=== PATIENT | male | born 1955 ===

== ENCOUNTER 2020-06-29 13:13 | Outpatient (REF) | payer MEDICARE, SELFPAY ==
--- NOTE | 2020-06-29 13:15 | XR_ITS ---
EXAMINATION: XR KNEE, BILATERAL XR KNEE, RIGHT XR KNEE, LEFT CLINICAL INFORMATION: Knee pain. COMPARISON: 06/05/2019 TECHNIQUE: AP bilateral knees one view. Left knee one view. Right knee one view. FINDINGS: RIGHT KNEE: Right total knee arthroplasty stable in position and alignment. No findings to suggest hardware failure or fracture. Small joint effusion. Vascular calcification. LEFT KNEE: Left total knee arthroplasty stable in position and alignment. No evidence of fracture or perihardware lucency to suggest hardware failure. Small effusion. XR/XR knee standing BI IMPRESSION: Stable appearance of bilateral total knee arthroplasties. Small bilateral knee effusions..
--- NOTE | 2020-06-29 13:15 | XR_ITS ---
EXAMINATION: XR KNEE, BILATERAL XR KNEE, RIGHT XR KNEE, LEFT CLINICAL INFORMATION: Knee pain. COMPARISON: 06/05/2019 TECHNIQUE: AP bilateral knees one view. Left knee one view. Right knee one view. FINDINGS: RIGHT KNEE: Right total knee arthroplasty stable in position and alignment. No findings to suggest hardware failure or fracture. Small joint effusion. Vascular calcification. LEFT KNEE: Left total knee arthroplasty stable in position and alignment. No evidence of fracture or perihardware lucency to suggest hardware failure. Small effusion. XR/XR knee RT 2V IMPRESSION: Stable appearance of bilateral total knee arthroplasties. Small bilateral knee effusions..
--- NOTE | 2020-06-29 13:15 | XR_ITS ---
EXAMINATION: XR KNEE, BILATERAL XR KNEE, RIGHT XR KNEE, LEFT CLINICAL INFORMATION: Knee pain. COMPARISON: 06/05/2019 TECHNIQUE: AP bilateral knees one view. Left knee one view. Right knee one view. FINDINGS: RIGHT KNEE: Right total knee arthroplasty stable in position and alignment. No findings to suggest hardware failure or fracture. Small joint effusion. Vascular calcification. LEFT KNEE: Left total knee arthroplasty stable in position and alignment. No evidence of fracture or perihardware lucency to suggest hardware failure. Small effusion. XR/XR knee LT 2V IMPRESSION: Stable appearance of bilateral total knee arthroplasties. Small bilateral knee effusions..
== END 2020-06-29 13:14 | disposition home or self-care (01) ==
LOC: HO.HOSX 13:13
PROVIDERS: PCP Internal Medicine; Referring Provider Internal Medicine; Visit Provider Orthopaedic Surgery
DX: M25.561 Pain in right knee (principal); M25.562 Pain in left knee; Z96.652 Presence of left artificial knee joint; Z96.651 Presence of right artificial knee joint
CPT/HCPCS: 73560; 73565; 99212

== ENCOUNTER 2020-08-22 08:46 | Outpatient (REF) | payer MEDICARE, SELFPAY ==
[2020-08-22 10:10] LABS: MANUAL DIFF FLAG NO
[2020-08-22 10:23] LABS: Basophils Percent Auto 0.3 % (0-2); Eosinophils Absolute Auto 0.3 X10*3/uL (0.0-0.4); Eosinophils Percent Auto 5.7 % (0-4); Hematocrit 41.1 % (42-52); Hemoglobin 12.8 g/dl (14.0-18.0); Imm Gran Abs Auto 0.03 X10*3/uL (0.00-0.03); Imm Gran Pct Auto 0.5 % (0.0-0.4); Lymphocytes Absolute Auto 1.5 X10*3/uL (1.2-4.9); Lymphocytes Percent Auto 26.2 % (20-40); Mean Corpuscular HGB Conc 31.1 g/dl (31.0-36.0); Mean Corpuscular Hemoglobin 25.4 pg (27.0-33.0); Mean Corpuscular Volume 81.7 fL (80-98); Mean Platelet Volume 11.9 fL (9.4-12.4); Monocytes Absolute Auto 0.7 X10*3/uL (0.1-1.2); Monocytes Percent Auto 11.7 % (2-11); Neutrophils Absolute Auto 3.2 X10*3/uL (2.0-8.3); Neutrophils Percent Auto 55.6 % (45-73); Platelet Count 175 X10*3/uL (160-400); Red Blood Count 5.03 X10*6/uL (4.60-5.80); Red Cell Distribution Width 13.6 % (11.0-16.0); White Blood Count 5.8 X10*3/uL (4.8-10.8)
[2020-08-22 10:34] LABS: Estimated Average Glucose 163 mg/dL; Hemoglobin A1c % 7.3 %
[2020-08-22 10:44] LABS: Alanine Aminotransferase 25 U/L (0-40); Albumin Level 4.3 g/dL (3.5-5.0); Alkaline Phosphatase 64 U/L (39-117); Anion Gap 15 (12-20); Aspartate Amino Transferase 27 U/L (5-37); Bilirubin Total 0.5 mg/dL (0.0-1.0); Blood Urea Nitrogen 12 mg/dL (9-16); Calcium 8.6 mg/dL (8.4-10.2); Carbon Dioxide 24 mmol/L (22-29); Chloride 108 mmol/L (96-108); Cholesterol 135 mg/dL; Estimated Glomerular Filt Rate > 60; Glucose Fasting 146 mg/dL (60-99); HDL Cholesterol 44 mg/dL; LDL Cholesterol Calculated 69 mg/dl; Potassium 4.7 mmol/l (3.3-5.1); Sodium 142 mmol/L (135-145); Total Protein 6.5 g/dL (6.5-8.0); Triglycerides 113 mg/dL
[2020-08-22 10:45] LABS: Glucose Urine UA NEG (NEG); Leukocyte Esterase Urine NEG (NEG); Nitrite Urine NEG (NEG); Specific Gravity - Urine 1.025 (1.005-1.025); Urine Blood NEG (NEG); Urine Ketones NEG (NEG); Urine Protein NEG (NEG-TRACE)
[2020-08-22 10:47] LABS: Appearance Urine CLEAR; Color Urine YELLOW
[2020-08-22 10:53] LABS: Creatinine Urine 129.56 mg/dL; Microalbum/Creatinine Ratio Ur 6.1 ug/mg cr
[2020-08-22 11:44] LABS: Reflex LDLD? No
== END 2020-08-22 08:47 | disposition home or self-care (01) ==
LOC: HO.LAB 08:46
PROVIDERS: PCP Internal Medicine; Visit Provider Internal Medicine
DX: E11.42 Type 2 diabetes mellitus with diabetic polyneuropathy (principal); E78.00 Pure hypercholesterolemia, unspecified
CPT/HCPCS: 36415; 80053; 80061; 81003; 82043; 83036; 84153; 85025

== ENCOUNTER 2020-12-28 12:24 | Outpatient (REF) | payer MEDICARE, SELFPAY ==
--- NOTE | ~2020-12-28 | XR_ITS ---
EXAMINATION: KNEE X-RAY CLINICAL INFORMATION: Pain COMPARISON: Previous x-rays June 2020 TECHNIQUE: Standing AP and lateral views of both knees FINDINGS: Right: There is a right knee replacement in satisfactory position. No fracture, dislocation or x-ray evidence of loosening is seen. There is a small joint effusion. There is evidence of atherosclerotic disease. Left: There is a left 3 component knee replacement in satisfactory position. No fracture, dislocation or x-ray evidence of loosening is seen. There is a small joint effusion. There is evidence of atherosclerotic disease. XR/XR knee RT 2V IMPRESSION: Satisfactory appearance of bilateral knee replacements.
--- NOTE | ~2020-12-28 | XR_ITS ---
EXAMINATION: KNEE X-RAY CLINICAL INFORMATION: Pain COMPARISON: Previous x-rays June 2020 TECHNIQUE: Standing AP and lateral views of both knees FINDINGS: Right: There is a right knee replacement in satisfactory position. No fracture, dislocation or x-ray evidence of loosening is seen. There is a small joint effusion. There is evidence of atherosclerotic disease. Left: There is a left 3 component knee replacement in satisfactory position. No fracture, dislocation or x-ray evidence of loosening is seen. There is a small joint effusion. There is evidence of atherosclerotic disease. XR/XR knee standing BI IMPRESSION: Satisfactory appearance of bilateral knee replacements.
--- NOTE | ~2020-12-28 | XR_ITS ---
EXAMINATION: KNEE X-RAY CLINICAL INFORMATION: Pain COMPARISON: Previous x-rays June 2020 TECHNIQUE: Standing AP and lateral views of both knees FINDINGS: Right: There is a right knee replacement in satisfactory position. No fracture, dislocation or x-ray evidence of loosening is seen. There is a small joint effusion. There is evidence of atherosclerotic disease. Left: There is a left 3 component knee replacement in satisfactory position. No fracture, dislocation or x-ray evidence of loosening is seen. There is a small joint effusion. There is evidence of atherosclerotic disease. XR/XR knee LT 2V IMPRESSION: Satisfactory appearance of bilateral knee replacements.
== END 2020-12-28 12:25 | disposition home or self-care (01) ==
LOC: HO.HOSX 12:24
PROVIDERS: PCP Internal Medicine; Visit Provider Orthopaedic Surgery
DX: Z47.1 Aftercare following joint replacement surgery (principal); Z96.653 Presence of artificial knee joint, bilateral
CPT/HCPCS: 73560; 73565; 99212

== ENCOUNTER 2021-03-06 10:40 | Outpatient (REF) | payer MEDICARE, SELFPAY ==
[2021-03-06 11:34] LABS: Alanine Aminotransferase 25 U/L (0-40); Albumin Level 4.3 g/dL (3.5-5.0); Alkaline Phosphatase 64 U/L (39-117); Aspartate Amino Transferase 28 U/L (5-37); Bilirubin Direct 0.2 mg/dL (0.0-0.5); Bilirubin Total 0.5 mg/dL (0.0-1.0); Cholesterol 129 mg/dL; Glucose Fasting 131 mg/dL (60-99); HDL Cholesterol 39 mg/dL; LDL Cholesterol Calculated 65 mg/dl; Total Protein 6.5 g/dL (6.5-8.0); Triglycerides 128 mg/dL
[2021-03-06 11:43] LABS: Estimated Average Glucose 160 mg/dL; Hemoglobin A1c % 7.2 %
[2021-03-06 11:48] LABS: Reflex LDLD? No
== END 2021-03-06 10:41 | disposition home or self-care (01) ==
LOC: HO.LNP 10:40
PROVIDERS: Visit Provider Internal Medicine
DX: E11.42 Type 2 diabetes mellitus with diabetic polyneuropathy (principal); E78.00 Pure hypercholesterolemia, unspecified
CPT/HCPCS: 80061; 80076; 82947; 83036

== ENCOUNTER 2021-05-24 08:00 | Outpatient (RCR) | payer MEDICARE, SELFPAY | END 2021-05-24 08:51 | disposition home or self-care (01) | LOC: HO.OT 08:00 | PROVIDERS: PCP Internal Medicine; Visit Provider Orthopaedic Surgery | DX: M65.332 Trigger finger, left middle finger (principal) | CPT/HCPCS: 29130; 97110; 97165; 97760 ==

== ENCOUNTER 2021-10-06 10:59 | Outpatient (REF) | payer MEDICARE, SELFPAY ==
[2021-10-06 11:03] LABS: MANUAL DIFF FLAG NO
[2021-10-06 11:32] LABS: Basophils Percent Auto 0.5 % (0-2); Eosinophils Absolute Auto 0.7 X10*3/uL (0.0-0.4); Eosinophils Percent Auto 8.2 % (0-4); Hematocrit 42.9 % (42.0-52.0); Hemoglobin 13.6 g/dl (14.0-18.0); Imm Gran Abs Auto 0.03 X10*3/uL (0.00-0.03); Imm Gran Pct Auto 0.4 % (0.0-0.4); Lymphocytes Absolute Auto 2.4 X10*3/uL (1.2-4.9); Lymphocytes Percent Auto 30.6 % (20-40); Mean Corpuscular HGB Conc 31.7 g/dl (31.0-36.0); Mean Corpuscular Hemoglobin 26.5 pg (27.0-33.0); Mean Corpuscular Volume 83.6 fL (80.0-98.0); Mean Platelet Volume 11.1 fL (9.4-12.4); Monocytes Absolute Auto 0.9 X10*3/uL (0.1-1.2); Monocytes Percent Auto 11.2 % (2-11); Neutrophils Absolute Auto 3.9 x10*3/uL (2.0-8.3); Neutrophils Percent Auto 49.1 % (45-73); Platelet Count 216 X10*3/uL (160-400); Red Blood Count 5.13 X10*6/uL (4.60-5.80); Red Cell Distribution Width 13.6 % (11.0-16.0); White Blood Count 7.9 X10*3/uL (4.8-10.8)
[2021-10-06 11:36] LABS: Appearance Urine CLEAR; Color Urine YELLOW; Glucose Urine UA NEG (NEG); Leukocyte Esterase Urine NEG (NEG); Nitrite Urine NEG (NEG); PH 5.5 (5.0-8.0); Specific Gravity - Urine >= 1.030 (1.005-1.025); Urine Blood NEG (NEG); Urine Ketones 5 MG/DL (NEG); Urine Protein NEG (NEG-TRACE)
[2021-10-06 11:43] LABS: Alanine Aminotransferase 27 U/L (0-40); Albumin Level 4.2 g/dL (3.5-5.0); Alkaline Phosphatase 67 U/L (39-117); Anion Gap 13 (12-20); Aspartate Amino Transferase 36 U/L (5-37); Bilirubin Total 0.5 mg/dL (0.0-1.0); Blood Urea Nitrogen 15 mg/dL (9-16); Calcium 8.9 mg/dL (8.4-10.2); Carbon Dioxide 24 mmol/L (22-29); Chloride 107 mmol/L (96-108); Cholesterol 145 mg/dL; Estimated Glomerular Filt Rate > 60; Glucose Fasting 151 mg/dL (60-99); HDL Cholesterol 41 mg/dL; LDL Cholesterol Calculated 57 mg/dl; Potassium 4.1 mmol/L (3.3-5.1); Sodium 140 mmol/L (135-145); Total Protein 6.6 g/dL (6.5-8.0); Triglycerides 235 mg/dL
[2021-10-06 11:57] LABS: Creatinine Urine 243.81 mg/dL; Microalbum/Creatinine Ratio Ur 5.3 ug/mg cr
[2021-10-06 12:07] LABS: PSA,Total (Free>4and<10) 0.58 ng/mL (0.00-4.00)
[2021-10-06 12:20] LABS: Estimated Average Glucose 160 mg/dL; Hemoglobin A1c % 7.2 %
== END 2021-10-06 11:00 | disposition home or self-care (01) ==
LOC: HO.LNP 10:59
PROVIDERS: Visit Provider Internal Medicine
DX: Z12.5 Encounter for screening for malignant neoplasm of prostate (principal); E11.42 Type 2 diabetes mellitus with diabetic polyneuropathy; E78.00 Pure hypercholesterolemia, unspecified
CPT/HCPCS: 80053; 80061; 81003; 82043; 83036; 84153; 85025

== ENCOUNTER 2022-05-04 08:03 | Outpatient (REF) | payer MEDICARE, SELFPAY ==
[2022-05-04 09:05] LABS: Estimated Average Glucose 151 mg/dL; Hemoglobin A1c % 6.9 %
[2022-05-04 09:12] LABS: Alanine Aminotransferase 18 U/L (0-40); Albumin Level 4.2 g/dL (3.5-5.0); Alkaline Phosphatase 68 U/L (39-117); Aspartate Amino Transferase 23 U/L (5-37); Bilirubin Direct 0.4 mg/dL (0.0-0.5); Cholesterol 130 mg/dL; Glucose Fasting 160 mg/dL (60-99); HDL Cholesterol 46 mg/dL; LDL Cholesterol Calculated 67 mg/dl; Total Protein 6.5 g/dL (6.5-8.0); Triglycerides 85 mg/dL
[2022-05-04 10:32] LABS: Reflex LDLD? No
== END 2022-05-04 08:04 | disposition home or self-care (01) ==
LOC: HO.LAB 08:03
PROVIDERS: PCP Internal Medicine; Visit Provider Internal Medicine
DX: E11.42 Type 2 diabetes mellitus with diabetic polyneuropathy (principal); E78.00 Pure hypercholesterolemia, unspecified
CPT/HCPCS: 36415; 80061; 80076; 82947; 83036

== ENCOUNTER 2022-11-02 11:05 | Outpatient (REF) | payer MEDICARE, SELFPAY ==
[2022-11-02 11:09] LABS: MANUAL DIFF FLAG NO
[2022-11-02 11:37] LABS: Basophils Percent Auto 0.5 % (0-2); Eosinophils Absolute Auto 0.4 X10*3/uL (0.0-0.4); Eosinophils Percent Auto 6.3 % (0-4); Hematocrit 40.9 % (42.0-52.0); Hemoglobin 13.2 g/dl (14.0-18.0); Imm Gran Abs Auto 0.02 X10*3/uL (0.00-0.03); Imm Gran Pct Auto 0.3 % (0.0-0.4); Lymphocytes Absolute Auto 1.8 X10*3/uL (1.2-4.9); Lymphocytes Percent Auto 27.9 % (20-40); Mean Corpuscular HGB Conc 32.3 g/dl (31.0-36.0); Mean Corpuscular Hemoglobin 26.9 pg (27.0-33.0); Mean Corpuscular Volume 83.5 fL (80.0-98.0); Mean Platelet Volume 12.3 fL (9.4-12.4); Monocytes Absolute Auto 0.7 X10*3/uL (0.1-1.2); Neutrophils Absolute Auto 3.5 x10*3/uL (2.0-8.3); Platelet Count 193 X10*3/uL (160-400); Red Cell Distribution Width 13.9 % (11.0-16.0); White Blood Count 6.5 X10*3/uL (4.8-10.8)
[2022-11-02 11:49] LABS: Appearance Urine Clear; Color Urine Yellow; Glucose Urine UA Negative (Negative); Leukocyte Esterase Urine Negative (Negative); Nitrite Urine Negative (Negative); Urine Blood Negative (Negative); Urine Ketones Negative (Negative); Urine Protein Negative (Neg-Trace)
[2022-11-02 11:53] LABS: Bacteria Urine None Seen (None Seen); Hyaline Casts Urine 0-2 /LPF (0-2); RBC Urine 0-2 /HPF (0-2); Squamous Epithelial Cell Urine 0-2 /HPF (0-2); WBC Urine 0-5 /HPF (0-5)
[2022-11-02 12:05] LABS: Estimated Average Glucose 166 mg/dL; Hemoglobin A1c % 7.4 %
[2022-11-02 12:22] LABS: Alanine Aminotransferase 17 U/L (0-40); Alkaline Phosphatase 67 U/L (39-117); Anion Gap 14 (12-20); Aspartate Amino Transferase 22 U/L (5-37); Blood Urea Nitrogen 12 mg/dL (9-16); Calcium 8.4 mg/dL (8.4-10.2); Carbon Dioxide 23 mmol/L (22-29); Chloride 108 mmol/L (96-108); Cholesterol 135 mg/dL; Estimated Glomerular Filt Rate > 60; Glucose Fasting 137 mg/dL (60-99); HDL Cholesterol 42 mg/dL; LDL Cholesterol Calculated 64 mg/dl; Sodium 141 mmol/L (135-145); Triglycerides 148 mg/dL
[2022-11-02 12:37] LABS: Creatinine Urine 107.44 mg/dL; Microalbumin Urine < 5.0 mg/L
== END 2022-11-02 11:06 | disposition home or self-care (01) ==
LOC: HO.LNP 11:05
PROVIDERS: Visit Provider Internal Medicine
DX: Z12.5 Encounter for screening for malignant neoplasm of prostate (principal); E11.42 Type 2 diabetes mellitus with diabetic polyneuropathy; E78.00 Pure hypercholesterolemia, unspecified
CPT/HCPCS: 80053; 80061; 81001; 82043; 83036; 84153; 85025

== ENCOUNTER 2023-05-09 13:37 | Outpatient (REF) | payer MEDICARE, SELFPAY ==
[2023-05-09 14:08] LABS: Estimated Average Glucose 163 mg/dL; Hemoglobin A1c % 7.3 % (<6.0)
[2023-05-09 14:20] LABS: Alanine Aminotransferase 19 U/L (0-40); Albumin Level 4.1 g/dL (3.5-5.0); Alkaline Phosphatase 62 U/L (39-117); Aspartate Amino Transferase 27 U/L (5-37); Bilirubin Direct 0.3 mg/dL (0.0-0.5); Glucose Fasting 128 mg/dL (60-99); Total Protein 6.5 g/dL (6.5-8.0)
[2023-05-09 14:29] LABS: Cholesterol 130 mg/dL (<200); HDL Cholesterol 45 mg/dL (>40); LDL Cholesterol Calculated 58 mg/dL (<100); Triglycerides 139 mg/dL (<150)
[2023-05-09 15:49] LABS: Reflex LDLD? No
== END 2023-05-09 13:38 | disposition home or self-care (01) ==
LOC: HO.LNP 13:37
PROVIDERS: Visit Provider Internal Medicine
DX: E11.42 Type 2 diabetes mellitus with diabetic polyneuropathy (principal); E78.00 Pure hypercholesterolemia, unspecified
CPT/HCPCS: 80061; 80076; 82947; 83036

== ENCOUNTER 2023-06-24 08:13 | Day surgery (SDC) | payer MEDICARE, SELFPAY ==
[2023-06-19 20:46] VITALS: BMI 27.6
--- NOTE | 2023-06-21 10:00 | P.CONAN_ITS ---
HPI - Anesthesia Eval Consult details Narrative: 67yo M for Colonoscopy [facility] Active Problems Active Problems: All Active Problems (Updated 06/19/23 @ 20:34 by Babs Maki RN) History of total right knee replacement (TKR) (Acute) History of total left knee replacement (TKR) (Acute) Past Medical History Medical History (Updated 06/19/23 @ 20:34 by Babs Maki RN) Renal stones Sigmoid diverticulitis Sciatica Neuropathy Plantar fasciitis Arthritis GERD (gastroesophageal reflux disease) Gout Diabetes Family History Family History Mother No problems noted. Father No problems noted. 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 Meds Allergies Allergy/AdvReac Type Severity Reaction Status Date / Time No Known Allergies Allergy Unverified 12/28/20 12:38 [No Known Allergies*] Home Medications Medication Instructions Recorded Confirmed Last Taken Type atorvastatin 10 mg tablet 20 mg PO DAILY 06/28/20 06/19/23 Unknown History celecoxib 200 mg capsule 200 mg PO DAILY 06/28/20 06/19/23 Unknown History gabapentin 100 mg capsule 300 mg PO TID 06/28/20 06/19/23 Unknown History indomethacin 50 mg capsule 50 mg PO BID 06/28/20 06/19/23 Unknown History minocycline 50 mg capsule 50 mg PO DAILY 06/28/20 06/19/23 Unknown History omeprazole 20 mg capsule,delayed 20 mg PO DAILY 06/28/20 06/19/23 Unknown History release sitagliptin phosphate 50 1 tab PO BID 06/28/20 06/19/23 Unknown History mg-metformin 500 mg tablet (Janumet) dicyclomine 10 mg capsule 10 mg PO DAILY 06/19/23 06/19/23 Unknown History sitagliptin phosphate 50 1 tab PO BID 06/19/23 06/19/23 Unknown History mg-metformin 1,000 mg tablet (Janumet) Exam Exam Date and Time: June 21, 2023 1000 Height,Weight and Vital Signs: Height 5 ft 9 in Weight 84.822 kg Assessment and Plan Assessment Anesthesia Assessment: Chart Reviewed
[2023-06-24 09:01] LABS: Glucose, Whole Blood 140 mg/dL (60-115)
[2023-06-24 09:09] VITALS: BP 166/92; PULSE 99; RESP 18; TEMP 36.4; O2SAT 98
[2023-06-24] MEDS: Lactated Ringers 1,000 ML 100 ML IVCONT (09:16)
--- NOTE | 2023-06-24 09:32 | P.CONAN_ITS ---
FORM[facility]LY [facility], [facility] Active Problems Active Problems: All Active Problems (Updated 06/19/23 @ 20:34 by Babs Maki RN) History of total right knee replacement (TKR) (Acute) History of total left knee replacement (TKR) (Acute) Past Medical History Medical History Renal stones Sigmoid diverticulitis Sciatica Neuropathy Plantar fasciitis Arthritis GERD (gastroesophageal reflux disease) Gout Diabetes Functional capacity: independent ambulation Family History Family History Mother No problems noted. Father No problems noted. Family history of problems with anesthesia: No Surgical History Surgical History History of foot surgery History of colonoscopy History of left hip replacement Previous back surgery History of total left knee replacement History of total right knee replacement History of Problems with Anesthesia: No Social History Social History Alcohol intake: never Patient Tobacco Use Status: Former Tobacco user Use of substances other than those prescribed or required for medical reasons: No Have you been hit, kicked, punched, or otherwise hurt by someone within the past year? 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 Meds Allergies Allergy/AdvReac Type Severity Reaction Status Date / Time No Known Allergies Allergy Unverified 12/28/20 12:38 [No Known Allergies*] Active Medications: Current Medications Lactated Ringer's (Lr) 1,000 mls @ 100 mls/hr IVCONT .Q10H ERA Last Admin: 06/24/23 09:16 Dose: 100 mls/hr Sodium Biphosphate/Sodium Phosphate (Sodium Phosphate,[place]-Dibasic 133 Ml Enema) 133 ml NC ONCE PRN PRN Reason: Poor Colonoscopy Prep Results Home Medications Medication Instructions Recorded Confirmed Last Taken Type atorvastatin 10 mg tablet 20 mg PO DAILY 06/28/20 06/19/23 Unknown History celecoxib 200 mg capsule 200 mg PO DAILY 06/28/20 06/19/23 Unknown History gabapentin 100 mg capsule 300 mg PO TID 06/28/20 06/19/23 Unknown History indomethacin 50 mg capsule 50 mg PO BID 06/28/20 06/19/23 Unknown History minocycline 50 mg capsule 50 mg PO DAILY 06/28/20 06/19/23 Unknown History omeprazole 20 mg capsule,delayed 20 mg PO DAILY 06/28/20 06/19/23 Unknown History release sitagliptin phosphate 50 1 tab PO BID 06/28/20 06/19/23 Unknown History mg-metformin 500 mg tablet () dicyclomine 10 mg capsule 10 mg PO DAILY 06/19/23 06/19/23 Unknown History sitagliptin phosphate 50 1 tab PO BID 06/19/23 06/19/23 Unknown History mg-metformin 1,000 mg tablet () Exam Exam Date and Time: June 24, 2023 0932 Height,Weight and Vital Signs: Height 5 ft 9 in Weight 84.822 kg Last Vital Signs Temp 97.6 F 06/24/23 09:09 Pulse 99 06/24/23 09:09 Resp 18 06/24/23 09:09 BP 166/92 H 06/24/23 09:09 Pulse Ox 98 06/24/23 09:09 O2 Del Method Room Air 06/24/23 09:09 Pertinent Lab Results Pertinent Lab Results: Laboratory Tests 06/24/23 08:56 POC Glucose 140 H Airway Mallampati Class: III TM Dist: >3cm Neck ROM: Full Heart: RRR Lungs: CTA Assessment and Plan Assessment Anesthesia Assessment: Anesthesia Plan Discussed Final Anesthetic Review Family History of Problems with Anesthesia: No History of Problems with Anesthesia: No NPO: Yes ASA Class: III Final Preanesthetic Review: Meds/Allgs Chart Reviewed, Consent Obtained/Reviewed and Anes Risks/Benef Reviewed Patient Risk: Low Procedure Risk: Low Anesthetic Plan Anesthetic Plan: MAC: Disposition: Standard PACU
--- NOTE | 2023-06-24 10:53 | P.BOP_ITS ---
Brief Operative Note Date of Service: 06/24/23 Pre-op diagnosis: Screening Post-op diagnosis: other (Polyps) Procedure: Colonoscopy to the cecum and TI with bx/removal of polyps Surgeon: Natan Drummond MD Anesthesia: MAC Was an Traffic Routing Engineer used for this Procedure?: No Estimated blood loss (mL): 2.0 Pathology: other (A. Cecal polyp B.Polyp at 40cm) Condition: stable Disposition: PACU
[2023-06-24 10:54] VITALS: BP 119/70; PULSE 89; RESP 16; TEMP 36.7; O2SAT 98
[2023-06-24 11:10] VITALS: BP 138/82; PULSE 83; RESP 16; TEMP 36.1; O2SAT 100
--- NOTE | 2023-06-24 13:20 | HO.POSTANES ---
Post Anesthesia Evaluation Post Anesthesia Evaluation Date of Service: 06/24/23 Vital Signs: Vital Signs Temp Pulse Resp BP Pulse Ox O2 Del Method 06/24/23 11:10 97.0 F 83 16 138/82 100 Room Air 06/24/23 10:54 98.1 F 89 16 119/70 98 Room Air 06/24/23 09:09 97.6 F 99 18 166/92 H 98 Room Air Anesthesia: Monitored Mental Status: Awake Pain Control: Satisfactory Nausea/Vomiting: None Hydration: Adequate Anesthesia-Related Issues: No Anes. Related Issues
--- NOTE | 2023-06-24 20:04 | OP_ITS ---
DATE OF SERVICE: 06/24/2023 SURGEON: Natan Drummond MD INDICATIONS: The patient presents for evaluation of colorectal cancer screening. Full consent has been obtained from him for this, including risks of bleeding and perforation. PREOPERATIVE DIAGNOSIS: Colorectal cancer screening. POSTOPERATIVE DIAGNOSIS: Colorectal cancer screening, small colon polyps, diverticulosis, and internal hemorrhoids. PROCEDURE PERFORMED: Colonoscopy to the cecum and terminal ileum with biopsy and removal of polyps. ESTIMATED BLOOD LOSS: COMPLICATIONS: ANESTHESIA: Medication used: Monitored anesthesia care. ASSISTANTS: SPECIMENS: DESCRIPTION OF PROCEDURE: The patient was placed in the left lateral decubitus position. The digital rectal exam revealed no abnormalities. The Olympus video pediatric colonoscope was entered into the rectum and advanced easily to the cecum. Once in the cecum, I did identify a normal-appearing cecal pouch other than one less than 5 mm polyp, which was biopsied and completely removed with cold biopsy forceps. The remainder of the cecum appeared normal. The terminal ileum was cannulated and appeared normal. The scope was withdrawn back in the colon. The scope was then slowly withdrawn assessing all mucosal surfaces carefully. Preparation was excellent. At 40 cm, was a flat, less than 5 mm polyp, which was biopsied and completely removed with a cold biopsy forceps. I did not visualize any other polyps, colitis, nor angiodysplasia. There was a mild amount of sigmoid diverticulosis. In the rectum, scope was retroflexed, visualizing internal hemorrhoids, but no other pathology. The rectal mucosa appeared normal. The scope was straightened and withdrawn from the patient. He tolerated the procedure well and was returned to the recovery area in stable condition. IMPRESSION: 1. Small colon polyps. 2. Diverticulosis. 3. Internal hemorrhoids. PLAN: The results of the pathology will be checked. I would recommend a repeat colonoscopy in 5 years for further screening. He was advised not to use any aspirin or NSAIDs for 1 week. Natan Drummond MD RMW/MODL / [id number]
== END 2023-06-24 11:31 | disposition home or self-care (01) ==
PROVIDERS: PCP Internal Medicine; Visit Provider Internal Medicine
PROC: 0DJD8ZZ Inspection of Lower Intestinal Tract, Via Natural or Artificial Opening Endoscopic (ICD-10-PCS; CPT 45378; principal; 2023-06-24 09:40)
DX: Z12.11 Encounter for screening for malignant neoplasm of colon (principal); Z86.010 Personal history of colon polyps; K63.5 Polyp of colon; K57.30 Diverticulosis of large intestine without perforation or abscess without bleeding; Z87.19 Personal history of other diseases of the digestive system; K64.8 Other hemorrhoids; K21.9 Gastro-esophageal reflux disease without esophagitis; E11.40 Type 2 diabetes mellitus with diabetic neuropathy, unspecified; N20.0 Calculus of kidney; M17.0 Bilateral primary osteoarthritis of knee; Z79.84 Long term (current) use of oral hypoglycemic drugs; Z79.82 Long term (current) use of aspirin; Z79.899 Other long term (current) drug therapy; Z96.653 Presence of artificial knee joint, bilateral; Z98.890 Other specified postprocedural states; Z87.891 Personal history of nicotine dependence
CPT/HCPCS: 45380; 82947; 88305

== ENCOUNTER 2023-07-30 15:36 | Outpatient (REF) | payer MEDICARE, SELFPAY ==
--- NOTE | ~2023-07-30 | XR_ITS ---
EXAMINATION: XR CHEST CLINICAL INFORMATION: Very limited bronchitis COMPARISON: Previous chest x-ray and chest CTA January 2007 TECHNIQUE: 2 views of the chest were obtained. FINDINGS: The cardiac and mediastinal contours are stable. The lungs are clear. No pleural effusion or pneumothorax. Mild degenerative changes of the spine. XR/XR chest 2V IMPRESSION: No evidence for acute disease in the chest.
== END 2023-07-30 15:37 | disposition home or self-care (01) ==
LOC: HO.XRAY 15:36
PROVIDERS: PCP Internal Medicine; Visit Provider Internal Medicine
DX: J41.1 Mucopurulent chronic bronchitis (principal)
CPT/HCPCS: 71046

== ENCOUNTER 2023-09-01 11:51 | Emergency (ER) | payer MEDICARE, SELFPAY ==
--- NOTE | ~2023-09-01 | CT_ITS ---
EXAMINATION: CT ANGIOGRAM OF THE CHEST WITH AND WITHOUT CONTRAST (CT PULMONARY ANGIOGRAM FOR PE) CLINICAL INFORMATION: Reason for Exam shortness of breath COMPARISON: None available. TECHNIQUE: Prior to contrast administration, noncontrast localization images were obtained. Subsequently, multidetector volumetric imaging was performed from the thoracic inlet to below the diaphragms following the administration of 80 mL Omnipaque 350 intravenous contrast. No contrast reaction reported Sagittal, coronal, and MIP oblique sagittal reformatted images were obtained on the CT workstation, uploaded to PACS, and reviewed. This CT examination was performed using dose optimization techniques as appropriate, variously including the following: *Automated exposure control *Adjustment of mA and/or kV according to patient size (this includes techniques or standardized protocols for targeted exams where dose is matched to indication/reason for exam; i.e. extremities or head) *Use of iterative reconstruction technique Total exam dose-length product 306 mGy-cm FINDINGS: QUALITY OF STUDY/CONTRAST BOLUS: Satisfactory. PULMONARY ARTERIES: No pulmonary emboli. THORACIC AORTA: There is no evidence of aneurysm or dissection. 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 LUNG: Both lungs are expanded with patchy groundglass attenuation seen in both upper lobes with groundglass nodule right upper lobe measuring 3 mm image 128/7, 3 mm nodule left upper lobe axial image 143/7. No acute consolidation seen. PLEURA: No pleural effusion or pneumothorax. MEDIASTINUM: The thyroid lobes are symmetric and normal. The central trachea and the bronchi are widely patent. Heart size and the great vessels are normal. No pericardial effusion seen. There are small shotty bilateral hilar lymph nodes largest right hilar lymph node measures 8mm left hilar lymph node measures 7 mm. No evidence of septal bowing or right heart strain. CORONARY ARTERY CALCIFICATION: Mild coronary artery calcifications are present. CHEST WALL/AXILLA: No axillary or internal mammary lymphadenopathy. OSSEOUS STRUCTURES: There is mild ventral spondylosis mid and lower dorsal spine. No aggressive lytic or sclerotic process seen. UPPER ABDOMEN: Visualized liver, spleen, pancreas and right adrenal gland appears unremarkable. The left adrenal 1.47 nodule measuring 39 Hounsfield units. No reflux of contrast into the hepatic veins to suggest elevated right heart pressures. CT/CT angio chest PE protocol IMPRESSION: No evidence of PE. Groundglass inflammatory process in both upper and lower lobes likely low-grade inflammatory or infectious process. No consolidation seen. There is a groundglass nodule in both upper lobes. Reactionary lymph nodes in bilateral hilum. VTE: negative
--- NOTE | ~2023-09-01 | XR_ITS ---
EXAMINATION: XR CHEST CLINICAL INFORMATION: Shortness of breath, chest pain COMPARISON: 07/30/2023 TECHNIQUE: 2 views of the chest were obtained. FINDINGS: Normal cardiomediastinal silhouette. No consolidation, pleural effusion or pneumothorax. Mild degenerative changes in the spine. XR/XR chest 2V IMPRESSION: No acute process.
--- NOTE | 2023-09-01 12:10 | ED_ITS ---
HPI - SOB/Dyspnea General Chief Complaint: Upper Respiratory Symptoms Stated Complaint: difficulty breathing Time Seen by Provider: 09/01/23 18:36 Source: patient, RN notes reviewed and old records reviewed Mode of arrival: ambulatory Limitations: no limitations History of Present Illness HPI Narrative: 67-year-old male presents for evaluation of chest pain with shortness of breath Patient reports a history of diabetes He states that since the beginning of June, about 2 months ago he started to notice some mild shortness of breath His symptoms are getting progressively worse over the last 2 months He reports some mild chest tightness. He reports his symptoms are worse with exertion, especially walking upstairs He reports that he gets winded even with ?showering. ? Patient had fever a few days ago which has since resolved but he continues to have shortness of breath Related Data Home Medications Medication Instructions Recorded Confirmed atorvastatin 10 mg tablet 20 mg PO DAILY 06/28/20 06/19/23 celecoxib 200 mg capsule 200 mg PO DAILY 06/28/20 06/19/23 gabapentin 100 mg capsule 300 mg PO TID 06/28/20 06/19/23 indomethacin 50 mg capsule 50 mg PO BID 06/28/20 06/19/23 minocycline 50 mg capsule 50 mg PO DAILY 06/28/20 06/19/23 omeprazole 20 mg capsule,delayed 20 mg PO DAILY 06/28/20 06/19/23 release sitagliptin phosphate 50 1 tab PO BID 06/28/20 06/19/23 mg-metformin 500 mg tablet (Janumet) dicyclomine 10 mg capsule 10 mg PO DAILY 06/19/23 06/19/23 sitagliptin phosphate 50 1 tab PO BID 06/19/23 06/19/23 mg-metformin 1,000 mg tablet (Janumet) Previous Rx's Medication Instructions Recorded amoxicillin 500 mg tablet 2,000 mg (4 x 500 mg) PO ONCE 1 12/30/20 day #4 tabs Allergies Allergy/AdvReac Type Severity Reaction Status Date / Time No Known Allergies Allergy Unverified 09/01/23 12:11 [No Known Allergies*] Review of Systems 2 Constitutional: Constitutional: Denies chills, Denies fatigue, Denies fever(s), Denies headache(s) and Denies malaise Eyes: Eyes: Denies blurry vision ENT: Denies headache(s) Cardiovascular: Cardiovascular: Reports chest pain, Reports chest pain with activity and Reports dyspnea Respiratory: Respiratory: Reports cough and Reports dyspnea Gastrointestinal: Gastrointestinal: Denies abdominal pain, Denies nausea and Denies vomiting Genitourinary: Genitourinary: Denies difficulty urinating and Denies dysuria Musculoskeletal: Musculoskeletal: Denies back pain Integumentary/Breasts: Skin/Breast: Denies rash Neurologic: Denies headache(s) and Denies focal weakness Endocrine: Endocrine: Denies fatigue PMFSH Past Medical History Onset Date is defined in the Problem List Problems that require an onset date and time if occurred within 24 hrs of arrival to the ED Aortic Dissection and Rupture; Neurologic impairment; Cardiopulmonary Arrest; Endotracheal Intubation; Insertion or Replacement of Mechanical Circulatory Assist Device Medical History Renal stones Sigmoid diverticulitis Sciatica Neuropathy Plantar fasciitis Arthritis GERD (gastroesophageal reflux disease) Gout Diabetes Surgical History History of foot surgery History of colonoscopy History of left hip replacement Previous back surgery History of total left knee replacement History of total right knee replacement Family History Family History Mother No problems noted. Father No problems noted. 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 Physical Exam 2 Vital Signs: Vital Signs: Last Vital Signs Temp 98.5 F 09/01/23 19:05 Pulse 103 H 09/01/23 19:05 Resp 22 H 09/01/23 19:05 BP 155/97 H 09/01/23 19:05 Pulse Ox 97 09/01/23 19:09 O2 Del Method Room Air 09/01/23 19:09 BMI result Body Mass Index 25.8 Const: General: healthy appearing, comfortable, no acute distress, alert and awake Nutritional Appearance: well nourished Orientation/consciousness: p atient oriented x3 HEENT: Head: Yes normocephalic and Yes atraumatic Eyes: Eyelids: Yes eyelids normal Conjunctivae: conjunctivae normal S clerae: sclerae normal Corneas: corneas normal Pupils: Equal, round and reactive pupils present EOM: EOMs intact bilaterally Neck: Neck: Yes full ROM Resp: Effort & Inspection: normal respiratory effort, able to speak in complete sentences, no audible wheezes and not labored Auscultation: clear to auscultation bilaterally Cardio: Rate: tachycardic Rhythm: regular rhythm GI: Inspection: No distended Palpation (GI): Soft to palpation, not firm, nontender, no guarding and not rigid Skin: General skin exam: elasticity normal Neuro: General: patient oriented x3 Cranial nerves: Yes Equal, round and reactive pupils present and Yes Bilaterally intact EOM present Cognition (Neuro): normal cognition Course Course Course Narrative: This is an RME: Additional HPI, ROS, PE not included below will be deferred to primary provider. This is a [id number], with a hx of diabetes and gout, presenting to the emergency department with a complaint of shortness of breath x 2 months. Patient reports that over the last 2 months he has had shortness of breath. He states that the shortness of breath worsens upon exertion, also notes wheezing at bedtime. He states that he was given azithromycin as well as prednisone, which has provided him without relief. Lungs with coarse crackles throughout all lung [place]. Patient also endorsing chest pressure. Plan: EKG, chest x-ray, labs Reevaluation(s) Reevaluation #1: CTA negative for PE. It does show findings consistent with COVID-19 with diffuse ground-glass opacities. I discussed these findings with the patient and he will follow-up with PCP. Given that he has had shortness of breath with exertion for the last 2 months, I will refer the patient to Cardiology for further testing after his COVID clears. Time: 21:12 Medications Administered Discontinued Medications Generic Name Dose Route Start Last Admin Trade Name Freq PRN Reason Stop Dose Admin Iohexol 100 ml 09/01/23 19:49 09/01/23 19:50 Iohexol 350 Mg/Ml 100 Ml Infus..Btl IV 09/01/23 19:50 65 ml ONCE ONE Administration Medical Decision Making Medical Decision Making [facility] Narrative: 67-year-old male presents for evaluation of shortness of breath worse with exertion. He also has associated chest pain. His EKG is nonischemic. He had initial troponin that was negative and a repeat troponin that was also negative. It does not sound that he has had an acute coronary syndrome. He did test positive for COVID-19 which explains his worsening symptoms or last few days and fever a few days ago. For this likely does not explain why he was short of breath starting in June. Given his tachycardia, shortness of breath or chest pain will get a CT angiography chest to rule out PE. If negative, the patient can likely follow-up with job placement specialist outpatient for stress testing echocardiogram. His vital signs are stable currently Differential Diagnosis Differential Diagnoses: The differential diagnosis associated with the presentation includes COVID-19 Influenza Bronchitis PE Pneumonia Heart failure ACS less likely Admission/Observation Consideration of admission/observation: Escalation of care including admission/observation considered 67-year-old male presents for evaluation chest pain, he ruled out for ACS Lab Data [facility] Lab Attestation statement: I reviewed the patient's lab results. No leukocytosis or anemia, no significant electrolyte abnormalities. Troponin negative x2 09/01/23 12:32 09/01/23 12:32 Labs: Lab Results 09/01/23 09/01/23 Range/Units 12:32 18:21 WBC 6.8 (4.8-10.8) X10*3/uL RBC 5.55 (4.60-5.80) X10*6/uL Hgb 14.9 (14.0-18.0) g/dl Hct 44.7 (42.0-52.0) % MCV 80.5 (80.0-98.0) fL MCH 26.8 L (27.0-33.0) pg MCHC 33.3 (31.0-36.0) g/dl RDW 13.7 (11.0-16.0) % Plt Count 253 D (160-400) X10*3/uL MPV 10.2 (9.4-12.4) fL Immature Gran % (Auto) 0.4 (0.0-0.4) % Neut % (Auto) 63.3 (45-73) % Lymph % (Auto) 18.6 L (20-40) % [place] % (Auto) 9.1 (2-11) % Eos % (Auto) 8.2 H (0-4) % Baso % (Auto) 0.4 (0-2) % Lymph # (Auto) 1.3 (1.2-4.9) X10*3/uL [place] # (Auto) 0.6 (0.1-1.2) X10*3/uL Eos # (Auto) 0.6 H (0.0-0.4) X10*3/uL Baso # (Auto) 0.0 (0.0-0.2) X10*3/uL Abs Immat Gran (auto) 0.03 (0.00-0.03) X10*3/uL Absolute Neuts (auto) 4.3 (2.0-8.3) x10*3/uL Absolute Nucleated RBC 0.000 (0.0-0.012) X10*3/uL Nucleated RBC % (auto) 0.0 (0.0-0.2) /100WBC Sodium 140 (135-145) mmol/L Potassium 4.3 (3.3-5.1) mmol/L Chloride 103 (96-108) mmol/L Carbon Dioxide 23 (22-29) mmol/L Anion Gap 18 (12-20) BUN 12 (9-16) mg/dL Creatinine 1.25 (0.5-1.4) mg/dL Estim Creat Clear Calc 53.9 Estimated GFR 57 Random Glucose 149 H (60-115) mg/dL Calcium 9.7 D (8.4-10.2) mg/dL Total Bilirubin 0.7 (0.0-1.0) mg/dL Direct Bilirubin 0.3 (0.0-0.5) mg/dL AST 30 (5-37) U/L ALT 17 (0-40) U/L Alkaline Phosphatase 84 (39-117) U/L Troponin I High Sens < 2.7 3.3 (<3.5-35.0) ng/L B-Natriuretic Peptide 10 (<100) pg/mL Total Protein 7.4 (6.5-8.0) g/dL Albumin 4.3 (3.5-5.0) g/dL COVID-19 (EMELI) Positive A (Negative) COVID-19 Clin Com See Note Influenza Type A (EMILI) Negative (Negative) Influenza Type B (EMILI) Negative (Negative) Influenza A & B Note See Note Independent Interpretation I performed an independent interpretation of an: EKG (Sinus tachycardia rate of [address] segment elevations or depressions.), Plain X-Ray (No focal infiltrates or pleural effusions) and CT Scan (Agree with Radiology interpretation) Radiology Impression Discussion of test interpretation with radiology: I have reviewed the radiologist's reading. (No acute process of the chest x-ray) Radiologist Impression: No CTA evidence of PE Discharge Plan Discharge Clinical Impression: COVID-19, Dyspnea on exertion Patient Disposition: Home, Self-Care Instructions: COVID-19 (Coronavirus Disease 2019) (ED) Additional Instructions: Your workup in the ER today was reassuring. You did test positive for COVID-[address] of your chest shows findings consistent with inflammation related to COVID-19 There were no other concerning findings. Given that you been having shortness of breath with exertion for a few months now, I recommend that once the COVID improves, you follow-up with cardiology for either a stress test and/or echocardiogram Prescriptions: No Action amoxicillin 500 mg tablet 2,000 mg PO ONCE 1 Days Qty: 4 3RF Rx Instructions: take 4 capsules 1 hr prior to dental procedure dicyclomine 10 mg capsule 10 mg PO DAILY Janumet 50-1,000 mg tablet 1 tab PO BID atorvastatin 10 mg tablet 20 mg PO DAILY minocycline 50 mg capsule 50 mg PO DAILY celecoxib 200 mg capsule 200 mg PO DAILY indomethacin 50 mg capsule 50 mg PO BID Rx Instructions: administer with food or milk Janumet 50-500 mg tablet 1 tab PO BID gabapentin 100 mg capsule 300 mg PO TID omeprazole 20 mg capsule,delayed release(DR/EC) 20 mg PO DAILY Referrals: Roly Solomon MD [Physician] - (Dyspnea on exertion)
[2023-09-01 12:12] VITALS: BP 182/104; PULSE 114; RESP 20; TEMP 37.2; O2SAT 96; BMI 25.8
--- NOTE | 2023-09-01 12:20 | ECG_ITS ---
Test Reason : CP Blood Pressure : / mmHG Vent. Rate : 107 BPM Atrial Rate : 107 BPM P-R Int : 114 ms QRS Dur : 086 ms QT Int : 338 ms P-R-T Axes : 046 014 045 degrees QTc Int : 451 ms Sinus tachycardia Nonspecific ST abnormality Abnormal ECG When compared with ECG of 27-APR-2019 14:15, ST-T wave changes have - slightly more prominent. Referred By: Kathryn Ball Electronically Signed By:TACHO CASAREZ
[2023-09-01 12:38] LABS: MANUAL DIFF FLAG NO
[2023-09-01 12:39] LABS: Basophils Percent Auto 0.4 % (0-2); Eosinophils Absolute Auto 0.6 X10*3/uL (0.0-0.4); Eosinophils Percent Auto 8.2 % (0-4); Hematocrit 44.7 % (42.0-52.0); Hemoglobin 14.9 g/dl (14.0-18.0); Imm Gran Abs Auto 0.03 X10*3/uL (0.00-0.03); Imm Gran Pct Auto 0.4 % (0.0-0.4); Lymphocytes Absolute Auto 1.3 X10*3/uL (1.2-4.9); Lymphocytes Percent Auto 18.6 % (20-40); Mean Corpuscular HGB Conc 33.3 g/dl (31.0-36.0); Mean Corpuscular Hemoglobin 26.8 pg (27.0-33.0); Mean Corpuscular Volume 80.5 fL (80.0-98.0); Mean Platelet Volume 10.2 fL (9.4-12.4); Monocytes Absolute Auto 0.6 X10*3/uL (0.1-1.2); Monocytes Percent Auto 9.1 % (2-11); Neutrophils Absolute Auto 4.3 x10*3/uL (2.0-8.3); Neutrophils Percent Auto 63.3 % (45-73); Platelet Count 253 X10*3/uL (160-400); Red Blood Count 5.55 X10*6/uL (4.60-5.80); Red Cell Distribution Width 13.7 % (11.0-16.0); White Blood Count 6.8 X10*3/uL (4.8-10.8)
[2023-09-01 12:53] LABS: COVID-19 Test Positive (Negative); IDNOW Serial# 55D5AD1C
[2023-09-01 12:57] LABS: Alanine Aminotransferase 17 U/L (0-40); Albumin Level 4.3 g/dL (3.5-5.0); Alkaline Phosphatase 84 U/L (39-117); Anion Gap 18 (12-20); Aspartate Amino Transferase 30 U/L (5-37); Bilirubin Direct 0.3 mg/dL (0.0-0.5); Bilirubin Total 0.7 mg/dL (0.0-1.0); Blood Urea Nitrogen 12 mg/dL (9-16); Calcium 9.7 mg/dL (8.4-10.2); Carbon Dioxide 23 mmol/L (22-29); Chloride 103 mmol/L (96-108); Creatinine Clr Calc Pharmacy 53.9; Estimated Glomerular Filt Rate 57; Glucose Random 149 mg/dL (60-115); Potassium 4.3 mmol/L (3.3-5.1); Sodium 140 mmol/L (135-145); Total Protein 7.4 g/dL (6.5-8.0)
[2023-09-01 13:00] LABS: B Type Natriuretic Peptide 10 pg/mL (<100)
[2023-09-01 13:05] LABS: IDNOW Serial# 08D9AD1C; Influenza A Negative (Negative); Influenza B2 Negative (Negative)
[2023-09-01 13:06] LABS: Troponin-I High Sensitivity < 2.7 ng/L (<3.5-35.0)
[2023-09-01 18:47] LABS: Troponin-I High Sensitivity 3.3 ng/L (<3.5-35.0)
[2023-09-01 19:05] VITALS: BP 155/97; PULSE 103; RESP 22; TEMP 36.9; O2SAT 95
[2023-09-01 19:09] VITALS: O2SAT 97
[2023-09-01] MEDS: iohexoL 350 MG/ML 100 ML INFUS..BTL IV (19:50)
[2023-09-01 21:23] VITALS: BP 158/94; PULSE 109; RESP 18; TEMP 36.7; O2SAT 96
== END 2023-09-01 21:29 | disposition home or self-care (01) ==
PROVIDERS: Physician Assistant Medical; Emergency Provider Internal Medicine; PCP Internal Medicine
DX: U07.1 COVID-19 (principal); R06.02 Shortness of breath; R00.0 Tachycardia, unspecified; R07.89 Other chest pain; Z87.891 Personal history of nicotine dependence
CPT/HCPCS: 36415; 71046; 71275; 80048; 80076; 83880; 84484; 85025; 87502; 87635; 93005; 99284; 99285; Q9967

== ENCOUNTER → 2023-09-01 12:20 | Outpatient (BNV) | payer MEDICARE, SELFPAY | PROVIDERS: Emergency Provider Internal Medicine; PCP Internal Medicine; Visit Provider Internal Medicine | DX: R07.9 Chest pain, unspecified (principal) | CPT/HCPCS: 93010 ==

== ENCOUNTER 2023-09-10 08:01 | Outpatient (AMB) | payer MEDICARE, SELFPAY ==
--- NOTE | 2023-09-10 08:25 | A.OFFVIS_ITS ---
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 follow up [employer] Worker Required: No Accompanied by: Self / Same As Patient Allergies No Known Allergies [No Known Allergies*] Allergy (Verified 09/10/23 08:26) Medication List - Last Reconciled 09/10/23 by Canelo Fletcher MD amoxicillin 2,000 mg (4 x 500 mg) PO ONCE 1 day atorvastatin 20 mg PO DAILY celecoxib 200 mg PO DAILY dicyclomine 10 mg PO DAILY gabapentin 300 mg PO TID indomethacin 50 mg PO BID minocycline 50 mg PO DAILY omeprazole 20 mg PO DAILY sitagliptin phos-metformin 50-1,000 mg (Janumet) 1 tab PO BID sitagliptin phos-metformin 50-500 mg (Augumet) 1 tab PO BID HPI HPI Comments History of Present Illness Details Adrian is here for consultation regarding shortness of breath. He denies any history of coronary artery disease or myocardial infarction or cardiomyopathy or in fact any other cardiac issues. He states that he has had some mild chronic shortness of breath but over the last 2 months or so it has been much worse. He has not been able to do any physical activities at all as he gets very short of breath. He is also coughing a lot with expectoration. No clear anginal-type symptoms. He has also been diagnosed with COVID few days back but he states that his symptoms started much earlier than that. No anginal-type symptoms. No significant leg swelling. [facility] Medical History Renal stones Sigmoid diverticulitis Sciatica Neuropathy Plantar fasciitis Arthritis GERD (gastroesophageal reflux disease) Gout Diabetes Surgical History History of foot surgery History of colonoscopy History of left hip replacement Previous back surgery History of total left knee replacement History of total right knee replacement Family History Mother No problems noted. Father No problems noted. 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 Review of Systems Const Denies chills, Denies daytime sleepiness, Denies fatigue, Denies fever(s), Denies frequent falls, Denies night sweats, Denies snoring, Denies weakness, Denies weight gain and Denies weight loss Eyes Denies loss of vision ENT Denies dizziness and Denies hearing loss Card Denies chest pain with activity, Denies syncope, Denies rapid heart rate, Denies edema, Denies claudication, Denies leg edema, Denies lightheadedness, Denies palpitations, Denies dyspnea on exertion and Denies orthopnea Resp Denies cough, Denies excessive phlegm production, Denies dyspnea on exertion, Denies snoring and Denies wheezing GI Denies abdominal pain, Denies hematochezia, Denies change in bowel habits, Denies change in stool character, Denies heartburn, Denies nausea and Denies vomiting Denies hematuria, Denies dysuria and Denies urinary frequency Musc Denies arthralgias, Denies muscle weakness, Denies numbness and Denies tingling Skin/Breast Denies nail changes and Denies rash Neuro Denies Abnormal speech present, Denies dizziness, Denies syncope, Denies frequent falls, Denies loss of vision, Denies memory loss, Denies numbness, Denies tingling and Denies weakness Psych Denies depression and Denies memory loss Endo Denies fatigue and Denies palpitations Aller/Immun Denies wheezing Physical Exam Vital Signs: Last Vital Signs Pulse 116 H 09/10/23 08:27 BP 140/76 H 09/10/23 08:27 BMI result Body Mass Index 25.8 Const General: comfortable and no acute distress Orientation/consciousness: patient oriented x3 HEENT Other: Unremarkable Head: Yes normal to inspection Neck Neck: Yes normal visual inspection Chest Chest palpation & inspection: normal inspection of the chest Resp Auscultation: crackles diffuse Cardio Palpation: normal PMI Heart sounds: S1 normal heart sound present, S2 normal heart sound present, no gallops, no murmurs and no rubs GI Palpation (GI): Soft to palpation Back/Spine/Pelvis Other: unremarkable Skin General skin exam: no rashes or lesions noted Neuro General: patient oriented x3 Speech: No Abnormal speech present Extrem General: Yes normal to inspection Psych Mental Status: mental status grossly normal Assessment & Plan Assessment & Plan (1) SOB (shortness of breath): Code(s): R06.02 - Shortness of breath Plan Recent EKG shows sinus tachycardia 107/Min; nonspecific ST-T changes; normal ND and corrected QT. In the recent CT chest, ground-glass inflammatory process in both upper and lower lobes thought to be from low-grade inflammatory or infectious process. Troponin levels are well within normal limits. Cardiac BNP is 10. COVID positive from 09/01/2023. Overall, based on history as well as exam findings, suspect symptoms are much more respiratory in nature. Less likely to be cardiac based on cardiac BNP in the normal range. We will get echocardiogram to assess LV function as well as any structural findings. Presuming this is going to be okay, then will need pulmonary evaluation urgently. Discussed with Dr. Bunch about findings and plan. He will address it further. Orders: Orders CA echo transthoracic complete Today R06.02 - Shortness of breath Coding Level of Care Code New Pt Level 4 (23253) Diagnoses SOB (shortness of breath) R06.02
[2023-09-10 08:27] VITALS: BP 140/76; PULSE 116; BMI 25.8
== END 2023-09-10 08:50 | disposition home or self-care (01) ==
PROVIDERS: PCP Internal Medicine; Visit Provider Internal Medicine
DX: R06.02 Shortness of breath (principal)
CPT/HCPCS: 99214

== ENCOUNTER → 2023-09-10 08:01 | Outpatient (BNVA) | payer MEDICARE, SELFPAY | PROVIDERS: PCP Internal Medicine; Visit Provider Internal Medicine | DX: R06.02 Shortness of breath (principal) | CPT/HCPCS: 99212 ==

== ENCOUNTER → 2023-09-11 08:50 | Outpatient (REF) | payer MEDICARE, SELFPAY ==
--- NOTE | 2023-09-11 08:54 | CA_ITS ---
Transthoracic Echocardiogram Patient (Last, First, Middle): Adrian Atkins D Gender: Male Date of : 1955 Age: 67 Procedure Date: 09/11/2023 Procedure Type: Transthoracic Echocardiogram Location: OP Height: 172.72 cm Weight: 76.66 kg BSA: 1.90 m2 Heart Rate: bpm BP: 130 / 80 mmHg Head Irrigator: RADHA Referring MD: Canelo Fletcher MD Insole Coverer: Roly Solomon MD Symptoms: R06.02 - Shortness of breath Study Quality: Technically Difficult ECG Rhythm: Sinus Conclusions: - 1. Normal LV ejection fraction with grade 1 diastolic dysfunction with suggestion of underlying regional wall motion abnormality suggestive of coronary artery disease 2. Normal cardiac valvular Doppler 3. Mildly dilated ascending aorta at 3.9 cm 4. No gross pericardial effusion Findings Left Ventricle Normal left ventricular size, thickness, and systolic function. The visually estimated ejection fraction is between 55-60%. Spectral Doppler is indicative of an impaired relaxation filling pattern. E/E prime ratio is <8, consistent with normal filling pressures. Evidence suggests grade I (mild) diastolic dysfunction. Wall Motion Rest Echo Findings The basal inferior, basal inferoseptal, and basal inferolateral segments are hypokinetic. All other scored wall segments showed normal motion. Right Ventricle Normal right ventricular cavity size and systolic function. Atria Both atria are normal in size. Interatrial shunt cannot be excluded. Aortic Valve The aortic valve was not well visualized. There is no aortic valve stenosis. There is no aortic valve regurgitation. Mitral Valve Likely normal mitral valve structure and function. There is no mitral valve regurgitation. There is no mitral valve stenosis. Pulmonic Valve The pulmonic valve was not well visualized. Tricuspid Valve Likely normal tricuspid valve structure and function. Tricuspid regurgitation envelope is inadequate for calculation of right ventricular systolic pressure. Normal right atrial pressure. Great Vessels The pulmonary artery was not well visualized. There is mild dilatation of the ascending aorta measuring 3.90 cm. Venous The inferior vena cava is normal in size and collapses greater than 50% with inspiration. Pericardium/Pleural There is no evidence of pericardial effusion. Prior Study Comparison No prior study available for comparison. Measurements 2D Linear Measurements IVSd: 1.07 0.6-0.9/0.6-1.0 cm LVIDd: 4.64 3.9-5.3/4.2-5.9 cm LVIDd Index: 2.44 2.4-3.2/2.2-3.1 cm/m2 LVIDs: 3.35 2.0-3.6 cm LVPWd: 1.02 0.7-1.1 cm LA Diam: 3.00 2.7-3.8/3.0-4.0 cm LAIDs Index: 1.58 1.5-2.3 cm/m2 LV Mass: 213.12 67-162/88-224 g LV Mass Index: 112.17 43-95/49-115 g/m2 LVOT Diam: 2.20 3.0+(-)1.3 cm 2D Systolic Function EF 4C: 58.20 >55% EF 2C: 56.30 >55% EF BiP: 55.90 >55% Mitral Valve MV Pk E: 0.46 MV PK A: 0.73 MV Decel Time: 184.00 E/A: 0.60 E'Lateral: 9.46 E'Medial: 7.07 E/E' Med: 6.50 E/E' Lat: 4.90 PHT: 54.00 MVA PHT: 4.07 Decel [place]: 2.50 Aortic Valve AoV Pk [place]: 1.36 AoV Mn [place]: 0.81 AoV VTI: 0.21 AoV Pk Grad: 7.00 Aov Mn Grad: 3.00 SHRAVAN Cont.VTI: 2.80 LVOT LVOT Pk [place]: 0.89 LVOT Mn [place]: 0.60 LVOT VTI: 0.15 LVOT Pk Grad: 3.00 LVOT Mn Grad: 2.00 LVOT Diam: 2.20 LVOT Area: 3.80 Diastolic Function MV Pk E: 0.46 MV Pk A: 0.73 E/A: 0.60 E'Medial: 7.07 E/E' Med: 6.50 E' Laterial: 9.46 E/E' Lat: 4.90 Right Ventricle TAPSE (mm): 15.70 TVS' [place]: 12.60 Tricuspid Valve RA Press: 3.00 Great Vessels Aorta Sinus of Valsalva: 3.92 2.0-3.[address] [place]: 3.09 1.7-3.4 cm Ao Asc: 3.90 2.1-3.4 cm Updated in Other Vendor System with Status of Final Roly Solomon MD electronically signed on 09/11/2023 12:08:01 PM with status of Final
== END ==
LOC: HO.CARD 08:50
PROVIDERS: PCP Internal Medicine; Visit Provider Internal Medicine
DX: R06.02 Shortness of breath (principal)
CPT/HCPCS: 93306

== ENCOUNTER → 2023-09-11 08:54 | Outpatient (BNV) | payer MEDICARE, SELFPAY | PROVIDERS: PCP Internal Medicine; Visit Provider Internal Medicine Cardiovascular Disease | DX: I51.9 Heart disease, unspecified (principal) | CPT/HCPCS: 93306 ==

== ENCOUNTER 2023-09-26 07:18 | Outpatient (REF) | payer MEDICARE, SELFPAY ==
--- NOTE | ~2023-09-26 | CT_ITS ---
EXAMINATION: CT CHEST WITHOUT CONTRAST CLINICAL INFORMATION: Follow-up lung nodule COMPARISON: Previous chest CTA September 2023 TECHNIQUE: Multidetector volumetric CT imaging of the chest was done. Axial MIP volume rendering provided. Sagittal and coronal reformatted images were obtained. This CT examination was performed using dose optimization techniques as appropriate, variously including the following: *Automated exposure control *Adjustment of mA and/or kV according to patient size (this includes techniques or standardized protocols for targeted exams where dose is matched to indication/reason for exam; i.e. 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 This probably represents airways disease. This appears slightly improved from August 2023 exam. Separate nodule not appreciated. No endobronchial or endotracheal lesion. MEDIASTINUM: Replaced right subclavian artery. Normal heart size. Severe coronary artery calcification. No pericardial effusion. No enlarged hilar or mediastinal lymph nodes. CORONARY ARTERY CALCIFICATION: Severe PLEURA: There is no pleural effusion. No pleural mass or thickening. AXILLA: No lymphadenopathy. UPPER ABDOMEN: Small stone in the upper pole of the left kidney. Diverticulosis of the colon. OSSEOUS STRUCTURES: Degenerative changes of the spine. CT/CT chest wo IV con IMPRESSION: Mild airways disease, greatest in the bilateral upper lobes. This appears slightly improved from August 2023 exam. No separate nodule seen. Fleischner guidelines were followed.
== END 2023-09-26 07:19 | disposition home or self-care (01) ==
LOC: HO.CT 07:18
PROVIDERS: PCP Internal Medicine; Visit Provider Internal Medicine
DX: R91.8 Other nonspecific abnormal finding of lung field (principal)
CPT/HCPCS: 71250

== ENCOUNTER 2023-10-11 09:48 | Outpatient (AMB) | payer MEDICARE, SELFPAY ==
[2023-10-11 09:50] VITALS: BP 144/84; PULSE 110; O2SAT 98; BMI 28.1
--- NOTE | 2023-10-11 09:50 | A.OFFVIS_ITS ---
Intake Vital Signs 10/11/23 09:50 Height 5 ft 8 in Weight 185 lb BMI 28.1 BP 144/84 H Blood Pressure Location Rt brachial Position Sitting Pulse 110 H Pulse Source Doppler Pulse Oximetry (%) 98 Oxygen Delivery Method Room Air Intake Visit Reasons: Shortness of Breath Allergies No Known Allergies [No Known Allergies*] Allergy (Verified 10/11/23 09:56) HPI Shortness of Breath HPI Details 67-year-old gentleman, former 50+ year s moker, quit 2003 referred for evaluation of productive cough ongoing since June of 2023. Patient also had COVID in July of 2023. He has been treated with a course of azithromycin, prednisone, and Levaquin with mild improvement his symptoms. He also complains of environmental allergies worse in winter. Patient denies prior personal or family history of lung disease. He is also undergoing cardiac evaluation at this time. He does complain of dyspnea on exertion when going uphill. He has been using albuterol MDI with suboptimal control of his symptoms. [facility] Medical History Renal stones Sigmoid diverticulitis Sciatica Neuropathy Plantar fasciitis Arthritis GERD (gastroesophageal reflux disease) Gout Diabetes Surgical History History of foot surgery History of colonoscopy History of left hip replacement Previous back surgery History of total left knee replacement History of total right knee replacement Family History Mother No problems noted. Father No problems noted. 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 Review of Systems Const Denies daytime sleepiness, Denies excessive sweating, Denies fatigue, Denies fever(s), Denies lethargy, Denies malaise, Denies night sweats, Denies snoring and Denies weight loss Eyes Denies blurry vision and Denies itchy eyes ENT Denies nasal congestion, Denies post nasal drip, Denies sinus pain, Denies sinus pressure and Denies other ( Thrush) Card Denies chest pain, Denies pedal edema, Denies dyspnea, Reports dyspnea on exertion, Denies orthopnea and Denies paroxysmal nocturnal dyspnea Resp Reports cough, Denies hemoptysis, Reports excessive phlegm production, Denies dyspnea, Reports dyspnea on exertion, Denies snoring and Denies wheezing GI Denies abdominal pain and Denies heartburn Musc Denies myalgias, Denies arthralgias and Denies joint swelling Skin/Breast Denies rash Neuro Denies memory loss and Denies seizure-like activity Psych Denies abnormal sleep pattern, Denies anxiety and Denies memory loss Endo Denies excessive sweating, Denies fatigue and Denies heat intolerance Ryan/Lymph Denies easy bruising Aller/Immun Denies itchy eyes, Denies seasonal rhinorrhea and Denies wheezing Physical Exam Vital Signs: Last Vital Signs Pulse 110 H 10/11/23 09:50 BP 144/84 H 10/11/23 09:50 Pulse Ox 98 10/11/23 09:50 Oxygen Delivery Method Room Air 10/11/23 09:50 BMI result Body Mass Index 28.1 Const General: no acute distress and alert Nutritional Appearance: not obese Orientation/consciousness: Other orientation findings ( oriented) HEENT Head: Yes atraumatic Eyes General: appearance normal, both eyes and all related structures Sclerae: sclerae normal EOM: EOMs intact bilaterally Neck Neck: Yes supple Lymphatic: no lymphadenopathy noted Resp Effort & Inspection: normal respiratory effort and no use of accessory muscles Auscultation: clear to auscultation bilaterally Cardio Rate: regular rate Rhythm: regular rhythm Heart sounds: no gallops, no murmurs and no rubs Skin General skin exam: other ( warm) Extrem General: No clubbing, No cyanosis and No edema Assessment & Plan Assessment & Plan (1) Cough: Code(s): R05.9 - Cough, unspecified Plan: Poor response to initial empiric therapy. Will obtain sputum culture. (2) SOB (shortness of breath): Code(s): R06.02 - Shortness of breath Plan: Appears to be multifactorial with contribution from underlying pulmonary and cardiac etiologies. Patient is undergoing cardiac workup. Will obtain pulmonary function test. Will start on empiric Anoro. Continue albuterol MDI. (3) Environmental allergies: Code(s): Z91.09 - Other allergy status, other than to drugs and biological substances Plan: Will obtain RAST panel and IgE for further evaluation. Orders: Orders Resp Allergy Profile Region I Today Sputum Cult + Gram stain Today R05.9 - Cough, unspecified PFT pulmonary function test Today R06.02 - Shortness of breath Medications: New Anoro Ellipta 62.5-25 mcg/actuation (umeclidinium-vilanterol) 1 inh inhalation DAILY 30 days 1 ea 6RF NS R06.02 - Shortness of breath Coding Level of Care Code New Pt Level 4 (46989) Diagnoses Cough R05.9 SOB (shortness of breath) R06.02 Environmental allergies Z91.09
== END 2023-10-11 10:19 | disposition home or self-care (01) ==
PROVIDERS: PCP Internal Medicine; Visit Provider Internal Medicine Pulmonary Disease
DX: R05.9 Cough, unspecified (principal); R06.02 Shortness of breath; Z91.09 Other allergy status, other than to drugs and biological substances
CPT/HCPCS: 99204

== ENCOUNTER 2023-10-11 09:48 | Outpatient (REF) | payer MEDICARE, SELFPAY ==
[2023-10-15 21:59] LABS: Class Alternaria alternata 0; Class Aspergillus fumigatus 0; Class Bermuda Grass 0; Class Birch 0; Class Cat Dander 0; Class Cladosporium herbarum 0; Class Cockroach 0; Class Common Ragweed 0; Class Cottonwood 0; Class Derm. pterony 0; Class Dermatophagoides farinae 0; Class Dog Dander 0; Class Elm 0; Class Maple Box Elder 0; Class Mountain Cedar 0; Class Mouse Urine Protein 0; Class Mugwort 0/1; Class Oak 0; Class Penicillium crysogenum 0; Class Rough Pigweed 0; Class Sheep Sorrel 0; Class Sycamore 0; Class Timothy Grass 0; Class Walnut Tree 0; Class White Ash 0; Class White Mulberry 0; D001 IgE D pteronyssinus <0.10 kU/L; D002 - IgE D farinae <0.10 kU/L; E001 - IgE Cat Dander <0.10 kU/L; E005 - IgE Dog Dander <0.10 kU/L; E072-IgE Mouse Urine <0.10 kU/L; G002 IgE Bermuda Grass <0.10 kU/L; G006 - IgE Timothy Grass <0.10 kU/L; I006-IgE Cockroach, German <0.10 kU/L; Immunoglobulin E 23 kU/L (<OR=114); M001 IgE Penicillium chrysogen <0.10 kU/L; M002 - IgE Cladosporium herbar <0.10 kU/L; M003 - IgE Aspergillus fumigat <0.10 kU/L; M006 - IgE Alternaria alternat <0.10 kU/L; T001 IgE Maple/Box Elder <0.10 kU/L; T003 IgE Common Silver Birch <0.10 kU/L; T006 - IgE Cedar, Mountain <0.10 kU/L; T007 - IgE Oak, White <0.10 kU/L; T008 IgE Elm, American <0.10 kU/L; T010 - IgE Walnut <0.10 kU/L; T011 - IgE Maple Leaf Sycamore <0.10 kU/L; T014 - IgE Cottonwood <0.10 kU/L; T015 - IgE Ash, White <0.10 kU/L; T070 - IgE White Mulberry <0.10 kU/L; W001 - IgE Ragweed, Short <0.10 kU/L; W006 - IgE Mugwort 0.17 kU/L; W014 IgE Pigweed, Common <0.10 kU/L; W018 IgE Sheep Sorrel <0.10 kU/L
== END 2023-10-11 09:49 | disposition home or self-care (01) ==
LOC: HO.LAB 09:48
PROVIDERS: PCP Internal Medicine; Visit Provider Internal Medicine Pulmonary Disease
DX: R05.9 Cough, unspecified (principal); R06.02 Shortness of breath; Z91.09 Other allergy status, other than to drugs and biological substances
CPT/HCPCS: 36415; 82785; 86003; 87070; 87205; 99202

== ENCOUNTER 2023-10-12 | Outpatient (REF) | payer MEDICARE, SELFPAY ==
[2023-10-12 08:22] VITALS: PULSE 114; RESP 14; O2SAT 99
--- NOTE | 2023-10-12 13:12 | PFT_ITS ---
Flows: FEV1: 64 % of predicted at 1.94 L FVC: 70 % of predicted at 2.78 L FEV1/FVC: 70 % Bronchodilator response: Absent Volumes: Lung volumes measurements unavailable secondary to technical issue. Diffusion capacity: Normal Impression: Moderate obstructive ventilatory defect with no bronchodilator response. Lung volume measurements are not available secondary to technical issue. MTDD
== END 2023-10-12 00:01 | disposition home or self-care (01) ==
LOC: HO.RESP
PROVIDERS: PCP Internal Medicine; Visit Provider Internal Medicine Pulmonary Disease
DX: R06.02 Shortness of breath (principal)
CPT/HCPCS: 94010; 94640; 94727; 94729

== ENCOUNTER → 2023-10-12 13:12 | Outpatient (BNV) | payer MEDICARE, SELFPAY | PROVIDERS: PCP Internal Medicine; Visit Provider Internal Medicine Pulmonary Disease | DX: R06.02 Shortness of breath (principal) | CPT/HCPCS: 94060; 94729 ==

== ENCOUNTER 2023-11-01 10:47 | Outpatient (REF) | payer MEDICARE, SELFPAY ==
[2023-11-01 10:53] LABS: MANUAL DIFF FLAG NO
[2023-11-01 11:49] LABS: Appearance Urine Clear; Color Urine Dark Yellow; Glucose Urine UA Negative (Negative); Leukocyte Esterase Urine Negative (Negative); Nitrite Urine Negative (Negative); PH 5.5 (5.0-9.0); Urine Blood Negative (Negative); Urine Ketones Negative (Negative); Urine Protein Negative (Neg-Trace)
[2023-11-01 11:52] LABS: Bacteria Urine None Seen (None Seen); Hyaline Casts Urine 0-2 /LPF (0-2); RBC Urine 0-2 /HPF (0-2); Squamous Epithelial Cell Urine 0-2 /HPF (0-2); WBC Urine 0-5 /HPF (0-5)
[2023-11-01 11:59] LABS: Basophils Percent Auto 0.3 % (0-2); Eosinophils Absolute Auto 0.9 X10*3/uL (0.0-0.4); Eosinophils Percent Auto 11.9 % (0-4); Hematocrit 42.5 % (42.0-52.0); Hemoglobin 14.2 g/dl (14.0-18.0); Imm Gran Abs Auto 0.03 X10*3/uL (0.00-0.03); Imm Gran Pct Auto 0.4 % (0.0-0.4); Lymphocytes Absolute Auto 1.9 X10*3/uL (1.2-4.9); Lymphocytes Percent Auto 26.9 % (20-40); Mean Corpuscular HGB Conc 33.4 g/dl (31.0-36.0); Mean Corpuscular Volume 83.8 fL (80.0-98.0); Mean Platelet Volume 11.6 fL (9.4-12.4); Monocytes Absolute Auto 0.9 X10*3/uL (0.1-1.2); Monocytes Percent Auto 12.3 % (2-11); Neutrophils Absolute Auto 3.5 x10*3/uL (2.0-8.3); Neutrophils Percent Auto 48.2 % (45-73); Platelet Count 194 X10*3/uL (160-400); Red Blood Count 5.07 X10*6/uL (4.60-5.80); Red Cell Distribution Width 14.4 % (11.0-16.0); White Blood Count 7.2 X10*3/uL (4.8-10.8)
[2023-11-01 12:03] LABS: Estimated Average Glucose 148 mg/dL; Hemoglobin A1c % 6.8 % (<6.0)
[2023-11-01 12:42] LABS: Alanine Aminotransferase 18 U/L (0-40); Albumin Level 4.1 g/dL (3.5-5.0); Alkaline Phosphatase 60 U/L (39-117); Anion Gap 14 (12-20); Aspartate Amino Transferase 38 U/L (5-37); Bilirubin Total 0.8 mg/dL (0.0-1.0); Blood Urea Nitrogen 11 mg/dL (9-16); Calcium 8.8 mg/dL (8.4-10.2); Carbon Dioxide 24 mmol/L (22-29); Chloride 108 mmol/L (96-108); Cholesterol 134 mg/dL (<200); Estimated Glomerular Filt Rate > 60; Glucose Fasting 116 mg/dL (60-99); HDL Cholesterol 41 mg/dL (>40); LDL Cholesterol Calculated 60 mg/dL (<100); Potassium 4.2 mmol/L (3.3-5.1); Sodium 142 mmol/L (135-145); Total Protein 6.7 g/dL (6.5-8.0); Triglycerides 166 mg/dL (<150)
[2023-11-01 12:48] LABS: Creatinine Urine 209.66 mg/dL; Microalbum/Creatinine Ratio Ur 4.7 ug/mg cr (<30)
[2023-11-01 12:53] LABS: PSA,Total (Free>4and<10) 0.67 ng/mL (0.00-4.00)
== END 2023-11-01 10:48 | disposition home or self-care (01) ==
LOC: HO.LNP 10:47
PROVIDERS: Visit Provider Internal Medicine
DX: E11.42 Type 2 diabetes mellitus with diabetic polyneuropathy (principal); E78.00 Pure hypercholesterolemia, unspecified; Z12.5 Encounter for screening for malignant neoplasm of prostate
CPT/HCPCS: 80053; 80061; 81001; 82043; 82570; 83036; 84153; 85025

== ENCOUNTER 2023-11-05 11:15 | Outpatient (REF) | payer MEDICARE, SELFPAY ==
[2023-11-05 13:21] LABS: Anion Gap 14 (12-20); Blood Urea Nitrogen 12 mg/dL (9-16); Calcium 9.1 mg/dL (8.4-10.2); Carbon Dioxide 21 mmol/L (22-29); Chloride 109 mmol/L (96-108); Estimated Glomerular Filt Rate > 60; Glucose Random 198 mg/dL (60-115); Potassium 5.2 mmol/L (3.3-5.1); Sodium 139 mmol/L (135-145)
== END 2023-11-05 11:16 | disposition home or self-care (01) ==
LOC: HO.LAB 11:15
PROVIDERS: PCP Internal Medicine; Visit Provider Internal Medicine
DX: I25.10 Atherosclerotic heart disease of native coronary artery without angina pectoris (principal); R06.02 Shortness of breath
CPT/HCPCS: 36415; 80048

== ENCOUNTER 2023-11-20 12:51 | Outpatient (AMB) | payer MEDICARE, SELFPAY ==
--- NOTE | 2023-11-20 12:53 | MHC.OFFVIS ---
Intake Vital Signs 11/20/23 12:54 Height 5 ft 8 in Weight 180 lb 12.465 oz BMI 27.5 BP 132/78 Blood Pressure Location Lt brachial Position Sitting Pulse 108 H Intake Visit Reasons: f/up cta brenda per Intake Note: follow up CTA Rn Spine Required: No Accompanied by: Self / Same As Patient Allergies No Known Allergies [No Known Allergies*] Allergy (Verified 11/20/23 12:55) Medication List - Last Reconciled 11/20/23 by Canelo Fletcher MD albuterol sulfate 90 mcg/actuation inhalation atorvastatin 20 mg PO DAILY celecoxib 200 mg PO DAILY dicyclomine 10 mg PO DAILY fluticasone propionate 50 mcg/actuation 1 spray intranasal DAILY gabapentin 300 mg PO TID minocycline 50 mg PO DAILY omeprazole 20 mg PO DAILY sitagliptin phos-metformin 50-1,000 mg (Janumet) 1 tab PO BID sitagliptin phos-metformin 50-500 mg (Augumet) 1 tab PO BID tramadol 50 mg PO Q6H PRN HPI HPI Comments History of Present Illness Details Adrian returns for follow-up. Recently seen in consultation regarding cough or shortness of breath. He has had some mild chronic shortness of breath but over the last 3-4 months, it has been much worse. With any form of activity, he gets short of breath. He also has frequent cough. No angina at all. He did get COVID in August but his symptoms started prior to that according to him. Since last seen, he has completed an echocardiogram and coronary CTA. He also saw pulmonary. [facility] Medical History (Updated 11/20/23 @ 13:38 by Canelo Fletcher MD) Atherosclerotic cardiovascular disease Renal stones Sigmoid diverticulitis Sciatica Neuropathy Plantar fasciitis Arthritis GERD (gastroesophageal reflux disease) Gout Diabetes Surgical History History of foot surgery History of colonoscopy History of left hip replacement Previous back surgery History of total left knee replacement History of total right knee replacement Family History Mother No problems noted. Father No problems noted. 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 Review of Systems Const All systems reviewed & are unremarkable except as noted in HPI and below Reports as per HPI and Reports no additional complaints Eyes Reports as per HPI and Denies no additional complaints ENT Denies no additional complaints and Reports as per HPI Card Reports as per HPI, Reports no additional complaints, Denies acrocyanosis, Denies chest pain, Denies leg edema, Denies lightheadedness, Denies palpitations and Reports dyspnea Resp Reports as per HPI, Denies no additional complaints, Reports cough and Reports dyspnea GI Reports as per HPI and Denies no additional complaints Reports no additional complaints and Reports as per HPI Musc Reports no additional complaints and Reports as per HPI Skin/Breast Reports system reviewed and no additional complaints, except as documented Neuro Reports no additional complaints and Reports as per HPI Psych Reports no additional complaints and Reports as per HPI Endo Reports no additional complaints, Reports as per HPI and Denies palpitations Ryan/Lymph Reports no additional complaints and Reports as per HPI Aller/Immun Reports no additional complaints and Reports as per HPI Physical Exam Vital Signs: Last Vital Signs Pulse 108 H 11/20/23 12:54 BP 132/78 11/20/23 12:54 BMI result Body Mass Index 27.5 Const General: comfortable and no acute distress Orientation/consciousness: patient oriented x3 HEENT Other: Unremarkable Head: Yes normal to inspection Neck Neck: Yes normal visual inspection Chest Chest palpation & inspection: normal inspection of the chest Resp Auscultation: clear to auscultation bilaterally Cardio Palpation: normal PMI Heart sounds: S1 normal heart sound present, S2 normal heart sound present, no gallops, no murmurs and no rubs GI Palpation (GI): Soft to palpation Back/Spine/Pelvis Other: unremarkable Skin General skin exam: no rashes or lesions noted Neuro General: patient oriented x3 Extrem General: Yes normal to inspection Psych Mental Status: mental status grossly normal Assessment & Plan Assessment & Plan (1) Atherosclerotic cardiovascular disease: Code(s): I25.10 - Atherosclerotic heart disease of [place] coronary artery without angina pectoris (2) SOB (shortness of breath): Code(s): R06.02 - Shortness of breath (3) Cough: Code(s): R05.9 - Cough, unspecified Plan Cardiac studies reviewed. Recent EKG with sinus tachycardia 107/Min; nonspecific ST-T changes; normal SC and corrected QT. Echocardiogram with LVEF of 55-60%. Mild diastolic dysfunction. Inferior/inferolateral wall motion abnormalities likely from underlying coronary disease in the RCA territory. In the recent CT chest, ground-glass inflammatory process in both upper and lower lobes thought to be from low-grade inflammatory or infectious process. Coronary CTA reviewed. High calcium score of almost 2000. Left main with no significant disease. Multifocal mixed plaque in LAD/circumflex and RCA. However, most significant plaque in proximal RCA where there is more than 70% luminal narrowing. Other areas rather [id number]. Again, pulmonary findings described including chronic tree-in-bud nodularity/ground-glass airspace disease suggesting ongoing endobronchial infectious/inflammatory process. COVID positive from 09/01/2023. Overall, he clearly has coronary disease based on the CT findings. However, his symptoms of cough and shortness of breath are much more likely to be respiratory in nature than cardiac. Cardiac BNP is less than 10 and hence there is no evidence of congestive heart failure causing shortness of breath. Resting sinus tachycardia is also likely a reflection of underlying pulmonary processes. We discussed the findings today and explained the rationale for above. From cardiac, start taking aspirin. He is already on statins. In the future, we can up titrate the dose accordingly. We discussed the possibility of diagnostic catheterization, but would like to still get his pulmonary status sorted out. He should follow-up with Pulmonary and decide if he needs a bronchoscopy or tissue biopsy extra. If that is required, probably proceed. If we indeed proceed with the catheterization/PCI, then he will need uninterrupted dual antiplatelet therapy. We discussed about that as well. Will call PCP to discuss plan. Coding Level of Care Code Est Pt Level 4 (34172) Diagnoses Atherosclerotic cardiovascular disease I25.10 SOB (shortness of breath) R06.02 Cough R05.9
[2023-11-20 12:54] VITALS: BP 132/78; PULSE 108; BMI 27.5
== END 2023-11-20 13:13 | disposition home or self-care (01) ==
PROVIDERS: PCP Internal Medicine; Visit Provider Internal Medicine
DX: I25.10 Atherosclerotic heart disease of native coronary artery without angina pectoris (principal); R06.02 Shortness of breath; R05.9 Cough, unspecified
CPT/HCPCS: 99214

== ENCOUNTER → 2023-11-20 12:51 | Outpatient (BNVA) | payer MEDICARE, SELFPAY | PROVIDERS: PCP Internal Medicine; Visit Provider Internal Medicine | DX: I25.10 Atherosclerotic heart disease of native coronary artery without angina pectoris (principal); R06.02 Shortness of breath; R05.9 Cough, unspecified | CPT/HCPCS: 99212 ==

== ENCOUNTER 2023-11-27 14:08 | Outpatient (AMB) | payer MEDICARE, SELFPAY ==
--- NOTE | 2023-11-27 14:14 | MHC.OFFVIS ---
Intake Vital Signs 11/27/23 14:15 Height 5 ft 8 in Weight 185 lb 3.013 oz BMI 28.2 BP 152/82 H Blood Pressure Location Lt brachial Position Sitting Pulse 112 H Pulse Source Doppler Pulse Oximetry (%) 97 Oxygen Delivery Method Room Air Intake Visit Reasons: dyspnea Allergies umeclidinium [From Anoro Ellipta] Adverse Reaction (Severe, Verified 11/27/23 14:18) Unknown vilanterol [From Anoro Ellipta] Adverse Reaction (Severe, Verified 11/27/23 14:18) Unknown HPI dyspnea HPI Details 67-year-old gentleman, former 50+ year smoker, quit 2003 referred for evaluation of productive cough ongoing since June of 2023. Patient also had COVID in July of 2023. He has been treated with a course of azithromycin, prednisone, and Levaquin with mild improvement his symptoms. He also complains of environmental allergies worse in winter. Patient denies prior personal or family history of lung disease. He is also undergoing cardiac evaluation at this time. He does complain of dyspnea on exertion when going uphill. He has been using albuterol MDI with suboptimal control of his symptoms. After the last office visit patient was started on Anoro, however he developed allergic reaction to it. He did complete his immunologic workup that showed significant eosinophilia. [facility] Medical History (Updated 11/20/23 @ 13:38 by Canelo Fletcher MD) Atherosclerotic cardiovascular disease Renal stones Sigmoid diverticulitis Sciatica Neuropathy Plantar fasciitis Arthritis GERD (gastroesophageal reflux disease) Gout Diabetes Surgical History History of foot surgery History of colonoscopy History of left hip replacement Previous back surgery History of total left knee replacement History of total right knee replacement Family History Mother No problems noted. Father No problems noted. 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 Review of Systems Const Denies daytime sleepiness, Denies excessive sweating, Denies fatigue, Denies fever(s), Denies lethargy, Denies malaise, Denies night sweats, Denies snoring and Denies weight loss Eyes Denies blurry vision and Denies itchy eyes ENT Denies nasal congestion, Denies post nasal drip, Denies sinus pain, Denies sinus pressure and Denies other ( Thrush) Card Denies chest pain, Denies pedal edema, Denies dyspnea, Reports dyspnea on exertion, Denies orthopnea and Denies paroxysmal nocturnal dyspnea Resp Reports cough, Denies hemoptysis, Denies excessive phlegm production, Denies dyspnea, Reports dyspnea on exertion, Denies snoring and Reports wheezing GI Denies abdominal pain and Denies heartburn Musc Denies myalgias, Denies arthralgias and Denies joint swelling Skin/Breast Denies rash Neuro Denies memory loss and Denies seizure-like activity Psych Denies abnormal sleep pattern, Denies anxiety and Denies memory loss Endo Denies excessive sweating, Denies fatigue and Denies heat intolerance Rayn/Lymph Denies easy bruising Aller/Immun Denies itchy eyes, Denies seasonal rhinorrhea and Reports wheezing Physical Exam Vital Signs: Last Vital Signs Pulse 112 H 11/27/23 14:15 BP 152/82 H 11/27/23 14:15 Pulse Ox 97 11/27/23 14:15 Oxygen Delivery Method Room Air 11/27/23 14:15 BMI result Body Mass Index 28.2 Const General: no acute distress and alert Nutritional Appearance: not obese Orientation/consciousness: Other orientation findings ( oriented) HEENT Head: Yes atraumatic Eyes General: appearance normal, both eyes and all related structures Sclerae: sclerae normal EOM: EOMs intact bilaterally Neck Neck: Yes supple Lymphatic: no lymphadenopathy noted Resp Effort & Inspection: normal respiratory effort and no use of accessory muscles Auscultation: clear to auscultation bilaterally Cardio Rate: regular rate Rhythm: regular rhythm Heart sounds: no gallops, no murmurs and no rubs Skin General skin exam: other ( warm) Extrem General: No clubbing, No cyanosis and No edema Assessment & Plan Assessment & Plan (1) Environmental allergies: Code(s): Z91.09 - Other allergy status, other than to drugs and biological substances Plan: Results of immunologic studies reviewed. Underlying significant eosinophilia. If no improvement on inhaled corticosteroid, will consider Dupixent therapy. (2) Cough: Code(s): R05.9 - Cough, unspecified Plan: Allergic reaction to Anoro. Will try on empiric inhaled corticosteroid. Medications: New fluticasone furoate 200 mcg/actuation (Arnuity Ellipta) 1 inh inhalation DAILY 30 days 1 ea 6RF Coding Level of Care Code Est Pt Level 4 (50722) Diagnoses Environmental allergies Z91.09 Cough R05.9
[2023-11-27 14:15] VITALS: BP 152/82; PULSE 112; O2SAT 97; BMI 28.2
== END 2023-11-27 14:32 | disposition home or self-care (01) ==
PROVIDERS: PCP Internal Medicine; Visit Provider Internal Medicine Pulmonary Disease
DX: Z91.09 Other allergy status, other than to drugs and biological substances (principal); R05.9 Cough, unspecified
CPT/HCPCS: 99214

== ENCOUNTER → 2023-11-27 14:08 | Outpatient (BNVA) | payer MEDICARE, SELFPAY | PROVIDERS: PCP Internal Medicine; Visit Provider Internal Medicine Pulmonary Disease | DX: Z91.09 Other allergy status, other than to drugs and biological substances (principal); R05.9 Cough, unspecified | CPT/HCPCS: 99212 ==

== ENCOUNTER 2023-12-06 10:56 | Outpatient (REF) | payer MEDICARE, SELFPAY ==
[2023-12-06 12:01] LABS: Potassium 4.2 mmol/L (3.3-5.1)
== END 2023-12-06 10:57 | disposition home or self-care (01) ==
LOC: HO.LNP 10:56
PROVIDERS: Visit Provider Internal Medicine
DX: E87.5 Hyperkalemia (principal)
CPT/HCPCS: 84132

== ENCOUNTER 2023-12-25 10:08 | Outpatient (AMB) | payer MEDICARE, SELFPAY ==
[2023-12-25 10:21] VITALS: BP 131/71; PULSE 92; O2SAT 97; BMI 27.8
--- NOTE | 2023-12-25 10:21 | A.OFFVIS_ITS ---
Vital Signs 12/25/23 10:21 Height 5 ft 8 in Weight 183 lb BMI 27.8 BP 131/71 Blood Pressure Location Rt brachial Position Sitting Pulse 92 Pulse Source Pulse Oximeter Pulse Oximetry (%) 97 Oxygen Delivery Method Room Air Intake Visit Reasons: Dyspnea Allergies umeclidinium [From Anoro Ellipta] Adverse Reaction (Severe, Verified 12/25/23 10:24) Unknown vilanterol [From Anoro Ellipta] Adverse Reaction (Severe, Verified 12/25/23 10:24) Unknown Medication List - Last Reconciled 12/25/23 by Juju Crews, ROBOTIC WELDING OPERATOR albuterol sulfate 90 mcg/actuation inhalation atorvastatin 20 mg PO DAILY celecoxib 200 mg PO DAILY dicyclomine 10 mg PO DAILY fluticasone furoate 200 mcg/actuation (Arnuity Ellipta) 1 inh inhalation DAILY 30 days fluticasone propionate 50 mcg/actuation 1 spray intranasal DAILY gabapentin 300 mg PO TID minocycline 50 mg PO DAILY omeprazole 20 mg PO DAILY sitagliptin phos-metformin 50-1,000 mg (Janumet) 1 tab PO BID sitagliptin phos-metformin 50-500 mg (Janumet) 1 tab PO BID tramadol 50 mg PO Q6H PRN HPI HPI Dyspnea: Details: 67-year-old gentleman, former 50+ year smoker, quit 2003 referred for evaluation of productive cough ongoing since June of 2023. Patient also had COVID in July of 2023. He has been treated with a course of azithromycin, prednisone, and Levaquin with mild improvement his symptoms. He also complains of environmental allergies worse in winter. Patient denies prior personal or family history of lung disease. H He does complain of dyspnea on exertion when going uphill. He has been using albuterol MDI with suboptimal control of his symptoms. Patient was tried on Anoro, however he developed allergic reaction to it. He did complete his immunologic workup that showed significant eosinophilia. After the last office visit he was started on high-dose Arnuity with some improvement, but not complete resolution of his symptoms. [facility] Medical History (Updated 12/25/23 @ 10:36 by Andi Riddle MD) Atherosclerotic cardiovascular disease Renal stones Sigmoid diverticulitis Sciatica Neuropathy Plantar fasciitis Arthritis GERD (gastroesophageal reflux disease) Gout Diabetes Surgical History History of foot surgery History of colonoscopy History of left hip replacement Previous back surgery History of total left knee replacement History of total right knee replacement Family History Mother No problems noted. Father No problems noted. 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 Review of Systems Const Denies daytime sleepiness, Denies excessive sweating, Denies fatigue, Denies fever(s), Denies lethargy, Denies malaise, Denies night sweats, Denies snoring and Denies weight loss Eyes Denies blurry vision and Denies itchy eyes ENT Denies nasal congestion, Denies post nasal drip, Denies sinus pain, Denies sinus pressure and Denies other ( Thrush) Card Denies chest pain, Denies pedal edema, Denies dyspnea, Reports dyspnea on exertion, Denies orthopnea and Denies paroxysmal nocturnal dyspnea Resp Denies cough, Denies hemoptysis, Denies excessive phlegm production, Denies dyspnea, Reports dyspnea on exertion, Denies snoring and Denies wheezing GI Denies abdominal pain and Denies heartburn Musc Denies arthralgias Skin/Breast Denies rash Neuro Denies memory loss and Denies seizure-like activity Psych Denies abnormal sleep pattern, Denies anxiety and Denies memory loss Endo Denies excessive sweating, Denies fatigue and Denies heat intolerance Ryan/Lymph Denies easy bruising Aller/Immun Denies itchy eyes, Denies seasonal rhinorrhea and Denies wheezing Physical Exam Vital Signs: Last Vital Signs Pulse 92 12/25/23 10:21 BP 131/71 12/25/23 10:21 Pulse Ox 97 12/25/23 10:21 Oxygen Delivery Method Room Air 12/25/23 10:21 BMI result Body Mass Index 27.8 Const General: no acute distress and alert Nutritional Appearance: not obese Orientation/consciousness: Other orientation findings ( oriented) HEENT Head: Yes atraumatic Eyes General: appearance normal, both eyes and all related structures Sclerae: sclerae normal EOM: EOMs intact bilaterally Neck Neck: Yes supple Lymphatic: no lymphadenopathy noted Resp Effort & Inspection: normal respiratory effort and no use of accessory muscles Auscultation: clear to auscultation bilaterally Cardio Rate: regular rate Rhythm: regular rhythm Heart sounds: no gallops, no murmurs and no rubs Skin General skin exam: other ( warm) Extrem General: No clubbing, No cyanosis and No edema Assessment & Plan Assessment & Plan (1) Environmental allergies: Code(s): Z91.09 - Other allergy status, other than to drugs and biological substances Category: Medical Plan: Expect to improve on Dupixent. And allergic reaction to Anoro, with significant improvement, but still with residual symptoms, will treat with another course of prednisone. (2) Asthma: Code(s): J45.909 - Unspecified asthma, uncomplicated Category: Medical Plan: Allergic to Anoro. Suboptimal control Arnuity. Significant eosinophilia. Will start on Dupixent. Medications: New prednisone 40 mg (2 x 20 mg) PO DAILY 10 tabs 0RF Coding Level of Care Code Est Pt Level 4 (47124) Diagnoses Environmental allergies Z91.09 Asthma J45.909
== END 2023-12-25 10:33 | disposition home or self-care (01) ==
PROVIDERS: PCP Internal Medicine; Visit Provider Internal Medicine Pulmonary Disease
DX: Z91.09 Other allergy status, other than to drugs and biological substances (principal); J45.909 Unspecified asthma, uncomplicated
CPT/HCPCS: 99214

== ENCOUNTER → 2023-12-25 10:08 | Outpatient (BNVA) | payer MEDICARE, SELFPAY | PROVIDERS: PCP Internal Medicine; Visit Provider Internal Medicine Pulmonary Disease | DX: J82.83 Eosinophilic asthma (principal); Z91.09 Other allergy status, other than to drugs and biological substances | CPT/HCPCS: 99212 ==

== ENCOUNTER 2023-12-27 09:55 | Outpatient (AMB) | payer MEDICARE, SELFPAY ==
[2023-12-27 10:28] VITALS: BP 128/72; PULSE 96; O2SAT 98
--- NOTE | 2023-12-27 10:28 | A.OFFVIS_ITS ---
Vital Signs 12/27/23 10:28 BP 128/72 Blood Pressure Location Rt brachial Position Sitting Pulse 96 Pulse Source Pulse Oximeter Pulse Oximetry (%) 98 Oxygen Delivery Method Room Air Intake Visit Reasons: dupixent teaching Allergies umeclidinium [From Anoro Ellipta] Adverse Reaction (Severe, Verified 12/27/23 10:28) Unknown vilanterol [From Anoro Ellipta] Adverse Reaction (Severe, Verified 12/27/23 10:28) Unknown Medication List - Last Reconciled 12/27/23 by Sonam Rivera LPN albuterol sulfate 90 mcg/actuation inhalation atorvastatin 20 mg PO DAILY celecoxib 200 mg PO DAILY dicyclomine 10 mg PO DAILY dupilumab (Dupixent) 300 mg (2 mL) subcut Q2W 28 days fluticasone furoate 200 mcg/actuation (Arnuity Ellipta) 1 inh inhalation DAILY 30 days fluticasone propionate 50 mcg/actuation 1 spray intranasal DAILY gabapentin 300 mg PO TID minocycline 50 mg PO DAILY omeprazole 20 mg PO DAILY prednisone 40 mg (2 x 20 mg) PO DAILY sitagliptin phos-metformin 50-1,000 mg (Janumet) 1 tab PO BID sitagliptin phos-metformin 50-500 mg (Janumet) 1 tab PO BID tramadol 50 mg PO Q6H PRN HPI HPI dupixent teaching: Details: Adrian? is here for a Dupixent teach he was educated on hand washing, injection preparation, administration, and disposal.? Adrian was able to return demonstrate proper technique for hand washing, injection preparation, administration and disposal of needle and states he has no questions at this time. Medication Dupixent 300mg/2mL pre-filled syringe (patient?s own meds) Loading dose of 600mg given by the patient in 2 SQ injections; injection #1 R abdomen;? injection #2 L abdomen? Lot# [id number] expires 02/2026. Patient aware his next injection is in 15 days. Nurse visit only.? [facility] Medical History (Updated 12/25/23 @ 10:36 by Andi Riddle MD) Atherosclerotic cardiovascular disease Renal stones Sigmoid diverticulitis Sciatica Neuropathy Plantar fasciitis Arthritis GERD (gastroesophageal reflux disease) Gout Diabetes Surgical History History of foot surgery History of colonoscopy History of left hip replacement Previous back surgery History of total left knee replacement History of total right knee replacement Family History Mother No problems noted. Father No problems noted. 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 Physical Exam Vital Signs: Last Vital Signs Pulse 96 12/27/23 10:28 BP 128/72 12/27/23 10:28 Pulse Ox 98 12/27/23 10:28 Oxygen Delivery Method Room Air 12/27/23 10:28 Assessment & Plan Assessment & Plan (1) Asthma: Code(s): J45.909 - Unspecified asthma, uncomplicated Category: Medical Plan Dupixent teaching, nurse visit only. Coding Level of Care Code Established Pt Est Pt Level 1 (71829) Patient Type Established Diagnoses Asthma J45.909 Comment NURSE VISIT ONLY
== END 2023-12-27 11:02 | disposition home or self-care (01) ==
PROVIDERS: PCP Internal Medicine; Visit Provider Internal Medicine Pulmonary Disease
DX: J45.909 Unspecified asthma, uncomplicated (principal)

== ENCOUNTER → 2023-12-27 09:55 | Outpatient (BNVA) | payer MEDICARE, SELFPAY | PROVIDERS: PCP Internal Medicine; Visit Provider Internal Medicine Pulmonary Disease | DX: Z71.89 Other specified counseling (principal); J45.909 Unspecified asthma, uncomplicated | CPT/HCPCS: 99211 ==

== ENCOUNTER 2024-01-06 09:53 | Outpatient (REF) | payer MEDICARE, SELFPAY ==
--- NOTE | ~2024-01-06 | FL_ITS ---
EXAMINATION: XR FLUOROSCOPY UPPER GI WITH AIR CLINICAL INFORMATION: Dysphagia COMPARISON: None TECHNIQUE: Fluoroscopic air contrast upper GI examination was performed utilizing standard techniques with thin and thick barium and effervescent granules. Numerous spot images were obtained. FINDINGS: Lateral cine images of the oropharynx and hypopharynx demonstrate normal swallow mechanism with normal epiglottic inversion and soft palate elevation. No tracheal penetration, glottic or subglottic aspiration identified. No nasopharyngeal reflux present. Hypopharyngeal structures appear normal without evidence of mass or diverticulum. There is mild cricopharyngeal achalasia present. Dual and single contrast images of the esophagus demonstrate normal caliber, contour, and mucosal pattern. No evidence of stricture, mass, or ulcerations identified. There is to and fro motion of the barium column with nonpropulsive tertiary contractions noted throughout the esophagus. There is mild to moderate narrowing of the GE junction. A small type I hiatal hernia is present. No significant gastroesophageal reflux was seen during the course of the examination and on reflux views. Dual contrast and single contrast images of the stomach demonstrated a normal contour. The gastric rugal folds are thickened in appearance. No masses or ulcerations are seen. Contrast freely passed into the gastric antrum and duodenal bulb without delay. Single and air-contrast images of the duodenal bulb demonstrate no abnormality. The duodenal sweep has a normal appearance, course, and mucosal fold appearance. A moderate size diverticulum is present in the second portion of the duodenum. The imaged proximal jejunum has a normal fold pattern and caliber. FLUOROSCOPY TIME: 3 minutes 46 seconds Number of Spot Images: 10 Number of Cine: 17 DOSE AREA PRODUCT: 3244 uGy-m2 (microgray-meter squared) FL/FL upper GI series IMPRESSION: 1. Mild cricopharyngeal achalasia. 2. Esophageal dysmotility. 3. Moderate narrowing of the GE junction that may represent achalasia. A benign stricture cannot be ruled out. 4. Thickened gastric rugal folds that likely suggest gastritis. 5. Moderate sized diverticulum in the second portion of duodenum. This procedure was performed by Mayank Celis PA-C, and supervised by Dr. Gallego
== END 2024-01-06 09:54 | disposition home or self-care (01) ==
LOC: HO.XRAY 09:53
PROVIDERS: PCP Internal Medicine; Visit Provider Internal Medicine
DX: R13.19 Other dysphagia (principal); I25.10 Atherosclerotic heart disease of native coronary artery without angina pectoris
CPT/HCPCS: 74240; 99212

== ENCOUNTER → 2024-01-06 09:55 | Outpatient (BNV) | payer MEDICARE, SELFPAY | PROVIDERS: PCP Internal Medicine; Visit Provider Physician Assistant Surgical | DX: R13.10 Dysphagia, unspecified (principal) | CPT/HCPCS: 74246 ==

== ENCOUNTER 2024-01-06 14:52 | Outpatient (AMB) | payer MEDICARE, SELFPAY ==
[2024-01-06 14:55] VITALS: BP 120/66; PULSE 96; BMI 27.8
--- NOTE | 2024-01-06 14:55 | MHC.OFFVIS ---
Vital Signs 01/06/24 14:55 Height 5 ft 8 in Weight 183 lb BMI 27.8 BP 120/66 Blood Pressure Location Lt brachial Position Sitting Pulse 96 Pulse Source Pulse Oximeter Intake Visit Reasons: f/up Lung DR Allergies umeclidinium [From Anoro Ellipta] Adverse Reaction (Severe, Verified 12/27/23 10:28) Unknown vilanterol [From Anoro Ellipta] Adverse Reaction (Severe, Verified 12/27/23 10:28) Unknown Medication List - Last Reconciled 01/06/24 by Canelo Fletcher MD albuterol sulfate 90 mcg/actuation inhalation aspirin 81 mg PO DAILY atorvastatin 20 mg PO DAILY celecoxib 200 mg PO DAILY dicyclomine 10 mg PO DAILY dupilumab (Dupixent) 300 mg (2 mL) subcut Q2W 28 days fluticasone furoate 200 mcg/actuation (Arnuity Ellipta) 1 inh inhalation DAILY 30 days fluticasone propionate 50 mcg/actuation 1 spray intranasal DAILY gabapentin 300 mg PO TID minocycline 50 mg PO DAILY omeprazole 20 mg PO DAILY tramadol 50 mg PO Q6H PRN HPI Comments Details: Adrian returns for follow-up. Recently seen in consultation regarding cough or shortness of breath. He has had some mild chronic shortness of breath but over the last 3-4 months, it has been much worse. With any form of activity, he gets short of breath. He also has frequent cough. No angina at all. He underwent both cardiac and pulmonary workup. From the cardiac standpoint, underwent coronary CTA that shows significant coronary disease and calcium score of almost 2000. From a pulmonary standpoint, he has been diagnosed with asthma. He also had COVID few months back. He is on medication prescribed by Pulmonary and he states he feels better. No clear-cut angina. [facility] Medical History (Updated 12/25/23 @ 10:36 by Andi Riddle MD) Atherosclerotic cardiovascular disease Renal stones Sigmoid diverticulitis Sciatica Neuropathy Plantar fasciitis Arthritis GERD (gastroesophageal reflux disease) Gout Diabetes Surgical History History of foot surgery History of colonoscopy History of left hip replacement Previous back surgery History of total left knee replacement History of total right knee replacement Family History Mother No problems noted. Father No problems noted. 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 Review of Systems Const Denies weakness ENT Denies dizziness Card Denies chest pain, Denies chest pain with activity, Denies syncope, Denies rapid heart rate, Denies pedal edema, Denies edema, Denies leg edema, Denies lightheadedness, Denies palpitations, Denies dyspnea, Denies dyspnea on exertion and Denies orthopnea Resp Denies cough, Denies dyspnea and Denies dyspnea on exertion GI Denies hematochezia and Denies change in stool character Musc Denies abnormal gait, Denies muscle cramps, Denies muscle weakness, Denies numbness, Denies radiating pain into limb and Denies tingling Neuro Denies abnormal gait, Denies dizziness, Denies syncope, Denies numbness, Denies tingling and Denies weakness Endo Denies palpitations Physical Exam Vital Signs: Last Vital Signs Pulse 96 01/06/24 14:55 BP 120/66 01/06/24 14:55 BMI result Body Mass Index 27.8 Const General: comfortable and no acute distress Orientation/consciousness: patient oriented x3 HEENT Other: Unremarkable Head: Yes normal to inspection Neck Neck: Yes normal visual inspection Chest Chest palpation & inspection: normal inspection of the chest Resp Auscultation: crackles on the right at the base and on the left at the base Cardio Palpation: normal PMI Heart sounds: S1 normal heart sound present, S2 normal heart sound present, no gallops, no murmurs and no rubs GI Palpation (GI): Soft to palpation Back/Spine/Pelvis Other: unremarkable Skin General skin exam: no rashes or lesions noted Neuro General: patient oriented x3 Extrem General: Yes normal to inspection Psych Mental Status: mental status grossly normal Assessment & Plan Assessment & Plan (1) Atherosclerotic cardiovascular disease: Code(s): I25.10 - Atherosclerotic heart disease of [place] coronary artery without angina pectoris Category: Medical Plan Cardiac studies reviewed. Echocardiogram with LVEF of 55-60%. Mild diastolic dysfunction. Inferior/inferolateral wall motion abnormalities likely from underlying coronary disease in the RCA territory. Coronary CTA reviewed. High calcium score of almost 2000. Left main with no significant disease. Multifocal mixed plaque in LAD/circumflex and RCA. However, most significant plaque in proximal RCA where there is more than 70% luminal narrowing. Other areas rather [id number]. Pulmonary findings described including chronic tree-in-bud nodularity/ground-glass airspace disease suggesting ongoing endobronchial infectious/inflammatory process. Overall, he has got evidence of significant coronary disease as well as pulmonary disease which could contribute to shortness of breath. However suspect that in his case pulmonary components are much more likely to be the contributing factor especially as he also has associated cough. We discussed about further workup for the cardiac findings on the coronary CTA. We discussed about diagnostic catheterization and he is agreeable. We can plan on setting that up in the next few weeks. With regard to medications, continue aspirin and statins. He is only on medium dose to statins but his LDL is only 60 mg/dL. It seems that he does have a strong history of vascular disease in his family as his brother had occluded carotids. Hence he is interested in getting his carotids checked as well. We will check an ultrasound. Orders: Orders US carotid duplex BI Today I65.23 - Occlusion and stenosis of bilateral carotid arteries Complete Blood Count no Diff Today I25.10 - Atherosclerotic heart disease of [place] coronary artery without angina pectoris Basic Metabolic Panel Today I25.10 - Atherosclerotic heart disease of [place] coronary artery without angina pectoris Prothrombin Time INR Today I25.10 - Atherosclerotic heart disease of [place] coronary artery without angina pectoris Cardiac Cath LT Diagnostic Today I25.10 - Atherosclerotic heart disease of [place] coronary artery without angina pectoris Coding Level of Care Code New Pt Level 4 (96671) Diagnoses Atherosclerotic cardiovascular disease I25.10
== END 2024-01-06 15:43 | disposition home or self-care (01) ==
PROVIDERS: PCP Internal Medicine; Visit Provider Internal Medicine
DX: I25.10 Atherosclerotic heart disease of native coronary artery without angina pectoris (principal)
CPT/HCPCS: 99214

== ENCOUNTER → 2024-01-17 08:48 | Outpatient (REF) | payer MEDICARE, SELFPAY ==
--- NOTE | 2024-01-17 08:53 | CA_ITS ---
Acquisition Time: 2024-01-17 09:04:43 Total Exercise Time: 00:02:44 Test Indications: CAD, MULTIPLE VESSELS Medications: Protocol: RODNEY Max HR: 153 BPM 102% of Pred: 150 BPM Max BP: 160/074 mmHG Max Work Load: 4.6 METS Exercise stress test exercise 2 min 44 sec of rodney protocol achieivng 102% MPHR, with moderate SOB, no chest discomfort, with isolated PVCs and PACs, with scooping in leads 2, 3, aVF, V4-V6. Breathing returned to normal with rest. Test reviewed with Dr. Fletcher Referred By: Abdifatah Bunch Overread By: Ella Gallego
== END ==
LOC: HO.CARD 08:48
PROVIDERS: PCP Internal Medicine; Visit Provider Internal Medicine
DX: I25.10 Atherosclerotic heart disease of native coronary artery without angina pectoris (principal)
CPT/HCPCS: 93017

== ENCOUNTER → 2024-01-17 08:53 | Outpatient (BNV) | payer MEDICARE, SELFPAY | PROVIDERS: PCP Internal Medicine; Visit Provider Nurse Practitioner | DX: I25.10 Atherosclerotic heart disease of native coronary artery without angina pectoris (principal); R06.02 Shortness of breath; I49.1 Atrial premature depolarization; I49.3 Ventricular premature depolarization | CPT/HCPCS: 93016; 93018 ==

== ENCOUNTER 2024-01-22 09:52 | Outpatient (REF) | payer MEDICARE, SELFPAY ==
--- NOTE | ~2024-01-22 | US_ITS ---
EXAMINATION: US EXTRACRANIAL CAROTID DUPLEX, BILATERAL CLINICAL INFORMATION: Carotid stenosis COMPARISON: None available. TECHNIQUE: Real-time ultrasound and Doppler techniques (integrating B-mode 2-D vascular images, Doppler spectral analysis and color-flow Doppler imaging) were utilized to interrogate the extracranial carotid arteries, the vertebral arteries and proximal subclavian arteries bilaterally. The degree of stenosis is determined by criteria similar to NASCET. FINDINGS: Right Side: 1. There is mild atherosclerotic plaque seen in the bifurcation/proximal ICA region. 2. The common carotid artery PSV proximally is 89.7 cm/s and distally 117 cm/s. 3. The proximal internal carotid artery velocities are 73.3 cm/s systolic and 29.8 cm/s diastolic. 4. The proximal external carotid artery PSV is 104 cm/s. 5. The vertebral artery shows antegrade flow. 6. The subclavian artery waveforms are normal. Left Side: 1. There is no significant atherosclerotic plaque seen in the bifurcation/proximal ICA region. 2. The common carotid artery PSV proximally is 116 cm/s and distally 107 cm/s. 3. The proximal internal carotid artery velocities are 80.6 cm/s systolic and 31.5 cm/s diastolic. 4. The proximal external carotid artery PSV is 120 cm/s. 5. The vertebral artery shows antegrade flow. 6. The subclavian artery waveforms are normal. US/US carotid duplex BI IMPRESSION: 1. RIGHT: Minimal, non-hemodynamically significant stenosis of the proximal right internal carotid artery corresponding to a 0-49% stenosis by velocity criteria. 2. LEFT: Normal left internal carotid artery without atherosclerotic plaque or hemodynamically significant stenosis.
== END 2024-01-22 09:53 | disposition home or self-care (01) ==
LOC: HO.US 09:52
PROVIDERS: PCP Internal Medicine; Visit Provider Internal Medicine
DX: I65.23 Occlusion and stenosis of bilateral carotid arteries (principal)
CPT/HCPCS: 93880

== ENCOUNTER 2024-02-10 10:01 | Outpatient (REF) | payer MEDICARE, SELFPAY ==
[2024-02-10 11:02] LABS: Hematocrit 38.6 % (42.0-52.0); Hemoglobin 12.5 g/dl (14.0-18.0); Mean Corpuscular HGB Conc 32.4 g/dl (31.0-36.0); Mean Corpuscular Hemoglobin 26.5 pg (27.0-33.0); Mean Platelet Volume 10.4 fL (9.4-12.4); Platelet Count 234 X10*3/uL (160-400); Red Blood Count 4.71 X10*6/uL (4.60-5.80); Red Cell Distribution Width 13.5 % (11.0-16.0); White Blood Count 5.9 X10*3/uL (4.8-10.8)
[2024-02-10 11:19] LABS: INTERNATIONAL NORM RATIO 0.9 (0.9-1.1); Prothrombin Time 11.4 SEC (11.1-13.3)
[2024-02-10 11:34] LABS: Anion Gap 19 (12-20); Blood Urea Nitrogen 7 mg/dL (9-16); Calcium 8.6 mg/dL (8.4-10.2); Carbon Dioxide 23 mmol/L (22-29); Chloride 103 mmol/L (96-108); Estimated Glomerular Filt Rate > 60; Glucose Random 244 mg/dL (60-115); Potassium 4.3 mmol/L (3.3-5.1); Sodium 141 mmol/L (135-145)
== END 2024-02-10 10:02 | disposition home or self-care (01) ==
LOC: HO.LAB 10:01
PROVIDERS: PCP Internal Medicine; Visit Provider Internal Medicine
DX: I25.10 Atherosclerotic heart disease of native coronary artery without angina pectoris (principal)
CPT/HCPCS: 36415; 80048; 85027; 85610

== ENCOUNTER → 2024-02-11 23:59 | Outpatient (BNV) | payer MEDICARE, SELFPAY | PROVIDERS: PCP Internal Medicine; Visit Provider Internal Medicine Cardiovascular Disease | DX: I20.89 Other forms of angina pectoris (principal) | CPT/HCPCS: 92928; 92978; 93458; 93571; 99152 ==

== ENCOUNTER 2024-02-14 11:03 | Outpatient (AMB) | payer MEDICARE, SELFPAY ==
--- NOTE | 2024-02-14 11:05 | MHC.OFFVIS ---
Vital Signs 02/14/24 11:06 Height 5 ft 8 in Weight 185 lb BMI 28.1 BP 132/70 Blood Pressure Location Rt brachial Position Sitting Pulse 90 Pulse Source Doppler Pulse Oximetry (%) 99 Oxygen Delivery Method Room Air Intake Visit Reasons: Dyspnea Allergies umeclidinium [From Anoro Ellipta] Adverse Reaction (Severe, Verified 12/27/23 10:28) Unknown vilanterol [From Anoro Ellipta] Adverse Reaction (Severe, Verified 12/27/23 10:28) Unknown Brilinta Adverse Reaction (Severe, Uncoded 02/14/24 11:15) SOB HPI HPI Dyspnea: Details: 67-year-old gentleman, former 50+ year smoker, quit 2003 referred for evaluation of productive cough ongoing since June of 2023. Patient also had COVID in July of 2023. He has been treated with a course of azithromycin, prednisone, and Levaquin with mild improvement his symptoms. He also complains of environmental allergies worse in winter. Patient denies prior personal or family history of lung disease. H He does complain of dyspnea on exertion when going uphill. He has been using albuterol MDI with suboptimal control of his symptoms. Patient was tried on Anoro, however he developed allergic reaction to it. He did complete his immunologic workup that showed significant eosinophilia. After the last office visit patient was started on Dupixent and had 3 injections of. He also continues on high-dose Arnuity. Patient had RCA stent on 02/11/2024 with some worsening dyspnea thereafter. [facility] Medical History (Updated 12/25/23 @ 10:36 by Andi Riddle MD) Atherosclerotic cardiovascular disease Renal stones Sigmoid diverticulitis Sciatica Neuropathy Plantar fasciitis Arthritis GERD (gastroesophageal reflux disease) Gout Diabetes Surgical History History of foot surgery History of colonoscopy History of left hip replacement Previous back surgery History of total left knee replacement History of total right knee replacement Family History Mother No problems noted. Father No problems noted. 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 Review of Systems Const Denies daytime sleepiness, Denies excessive sweating, Denies fatigue, Denies fever(s), Denies lethargy, Denies malaise, Denies night sweats, Denies snoring and Denies weight loss Eyes Denies blurry vision and Denies itchy eyes ENT Denies nasal congestion, Denies post nasal drip, Denies sinus pain, Denies sinus pressure and Denies other ( Thrush) Card Denies chest pain, Denies pedal edema, Denies dyspnea, Reports dyspnea on exertion, Denies orthopnea and Denies paroxysmal nocturnal dyspnea Resp Denies cough, Denies hemoptysis, Denies excessive phlegm production, Denies dyspnea, Reports dyspnea on exertion, Denies snoring and Denies wheezing GI Denies abdominal pain and Denies heartburn Musc Denies myalgias, Denies arthralgias and Denies joint swelling Skin/Breast Denies rash Neuro Denies memory loss and Denies seizure-like activity Psych Denies abnormal sleep pattern, Denies anxiety and Denies memory loss Endo Denies excessive sweating, Denies fatigue and Denies heat intolerance Ryan/Lymph Denies easy bruising Aller/Immun Denies itchy eyes, Denies seasonal rhinorrhea and Denies wheezing Physical Exam Vital Signs: Last Vital Signs Pulse 90 02/14/24 11:06 BP 132/70 02/14/24 11:06 Pulse Ox 99 02/14/24 11:06 Oxygen Delivery Method Room Air 02/14/24 11:06 BMI result Body Mass Index 28.1 Const General: no acute distress and alert Nutritional Appearance: not obese Orientation/consciousness: Other orientation findings ( oriented) HEENT Head: Yes atraumatic Eyes General: appearance normal, both eyes and all related structures Sclerae: sclerae normal EOM: EOMs intact bilaterally Neck Neck: Yes supple Lymphatic: no lymphadenopathy noted Resp Effort & Inspection: normal respiratory effort and no use of accessory muscles Auscultation: clear to auscultation bilaterally Cardio Rate: regular rate Rhythm: regular rhythm Heart sounds: no gallops, no murmurs and no rubs Skin General skin exam: other ( warm) Extrem General: No clubbing, No cyanosis and No edema Assessment & Plan Assessment & Plan (1) SOB (shortness of breath): Code(s): R06.02 - Shortness of breath Category: Medical Plan: Multifactorial with contribution from underlying pulmonary and cardiac etiologies. Patient states that had RCA stent on 02/11/2024 with worsening dyspnea thereafter. Patient is advised to contact his foster care therapist. (2) Asthma: Code(s): J45.909 - Unspecified asthma, uncomplicated Category: Medical Plan: Improving control on Dupixent, Arnuity, and albuterol MDI. Continue current regimen. (3) Environmental allergies: Code(s): Z91.09 - Other allergy status, other than to drugs and biological substances Category: Medical Plan: Expect to improve on Dupixent. Continue current regimen. Coding Level of Care Code Est Pt Level 4 (08627) Diagnoses SOB (shortness of breath) R06.02 Asthma J45.909 Environmental allergies Z91.09
[2024-02-14 11:06] VITALS: BP 132/70; PULSE 90; O2SAT 99; BMI 28.1
== END 2024-02-14 11:33 | disposition home or self-care (01) ==
PROVIDERS: PCP Internal Medicine; Visit Provider Internal Medicine Pulmonary Disease
DX: R06.02 Shortness of breath (principal); J45.909 Unspecified asthma, uncomplicated; Z91.09 Other allergy status, other than to drugs and biological substances
CPT/HCPCS: 99214

== ENCOUNTER → 2024-02-14 11:03 | Outpatient (BNVA) | payer MEDICARE, SELFPAY | PROVIDERS: PCP Internal Medicine; Visit Provider Internal Medicine Pulmonary Disease | DX: R06.02 Shortness of breath (principal); J45.909 Unspecified asthma, uncomplicated; Z91.09 Other allergy status, other than to drugs and biological substances | CPT/HCPCS: 99212 ==

== ENCOUNTER 2024-02-26 13:38 | Outpatient (AMB) | payer MEDICARE, SELFPAY ==
[2024-02-26 14:00] VITALS: BP 132/70; PULSE 92; BMI 28.0
--- NOTE | 2024-02-26 14:00 | A.OFFVIS_ITS ---
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: No Accompanied by: Self / Same As Patient Allergies umeclidinium [From Anoro Ellipta] Adverse Reaction (Severe, Verified 12/27/23 10:28) Unknown vilanterol [From Anoro Ellipta] Adverse Reaction (Severe, Verified 12/27/23 10:28) Unknown Brilinta Adverse Reaction (Severe, Uncoded 02/14/24 11:15) SOB Medication List - Last Reconciled 02/26/24 by Canelo Fletcher MD albuterol sulfate 90 mcg/actuation inhalation aspirin 81 mg PO DAILY atorvastatin 20 mg PO DAILY celecoxib 200 mg PO DAILY clopidogrel (Plavix) 75 mg PO DAILY dicyclomine 10 mg PO DAILY dupilumab (Dupixent) 300 mg (2 mL) subcut Q2W 28 days fluticasone furoate 200 mcg/actuation (Arnuity Ellipta) 1 inh inhalation DAILY 30 days fluticasone propionate 50 mcg/actuation 1 spray intranasal DAILY gabapentin 300 mg PO TID minocycline 50 mg PO DAILY omeprazole 20 mg PO DAILY prednisone 10 mg PO DIRECTED sitagliptin phos-metformin 50-1,000 mg (Janumet) 1 tab PO BID tramadol 50 mg PO Q6H PRN HPI Comments Details: Adrian returns for follow-up. Few months back, he was seen in consultation regarding cough or shortness of breath. He was having frequent cough and shortness of breath. However, no clear-cut angina. He underwent both cardiac and pulmonary workup. From the cardiac standpoint, underwent coronary CTA that shows significant coronary disease and calcium score of almost 2000. This led to cardiac catheterization and right coronary artery stenting. He was initially put on Brilinta but states that he was feeling short of breath and that has been switched to Plavix. However, he feels as though after the catheterization/PCI he feels more short of breath than before. Unclear why he feels that way. LVEDP during cath was also normal. From a pulmonary standpoint, he has been diagnosed with asthma. He also had COVID few months back. [facility], [facility] Medical History (Updated 12/25/23 @ 10:36 by Andi Riddle MD) Atherosclerotic cardiovascular disease Renal stones Sigmoid diverticulitis Sciatica Neuropathy Plantar fasciitis Arthritis GERD (gastroesophageal reflux disease) Gout Diabetes Surgical History History of foot surgery History of colonoscopy History of left hip replacement Previous back surgery History of total left knee replacement History of total right knee replacement Family History Mother No problems noted. Father No problems noted. 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 Review of Systems Const Denies chills, Denies fatigue, Denies fever(s), Denies weight gain and Denies weight loss ENT Denies dizziness Card Denies chest pain, Denies leg edema, Denies lightheadedness, Denies palpitations, Denies dyspnea on exertion, Denies orthopnea and Denies other Resp Denies cough and Denies dyspnea on exertion GI Denies hematochezia and Denies change in stool character Musc Denies abnormal gait, Denies muscle weakness, Denies numbness, Denies radiating pain into limb and Denies tingling Neuro Denies abnormal gait, Denies dizziness, Denies numbness and Denies tingling Endo Denies fatigue and Denies palpitations Physical Exam Vital Signs: Last Vital Signs Pulse 92 02/26/24 14:00 BP 132/70 02/26/24 14:00 BMI result Body Mass Index 28.0 Const General: comfortable and no acute distress Orientation/consciousness: patient oriented x3 HEENT Other: Unremarkable Head: Yes normal to inspection Neck Neck: Yes normal visual inspection Chest Chest palpation & inspection: normal inspection of the chest Resp Auscultation: crackles on the right at the base and on the left at the base Cardio Palpation: normal PMI Heart sounds: S1 normal heart sound present, S2 normal heart sound present, no gallops, no murmurs and no rubs GI Palpation (GI): Soft to palpation Back/Spine/Pelvis Other: unremarkable Skin General skin exam: no rashes or lesions noted Neuro General: patient oriented x3 Extrem General: Yes normal to inspection Psych Mental Status: mental status grossly normal Assessment & Plan Assessment & Plan (1) Atherosclerotic cardiovascular disease: Code(s): I25.10 - Atherosclerotic heart disease of [place] coronary artery without angina pectoris Category: Medical Plan Cardiac studies reviewed. Echocardiogram with LVEF of 55-60%. Mild diastolic dysfunction. Inferior/inferolateral wall motion abnormalities likely from underlying coronary disease in the RCA territory. Coronary CTA reviewed. High calcium score of almost 2000. Left main with no significant disease. Multifocal mixed plaque in LAD/circumflex and RCA. However, most significant plaque in proximal RCA where there is more than 70% luminal narrowing. Other areas rather [id number]. Pulmonary findings described including chronic tree-in-bud nodularity/ground-glass airspace disease suggesting ongoing endobronchial infectious/inflammatory process. In the cardiac catheterization, mid RCA 70% stenosis; status post PCI. Mild irregularities in the left circumflex. No significant disease in the LAD. Normal LVEDP. Overall, still suspect that the shortness of breath is much more likely to be pulmonary in nature as he was also having significant coughing in the 1st few months. Unlikely that the RCA stenosis described above was causing shortness of breath and any case, it has also been intervened upon. His resting LVEDP was also normal. Other possibilities include exercise induced diastolic dysfunction/pulmonary hypertension but difficult to assess. He may need a right heart catheterization during rest and exercise to assess this shortness of breath further. He states that he may seek a pulmonary 2nd opinion [place] [facility] [place] seems like a reasonable option. He will discuss that with his PCP however. We will plan on repeat echocardiogram to look for any changes or for any new developments like pulmonary hypertension. In the interim, continue aspirin and Plavix without changes. Continue statins. LDL is very well controlled at about 60 mg/dL. Orders: Orders CA echo transthoracic complete Today I25.10 - Atherosclerotic heart disease of [place] coronary artery without angina pectoris, R06.02 - Shortness of breath Coding Level of Care Code Est Pt Level 4 (54939) Diagnoses Atherosclerotic cardiovascular disease I25.10
== END 2024-02-26 15:07 | disposition home or self-care (01) ==
PROVIDERS: PCP Internal Medicine; Visit Provider Nurse Practitioner
DX: I25.10 Atherosclerotic heart disease of native coronary artery without angina pectoris (principal)
CPT/HCPCS: 99214

== ENCOUNTER → 2024-02-26 13:38 | Outpatient (BNVA) | payer MEDICARE, SELFPAY | PROVIDERS: PCP Internal Medicine; Visit Provider Nurse Practitioner | DX: I25.10 Atherosclerotic heart disease of native coronary artery without angina pectoris (principal); Z79.02 Long term (current) use of antithrombotics/antiplatelets; Z79.82 Long term (current) use of aspirin; Z79.899 Other long term (current) drug therapy | CPT/HCPCS: 99212 ==

== ENCOUNTER 2024-03-10 07:25 | Outpatient (REF) | payer MEDICARE, SELFPAY ==
--- NOTE | ~2024-03-10 | CT_ITS ---
EXAMINATION: CT ABDOMEN AND PELVIS WITH CONTRAST CLINICAL INFORMATION: Acute diverticulitis COMPARISON: The abdomen pelvis from 10/02/2019 TECHNIQUE: Multidetector volumetric images were obtained from the superior aspect of the liver through the pubic symphysis following administration 85 mL of Omnipaque 350 intravenous contrast. Sagittal and coronal reformatted images were obtained on the technologist's workstation. Oral contrast: No This CT examination was performed using dose optimization techniques as appropriate, variously including the following: *Automated exposure control *Adjustment of mA and/or kV according to patient size (this includes techniques or standardized protocols for targeted exams where dose is matched to indication/reason for exam; i.e. extremities or head) *Use of iterative reconstruction technique DLP: 128 mGy-cm FINDINGS: LUNG BASES: No pneumothorax. No large pleural effusion. Slight elevation right hemidiaphragm. LIVER, GALLBLADDER, AND BILIARY TREE: Liver is enlarged measuring 18.7 cm. No focal hepatic lesion or biliary ductal dilatation is present. The gallbladder is unremarkable with no evidence of radiopaque gallstones, gallbladder wall thickening, or obvious pericholecystic inflammatory changes. PANCREAS: Unremarkable. SPLEEN: Spleen is enlarged measuring 13.9 cm. ADRENAL GLANDS: Stable nodular focus left adrenal body measuring 1.3 cm. Right adrenal gland is unremarkable. KIDNEYS AND URETERS: Cortical defect along the lateral wall of the right kidney. No right-sided nephrolithiasis or hydronephrosis. Left-sided nephrolithiasis measuring 8 mm without hydronephrosis. BLADDER: Potential nondependent curvilinear air in the urinary bladder which may be iatrogenic versus infectious/inflammatory etiology. GASTROINTESTINAL TRACT: Colonic diverticulosis with wall thickening and pericolonic inflammatory changes predominantly involving the descending colon/proximal sigmoid colon with diverticulitis. Multiple loops of mildly prominent small bowel without pathologic obstruction. Duodenal diverticulum redemonstrated. The small and large bowel are otherwise unremarkable. The appendix is unremarkable. ABDOMINAL WALL: Small fat filled umbilical hernia. LYMPH NODES: A few mildly prominent though nonenlarged mesenteric and aortocaval and portacaval lymph nodes are noted, not enlarged per size criteria. VASCULAR: Abdominal aorta is nonaneurysmal. PELVIC VISCERA: Prostate measures 2.6 cm. OSSEOUS STRUCTURES: Multilevel degenerative changes of the thoracolumbar and lumbosacral spine. Nonspecific sclerosis of the bilateral iliac bones CT/CT abdomen pelvis w IV con IMPRESSION: 1. Colonic diverticulosis with wall thickening and pericolonic inflammatory changes predominantly involving the descending colon/proximal sigmoid colon with diverticulitis. Multiple loops of mildly prominent small bowel without pathologic obstruction. Duodenal diverticulum redemonstrated. 2. Potential nondependent curvilinear air in the urinary bladder which may be iatrogenic versus infectious/inflammatory etiology. 3. Hepatosplenomegaly. 4. Left-sided nephrolithiasis measuring 8 mm without hydronephrosis.
[2024-03-10] MEDS: Barium Sulfate Oral (Mocha) 450 ML ORAL.SUSP 900 ML PO (10:25)
[2024-03-10] MEDS: iohexoL 350 MG/ML 100 ML INFUS..BTL 85 ML IV (10:25)
== END 2024-03-10 07:26 | disposition home or self-care (01) ==
LOC: HO.CT 07:25
PROVIDERS: PCP Internal Medicine; Visit Provider Internal Medicine
DX: K57.92 Diverticulitis of intestine, part unspecified, without perforation or abscess without bleeding (principal)
CPT/HCPCS: 74177; Q9967

== ENCOUNTER → 2024-03-11 07:52 | Outpatient (REF) | payer MEDICARE, SELFPAY ==
--- NOTE | 2024-03-11 07:54 | CA_ITS ---
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 Study Quality: Adequate ECG Rhythm: Sinus Conclusions: - The left ventricular systolic function is mildly decreased. The visually estimated ejection fraction is between 45-50%. - The basal inferior and basal inferolateral segments are hypokinetic. - No obvious valvular pathology seen on this study. - The inferior vena cava is normal in size and collapses greater than 50% with inspiration. Findings Left Ventricle Normal left ventricular cavity size. There is moderately increased left ventricular wall thickness. The left ventricular systolic function is mildly decreased. The visually estimated ejection fraction is between 45-50%. There is evidence of regional wall motion abnormalities. E/E prime ratio is <8, consistent with normal filling pressures. Evidence suggests grade I (mild) diastolic dysfunction. Wall Motion Rest Echo Findings The basal inferior and basal inferolateral segments are hypokinetic. Right Ventricle Normal right ventricular cavity size and systolic function. Atria The left atrium is moderately dilated. The right atrium is normal in size. Aortic Valve The aortic valve was not well visualized. There is no aortic valve stenosis. There is no aortic valve regurgitation. Mitral Valve The mitral valve appears normal. There is trace mitral valve regurgitation. There is no mitral valve stenosis. Pulmonic Valve The pulmonic valve is likely normal. Tricuspid Valve Normal tricuspid valve structure. There is trace tricuspid valve regurgitation. There is no evidence of pulmonary hypertension. Great Vessels The asc aorta is normal in size. Venous The inferior vena cava is normal in size and collapses greater than 50% with inspiration. Pericardium/Pleural There is no evidence of pericardial effusion. Prior Study Comparison Changes noted compared to prior study dated: 09/11/2023. LVEF is slightly lower than before. Recommendations, Care & Conclusions No obvious valvular pathology seen on this study. Measurements 2D Linear Measurements IVSd: 1.31 0.6-0.9/0.6-1.0 cm LVIDd: 4.40 3.9-5.3/4.2-5.9 cm LVIDd Index: 2.22 2.4-3.2/2.2-3.1 cm/m2 LVIDs: 3.45 2.0-3.6 cm LVPWd: 1.38 0.7-1.1 cm Ao Root: 3.60 2.1-3.5 cm LA Diam: 4.20 2.7-3.8/3.0-4.0 cm LAIDs Index: 2.12 1.5-2.3 cm/m2 LV Mass: 282.07 67-162/88-224 g LV Mass Index: 142.46 43-95/49-115 g/m2 LVOT Diam: 2.30 3.0+(-)1.3 cm 2D Systolic Function EF 4C: 38.90 >55% EF 2C: 37.60 >55% Mitral Valve MV Pk E: 0.47 MV PK A: 0.74 MV Decel Time: 185.00 E/A: 0.60 E'Lateral: 7.72 E'Medial: 5.66 E/E' Med: 8.30 E/E' Lat: 6.00 PHT: 54.00 MVA PHT: 4.07 Decel Josephine: 2.53 Aortic Valve AoV Pk Adonay: 1.23 AoV Mn Adonay: 0.79 AoV VTI: 0.26 AoV Pk Grad: 6.00 Aov Mn Grad: 3.00 SHRAVAN Cont.VTI: 2.59 LVOT LVOT Pk Adonay: 0.71 LVOT Mn Adonay: 0.45 LVOT VTI: 0.16 LVOT Pk Grad: 2.00 LVOT Mn Grad: 1.00 LVOT Diam: 2.30 LVOT Area: 4.15 Diastolic Function MV Pk E: 0.47 MV Pk A: 0.74 E/A: 0.60 E'Medial: 5.66 E/E' Med: 8.30 E' Laterial: 7.72 E/E' Lat: 6.00 Right Ventricle TAPSE (mm): 18.00 TVS' Adonay: 12.00 Tricuspid Valve TR Pk Adonay: 2.00 TR Pk Grad: 16.00 RA Press: 3.00 RVSP: 19.00 Great Vessels Aorta Ao Root-2D: 3.60 2.0-3.7 cm Ao Asc: 3.70 2.1-3.4 cm Pulmonary Valve PV Pk Adonay: 0.86 Peak PV Grad: 3.00 Updated in Other Vendor System with Status of Final Canelo Fletcher MD electronically signed on 03/12/2024 10:58:05 AM with status of Final
== END ==
LOC: HO.CARD 07:52
PROVIDERS: PCP Internal Medicine; Visit Provider Internal Medicine
DX: I25.10 Atherosclerotic heart disease of native coronary artery without angina pectoris (principal); R06.02 Shortness of breath
CPT/HCPCS: 93306

== ENCOUNTER → 2024-03-11 07:54 | Outpatient (BNV) | payer MEDICARE, SELFPAY | PROVIDERS: PCP Internal Medicine; Visit Provider Internal Medicine | DX: I51.89 Other ill-defined heart diseases (principal); R93.1 Abnormal findings on diagnostic imaging of heart and coronary circulation | CPT/HCPCS: 93306 ==

== ENCOUNTER 2024-03-13 13:22 | Outpatient (AMB) | payer MEDICARE, SELFPAY ==
[2024-03-13 13:23] VITALS: BP 109/62; PULSE 101; O2SAT 97; BMI 27.8
--- NOTE | 2024-03-13 13:23 | MHC.OFFVIS ---
Vital Signs 03/13/24 13:23 Height 5 ft 8 in Weight 182 lb 15.739 oz BMI 27.8 BP 109/62 Blood Pressure Location Lt brachial Position Sitting Pulse 101 H Pulse Source Doppler Pulse Oximetry (%) 97 Oxygen Delivery Method Room Air Intake Visit Reasons: Dyspnea Allergies umeclidinium [From Anoro Ellipta] Adverse Reaction (Severe, Verified 03/13/24 13:27) Unknown vilanterol [From Anoro Ellipta] Adverse Reaction (Severe, Verified 03/13/24 13:27) Unknown Brilinta Adverse Reaction (Severe, Uncoded 02/14/24 11:15) SOB HPI HPI Dyspnea: Details: 68-year-old gentleman, former 50+ year smoker, quit 2003 referred for evaluation of productive cough ongoing since June of 2023. Patient also had COVID in July of 2023. He has been treated with a course of azithromycin, prednisone, and Levaquin with mild improvement his symptoms. He also complains of environmental allergies worse in winter. Patient denies prior personal or family history of lung disease. H He does complain of dyspnea on exertion when going uphill. He has been using albuterol MDI with suboptimal control of his symptoms. Patient was tried on Anoro, however he developed allergic reaction to it. He did complete his immunologic workup that showed significant eosinophilia. After the last office visit patient he continues on Dupixent with significantly improved symptom control. He is also using Arnuity and albuterol MDI. He denies any recent exacerbations. [facility] Medical History (Updated 12/25/23 @ 10:36 by Andi Riddle MD) Atherosclerotic cardiovascular disease Renal stones Sigmoid diverticulitis Sciatica Neuropathy Plantar fasciitis Arthritis GERD (gastroesophageal reflux disease) Gout Diabetes Surgical History History of foot surgery History of colonoscopy History of left hip replacement Previous back surgery History of total left knee replacement History of total right knee replacement Family History Mother No problems noted. Father No problems noted. 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 Review of Systems Const Denies daytime sleepiness, Denies excessive sweating, Denies fatigue, Denies fever(s), Denies lethargy, Denies malaise, Denies night sweats, Denies snoring and Denies weight loss Eyes Denies blurry vision and Denies itchy eyes ENT Denies nasal congestion, Denies post nasal drip, Denies sinus pain, Denies sinus pressure and Denies other ( Thrush) Card Denies chest pain, Denies pedal edema, Denies dyspnea, Denies orthopnea and Denies paroxysmal nocturnal dyspnea Resp Denies cough, Denies hemoptysis, Denies excessive phlegm production, Denies dyspnea, Denies snoring and Denies wheezing GI Denies abdominal pain and Denies heartburn Musc Denies myalgias, Denies arthralgias and Denies joint swelling Skin/Breast Denies rash Neuro Denies memory loss and Denies seizure-like activity Psych Denies abnormal sleep pattern, Denies anxiety and Denies memory loss Endo Denies excessive sweating, Denies fatigue and Denies heat intolerance Ryan/Lymph Denies easy bruising Aller/Immun Denies itchy eyes, Denies seasonal rhinorrhea and Denies wheezing Physical Exam Vital Signs: Last Vital Signs Pulse 101 H 03/13/24 13:23 BP 109/62 03/13/24 13:23 Pulse Ox 97 03/13/24 13:23 Oxygen Delivery Method Room Air 03/13/24 13:23 BMI result Body Mass Index 27.8 Const General: no acute distress and alert Nutritional Appearance: not obese Orientation/consciousness: Other orientation findings ( oriented) HEENT Head: Yes atraumatic Eyes General: appearance normal, both eyes and all related structures Sclerae: sclerae normal EOM: EOMs intact bilaterally Neck Neck: Yes supple Lymphatic: no lymphadenopathy noted Resp Effort & Inspection: normal respiratory effort and no use of accessory muscles Auscultation: clear to auscultation bilaterally Cardio Rate: regular rate Rhythm: regular rhythm Heart sounds: no gallops, no murmurs and no rubs Skin General skin exam: other ( warm) Extrem General: No clubbing, No cyanosis and No edema Assessment & Plan Assessment & Plan (1) Asthma: Code(s): J45.909 - Unspecified asthma, uncomplicated Category: Medical Plan: Well controlled on are no 80, Dupixent, and albuterol MDI. Continue current regimen. (2) Environmental allergies: Code(s): Z91.09 - Other allergy status, other than to drugs and biological substances Category: Medical Plan: Well controlled on Dupixent. Continue current regimen. Coding Level of Care Code Est Pt Level 4 (76536) Diagnoses Asthma J45.909 Environmental allergies Z91.09
== END 2024-03-13 13:37 | disposition home or self-care (01) ==
PROVIDERS: PCP Internal Medicine; Visit Provider Internal Medicine Pulmonary Disease
DX: J45.909 Unspecified asthma, uncomplicated (principal); Z91.09 Other allergy status, other than to drugs and biological substances
CPT/HCPCS: 99214

== ENCOUNTER → 2024-03-13 13:22 | Outpatient (BNVA) | payer MEDICARE, SELFPAY | PROVIDERS: PCP Internal Medicine; Visit Provider Internal Medicine Pulmonary Disease | DX: J45.909 Unspecified asthma, uncomplicated (principal); R06.09 Other forms of dyspnea; Z91.09 Other allergy status, other than to drugs and biological substances | CPT/HCPCS: 99212 ==

== ENCOUNTER 2024-03-17 10:40 | Inpatient (IN) | payer MEDICARE, SELFPAY ==
[2024-03-17] VITALS (7 sets, daily range): BP systolic 140–154; BP diastolic 79–99; PULSE 80–100; RESP 13–16; TEMP 36.6–36.8; O2SAT 96–98; BMI 27.5
--- NOTE | ~2024-03-17 | CT_ITS ---
EXAMINATION: CT ABDOMEN AND PELVIS WITH CONTRAST CLINICAL INFORMATION: LLQ pain, recently diagnosed diverticulitis COMPARISON: CT abdomen and pelvis 03/10/24 TECHNIQUE: Multidetector volumetric images were obtained from the superior aspect of the liver through the pubic symphysis following administration 85 mL of Omnipaque 350 intravenous contrast. Sagittal and coronal reformatted images were obtained on the technologist's workstation. Oral contrast: No This CT examination was performed using dose optimization techniques as appropriate, variously including the following: *Automated exposure control *Adjustment of mA and/or kV according to patient size (this includes techniques or standardized protocols for targeted exams where dose is matched to indication/reason for exam; i.e. extremities or head) *Use of iterative reconstruction technique DLP: 539 mGy-cm FINDINGS: LUNG BASES: The visualized lung bases are unremarkable. LIVER, GALLBLADDER, AND BILIARY TREE: The liver is normal in size, shape, and attenuation. No focal hepatic lesion or biliary ductal dilatation is present. The gallbladder is unremarkable with no evidence of radiopaque gallstones, gallbladder wall thickening, or obvious pericholecystic inflammatory changes. PANCREAS: Unremarkable. SPLEEN: Unremarkable. ADRENAL GLANDS: Stable nodular thickening of the left adrenal body measuring up to 1.3 cm. Right adrenal gland is normal. KIDNEYS AND URETERS: Chronic cortical defect involving the posterolateral right kidney. No hydronephrosis or hydroureter. Stable mild nonspecific perinephric stranding. Stable nonobstructing left nephrolithiasis measuring up to 8 mm. BLADDER: Unremarkable. GASTROINTESTINAL TRACT: Diffuse colonic diverticulosis. Compared to CT from 03/10/2024, there is decreased wall thickening and pericolonic stranding involving the proximal sigmoid colon, compatible with improving diverticulitis. There is some new pericolonic fat stranding surrounding the mid descending colon which may reflect a component of worsening diverticulitis. No evidence of perforation or abscess. The appendix is unremarkable. Small duodenal diverticulum. ABDOMINAL WALL: Small fat filled umbilical hernia. LYMPH NODES: Normal. VASCULAR: Aortoiliac atherosclerotic calcification. Normal caliber of the abdominal aorta. PELVIC VISCERA: Unremarkable. OSSEOUS STRUCTURES: No acute osseous abnormality. Multilevel degenerative changes of the lower thoracic and lumbar spine including severe degenerative disc disease at L5-S1. Nonspecific of the right greater left iliac bones, possibly degenerative. CT/CT abdomen pelvis w IV con IMPRESSION: Improving diverticulitis involving the proximal sigmoid colon. However, compared to CT from 03/10/2024, there is new mild pericolonic fat stranding involving the mid descending colon which may reflect a component of worsening diverticulitis. No evidence of complication including perforation or abscess Fleischner guidelines were followed.
--- NOTE | 2024-03-17 11:21 | ED_ITS ---
HPI - Abdominal Pain General Chief Complaint: Abdominal Pain Stated Complaint: Diverticulitis Time Seen by Provider: 03/17/24 12:51 Source: patient Mode of arrival: ambulatory Limitations: no limitations History of Present Illness HPI narrative: This is a 68yom with a pmhx CAD s/p RCA stent, asthma, former 50+ year smoker, renal stones, gout, left TKR, colon polyps, diverticulitis,recently diagnosed diverticulitis 03/10/24 who presents for evaluation of left lower abdominal pain. He states he was just diagnosed with diverticulitis. He states he had this 20 years ago as well. He states taking antibiotics as prescribed. He shows this historian a picture of his prescription bottle of Augmentin 875/125 twice daily for 10 days. He states initially improving. He states experiencing some abdominal discomfort over the weekend. He states no nausea/vomiting. He states intermittent constipation and diarrhea. He states passing flatus. He denies prior abdominal surgical history. He states no dysuria or urinary frequency/urgency. He states no flank pain. He states no chest pain, back pain or dyspnea. Related Data Home Medications ?Medication ?Instructions ?Recorded ?Confirmed atorvastatin 10 mg tablet 20 mg PO DAILY 06/28/20 02/26/24 celecoxib 200 mg capsule 200 mg PO DAILY 06/28/20 02/26/24 gabapentin 100 mg capsule 300 mg PO TID 06/28/20 02/26/24 minocycline 50 mg capsule 50 mg PO DAILY 06/28/20 02/26/24 omeprazole 20 mg capsule,delayed 20 mg PO DAILY 06/28/20 02/26/24 release dicyclomine 10 mg capsule 10 mg PO DAILY 06/19/23 02/26/24 albuterol sulfate 90 mcg/actuation inhalation 10/11/23 02/26/24 aerosol inhaler fluticasone propionate 50 1 spray intranasal DAILY 10/11/23 02/26/24 mcg/actuation nasal spray,suspension tramadol 50 mg tablet 50 mg PO Q6H PRN 10/11/23 02/26/24 aspirin 81 mg tablet,delayed 81 mg PO DAILY 01/06/24 02/26/24 release sitagliptin phosphate 50 1 tab PO BID 02/26/24 02/26/24 mg-metformin 1,000 mg tablet (Yanni) Previous Rx's ?Medication ?Instructions ?Recorded fluticasone furoate 200 1 inh inhalation DAILY 30 days #1 11/27/23 mcg/actuation blister powder for ea inhalation (Arnuity Ellipta) dupilumab 300 mg/2 mL subcutaneous 300 mg (2 mL) subcut Q2W 28 days 12/26/23 syringe (Dupixent) #4 mL prednisone 10 mg tablet 10 mg PO DIRECTED #50 tabs 01/06/24 clopidogrel 75 mg tablet (Plavix) 75 mg PO DAILY #30 tabs 02/19/24 Allergies Allergy/AdvReac Type Severity Reaction Status Date / Time umeclidinium AdvReac Severe Unknown Verified 03/17/24 11:24 [From Anoro Ellipta] vilanterol AdvReac Severe Unknown Verified 03/17/24 11:24 [From Anoro Ellipta] Brilinta AdvReac Severe SOB Uncoded 02/14/24 11:15 Review of Systems Review of Systems ROS as per HPI FOR[facility]LY [facility], [facility] Past Medical History Medical History (Updated 03/17/24 @ 18:15 by Ld Keith MD) Atherosclerotic cardiovascular disease Renal stones Sigmoid diverticulitis Sciatica Neuropathy Plantar fasciitis Arthritis GERD (gastroesophageal reflux disease) Gout Diabetes Surgical History History of foot surgery History of colonoscopy History of left hip replacement Previous back surgery History of total left knee replacement History of total right knee replacement Family History Family History Mother No problems noted. Father No problems noted. Social History Social History Alcohol intake: never Patient Tobacco Use Status: Former Tobacco user Smoked in Last 30 Days: No Use of substances other than those prescribed or required for medical reasons: No Advance Directives: No Advance Directives Information Provided: Yes Current occupational status: retired 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 Physical Exam ED Vital Signs: Vital Signs - 24 hr 03/17/24 11:20 03/17/24 12:51 03/17/24 14:30 Temperature 98.0 F Pulse Rate 100 80 Respiratory Rate 16 16 16 Blood Pressure 154/95 H 140/99 H Pulse Oximetry 98 Oxygen Delivery Method Room Air 03/17/24 14:50 03/17/24 16:57 Temperature 97.8 F Pulse Rate 85 Respiratory Rate 13 16 Blood Pressure 154/88 H Pulse Oximetry 96 Oxygen Delivery Method Room Air BMI result Body Mass Index 27.5 Gen: NAD, AOx3 HEENT: NCAT, EOMI, normal conjunctiva CV: RRR Pulm: CTAB, no increased work of breathing GI: Soft, mild LLQ tenderness to palpation, no rebound, guarding or rigidity Neuro: Grossly non focal Course Course Course Narrative: This is a Rapid Medical Examination (RME) performed by Nori Arteaga PA-C in triage. Full HPI, ROS, assessment and treatment plan per primary provider in the Main ED. 68 yo male with recently diagnosed diverticulitis on antibiotics since 03/09 who presents to the ER per recs of his PCP for evaluation of ongoing LLQ abdominal pain and concerns for possible dehydration. He reports multiple episodes of nonbloody diarrhea yesterday. No vomiting or fevers. Pain intermittently a 9/10. Only took tylenol once at home for pain. Abd is soft, with left sided abd tenderness, normal active bowel sounds in triage. HR 100. PCP recommending admission for IVF and IV antibiotics. CT scan 03/10 showing diverticulitis of the descending colon/proximal sigmoid colon. Plan: Labs, IVF, reassess need for repeat CT scan per primary provider Medical Decision Making Medical Decision Making MDM Narrative: Differential diagnosis includes, but is not limited to uncomplicated diverticulitis, complicated diverticulitis, failed oral antibiotics. This is not sepsis. Patient is afebrile and hemodynamically stable on room air. Labs reviewed and independently interpreted, which are notable for a lactic acid of 3.4 improving to 2.8. Labs are also notable for hypomagnesemia, which is repleted. Labs and urinalysis otherwise are noncontributory. CT imaging as below demonstrates no complication from diverticulitis, but does demonstrate area concerning for worsening diverticulitis. For this reason, we will provide Zosyn here in the emergency room and admit for further workup and management. Case management discussed with hospitalist Dr. Rey/Sarthak. Patient is admitted to hospitalist service for further workup and management. Admission/Observation Consideration of admission/observation: Escalation of care including admission/observation considered Consult Healthcare Provider Management of the patient was discussed with: Hospitalist Lab Data [facility] Lab Attestation statement: I reviewed the patient's lab results. 03/17/24 11:30 03/17/24 11:30 Labs: Lab Results 03/17/24 03/17/24 03/17/24 Range/Units 11:30 12:45 14:27 WBC 9.1 (4.8-10.8) X10*3/uL RBC 5.11 (4.60-5.80) X10*6/uL Hgb 13.5 L (14.0-18.0) g/dl Hct 40.2 L (42.0-52.0) % MCV 78.7 L (80.0-98.0) fL MCH 26.4 L (27.0-33.0) pg MCHC 33.6 (31.0-36.0) g/dl RDW 14.1 (11.0-16.0) % Plt Count 273 (160-400) X10*3/uL MPV 10.7 (9.4-12.4) fL Immature Gran % (Auto) 0.4 (0.0-0.4) % Neut % (Auto) 69.8 (45-73) % Lymph % (Auto) 17.5 L (20-40) % [place] % (Auto) 9.4 (2-11) % Eos % (Auto) 2.6 (0-4) % Baso % (Auto) 0.3 (0-2) % Lymph # (Auto) 1.6 (1.2-4.9) X10*3/uL [place] # (Auto) 0.9 (0.1-1.2) X10*3/uL Eos # (Auto) 0.2 (0.0-0.4) X10*3/uL Baso # (Auto) 0.0 (0.0-0.2) X10*3/uL Abs Immat Gran (auto) 0.04 H (0.00-0.03) X10*3/uL Absolute Neuts (auto) 6.4 (2.0-8.3) x10*3/uL Absolute Nucleated RBC 0.000 (0.0-0.012) X10*3/uL Nucleated RBC % (auto) 0.0 (0.0-0.2) /100WBC Sodium 140 (135-145) mmol/L Potassium 4.0 (3.3-5.1) mmol/L Chloride 105 (96-108) mmol/L Carbon Dioxide 24 (22-29) mmol/L Anion Gap 15 (12-20) BUN 5 L (9-16) mg/dL Creatinine 0.94 (0.5-1.4) mg/dL Estim Creat Clear Calc 70.7 Estimated GFR > 60 Random Glucose 122 H (60-115) mg/dL Lactic Acid 3.4 H* (0.5-2.0) mmol/L Lactic Acid F/U @ 2Hr 2.7 H* (0.5-2.0) mmol/L Lactic Acid F/U @ 4Hr (0.5-2.0) mmol/L Calcium 9.7 D (8.4-10.2) mg/dL Magnesium 1.1 L* (1.6-2.6) mg/dL Total Bilirubin 0.6 (0.0-1.0) mg/dL Direct Bilirubin 0.3 (0.0-0.5) mg/dL AST 15 (5-37) U/L ALT 7 (0-40) U/L Alkaline Phosphatase 76 (39-117) U/L Total Protein 6.9 (6.5-8.0) g/dL Albumin 4.0 (3.5-5.0) g/dL Lipase 31 (8-78) U/L Urine Color Yellow Urine Appearance Clear Urine pH 6.0 (5.0-9.0) Ur Specific [place] <= 1.005 (1.005-1.025) Urine Protein Negative (Neg-Trace) mg/dL Urine Glucose (UA) Negative (Negative) mg/dL Urine Ketones Negative (Negative) mg/dL Urine Blood Negative (Negative) Urine Nitrite Negative (Negative) Ur Leukocyte Esterase Negative (Negative) 03/17/24 Range/Units 17:04 WBC (4.8-10.8) X10*3/uL RBC (4.60-5.80) X10*6/uL Hgb (14.0-18.0) g/dl Hct (42.0-52.0) % MCV (80.0-98.0) fL MCH (27.0-33.0) pg MCHC (31.0-36.0) g/dl RDW (11.0-16.0) % Plt Count (160-400) X10*3/uL MPV (9.4-12.4) fL Immature Gran % (Auto) (0.0-0.4) % Neut % (Auto) (45-73) % Lymph % (Auto) (20-40) % [place] % (Auto) (2-11) % Eos % (Auto) (0-4) % Baso % (Auto) (0-2) % Lymph # (Auto) (1.2-4.9) X10*3/uL [place] # (Auto) (0.1-1.2) X10*3/uL Eos # (Auto) (0.0-0.4) X10*3/uL Baso # (Auto) (0.0-0.2) X10*3/uL Abs Immat Gran (auto) (0.00-0.03) X10*3/uL Absolute Neuts (auto) (2.0-8.3) x10*3/uL Absolute Nucleated RBC (0.0-0.012) X10*3/uL Nucleated RBC % (auto) (0.0-0.2) /100WBC Sodium (135-145) mmol/L Potassium (3.3-5.1) mmol/L Chloride (96-108) mmol/L Carbon Dioxide (22-29) mmol/L Anion Gap (12-20) BUN (9-16) mg/dL Creatinine (0.5-1.4) mg/dL Estim Creat Clear Calc Estimated GFR Random Glucose (60-115) mg/dL Lactic Acid (0.5-2.0) mmol/L Lactic Acid F/U @ 2Hr (0.5-2.0) mmol/L Lactic Acid F/U @ 4Hr 2.8 H* (0.5-2.0) mmol/L Calcium (8.4-10.2) mg/dL Magnesium (1.6-2.6) mg/dL Total Bilirubin (0.0-1.0) mg/dL Direct Bilirubin (0.0-0.5) mg/dL AST (5-37) U/L ALT (0-40) U/L Alkaline Phosphatase (39-117) U/L Total Protein (6.5-8.0) g/dL Albumin (3.5-5.0) g/dL Lipase (8-78) U/L Urine Color Urine Appearance Urine pH (5.0-9.0) Ur Specific [place] (1.005-1.025) Urine Protein (Neg-Trace) mg/dL Urine Glucose (UA) (Negative) mg/dL Urine Ketones (Negative) mg/dL Urine Blood (Negative) Urine Nitrite (Negative) Ur Leukocyte Esterase (Negative) Radiology Impression Discussion of test interpretation with radiology: I have reviewed the radiologist's reading. Radiologist Impression: IMPRESSION: Improving diverticulitis involving the proximal sigmoid colon. However, compared to CT from 03/10/2024, there is new mild pericolonic fat stranding involving the mid descending colon which may reflect a component of worsening diverticulitis. No evidence of complication including perforation or abscess Fleischner guidelines were followed. Dictated By: Mayank Alvarado Signed By: <Electronically signed by Mayank Alvarado in OV> 03/17/24 1748 Medications Administered Discontinued Medications Generic Name Dose Route Start Last Admin Trade Name Freq PRN Reason Stop Dose Admin Acetaminophen 975 mg 03/17/24 13:05 03/17/24 13:25 Acetaminophen 325 Mg Tablet PO 03/17/24 13:06 975 mg ONCE ONE Administration Magnesium Sulfate 2 gm in 50 mls @ 150 mls/hr 03/17/24 12:02 03/17/24 14:29 Magnesium Sulfate/H2o IV 03/17/24 12:21 Infused ONCE ONE Infusion Sodium Chloride 1,000 mls @ 999 mls/hr 03/17/24 12:15 03/17/24 13:44 Ns IVCONT 03/17/24 13:15 Infused .Q1H1M ERA Infusion Magnesium Sulfate 2 gm in 50 mls @ 25 mls/hr 03/17/24 13:05 03/17/24 17:09 Magnesium Sulfate/H2o IV 03/17/24 15:04 Infused ONCE ONE Infusion Lactated Ringer's 1,000 mls @ 999 mls/hr 03/17/24 15:11 03/17/24 17:09 Lr IV 03/17/24 16:11 Infused .Q1H1M ONE Infusion Iohexol 100 ml 03/17/24 13:58 03/17/24 13:59 Iohexol 350 Mg/Ml 100 Ml Infus..Btl IV 03/17/24 13:59 85 ml ONCE ONE Administration Ketorolac Tromethamine 15 mg 03/17/24 13:05 03/17/24 13:27 Ketorolac Tromethamine 15 Mg/Ml Vial IVPUSH 03/17/24 13:06 15 mg ONCE ONE Administration Morphine Sulfate 4 mg 03/17/24 14:15 03/17/24 14:30 Morphine Sulfate 4 Mg/Ml Cartridge IVPUSH 03/17/24 14:16 4 mg ONCE ONE Administration Protocol Morphine Sulfate 4 mg 03/17/24 16:10 03/17/24 16:57 Morphine Sulfate 4 Mg/Ml Cartridge IVPUSH 03/17/24 16:11 4 mg ONCE ONE Administration Protocol Discharge Plan Discharge Clinical Impression: Diverticulitis Patient Disposition: Admitted As Inpatient Print Language: Greek
[2024-03-17 11:40] LABS: MANUAL DIFF FLAG NO
[2024-03-17 11:42] LABS: Basophils Percent Auto 0.3 % (0-2); Eosinophils Absolute Auto 0.2 X10*3/uL (0.0-0.4); Eosinophils Percent Auto 2.6 % (0-4); Hematocrit 40.2 % (42.0-52.0); Hemoglobin 13.5 g/dl (14.0-18.0); Imm Gran Abs Auto 0.04 X10*3/uL (0.00-0.03); Imm Gran Pct Auto 0.4 % (0.0-0.4); Lymphocytes Absolute Auto 1.6 X10*3/uL (1.2-4.9); Lymphocytes Percent Auto 17.5 % (20-40); Mean Corpuscular HGB Conc 33.6 g/dl (31.0-36.0); Mean Corpuscular Hemoglobin 26.4 pg (27.0-33.0); Mean Corpuscular Volume 78.7 fL (80.0-98.0); Mean Platelet Volume 10.7 fL (9.4-12.4); Monocytes Absolute Auto 0.9 X10*3/uL (0.1-1.2); Monocytes Percent Auto 9.4 % (2-11); Neutrophils Absolute Auto 6.4 x10*3/uL (2.0-8.3); Neutrophils Percent Auto 69.8 % (45-73); Platelet Count 273 X10*3/uL (160-400); Red Blood Count 5.11 X10*6/uL (4.60-5.80); Red Cell Distribution Width 14.1 % (11.0-16.0); White Blood Count 9.1 X10*3/uL (4.8-10.8)
[2024-03-17 11:57] LABS: Lactic Acid 3.4 mmol/L (0.5-2.0)
[2024-03-17 12:03] LABS: Alanine Aminotransferase 7 U/L (0-40); Alkaline Phosphatase 76 U/L (39-117); Anion Gap 15 (12-20); Aspartate Amino Transferase 15 U/L (5-37); Bilirubin Direct 0.3 mg/dL (0.0-0.5); Bilirubin Total 0.6 mg/dL (0.0-1.0); Blood Urea Nitrogen 5 mg/dL (9-16); Calcium 9.7 mg/dL (8.4-10.2); Carbon Dioxide 24 mmol/L (22-29); Chloride 105 mmol/L (96-108); Creatinine Clr Calc Pharmacy 70.7; Estimated Glomerular Filt Rate > 60; Glucose Random 122 mg/dL (60-115); Lipase 31 U/L (8-78); Magnesium 1.1 mg/dL (1.6-2.6); Sodium 140 mmol/L (135-145); Total Protein 6.9 g/dL (6.5-8.0)
[2024-03-17] MEDS: Magnesium Sulfate/H2O 2 GM/50 ML PIGGYBACK IV ×2 (12:43→14:29)
[2024-03-17] MEDS: 0.9 % Sodium Chloride 1,000 ML 999 ML IVCONT (12:44)
[2024-03-17 12:51] LABS: Appearance Urine Clear; Color Urine Yellow; Glucose Urine UA Negative (Negative); Leukocyte Esterase Urine Negative (Negative); Nitrite Urine Negative (Negative); Specific Gravity - Urine <= 1.005 (1.005-1.025); Urine Blood Negative (Negative); Urine Ketones Negative (Negative); Urine Protein Negative (Neg-Trace)
--- NOTE | 2024-03-17 12:52 | PC.NURSE ---
Pt reports LLQ ABD pain ongoing, has hx of diverticulitis and has been taking PO ABX at home for past few days. Pt reports worsening in pain, LLQ, 9/10. Also reports nausea, poor PO intake and general malaise. Alert and oriented, breathing even and unlabored, skin warm and dry.
[2024-03-17] MEDS: Acetaminophen 325 MG TABLET 975 MG PO (13:25)
[2024-03-17] MEDS: Ketorolac Tromethamine 15 MG/ML VIAL IVPUSH (13:27)
[2024-03-17 13:37] LABS: Reflex Lactate? Lactic Acid Added
[2024-03-17] MEDS: iohexoL 350 MG/ML 100 ML INFUS..BTL IV (13:59)
[2024-03-17] MEDS: Morphine Sulfate 4 MG/ML CARTRIDGE IVPUSH ×3 (14:30→18:17)
[2024-03-17 15:03] LABS: ~Lactic Acid-LAB USE ONLY 2.7 mmol/L (0.5-2.0)
[2024-03-17] MEDS: Lactated Ringers 1,000 ML 999 ML IV (15:36)
[2024-03-17 16:42] LABS: Reflex Lactate? 2 Y
[2024-03-17 17:34] LABS: ~Lactic Acid-LAB USE ONLY 2.8 mmol/L (0.5-2.0)
--- NOTE | 2024-03-17 18:15 | PC.NURSE ---
No blood cultures needed per MD
[2024-03-17] MEDS: Piperacillin Sodium/Tazobactam 3.375 GM in 0.9 % Sodium Chloride 50 ML IV ×2 (18:17→23:33)
--- NOTE | 2024-03-17 18:47 | PM.IMHP ---
History of Present Illness Date of Service: 03/17/24 Attending physician on admission: Eleanor De León Chief Complaint: abd pain 68 year old female with history of type 2 diabetes, gout, diabetic polyneuropathy, gerd, asthma, CAD s/ PCI to mid RCA on DAPT 01/2024 who is a former smoker with 50 pack-year history, history of diverticulitis presented to the ED earlier today for evaluation of worsening left lower quadrant pain. He was recently diagnosed with diverticulitis on 03/09 and was started on oral Augmentin which he has been taking as prescribed. He states initially the pain was improving but over the weekend began experiencing worsening pain in the left lower quadrant. No associated nausea or vomiting. He does have intermittent bouts of constipation and diarrhea and is passing flatus. No history of prior abdominal surgeries. No fevers, chills. In the ED, he is afebrile, vitals stable. There is no leukocytosis. He has a mild microcytic anemia. Renal function normal, electrolyte levels normal except for magnesium which is critically low at 1.1. Initial lactic acid 3.4, 2 hour repeat 2.7, 4 hour repeat 2.8. Lipase within normal limits. Urinalysis unremarkable. CT of the abdomen pelvis shows improving diverticulitis of the proximal sigmoid colon but there is new mild pericolonic fat stranding involving the mid descending colon which may reflect a component of worsening diverticulitis but no evidence of complications including perforation or abscess. In the ED has received IV morphine, Toradol, IV Zosyn and IV fluids. Review of Systems Review of Systems: Yes all other systems are reviewed and are negative FOR[facility]LY [facility] Medical History Atherosclerotic cardiovascular disease Renal stones Sigmoid diverticulitis Sciatica Neuropathy Plantar fasciitis Arthritis GERD (gastroesophageal reflux disease) Gout Diabetes Family History Mother No problems noted. Father No problems noted. Surgical History History of foot surgery History of colonoscopy History of left hip replacement Previous back surgery History of total left knee replacement History of total right knee replacement Social History Alcohol intake: never Patient Tobacco Use Status: Former Tobacco user Smoked in Last 30 Days: No Use of substances other than those prescribed or required for medical reasons: No Advance Directives: No Advance Directives Information Provided: Yes Current occupational status: retired 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 Meds Allergies Allergy/AdvReac Type Severity Reaction Status Date / Time umeclidinium AdvReac Severe Unknown Verified 03/17/24 11:24 [From Anoro Ellipta] vilanterol AdvReac Severe Unknown Verified 03/17/24 11:24 [From Anoro Ellipta] Brilinta AdvReac Severe SOB Uncoded 02/14/24 11:15 Home Medications ?Medication ?Instructions ?Recorded ?Confirmed ?Last Taken ?Type atorvastatin 10 mg tablet 20 mg PO DAILY 06/28/20 03/17/24 Unknown History celecoxib 200 mg capsule 200 mg PO DAILY 06/28/20 03/17/24 Unknown History gabapentin 100 mg capsule 300 mg PO TID 06/28/20 03/17/24 Unknown History minocycline 50 mg capsule 50 mg PO BID 06/28/20 03/17/24 Unknown History omeprazole 20 mg capsule,delayed 20 mg PO DAILY 06/28/20 03/17/24 Unknown History release dicyclomine 10 mg capsule 10 mg PO DAILY 06/19/23 03/17/24 Unknown History albuterol sulfate 90 mcg/actuation 1 puff inhalation Q4H 10/11/23 03/17/24 Unknown History aerosol inhaler fluticasone propionate 50 1 spray intranasal DAILY 10/11/23 03/17/24 Unknown History mcg/actuation nasal spray,suspension tramadol 50 mg tablet 50 mg PO Q6H PRN Pain (Scale Score 10/11/23 03/17/24 Unknown History 4-6) aspirin 81 mg tablet,delayed 81 mg PO DAILY 01/06/24 03/17/24 Unknown History release sitagliptin phosphate 50 1 tab PO BID 02/26/24 03/17/24 Unknown History mg-metformin 1,000 mg tablet (Jannemot) amoxicillin 875 mg-potassium 1 tab PO Q12H 03/17/24 03/17/24 Unknown History clavulanate 125 mg tablet triamcinolone acetonide 0.5 % 1 appl topical BID 03/17/24 03/17/24 Unknown History topical cream Physical Exam Vital Signs and Narrative: Vital Signs: Last Vital Signs Temp 97.8 F 03/17/24 14:50 Pulse 85 03/17/24 14:50 Resp 16 03/17/24 18:17 BP 154/88 H 03/17/24 14:50 Pulse Ox 96 03/17/24 14:50 O2 Del Method Room Air 03/17/24 14:50 BMI result Body Mass Index 27.5 Constitutional - Awake and Alert, No apparent distress Eyes - PERRLA, EOMI Cardiovascular - S1S2, RRR, No edema Respiratory - Normal lung expansion, Normal respiratory effort, No respiratory distress, CTA bilaterally Gastrointestinal - ttp LLQ without guarding or rebound. ND; +BS Extremities - no calf tenderness bilaterally, no swelling Skin - Warm/Dry Neurological - Alert & oriented x3, CN II-XII in tact, 5/5 strength BUE and BLE Psychological - Appropriate affect Results Labs 03/17/24 11:30 03/17/24 11:30 Labs: Laboratory Results - last 24 hr 03/17/24 03/17/24 03/17/24 11:30 12:45 14:27 MCV 78.7 L MCH 26.4 L MCHC 33.6 RDW 14.1 Plt Count 273 MPV 10.7 Immature Gran % (Auto) 0.4 Neut % (Auto) 69.8 Lymph % (Auto) 17.5 L [place] % (Auto) 9.4 Eos % (Auto) 2.6 Baso % (Auto) 0.3 Lymph # (Auto) 1.6 [place] # (Auto) 0.9 Eos # (Auto) 0.2 Baso # (Auto) 0.0 Abs Immat Gran (auto) 0.04 H Absolute Neuts (auto) 6.4 Absolute Nucleated RBC 0.000 Nucleated RBC % (auto) 0.0 Anion Gap 15 Estim Creat Clear Calc 70.7 Estimated GFR > 60 Random Glucose 122 H Lactic Acid 3.4 H* Lactic Acid F/U @ 2Hr 2.7 H* Lactic Acid F/U @ 4Hr Calcium 9.7 D Magnesium 1.1 L* Total Bilirubin 0.6 Direct Bilirubin 0.3 AST 15 ALT 7 Alkaline Phosphatase 76 Total Protein 6.9 Albumin 4.0 Lipase 31 Urine Color Yellow Urine Appearance Clear Urine pH 6.0 Ur Specific [place] <= 1.005 Urine Protein Negative Urine Glucose (UA) Negative Urine Ketones Negative Urine Blood Negative Urine Nitrite Negative Ur Leukocyte Esterase Negative 03/17/24 17:04 MCV MCH MCHC RDW Plt Count MPV Immature Gran % (Auto) Neut % (Auto) Lymph % (Auto) [place] % (Auto) Eos % (Auto) Baso % (Auto) Lymph # (Auto) [place] # (Auto) Eos # (Auto) Baso # (Auto) Abs Immat Gran (auto) Absolute Neuts (auto) Absolute Nucleated RBC Nucleated RBC % (auto) Anion Gap Estim Creat Clear Calc Estimated GFR Random Glucose Lactic Acid Lactic Acid F/U @ 2Hr Lactic Acid F/U @ 4Hr 2.8 H* Calcium Magnesium Total Bilirubin Direct Bilirubin AST ALT Alkaline Phosphatase Total Protein Albumin Lipase Urine Color Urine Appearance Urine pH Ur Specific [place] Urine Protein Urine Glucose (UA) Urine Ketones Urine Blood Urine Nitrite Ur Leukocyte Esterase Imaging Radiologist's Impressions: Impressions Abdomen/Pelvis CT 03/17/24 14:26 IMPRESSION: Improving diverticulitis involving the proximal sigmoid colon. However, compared to CT from 03/10/2024, there is new mild pericolonic fat stranding involving the mid descending colon which may reflect a component of worsening diverticulitis. No evidence of complication including perforation or abscess Fleischner guidelines were followed. Assessment and Plan (1) Diverticulitis: Status: Acute Plan 68 year old female with history of type 2 diabetes, gout, diabetic polyneuropathy, gerd, asthma, CAD s/ PCI to mid RCA on DAPT 01/2024 who is a former smoker with 50 pack-year history, history of diverticulitis admitted for further management of acute worsening diverticulitis. #Acute diverticulitis -CT abdomen pelvis shows improvement in diverticulitis of the proximal sigmoid colon but new area of mild pericolonic fat stranding indicative of probable worsening diverticulitis without any perforation or abscess in the descending colon -failed outpatient therapy with Augmentin given new areas of diverticulitis. Initiate Zosyn (initiated 03/17) -antiemetics p.r.n., pain management p.r.n. on pain scale -clear liquid diet, advance as tolerated -no leukocytosis or sepsis # acute lactic acidosis -due to metformin use, not severe sepsis # acute hypomagnesemia -possibly r/t pppi use -repleted with IV mag in ED. initiated PO mag bid -follow # [id number] type 2 diabetes -POC glucose, diabetic diet -Humalog sliding scale -hold sitagliptin-metformin # chronic eosinophilic asthma -no exacerbation, albuterol p.r.n. -continue home inhalers. outpatient Dupixent # GERD -PPI # diabetic polyneuropathy -continue gabapentin # CAD -recent cardiac catheterization with PCI to the RCA 01/2024 -continue DA PT, statin DVT prophylaxis-Lovenox Full code Given patient's new areas of pericolonic fat stranding indicative of worsening diverticulitis despite treatment with Augmentin, patient will require inpatient stay at least 2 midnights for IV antibiotics to treat acute worsening diverticulitis Quality Stroke Does the patient have a stroke diagnosis?: No VTE Prior VTE?: No VTE Risk Level:: Medical - moderate - high VTE Device Contraindication: Treatment Not Indicated VTE Drug Contraindication: N/A - Med Ordered
[2024-03-17] MEDS: Enoxaparin Sodium 40 MG/0.4 ML SYRINGE SUBCUT (19:01)
[2024-03-17] MEDS: 0.9 % Sodium Chloride 1,000 ML 100 ML IVCONT (19:10)
[2024-03-17 19:16] LABS: Iron 43 mcg/dL (45-160); Percent Iron Saturation 17 % (15-50); Total Iron Binding Capacity 252 mcg/dL (228-428); Unsaturated Iron Binding 209 ug/dL
--- NOTE | 2024-03-17 19:23 | PHA.MEDREC ---
Pharmacy Consult ? Medication Reconciliation Pharmacy has completed the medication reconciliation. Patient had list on his phone.
[2024-03-17 19:36] LABS: Ferritin 62 ng/mL (20-250)
[2024-03-17 20:51] LABS: Glucose, Whole Blood 87 mg/dL (60-115)
[2024-03-17] MEDS: Gabapentin 300 MG CAPSULE PO (20:55)
[2024-03-17] MEDS: oxyCODONE HCl Immed Release 5 MG TABLET PO (20:58)
[2024-03-17] MEDS: Triamcinolone Acet 0.5 % Cream 15 GM TUBE 1 APPL TOPICAL (21:45)
[2024-03-17] MEDS: 0.9 % Sodium Chloride Flush 3 ML SYRINGE IVFLUSH (23:34)
[2024-03-18 00:32] VITALS: BMI 28.1
[2024-03-18 00:42] VITALS: BP 167/80; PULSE 81; RESP 18; TEMP 36.9; O2SAT 99
[2024-03-18] MEDS: Melatonin 3 MG TABLET 6 MG PO ×2 (00:50→21:32)
[2024-03-18] MEDS: traMADoL HCL 50 MG TABLET PO ×2 (00:50→15:14)
[2024-03-18] MEDS: 0.9 % Sodium Chloride 1,000 ML 100 ML IVCONT ×3 (04:36→23:12)
[2024-03-18] MEDS: oxyCODONE HCl Immed Release 5 MG TABLET PO ×4 (04:38→20:18)
[2024-03-18] MEDS: Omeprazole 20 MG CAPSULE.DR PO (05:40)
[2024-03-18] MEDS: Piperacillin Sodium/Tazobactam 3.375 GM in 0.9 % Sodium Chloride 50 ML IV ×4 (05:40→23:08)
[2024-03-18 06:46] LABS: MANUAL DIFF FLAG NO
[2024-03-18 06:50] LABS: Basophils Percent Auto 0.2 % (0-2); Eosinophils Absolute Auto 0.2 X10*3/uL (0.0-0.4); Hematocrit 35.2 % (42.0-52.0); Hemoglobin 11.8 g/dl (14.0-18.0); Imm Gran Abs Auto 0.03 X10*3/uL (0.00-0.03); Imm Gran Pct Auto 0.3 % (0.0-0.4); Lymphocytes Absolute Auto 1.2 X10*3/uL (1.2-4.9); Lymphocytes Percent Auto 13.3 % (20-40); Mean Corpuscular HGB Conc 33.5 g/dl (31.0-36.0); Mean Corpuscular Hemoglobin 26.7 pg (27.0-33.0); Mean Corpuscular Volume 79.6 fL (80.0-98.0); Mean Platelet Volume 11.3 fL (9.4-12.4); Monocytes Absolute Auto 0.8 X10*3/uL (0.1-1.2); Monocytes Percent Auto 8.6 % (2-11); Neutrophils Absolute Auto 6.6 x10*3/uL (2.0-8.3); Neutrophils Percent Auto 75.6 % (45-73); Platelet Count 222 X10*3/uL (160-400); Red Blood Count 4.42 X10*6/uL (4.60-5.80); Red Cell Distribution Width 14.1 % (11.0-16.0); White Blood Count 8.7 X10*3/uL (4.8-10.8)
[2024-03-18 06:55] VITALS: BP 152/91; PULSE 85; RESP 17; TEMP 36.6; O2SAT 98
[2024-03-18 07:12] LABS: Anion Gap 12 (12-20); Blood Urea Nitrogen 6 mg/dL (9-16); Calcium 8.5 mg/dL (8.4-10.2); Carbon Dioxide 22 mmol/L (22-29); Chloride 106 mmol/L (96-108); Creatinine Clr Calc Pharmacy 89.4; Estimated Glomerular Filt Rate > 60; Glucose Random 124 mg/dL (60-115); Magnesium 1.7 mg/dL (1.6-2.6); Sodium 136 mmol/L (135-145)
[2024-03-18 07:13] LABS: Glucose, Whole Blood 137 mg/dL (60-115)
[2024-03-18] MEDS: Magnesium Oxide 400 MG TABLET PO ×2 (08:45→17:31)
[2024-03-18] MEDS: Celecoxib 200 MG CAPSULE PO (08:45)
[2024-03-18] MEDS: Dicyclomine HCl 10 MG CAPSULE PO (08:45)
[2024-03-18] MEDS: Aspirin Enteric Coated 81 MG TABLET.DR PO (08:45)
[2024-03-18] MEDS: Acetaminophen 325 MG TABLET 650 MG PO (08:45)
[2024-03-18] MEDS: Gabapentin 300 MG CAPSULE PO ×3 (08:45→20:18)
[2024-03-18] MEDS: Clopidogrel Bisulfate 75 MG TABLET PO (08:45)
[2024-03-18] MEDS: Atorvastatin Calcium 20 MG TABLET PO (08:45)
[2024-03-18] MEDS: Triamcinolone Acet 0.5 % Cream 15 GM TUBE 1 APPL TOPICAL ×2 (08:46→20:23)
--- NOTE | 2024-03-18 11:08 | P.PNIM_ITS ---
Subjective Subjective Date of Service: 03/18/24 Interval History: seen and evaluated this morning Denies any fever or chills reporting LLQ pain feels hungry and wants to eat Review of Systems Review of Systems: Yes all other systems are reviewed and are negative Physical Exam 2 Vital Signs: Vital Signs: Last Vital Signs Temp 98 F 03/18/24 06:55 Pulse 85 03/18/24 06:55 Resp 17 03/18/24 06:55 BP 152/91 H 03/18/24 06:55 Pulse Ox 98 03/18/24 06:55 O2 Del Method Room Air 03/18/24 06:55 BMI result Body Mass Index 28.1 Const: Other: Constitutional : Awake, interactive, not in distress Neck : Normal inspection, Supple Cardiovascular : RRR, no JVP, no lower extremity edema Respiratory : good bilateral air entry, no crackles, wheezes or rhonchi Gastrointestinal: soft, lax, Normal bowel sounds, LLQ mild tenderness with no surgical signs Skin : Warm, Dry Neurological : Alert & oriented x3, No focal deficit Objective Data Active Medications Acetaminophen (Acetaminophen 325 Mg Tablet) 650 mg PO Q6H PRN PRN Reason: Pain, Mild (Pain Scale 1-3), fever or headache Last Admin: 03/18/24 08:45 Dose: 650 mg Documented By: IGGY Albuterol Sulfate (Albuterol Sulfate 90 Mcg 8 Gm Inhaler) 1 puff INHALE RQ4H [facility] Last Admin: 03/18/24 06:01 Dose: Not Given Documented By: DONNA Non-Admin Reason: Patient Asleep Aspirin (Aspirin Enteric Coated 81 Mg Tablet.) 81 mg PO DAILY [facility] Last Admin: 03/18/24 08:45 Dose: 81 mg Documented By: IGGY Atorvastatin Calcium (Atorvastatin Calcium 20 Mg Tablet) 20 mg PO DAILY [facility] Last Admin: 03/18/24 08:45 Dose: 20 mg Documented By: IGGY Calcium Carbonate (Calcium Carbonate 750 Mg Tab.Chew) 750 mg PO Q4H PRN PRN Reason: Heartburn Celecoxib (Celecoxib 200 Mg Capsule) 200 mg PO DAILY [facility] Last Admin: 03/18/24 08:45 Dose: 200 mg Documented By: IGGY Clopidogrel Bisulfate (Clopidogrel Bisulfate 75 Mg Tablet) 75 mg PO DAILY [facility] Last Admin: 07/31/24 08:45 Dose: 75 mg Documented By: IGGY Dicyclomine HCl (Dicyclomine Hcl 10 Mg Capsule) 10 mg PO DAILY [facility] Last Admin: 03/18/24 08:45 Dose: 10 mg Documented By: IGGY Enoxaparin Sodium (Enoxaparin Sodium 40 Mg/0.4 Ml Syringe) 40 mg SUBCUT Q24H [facility] Last Admin: 03/17/24 19:01 Dose: 40 mg Documented By: KAYLEE Fluticasone Propionate (Fluticasone Propionate 250 Mcg Blst.W.Dev) 1 puff INHALE RBID [facility] Fluticasone Propionate (Fluticasone Propionate Nasal 16 Gm [place]) 1 spray NOSTRIL-B DAILY [facility] Last Admin: 03/18/24 08:46 Dose: Not Given Documented By: IGGY Non-Admin Reason: Med Not Available Gabapentin (Gabapentin 300 Mg Capsule) 300 mg PO TID [facility] Last Admin: 03/18/24 08:45 Dose: 300 mg Documented By: IGGY Glucose (Glucose Gel 15 Gm Gel..Gram.) 15 gm PO Q15M PRN; Protocol PRN Reason: per Hypoglycemia Standing Ord. Hydromorphone HCl (Hydromorphone Hcl 1 Mg/Ml Syringe) 0.5 mg IVPUSH Q4H PRN; Protocol PRN Reason: Pain, Severe (Pain Scale 7-10) Dextrose (D10) 250 mls @ 750 mls/hr IV Q15M PRN; Protocol PRN Reason: per Hypoglycemia Standing Ord. Sodium Chloride (Ns) 1,000 mls @ 100 mls/hr IVCONT .Q10H [facility] Last Admin: 03/18/24 04:36 Dose: 100 mls/hr Documented By: GRACIELA Piperacillin Sod/Tazobactam (Sod 3.375 gm/ Sodium Chloride) 50 mls @ 100 mls/hr IV Q6H [facility] Last Infusion: 03/18/24 06:12 Dose: Infused Documented By: GRACIELA Insulin Human Lispro (Insulin Lispro 100 Unit/Ml 3 Ml Vial) 0 unit SUBCUT QIDACHS [facility]; Protocol Last Admin: 03/18/24 07:21 Dose: Not Given Documented By: IGGY Non-Admin Reason: No Insulin Coverage Magnesium Hydroxide (Milk Of Magnesia 30 Ml Oral.Susp) 30 ml PO DAILY PRN PRN Reason: Constipation Magnesium Oxide (Magnesium Oxide 400 Mg Tablet) 400 [facility] Last Admin: 03/18/24 08:45 Dose: 400 mg Documented By: IGGY Melatonin (Melatonin 3 Mg Tablet) 6 mg PO BEDTIME PRN PRN Reason: Insomnia Last Admin: 03/18/24 00:50 Dose: 6 mg Documented By: GRACIELA Non-Formulary Medication (Dupilumab [Dupixent Syringe]) 300 mg SUBCUT Q14D [facility] Non-Formulary Medication (Minocycline) 50 mg PO BID [facility] Omeprazole (Omeprazole 20 Mg Capsule.Dr) 20 mg PO DAILY@0630 [facility] Last Admin: 03/18/24 05:40 Dose: 20 mg Documented By: GRACIELA Ondansetron HCl (Ondansetron Hcl 4 Mg/2 Ml Vial) 4 mg IVPUSH Q8H PRN PRN Reason: Nausea and Vomiting Oxycodone HCl (Oxycodone Hcl Immed Release 5 Mg Tablet) 5 mg PO Q6H PRN PRN Reason: Pain, Moderate(Pain Scale 4-6) Last Admin: 03/18/24 08:45 Dose: 5 mg Documented By: IGGY Sodium Chloride (0.9 % Sodium Chloride Flush 3 Ml Syringe) 3 ml IVFLUSH [facility] Last Admin: 03/18/24 07:22 Dose: Not Given Documented By: IGGY Non-Admin Reason: IV Running Tramadol HCl (Tramadol Hcl 50 Mg Tablet) 50 mg PO Q6H PRN PRN Reason: Pain (Scale Score 4-6) Last Admin: 03/18/24 00:50 Dose: 50 mg Documented By: GRACIELA Triamcinolone Acetonide (Triamcinolone Acet 0.5 % Cream 15 Gm Tube) 1 appl TOPICAL BID [facility]; Protocol Last Admin: 03/18/24 08:46 Dose: 1 appl Documented By: IGGY Labs 03/18/24 05:13 03/18/24 05:13 Labs: Laboratory Results - last 24 hr 03/17/24 03/17/24 03/17/24 11:30 12:45 14:27 MCV 78.7 L MCH 26.4 L MCHC 33.6 RDW 14.1 Plt Count 273 MPV 10.7 Immature Gran % (Auto) 0.4 Neut % (Auto) 69.8 Lymph % (Auto) 17.5 L [place] % (Auto) 9.4 Eos % (Auto) 2.6 Baso % (Auto) 0.3 Lymph # (Auto) 1.6 [place] # (Auto) 0.9 Eos # (Auto) 0.2 Baso # (Auto) 0.0 Abs Immat Gran (auto) 0.04 H Absolute Neuts (auto) 6.4 Absolute Nucleated RBC 0.000 Nucleated RBC % (auto) 0.0 Anion Gap 15 Estim Creat Clear Calc 70.7 Estimated GFR > 60 POC Glucose Random Glucose 122 H Lactic Acid 3.4 H* Lactic Acid F/U @ 2Hr 2.7 H* Lactic Acid F/U @ 4Hr Calcium 9.7 D Magnesium 1.1 L* Iron 43 L TIBC 252 % Saturation 17 Unsat Iron Binding 209 Ferritin 62 Total Bilirubin 0.6 Direct Bilirubin 0.3 AST 15 ALT 7 Alkaline Phosphatase 76 Total Protein 6.9 Albumin 4.0 Lipase 31 Urine Color Yellow Urine Appearance Clear Urine pH 6.0 Ur Specific [place] <= 1.005 Urine Protein Negative Urine Glucose (UA) Negative Urine Ketones Negative Urine Blood Negative Urine Nitrite Negative Ur Leukocyte Esterase Negative 03/17/24 03/17/24 03/18/24 17:04 20:44 05:13 MCV 79.6 L MCH 26.7 L MCHC 33.5 RDW 14.1 Plt Count 222 MPV 11.3 Immature Gran % (Auto) 0.3 Neut % (Auto) 75.6 H Lymph % (Auto) 13.3 L [place] % (Auto) 8.6 Eos % (Auto) 2.0 Baso % (Auto) 0.2 Lymph # (Auto) 1.2 [place] # (Auto) 0.8 Eos # (Auto) 0.2 Baso # (Auto) 0.0 Abs Immat Gran (auto) 0.03 Absolute Neuts (auto) 6.6 Absolute Nucleated RBC 0.000 Nucleated RBC % (auto) 0.0 Anion Gap 12 Estim Creat Clear Calc 89.4 Estimated GFR > 60 POC Glucose 87 Random Glucose 124 H Lactic Acid Lactic Acid F/U @ 2Hr Lactic Acid F/U @ 4Hr 2.8 H* Calcium 8.5 D Magnesium 1.7 Iron TIBC % Saturation Unsat Iron Binding Ferritin Total Bilirubin Direct Bilirubin AST ALT Alkaline Phosphatase Total Protein Albumin Lipase Urine Color Urine Appearance Urine pH Ur Specific [place] Urine Protein Urine Glucose (UA) Urine Ketones Urine Blood Urine Nitrite Ur Leukocyte Esterase 03/18/24 07:10 MCV MCH MCHC RDW Plt Count MPV Immature Gran % (Auto) Neut % (Auto) Lymph % (Auto) [place] % (Auto) Eos % (Auto) Baso % (Auto) Lymph # (Auto) [place] # (Auto) Eos # (Auto) Baso # (Auto) Abs Immat Gran (auto) Absolute Neuts (auto) Absolute Nucleated RBC Nucleated RBC % (auto) Anion Gap Estim Creat Clear Calc Estimated GFR POC Glucose 137 H Random Glucose Lactic Acid Lactic Acid F/U @ 2Hr Lactic Acid F/U @ 4Hr Calcium Magnesium Iron TIBC % Saturation Unsat Iron Binding Ferritin Total Bilirubin Direct Bilirubin AST ALT Alkaline Phosphatase Total Protein Albumin Lipase Urine Color Urine Appearance Urine pH Ur Specific [place] Urine Protein Urine Glucose (UA) Urine Ketones Urine Blood Urine Nitrite Ur Leukocyte Esterase Assessment and Plan (1) Diverticulitis: Status: Acute Plan 68 year old female with history of type 2 diabetes, gout, diabetic polyneuropathy, gerd, asthma, CAD s/ PCI to mid RCA on DAPT 01/2024 who is a former smoker with 50 pack-year history, history of diverticulitis admitted for further management of acute worsening diverticulitis. #Acute diverticulitis not septic CT abdomen pelvis shows improvement in diverticulitis of the proximal sigmoid colon but new area of mild pericolonic fat stranding indicative of probable worsening diverticulitis without any perforation or abscess in the descending colon failed outpatient therapy with Augmentin given new areas of diverticulitis. Continue Zosyn (initiated 03/17) IVF antiemetics p.r.n., pain management p.r.n. clear liquid diet, advance as tolerated # acute lactic acidosis due to metformin use, not severe sepsis # acute hypomagnesemia possibly r/t ppi use repleted with IV mag in ED. initiated PO mag bid follow # [id number] type 2 diabetes POC glucose, diabetic diet Humalog sliding scale hold sitagliptin-metformin # chronic eosinophilic asthma no exacerbation, albuterol p.r.n. continue home inhalers. outpatient Dupixent # GERD PPI # diabetic polyneuropathy continue gabapentin # CAD recent cardiac catheterization with PCI to the RCA 01/2024 continue DA PT, statin DVT prophylaxis Lovenox Given patient's new areas of pericolonic fat stranding indicative of worsening diverticulitis despite treatment with Augmentin, patient will require inpatient stay overnight for IV antibiotics to treat acute worsening diverticulitis Quality Stroke Does the patient have a stroke diagnosis?: No VTE Prior VTE?: No VTE Risk Level:: Medical - moderate - high VTE Device Contraindication: Treatment Not Indicated VTE Drug Contraindication: N/A - Med Ordered
[2024-03-18 11:12] LABS: Glucose, Whole Blood 141 mg/dL (60-115)
--- NOTE | 2024-03-18 13:59 | MHC.CM.PN ---
IMM DELIVERED. PATIENT LIVES IN A HOME ALONE. FUNCTIONALLY INDEPENDENT. DENIES USE OF DME OR SERVICES. REPORTS HE HAS AN HCP NAMING [facility]ON [facility]. COPY REQUESTED. SON CAN BRING IN. PCP PEMA CAMPOS MD DP: GOAL IS HOME SELF CARE. SON TO TRANSPORT. CM WILL CONTINUE TO FOLLOW.
[2024-03-18 15:00] VITALS: BP 132/73; PULSE 78; RESP 16; TEMP 36.1; O2SAT 96
[2024-03-18] MEDS: Milk of Magnesia 30 ML ORAL.SUSP PO (15:14)
[2024-03-18] MEDS: Albuterol Sulfate 90 MCG 8 GM INHALER 1 PUFF INHALE ×2 (15:33→19:31)
[2024-03-18 15:35] VITALS: PULSE 78; RESP 16; O2SAT 96
[2024-03-18 16:19] LABS: Glucose, Whole Blood 114 mg/dL (60-115)
[2024-03-18 19:14] VITALS: BP 143/72; PULSE 82; RESP 18; TEMP 36.6; O2SAT 99
[2024-03-18] MEDS: Fluticasone Propionate 250 MCG BLST.W.DEV 1 PUFF INHALE (19:31)
[2024-03-18 19:37] VITALS: PULSE 88; RESP 18; O2SAT 100
[2024-03-18 19:57] LABS: Glucose, Whole Blood 142 mg/dL (60-115)
[2024-03-18] MEDS: Enoxaparin Sodium 40 MG/0.4 ML SYRINGE SUBCUT (20:18)
[2024-03-19] VITALS (8 sets, daily range): BP systolic 133–146; BP diastolic 70–84; PULSE 72–84; RESP 16; TEMP 36.2–36.4; O2SAT 98–100
[2024-03-19] MEDS: Omeprazole 20 MG CAPSULE.DR PO (05:33)
[2024-03-19] MEDS: Piperacillin Sodium/Tazobactam 3.375 GM in 0.9 % Sodium Chloride 50 ML IV ×3 (05:33→19:44)
[2024-03-19] MEDS: oxyCODONE HCl Immed Release 5 MG TABLET PO ×4 (05:37→23:23)
[2024-03-19 06:17] LABS: Hematocrit 33.5 % (42.0-52.0); Hemoglobin 10.9 g/dl (14.0-18.0); Mean Corpuscular HGB Conc 32.5 g/dl (31.0-36.0); Mean Corpuscular Hemoglobin 26.3 pg (27.0-33.0); Mean Corpuscular Volume 80.9 fL (80.0-98.0); Mean Platelet Volume 11.1 fL (9.4-12.4); Platelet Count 198 X10*3/uL (160-400); Red Blood Count 4.14 X10*6/uL (4.60-5.80); Red Cell Distribution Width 14.1 % (11.0-16.0); White Blood Count 6.4 X10*3/uL (4.8-10.8)
[2024-03-19 06:38] LABS: Anion Gap 12 (12-20); Blood Urea Nitrogen 5 mg/dL (9-16); Calcium 8.1 mg/dL (8.4-10.2); Carbon Dioxide 25 mmol/L (22-29); Chloride 108 mmol/L (96-108); Creatinine Clr Calc Pharmacy 77.9; Estimated Glomerular Filt Rate > 60; Glucose Random 124 mg/dL (60-115); Potassium 3.9 mmol/L (3.3-5.1); Sodium 141 mmol/L (135-145)
[2024-03-19 07:30] LABS: Glucose, Whole Blood 129 mg/dL (60-115)
[2024-03-19] MEDS: Fluticasone Propionate 250 MCG BLST.W.DEV 1 PUFF INHALE ×2 (08:15→19:50)
[2024-03-19] MEDS: Albuterol Sulfate 90 MCG 8 GM INHALER 1 PUFF INHALE ×4 (08:16→19:51)
[2024-03-19] MEDS: Atorvastatin Calcium 20 MG TABLET PO (09:03)
[2024-03-19] MEDS: Magnesium Oxide 400 MG TABLET PO ×2 (09:03→16:16)
[2024-03-19] MEDS: Clopidogrel Bisulfate 75 MG TABLET PO (09:03)
[2024-03-19] MEDS: Dicyclomine HCl 10 MG CAPSULE PO (09:03)
[2024-03-19] MEDS: Gabapentin 300 MG CAPSULE PO ×3 (09:03→19:44)
[2024-03-19] MEDS: Aspirin Enteric Coated 81 MG TABLET.DR PO (09:03)
[2024-03-19] MEDS: Celecoxib 200 MG CAPSULE PO (09:03)
[2024-03-19] MEDS: Fluticasone Propionate Nasal 16 GM SPRAY 1 SPRAY NOSTRIL-B (09:37)
[2024-03-19] MEDS: traMADoL HCL 50 MG TABLET PO ×2 (09:38→21:54)
[2024-03-19] MEDS: Triamcinolone Acet 0.5 % Cream 15 GM TUBE 1 APPL TOPICAL ×2 (09:38→21:55)
[2024-03-19 11:23] LABS: Glucose, Whole Blood 184 mg/dL (60-115)
[2024-03-19] MEDS: Insulin Lispro 100 UNIT/ML 3 ML VIAL SUBCUT (11:31)
--- NOTE | 2024-03-19 15:11 | HO.PM.IMPN ---
Subjective Subjective Date of Service: 03/19/24 Interval History: Seen and examined this morning Follow-up for abdominal pain/diverticulitis Patient reports ongoing left lower quadrant abdominal pain. Denies any associated nausea, vomiting Review of Systems Review of Systems: Yes all other systems are reviewed and are negative Constitutional Constitutional: Denies chills and Denies fever(s) Cardiovascular Cardiovascular: Denies chest pain and Denies palpitations Gastrointestinal Gastrointestinal: Reports abdominal pain, Denies nausea and Denies vomiting Endocrine Endocrine: Denies palpitations Physical Exam Vital Signs: Vital Signs: Last Vital Signs Temp 97.6 F 03/19/24 07:11 Pulse 84 03/19/24 11:50 Resp 16 03/19/24 11:50 BP 146/84 H 03/19/24 07:11 Pulse Ox 98 03/19/24 07:11 O2 Del Method Room Air 03/19/24 07:11 BMI result Body Mass Index 28.1 Const: General: cooperative, no acute distress, alert and awake Nutritional Appearance: overweight Orientation/consciousness: patient oriented x3 Resp: Effort & Inspection: normal respiratory effort, able to speak in complete sentences, no respiratory distress and no use of accessory muscles Auscultation: clear to auscultation bilaterally Cardio: Rate: regular rate GI: Other: Abdomen is soft, nondistended, positive, tenderness left lower quadrant, no rebound Neuro: General: patient oriented x3, moves all extremities and CN's II-XI intact bilaterally Extrem: General: Yes no pedal edema Objective Data Active Medications Acetaminophen (Acetaminophen 325 Mg Tablet) 650 mg PO Q6H PRN PRN Reason: Pain, Mild (Pain Scale 1-3), fever or headache Last Admin: 03/18/24 08:45 Dose: 650 mg Documented By: IGGY Albuterol Sulfate (Albuterol Sulfate 90 Mcg 8 Gm Inhaler) 1 puff INHALE RQ4H [facility] Last Admin: 03/19/24 11:48 Dose: 1 puff Documented By: LANE Aspirin (Aspirin Enteric Coated 81 Mg Tablet.) 81 mg PO DAILY [facility] Last Admin: 03/19/24 09:03 Dose: 81 mg Documented By: CONRADO Atorvastatin Calcium (Atorvastatin Calcium 20 Mg Tablet) 20 mg PO DAILY [facility] Last Admin: 03/19/24 09:03 Dose: 20 mg Documented By: CONRADO Calcium Carbonate (Calcium Carbonate 750 Mg Tab.Chew) 750 mg PO Q4H PRN PRN Reason: Heartburn Celecoxib (Celecoxib 200 Mg Capsule) 200 mg PO DAILY [facility] Last Admin: 03/19/24 09:03 Dose: 200 mg Documented By: CONRADO Clopidogrel Bisulfate (Clopidogrel Bisulfate 75 Mg Tablet) 75 mg PO DAILY [facility] Last Admin: 03/19/24 09:03 Dose: 75 mg Documented By: CONRADO Dicyclomine HCl (Dicyclomine Hcl 10 Mg Capsule) 10 mg PO DAILY [facility] Last Admin: 03/19/24 09:03 Dose: 10 mg Documented By: CONRADO Enoxaparin Sodium (Enoxaparin Sodium 40 Mg/0.4 Ml Syringe) 40 mg SUBCUT Q24H [facility] Last Admin: 03/18/24 20:18 Dose: 40 mg Documented By: GRACIELA Fluticasone Propionate (Fluticasone Propionate 250 Mcg Blst.W.Dev) 1 puff INHALE RBID [facility] Last Admin: 03/19/24 08:15 Dose: 1 puff Documented By: LANE Fluticasone Propionate (Fluticasone Propionate Nasal 16 Gm [place]) 1 spray NOSTRIL-B DAILY [facility] Last Admin: 03/19/24 09:37 Dose: 1 spray Documented By: CONRADO Gabapentin (Gabapentin 300 Mg Capsule) 300 mg PO TID [facility] Last Admin: 03/19/24 14:18 Dose: 300 mg Documented By: CONRADO Glucose (Glucose Gel 15 Gm Gel..Gram.) 15 gm PO Q15M PRN; Protocol PRN Reason: per Hypoglycemia Standing Ord. Hydromorphone HCl (Hydromorphone Hcl 1 Mg/Ml Syringe) 0.5 mg IVPUSH Q4H PRN; Protocol PRN Reason: Pain, Severe (Pain Scale 7-10) Dextrose (D10) 250 mls @ 750 mls/hr IV Q15M PRN; Protocol PRN Reason: per Hypoglycemia Standing Ord. Sodium Chloride (Ns) 1,000 mls @ 100 mls/hr IVCONT .Q10H [facility] Last Admin: 03/19/24 09:39 Dose: Not Given Documented By: CONRADO Non-Admin Reason: hold per Piperacillin Sod/Tazobactam (Sod 3.375 gm/ Sodium Chloride) 50 mls @ 100 mls/hr IV Q6H [facility] Last Infusion: 03/19/24 12:04 Dose: Infused Documented By: CONRADO Insulin Human Lispro (Insulin Lispro 100 Unit/Ml 3 Ml Vial) 0 unit SUBCUT QIDACHS [facility]; Protocol Last Admin: 03/19/24 11:31 Dose: 2 unit Documented By: CONRADO Magnesium Hydroxide (Milk Of Magnesia 30 Ml Oral.Susp) 30 ml PO DAILY PRN PRN Reason: Constipation Last Admin: 03/18/24 15:14 Dose: 30 ml Documented By: GRACIELA Magnesium Oxide (Magnesium Oxide 400 Mg Tablet) 400 mg PO BIDPC [facility] Last Admin: 03/19/24 09:03 Dose: 400 mg Documented By: CONRADO Melatonin (Melatonin 3 Mg Tablet) 6 mg PO BEDTIME PRN PRN Reason: Insomnia Last Admin: 03/18/24 21:32 Dose: 6 mg Documented By: GRACIELA Non-Formulary Medication (Dupilumab [Dupixent Syringe]) 300 mg SUBCUT Q14D [facility] Non-Formulary Medication (Minocycline) 50 mg PO BID [facility] Omeprazole (Omeprazole 20 Mg Capsule.Dr) 20 mg PO DAILY@0630 [facility] Last Admin: 03/19/24 05:33 Dose: 20 mg Documented By: GRACIELA Ondansetron HCl (Ondansetron Hcl 4 Mg/2 Ml Vial) 4 mg IVPUSH Q8H PRN PRN Reason: Nausea and Vomiting Oxycodone HCl (Oxycodone Hcl Immed Release 5 Mg Tablet) 5 mg PO Q6H PRN PRN Reason: Pain, Moderate(Pain Scale 4-6) Last Admin: 03/19/24 12:03 Dose: 5 mg Documented By: CONRADO Sodium Chloride (0.9 % Sodium Chloride Flush 3 Ml Syringe) [facility] Last Admin: 03/19/24 13:24 Dose: Not Given Documented By: CONRADO Non-Admin Reason: Previously Administered Tramadol HCl (Tramadol Hcl 50 Mg Tablet) 50 mg PO Q6H PRN PRN Reason: Pain (Scale Score 4-6) Last Admin: 03/19/24 09:38 Dose: 50 mg Documented By: CONRADO Triamcinolone Acetonide (Triamcinolone Acet 0.5 % Cream 15 Gm Tube) 1 appl TOPICAL BID [facility]; Protocol Last Admin: 03/19/24 09:38 Dose: 1 appl Documented By: CONRADO Labs 03/19/24 05:25 03/19/24 05:25 Labs: Laboratory Results - last 24 hr 03/18/24 03/18/24 03/19/24 16:08 19:49 05:25 MCV 80.9 MCH 26.3 L MCHC 32.5 RDW 14.1 Plt Count 198 MPV 11.1 Absolute Nucleated RBC 0.000 Nucleated RBC % (auto) 0.0 Anion Gap 12 Estim Creat Clear Calc 77.9 Estimated GFR > 60 POC Glucose 114 142 H Random Glucose 124 H Calcium 8.1 L 03/19/24 03/19/24 07:18 11:12 MCV MCH MCHC RDW Plt Count MPV Absolute Nucleated RBC Nucleated RBC % (auto) Anion Gap Estim Creat Clear Calc Estimated GFR POC Glucose 129 H 184 H Random Glucose Calcium Assessment and Plan (1) Diverticulitis: Status: Acute Plan 68 year old female with history of type 2 diabetes, gout, diabetic polyneuropathy, gerd, asthma, CAD s/ PCI to mid RCA on DAPT 01/2024 who is a former smoker with 50 pack-year history, history of diverticulitis admitted for further management of acute worsening diverticulitis. #Acute diverticulitis not septic CT abdomen pelvis shows improvement in diverticulitis of the proximal sigmoid colon but new area of mild pericolonic fat stranding indicative of probable worsening diverticulitis without any perforation or abscess in the descending colon failed outpatient therapy with Augmentin given new areas of diverticulitis. Continue Zosyn (initiated 03/17) antiemetics p.r.n., pain management p.r.n. clear liquid diet, advance as tolerated - still with pain will hold off on diet advancement # acute lactic acidosis due to metformin use, not severe sepsis # acute hypomagnesemia possibly r/t ppi use repleted with IV mag in ED. initiated PO mag bid # [id number] type 2 diabetes POC glucose, diabetic diet Humalog sliding scale hold sitagliptin-metformin # chronic eosinophilic asthma no exacerbation, albuterol p.r.n. continue home inhalers. outpatient Dupixent # GERD PPI # diabetic polyneuropathy continue gabapentin # CAD recent cardiac catheterization with PCI to the RCA 01/2024 continue DAPT, statin DVT prophylaxis Lovenox Given patient's new areas of pericolonic fat stranding indicative of worsening diverticulitis despite treatment with Augmentin, patient will require inpatient stay overnight for IV antibiotics to treat acute worsening diverticulitis Quality Stroke Does the patient have a stroke diagnosis?: No VTE Prior VTE?: No VTE Risk Level:: Medical - moderate - high VTE Device Contraindication: Treatment Not Indicated VTE Drug Contraindication: N/A - Med Ordered
[2024-03-19] MEDS: Acetaminophen 325 MG TABLET 650 MG PO (16:16)
[2024-03-19 16:27] LABS: Glucose, Whole Blood 100 mg/dL (60-115)
[2024-03-19] MEDS: Enoxaparin Sodium 40 MG/0.4 ML SYRINGE SUBCUT (18:22)
[2024-03-19 20:23] LABS: Glucose, Whole Blood 136 mg/dL (60-115)
[2024-03-19] MEDS: Melatonin 3 MG TABLET 6 MG PO (21:54)
[2024-03-20] MEDS: Piperacillin Sodium/Tazobactam 3.375 GM in 0.9 % Sodium Chloride 50 ML IV ×2 (01:55→08:22)
[2024-03-20 03:09] VITALS: BP 141/82; PULSE 74; RESP 14; TEMP 36.1; O2SAT 100
[2024-03-20] MEDS: traMADoL HCL 50 MG TABLET PO ×2 (03:15→08:25)
[2024-03-20] MEDS: Omeprazole 20 MG CAPSULE.DR PO (05:41)
[2024-03-20] MEDS: oxyCODONE HCl Immed Release 5 MG TABLET PO (05:42)
[2024-03-20 07:18] VITALS: BP 163/86; PULSE 85; RESP 16; TEMP 36.7; O2SAT 98
[2024-03-20 07:39] LABS: Glucose, Whole Blood 125 mg/dL (60-115)
[2024-03-20] MEDS: Fluticasone Propionate 250 MCG BLST.W.DEV 1 PUFF INHALE (08:05)
[2024-03-20] MEDS: Albuterol Sulfate 90 MCG 8 GM INHALER 1 PUFF INHALE ×2 (08:05→12:10)
[2024-03-20 08:07] VITALS: PULSE 80; RESP 16; O2SAT 98
[2024-03-20] MEDS: Atorvastatin Calcium 20 MG TABLET PO (08:21)
[2024-03-20] MEDS: Gabapentin 300 MG CAPSULE PO (08:21)
[2024-03-20] MEDS: Magnesium Oxide 400 MG TABLET PO (08:21)
[2024-03-20] MEDS: Dicyclomine HCl 10 MG CAPSULE PO (08:21)
[2024-03-20] MEDS: Clopidogrel Bisulfate 75 MG TABLET PO (08:21)
[2024-03-20] MEDS: Aspirin Enteric Coated 81 MG TABLET.DR PO (08:21)
[2024-03-20] MEDS: 0.9 % Sodium Chloride Flush 3 ML SYRINGE IVFLUSH (08:29)
[2024-03-20] MEDS: Triamcinolone Acet 0.5 % Cream 15 GM TUBE 1 APPL TOPICAL (08:29)
[2024-03-20] MEDS: Fluticasone Propionate Nasal 16 GM SPRAY 1 SPRAY NOSTRIL-B (08:29)
--- NOTE | 2024-03-20 09:21 | P.DS_ITS ---
DS: Providers Provider Date of Service: 03/20/24 Date of admission: 03/17/24 18:48 Date of discharge: 03/20/24 Primary care physician: Abdifatah Bunch MD Admitting clinician: Yasmeen Leon Attending physician on admission: Eleanor De León Attending physician on discharge: Alex Blanco Discharging clinician: Yasmeen Leon DS: Diagnosis Discharge Diagnosis (1) Diverticulitis: Status: Acute DS: Summary Hospital Course Hospital Course: HPI on admission by this provider 03/17: Chief Complaint: abd pain 68 year old female with history of type 2 diabetes, gout, diabetic polyneuropathy, gerd, asthma, CAD s/ PCI to mid RCA on DAPT 01/2024 who is a former smoker with 50 pack-year history, history of diverticulitis presented to the ED earlier today for evaluation of worsening left lower quadrant pain. He was recently diagnosed with diverticulitis on 03/09 and was started on oral Augmentin which he has been taking as prescribed. He states initially the pain was improving but over the weekend began experiencing worsening pain in the left lower quadrant. No associated nausea or vomiting. He does have intermittent bouts of constipation and diarrhea and is passing flatus. No history of prior abdominal surgeries. No fevers, chills. In the ED, he is afebrile, vitals stable. There is no leukocytosis. He has a mild microcytic anemia. Renal function normal, electrolyte levels normal except for magnesium which is critically low at 1.1. Initial lactic acid 3.4, 2 hour repeat 2.7, 4 hour repeat 2.8. Lipase within normal limits. Urinalysis unremarkable. CT of the abdomen pelvis shows improving diverticulitis of the proximal sigmoid colon but there is new mild pericolonic fat stranding involving the mid descending colon which may reflect a component of worsening diverticulitis but no evidence of complications including perforation or abscess. In the ED has received IV morphine, Toradol, IV Zosyn and IV fluids. Hospital course: Hospital course uneventful. Pt admitted to hospitalist service for acute uncomplicated diverticulitis of the descending colon. Treated with IV zosyn, clear liquids, and IV narcotics. Pain control greatly improved now requiring only occasional tramadol. Diet successfully advanced. Pt will discharge home to complete additional 7 day course of PO levaquin and flagyl. Continue diet as tolerated. Recommend following up with PCP and GI. #Acute diverticulitis no sepsis/severe sepiss CT abdomen pelvis shows improvement in diverticulitis of the proximal sigmoid colon but new area of mild pericolonic fat stranding indicative of probable worsening diverticulitis without any perforation or abscess in the descending colon failed outpatient therapy with Augmentin given new areas of diverticulitis Treated with IV zosyn 03/17-03/20. Transitioned to PO levaquin and flagyl 03/20. Continue levaquin 750mg daily and flagyl 500mg q8h x 7 additional days Tolerating diet. Continue as tolerated Tramadol prn on discharge. INTERVENTIONAL PHYSIATRIST checked # acute lactic acidosis due to metformin use, not severe sepsis # acute hypomagnesemia possibly r/t ppi use. Resume on discharge. Lifestyle modifications discussed repleted with IV mag in ED and resolved. Continue PO mag oxide BID # [id number] type 2 diabetes POC glucose, diabetic diet Humalog sliding scale hold sitagliptin-metformin during admission. Resume on discharge # chronic eosinophilic asthma no exacerbation, albuterol p.r.n. continue home inhalers. outpatient Dupixent # GERD resume ppi # diabetic polyneuropathy continue gabapentin # CAD recent cardiac catheterization with PCI to the RCA 01/2024 continue DAPT, statin Time Attestation Discharge Coordination Time (in mins): 42 Quality: Safe Use of Opioids Does Pt have an Active Cancer Diagnosis on the Problem List?: No Quality: Stroke Does the patient have a stroke diagnosis?: No Physical Exam Vital Signs: Vital Signs: Last Vital Signs Temp 98.1 F 03/20/24 07:18 Pulse 80 03/20/24 08:07 Resp 16 03/20/24 08:07 BP 163/86 H 03/20/24 07:18 Pulse Ox 98 03/20/24 07:18 O2 Del Method Room Air 03/20/24 07:18 BMI result Body Mass Index 28.1 DS: Data Data Completed and Pending Labs on day of discharge: Laboratory Results - last 24 hr 03/19/24 03/19/24 03/19/24 11:12 16:13 19:17 POC Glucose 184 H 100 136 H 03/20/24 07:20 POC Glucose 125 H Discharge Plan Discharge Anticipated Discharge Date/Time: 03/20/24 13:27 Patient Disposition: Home, Self-Care Discharge Diagnosis: Acute diverticulitis, hypomagnesemia Referrals: Abdifatah Bunch MD [Primary Care Provider] - 1 Week Discharge Medications: New metronidazole 500 mg Tablet 500 mg PO Q8H Qty: 21 0RF magnesium oxide 400 mg (241.3 mg magnesium) Tablet 400 mg PO BIDPC Qty: 180 0RF levofloxacin 750 mg Tablet 750 mg PO Q24H Qty: 7 0RF tramadol 50 mg tablet 50 mg PO Q8H PRN (Reason: pain (scale score 4-6)) Qty: 10 0RF Continued Dupixent Syringe 300 mg/2 mL syringe 300 mg subcut Q2W 28 Days Qty: 4 12RF clopidogrel [Plavix] 75 mg tablet 75 mg PO DAILY Qty: 30 1RF triamcinolone acetonide 0.5 % cream 1 appl topical BID dicyclomine 10 mg capsule 10 mg PO DAILY atorvastatin 10 mg tablet 20 mg PO DAILY minocycline 50 mg capsule 50 mg PO BID celecoxib 200 mg capsule 200 mg PO DAILY gabapentin 100 mg capsule 300 mg PO TID omeprazole 20 mg capsule,delayed release(DR/EC) 20 mg PO DAILY Janumet 50-1,000 mg tablet 1 tab PO BID albuterol sulfate 90 mcg/actuation HFA aerosol inhaler 1 puff inhalation Q4H tramadol 50 mg tablet 50 mg PO Q6H PRN (Reason: Pain (Scale Score 4-6)) fluticasone propionate 50 mcg/actuation spray,suspension 1 spray intranasal DAILY Arnuity Ellipta 200 mcg/actuation blister with device 1 inh inhalation DAILY 30 Days Qty: 1 6RF aspirin 81 mg tablet,delayed release (DR/EC) 81 mg PO DAILY Discontinued amoxicillin-pot clavulanate 875-125 mg tablet 1 tab PO Q12H Discharge Orders: Discharge Order (Routine); Ordered 03/20/24 Ordered By: Yasmeen Leon Diet: Advance to usual diet Activity on Discharge: As tolerated Stand Alone Forms: Patient Portal Discharge page Print Language: Macedonian Care Plan Goals: Resolve diverticulitis Treat hypomagnesemia Health Concerns: Acute recurrent diverticulitis Hypomagnesemia Plan of Treatment: Treated with IV Zosyn while in the hospital for acute diverticulitis that had not responded to oral antibiotics. On discharge, continue Levaquin 750 mg daily (next dose 8/3 2pm) and metronidazole 500 mg every 8 hours (next dose due 8/2 @10pm) x 7 days (until medication is gone). Diet as tolerated. Follow up with PCP and GI. 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 There is possibly related to your omeprazole. We did discuss lifestyle modifications to help with acid reflux. Continue magnesium oxide 400 mg twice daily. Follow-up with PCP Assessment: See above. See discharge summary
[2024-03-20 11:31] LABS: Glucose, Whole Blood 121 mg/dL (60-115)
[2024-03-20 12:11] VITALS: PULSE 80; RESP 15; O2SAT 98
[2024-03-20] MEDS: metroNIDAZOLE 500 MG TABLET PO (13:45)
[2024-03-20] MEDS: levoFLOXacin 750 MG TABLET PO (13:45)
--- NOTE | 2024-03-20 15:37 | MHC.CM.PN ---
PT WILL DC HOME TODAY WITH NO SERVICES
== END 2024-03-20 14:36 | disposition home or self-care (01) | DRG 392 ==
LOC: HO.ED 18:15 → HO.EDOVER 18:52 → HO.S3 23:31
PROVIDERS: Physician Assistant; Physician Assistant Medical; Student in an Organized Health Care Education/Training Program; Admitting Provider Physician Assistant; Emergency Provider Emergency Medicine; PCP Internal Medicine; Visit Provider Physician Assistant
DX: K57.32 Diverticulitis of large intestine without perforation or abscess without bleeding (principal); E87.21 Acute metabolic acidosis; J82.83 Eosinophilic asthma; E83.42 Hypomagnesemia; E11.42 Type 2 diabetes mellitus with diabetic polyneuropathy; I25.10 Atherosclerotic heart disease of native coronary artery without angina pectoris; Z95.5 Presence of coronary angioplasty implant and graft; Z87.891 Personal history of nicotine dependence; Z79.02 Long term (current) use of antithrombotics/antiplatelets; Z79.51 Long term (current) use of inhaled steroids; Z79.82 Long term (current) use of aspirin; Z79.84 Long term (current) use of oral hypoglycemic drugs; Z79.620 Long term (current) use of immunosuppressive biologic; Z79.899 Other long term (current) drug therapy
CPT/HCPCS: 36415; 74177; 80048; 80076; 81003; 82728; 82947; 83540; 83605; 83690; 83735; 85025; 85027; 94640; 99285; J1650; J1885; J2270; J2543; J3475; J7120; Q9967

== ENCOUNTER → 2024-03-17 18:48 | Outpatient (BNV) | payer MEDICARE, SELFPAY | PROVIDERS: Admitting Provider Physician Assistant; Emergency Provider Emergency Medicine; PCP Internal Medicine; Visit Provider Student in an Organized Health Care Education/Training Program | DX: K57.92 Diverticulitis of intestine, part unspecified, without perforation or abscess without bleeding (principal); E87.29 Other acidosis; E83.42 Hypomagnesemia; E11.9 Type 2 diabetes mellitus without complications | CPT/HCPCS: 99223; 99232 ==

== ENCOUNTER 2024-03-26 10:40 | Inpatient (IN) | payer MEDICARE, SELFPAY ==
[2024-03-26] VITALS (8 sets, daily range): BP systolic 139–159; BP diastolic 67–92; PULSE 76–107; RESP 14–18; TEMP 36.6–36.7; O2SAT 94–100; BMI 26.2; BMI 27.1
--- NOTE | ~2024-03-26 | CT_ITS ---
EXAMINATION: CT ABDOMEN AND PELVIS WITH CONTRAST CLINICAL INFORMATION: Diverticulitis. COMPARISON: CT abdomen and pelvis 03/10/2024 and 03/17/2024. TECHNIQUE: Multidetector volumetric images were obtained from the superior aspect of the liver through the pubic symphysis following administration 85 mL of Omnipaque 350 intravenous contrast. Sagittal and coronal reformatted images were obtained on the technologist's workstation. Oral contrast: No This CT examination was performed using dose optimization techniques as appropriate, variously including the following: *Automated exposure control *Adjustment of mA and/or kV according to patient size (this includes techniques or standardized protocols for targeted exams where dose is matched to indication/reason for exam; i.e. extremities or head) *Use of iterative reconstruction technique DLP: 596 mGy-cm FINDINGS: LUNG BASES: The visualized lung bases are unremarkable. LIVER, GALLBLADDER, AND BILIARY TREE: The liver is enlarged at 18 cm in greatest length. Attenuation difficult to movie stunt performer after IV contrast. No focal hepatic lesion or biliary ductal dilatation is present. The gallbladder is unremarkable with no evidence of radiopaque gallstones, gallbladder wall thickening, or obvious pericholecystic inflammatory changes. PANCREAS: Unremarkable. SPLEEN: Spleen is enlarged at 14.4 cm in greatest dimension. ADRENAL GLANDS: Unremarkable. KIDNEYS AND URETERS: The kidneys are normal in size, shape, and attenuation. There are punctate calculi present in each kidney without obstruction. No hydronephrosis, hydroureter, or ureteral calculi seen. No perinephric stranding. A few small benign Bosniak class I renal cysts are noted on the right which require no additional imaging or follow-up. No solid renal masses are seen. BLADDER: Empty but unremarkable. GASTROINTESTINAL TRACT: Stomach is unremarkable. A 2.8 cm duodenal diverticulum is seen arising from the second portion of the duodenum. Moderately extensive diverticular changes are present in the colon. There has been a marked decrease in the inflammatory change seen around colonic diverticula in the mid descending colon and proximal sigmoid colon with only some minimal inflammatory changes in the pericolonic fat remaining. There is a new area of inflammatory change in the pericolonic fat at the level of the hepatic flexure compared to the prior study (5:17 compare prior 6:27). The small bowel is unremarkable. The appendix is unremarkable. ABDOMINAL WALL: No significant hernia is appreciated. LYMPH NODES: No retroperitoneal lymphadenopathy. VASCULAR: Calcific atherosclerotic changes are present in the aorta and iliofemoral vessels. There is no evidence of an abdominal aortic aneurysm. PELVIC VISCERA: The prostate and seminal vesicles are unremarkable. OSSEOUS STRUCTURES: Degenerative changes are present in the spine most marked at L5-S1. CT/CT abdomen pelvis w IV con IMPRESSION: 1. Marked improvement in inflammatory changes in the descending colon and proximal sigmoid colon with only some minimal inflammatory changes remaining. 2. New area of inflammatory change in the pericolonic fat at the level of the hepatic flexure. 3. Incidental note made of hepatosplenomegaly, nonobstructing bilateral renal calculi and degenerative changes in the spine. Fleischner guidelines were followed.
[2024-03-26 11:14] LABS: MANUAL DIFF FLAG NO
[2024-03-26 11:20] LABS: Basophils Percent Auto 0.3 % (0-2); Eosinophils Absolute Auto 0.3 X10*3/uL (0.0-0.4); Eosinophils Percent Auto 2.7 % (0-4); Hematocrit 39.6 % (42.0-52.0); Hemoglobin 13.1 g/dl (14.0-18.0); Imm Gran Abs Auto 0.05 X10*3/uL (0.00-0.03); Imm Gran Pct Auto 0.5 % (0.0-0.4); Lymphocytes Absolute Auto 1.3 X10*3/uL (1.2-4.9); Lymphocytes Percent Auto 13.4 % (20-40); Mean Corpuscular HGB Conc 33.1 g/dl (31.0-36.0); Mean Corpuscular Hemoglobin 26.8 pg (27.0-33.0); Mean Platelet Volume 10.7 fL (9.4-12.4); Monocytes Absolute Auto 0.9 X10*3/uL (0.1-1.2); Monocytes Percent Auto 9.8 % (2-11); Neutrophils Percent Auto 73.3 % (45-73); Platelet Count 240 X10*3/uL (160-400); Red Blood Count 4.89 X10*6/uL (4.60-5.80); Red Cell Distribution Width 14.4 % (11.0-16.0); White Blood Count 9.6 X10*3/uL (4.8-10.8)
[2024-03-26 11:31] LABS: Alanine Aminotransferase 6 U/L (0-40); Albumin Level 3.8 g/dL (3.5-5.0); Alkaline Phosphatase 58 U/L (39-117); Anion Gap 15 (12-20); Aspartate Amino Transferase 11 U/L (5-37); Bilirubin Total 0.6 mg/dL (0.0-1.0); Blood Urea Nitrogen 9 mg/dL (9-16); Calcium 9.3 mg/dL (8.4-10.2); Carbon Dioxide 21 mmol/L (22-29); Chloride 106 mmol/L (96-108); Creatinine Clr Calc Pharmacy 63.9; Estimated Glomerular Filt Rate > 60; Glucose Random 111 mg/dL (60-115); Lipase 21 U/L (8-78); Potassium 4.3 mmol/L (3.3-5.1); Sodium 138 mmol/L (135-145); Total Protein 6.5 g/dL (6.5-8.0)
--- NOTE | 2024-03-26 13:03 | PC.NURSE ---
Pt comes to ED today with worsening pain to his lower abd. Pt reports Hx Diverticulitis and was evaluated here this past Saturday. Pt reports he was dc'd with Abx and magnesium and was taking them as prescribed however felt they were making his sxs worse. VSS, afebrile, A&Ox3 Blood labs completed. Awaiting new orders.
[2024-03-26] MEDS: 0.9 % Sodium Chloride 1,000 ML 999 ML IV (13:45)
[2024-03-26] MEDS: iohexoL 350 MG/ML 100 ML INFUS..BTL IV (14:06)
--- NOTE | 2024-03-26 14:21 | ED_ITS ---
HPI - General Adult General Chief complaint: Abdominal Pain Stated complaint: abd pain just discharged Saturday Time Seen by Provider: 03/26/24 13:20 History of Present Illness ED Provider: Dr. Gerard HPI narrative: 68 y/o M patient; PMH diverticulitis, T2DM, gout, GERD, asthma, CAD s/p PCI o mid-RCA on DAPT; who presents from home with report of continued left-sided abdominal pain with intermittent nausea. He denies diarrhea or vomiting. The patient was recently admitted to [facility] from 03/17 - 03/20/2024 for diverticulitis. He had failed out-patient antibiotics from 03/09 - 03/[address] A CT scan at that time showed improving diverticulitis of the proximal sigmoid colon with new mild pericolonic fat stranding involving the mid-descending colon which was felt to reflect a component of worsening diverticulitis. He was treated with IV Zosyn and then discharged to home on Levaquin and Flagyl (he has approx 2 days of the course remaining). No history of abdominal surgeries. GI: Dr. Drummond Related Data Home Medications ?Medication ?Instructions ?Recorded ?Confirmed atorvastatin 10 mg tablet 20 mg PO DAILY 06/28/20 03/17/24 celecoxib 200 mg capsule 200 mg PO DAILY 06/28/20 03/17/24 gabapentin 100 mg capsule 300 mg PO TID 06/28/20 03/17/24 minocycline 50 mg capsule 50 mg PO BID 06/28/20 03/17/24 omeprazole 20 mg capsule,delayed 20 mg PO DAILY 06/28/20 03/17/24 release dicyclomine 10 mg capsule 10 mg PO DAILY 06/19/23 03/17/24 albuterol sulfate 90 mcg/actuation 1 puff inhalation Q4H 10/11/23 03/17/24 aerosol inhaler fluticasone propionate 50 1 spray intranasal DAILY 10/11/23 03/17/24 mcg/actuation nasal spray,suspension tramadol 50 mg tablet 50 mg PO Q6H PRN Pain (Scale Score 10/11/23 03/17/24 4-6) aspirin 81 mg tablet,delayed 81 mg PO DAILY 01/06/24 03/17/24 release sitagliptin phosphate 50 1 tab PO BID 02/26/24 03/17/24 mg-metformin 1,000 mg tablet (Janumet) triamcinolone acetonide 0.5 % 1 appl topical BID 03/17/24 03/17/24 topical cream Previous Rx's ?Medication ?Instructions ?Recorded fluticasone furoate 200 1 inh inhalation DAILY 30 days #1 11/27/23 mcg/actuation blister powder for ea inhalation (Arnuity Ellipta) dupilumab 300 mg/2 mL subcutaneous 300 mg (2 mL) subcut Q2W 28 days 12/26/23 syringe (Dupixent) #4 mL clopidogrel 75 mg tablet (Plavix) 75 mg PO DAILY #30 tabs 02/19/24 levofloxacin 750 mg tablet 750 mg PO Q24H #7 tabs 03/20/24 magnesium oxide 400 mg (241.3 mg 400 mg PO BIDPC #180 tabs 03/20/24 magnesium) tablet metronidazole 500 mg tablet 500 mg PO Q8H #21 tabs 03/20/24 tramadol 50 mg tablet 50 mg PO Q8H PRN pain (scale score 03/20/24 4-6) #10 tabs Allergies Allergy/AdvReac Type Severity Reaction Status Date / Time umeclidinium AdvReac Severe Unknown Verified 03/26/24 10:57 [From Anoro Ellipta] vilanterol AdvReac Severe Unknown Verified 03/26/24 10:57 [From Anoro Ellipta] Brilinta AdvReac Severe SOB Uncoded 03/26/24 10:57 Review of Systems 2 Review of Systems: Yes all other systems are reviewed and are negative Neurologic: Denies Sensory deficit (Neuro) [facility] Past Medical History Attestation statement: The following information was validated with the patient. Source: old records reviewed Medical History Atherosclerotic cardiovascular disease Renal stones Sigmoid diverticulitis Sciatica Neuropathy Plantar fasciitis Arthritis GERD (gastroesophageal reflux disease) Gout Diabetes Surgical History History of foot surgery History of colonoscopy History of left hip replacement Previous back surgery History of total left knee replacement History of total right knee replacement Family History Family History Mother No problems noted. Father No problems noted. Social History Social History Household Members: None Housing: House Do you presently have visiting nurse or other home services: No Alcohol intake: never Patient Tobacco Use Status: Former Tobacco user Tobacco use type: Cigarette Smoked in Last 30 Days: No Second Hand Smoke Exposure: Yes Use of substances other than those prescribed or required for medical reasons: No Advance Directives: No Advance Directives Information Provided: Yes Do you have a plan to hurt others: No Plan service: No Current occupational status: retired 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 Physical Exam ED Vital Signs: Vital Signs - 24 hr 03/26/24 10:55 03/26/24 12:31 03/26/24 12:39 Temperature 98 F Pulse Rate 107 H 86 83 Respiratory Rate 16 16 17 Blood Pressure 139/92 H 140/77 H 140/77 H Pulse Oximetry 97 99 100 Oxygen Delivery Method Room Air Room Air Room Air 03/26/24 15:14 Temperature 98.0 F Pulse Rate 82 Respiratory Rate 16 Blood Pressure 158/85 H Pulse Oximetry 99 Oxygen Delivery Method Room Air BMI result Body Mass Index 26.2 Patient is afebrile, tachycardic, and mildly hypertensive. Const General: cooperative Orientation/consciousness: patient oriented x3 HENMT Head: Yes normal to inspection and Yes atraumatic Eyes General: appearance normal, both eyes and all related structures Pupils: Equal, round and reactive pupils present EOM: EOMs intact bilaterally Neck Neck: Yes normal visual inspection, Yes full ROM, Yes supple and No tender Chest Chest palpation & inspection: normal inspection of the chest and normal palpation of entire chest wall Resp Effort & Inspection: normal respiratory effort, able to speak in complete sentences, no cough and no respiratory distress Auscultation: clear to auscultation bilaterally Cardio Rate: tachycardic Rhythm: regular rhythm Peripheral pulses: Peripheral pulses 2+ throughout GI Other: LLQ abdominal tenderness Inspection: Yes normal to inspection, No Abdominal wall edema and No distended Palpation (GI): Soft to palpation, not firm, no guarding and not rigid Auscultation: normal bowel sounds Back/Spine/Pelvis Back: No back tenderness Neuro General: patient oriented x3 Cranial nerves: Yes Equal, round and reactive pupils present Motor exam (neuro): 5/5 motor strength present throughout Sensory Exam: No Sensory deficit (Neuro) Course Course Course Narrative: Patient is afebrile, tachycardic, with mild hypertension. Ordered for abdominal labs and CT Abdomen/Pelvis. Providing 1L IVF, Zofran 4mg IV, and Tylenol 1g IV. Reevaluation(s) Reevaluation #1: CT Abdomen/Pelvis with evidence of new area of inflammatory stranding as well as two areas of improved stranding. Laboratory studies without significant leukocytosis. Started on IV Zosyn. Provided further pain control with Dilaudid 0.5mg IV. Plan: Admit to hospitalist Condition: Stable Medications Administered Discontinued Medications Generic Name Dose Route Start Last Admin Trade Name Freq PRN Reason Stop Dose Admin Sodium Chloride 1,000 mls @ 999 mls/hr 03/26/24 13:15 03/26/24 15:10 Ns IV 03/26/24 14:15 Infused .Q1H1M ERA Infusion Acetaminophen 1,000 mg in 100 mls @ 400 mls/hr 03/26/24 14:45 03/26/24 15:45 Ofirmev IV 03/26/24 14:59 Infused ONCE ONE Infusion Iohexol 100 ml 03/26/24 14:05 03/26/24 14:06 Iohexol 350 Mg/Ml 100 Ml Infus..Btl IV 03/26/24 14:06 85 ml ONCE ONE Administration Ondansetron HCl 4 mg 03/26/24 14:45 03/26/24 15:11 Ondansetron Hcl 4 Mg/2 Ml Vial IVPUSH 03/26/24 14:46 4 mg ONCE ONE Administration Medical Decision Making Lab Data 03/26/24 11:09 03/26/24 11:09 Labs: Lab Results 03/26/24 Range/Units 11:09 WBC 9.6 (4.8-10.8) X10*3/uL RBC 4.89 (4.60-5.80) X10*6/uL Hgb 13.1 L D (14.0-18.0) g/dl Hct 39.6 L (42.0-52.0) % MCV 81.0 (80.0-98.0) fL MCH 26.8 L (27.0-33.0) pg MCHC 33.1 (31.0-36.0) g/dl RDW 14.4 (11.0-16.0) % Plt Count 240 (160-400) X10*3/uL MPV 10.7 (9.4-12.4) fL Immature Gran % (Auto) 0.5 H (0.0-0.4) % Neut % (Auto) 73.3 H (45-73) % Lymph % (Auto) 13.4 L (20-40) % Dundy % (Auto) 9.8 (2-11) % Eos % (Auto) 2.7 (0-4) % Baso % (Auto) 0.3 (0-2) % Lymph # (Auto) 1.3 (1.2-4.9) X10*3/uL Dundy # (Auto) 0.9 (0.1-1.2) X10*3/uL Eos # (Auto) 0.3 (0.0-0.4) X10*3/uL Baso # (Auto) 0.0 (0.0-0.2) X10*3/uL Abs Immat Gran (auto) 0.05 H (0.00-0.03) X10*3/uL Absolute Neuts (auto) 7.0 (2.0-8.3) x10*3/uL Absolute Nucleated RBC 0.000 (0.0-0.012) X10*3/uL Nucleated RBC % (auto) 0.0 (0.0-0.2) /100WBC Sodium 138 (135-145) mmol/L Potassium 4.3 (3.3-5.1) mmol/L Chloride 106 (96-108) mmol/L Carbon Dioxide 21 L (22-29) mmol/L Anion Gap 15 (12-20) BUN 9 (9-16) mg/dL Creatinine 1.04 (0.5-1.4) mg/dL Estim Creat Clear Calc 63.9 Estimated GFR > 60 Random Glucose 111 (60-115) mg/dL Calcium 9.3 D (8.4-10.2) mg/dL Total Bilirubin 0.6 (0.0-1.0) mg/dL AST 11 (5-37) U/L ALT 6 (0-40) U/L Alkaline Phosphatase 58 (39-117) U/L Total Protein 6.5 (6.5-8.0) g/dL Albumin 3.8 (3.5-5.0) g/dL Lipase 21 (8-78) U/L Radiology Impression Discussion of test interpretation with radiology: I have reviewed the radiologist's reading. Radiologist Impression: EXAMINATION: CT ABDOMEN AND PELVIS WITH CONTRAST CLINICAL INFORMATION: Diverticulitis. COMPARISON: CT abdomen and pelvis 03/10/2024 and 03/17/2024. TECHNIQUE: Multidetector volumetric images were obtained from the superior aspect of the liver through the pubic symphysis following administration 85 mL of Omnipaque 350 intravenous contrast. Sagittal and coronal reformatted images were obtained on the technologist's workstation. Oral contrast: No This CT examination was performed using dose optimization techniques as appropriate, variously including the following: *Automated exposure control *Adjustment of mA and/or kV according to patient size (this includes techniques or standardized protocols for targeted exams where dose is matched to indication/reason for exam; i.e. extremities or head) *Use of iterative reconstruction technique DLP: 596 mGy-cm FINDINGS: LUNG BASES: The visualized lung bases are unremarkable. LIVER, GALLBLADDER, AND BILIARY TREE: The liver is enlarged at 18 cm in greatest length. Attenuation difficult to gunnery/ordnance officer after IV contrast. No focal hepatic lesion or biliary ductal dilatation is present. The gallbladder is unremarkable with no evidence of radiopaque gallstones, gallbladder wall thickening, or obvious pericholecystic inflammatory changes. PANCREAS: Unremarkable. SPLEEN: Spleen is enlarged at 14.4 cm in greatest dimension. ADRENAL GLANDS: Unremarkable. KIDNEYS AND URETERS: The kidneys are normal in size, shape, and attenuation. There are punctate calculi present in each kidney without obstruction. No hydronephrosis, hydroureter, or ureteral calculi seen. No perinephric stranding. A few small benign Bosniak class I renal cysts are noted on the right which require no additional imaging or follow-up. No solid renal masses are seen. BLADDER: Empty but unremarkable. GASTROINTESTINAL TRACT: Stomach is unremarkable. A 2.8 cm duodenal diverticulum is seen arising from the second portion of the duodenum. Moderately extensive diverticular changes are present in the colon. There has been a marked decrease in the inflammatory change seen around colonic diverticula in the mid descending colon and proximal sigmoid colon with only some minimal inflammatory changes in the pericolonic fat remaining. There is a new area of inflammatory change in the pericolonic fat at the level of the hepatic flexure compared to the prior study (5:17 compare prior 6:27). The small bowel is unremarkable. The appendix is unremarkable. ABDOMINAL WALL: No significant hernia is appreciated. LYMPH NODES: No retroperitoneal lymphadenopathy. VASCULAR: Calcific atherosclerotic changes are present in the aorta and iliofemoral vessels. There is no evidence of an abdominal aortic aneurysm. PELVIC VISCERA: The prostate and seminal vesicles are unremarkable. OSSEOUS STRUCTURES: Degenerative changes are present in the spine most marked at L5-S1. CT/CT abdomen pelvis w IV con IMPRESSION: 1. Marked improvement in inflammatory changes in the descending colon and proximal sigmoid colon with only some minimal inflammatory changes remaining. 2. New area of inflammatory change in the pericolonic fat at the level of the hepatic flexure. 3. Incidental note made of hepatosplenomegaly, nonobstructing bilateral renal calculi and degenerative changes in the spine. Fleischner guidelines were followed. Discharge Plan Discharge Clinical Impression: Diverticulitis Patient Disposition: Admitted As Inpatient Print Language: Luxembourgish
[2024-03-26] MEDS: Acetaminophen 1,000 MG/100 ML PIGGYBACK 400 MG IV (15:11)
[2024-03-26] MEDS: ondansetron HCL 4 MG/2 ML VIAL IVPUSH (15:11)
--- NOTE | 2024-03-26 16:33 | P.HPHOSP_ITS ---
History of Present Illness Date of Service: 03/26/24 Chief Complaint: Abdominal pain This is a 68-year-old male with pertinent history of jwm-smbiydv-iawbyayjx diabetes mellitus with neuropathy, asthma not on home oxygen, gout, CAD status post stent on DVT, former tobacco use disorder who presents to the emergency department for evaluation of abdominal pain. Patient recently had episodes of diverticulitis of the proximal sigmoid colon and mid descending colon. Of note, patient was recently admitted on 03/17 with acute diverticulitis and discharged on 03/20/2024. Patient previously failed outpatient antibiotics for diverticulitis. Patient states he started having left lower quadrant pain 1 day prior to presentation. Patient states he was compliant with his home antibiotics and has 2 days remaining. No fever, chills, chest discomfort, palpitations, shortness of breath, changes in urinary or bowel habits. In the emergency department, new area of inflammation around the hepatic flexure. Review of Systems 2 Constitutional: Constitutional: Reports no additional constitutional complaints Cardiovascular: Cardiovascular: Reports no additional cardiovascular complaints Respiratory: Respiratory: Reports no additional respiratory complaints Gastrointestinal: Gastrointestinal: Reports abdominal pain Genitourinary: Genitourinary: Reports no additional male genitourinary complaints [facility] Medical History Atherosclerotic cardiovascular disease Renal stones Sigmoid diverticulitis Sciatica Neuropathy Plantar fasciitis Arthritis GERD (gastroesophageal reflux disease) Gout Diabetes Family History Mother No problems noted. Father No problems noted. Surgical History History of foot surgery History of colonoscopy History of left hip replacement Previous back surgery History of total left knee replacement History of total right knee replacement Social History Household Members: None Housing: House Do you presently have visiting nurse or other home services: No Alcohol intake: never Patient Tobacco Use Status: Former Tobacco user Tobacco use type: Cigarette Smoked in Last 30 Days: No Second Hand Smoke Exposure: Yes Use of substances other than those prescribed or required for medical reasons: No Advance Directives: No Advance Directives Information Provided: Yes Do you have a plan to hurt others: No Plan service: No Current occupational status: retired 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 Meds Allergies Allergy/AdvReac Type Severity Reaction Status Date / Time umeclidinium AdvReac Severe Unknown Verified 03/26/24 10:57 [From Anoro Ellipta] vilanterol AdvReac Severe Unknown Verified 03/26/24 10:57 [From Anoro Ellipta] Brilinta AdvReac Severe SOB Uncoded 03/26/24 10:57 Home Medications ?Medication ?Instructions ?Recorded ?Confirmed ?Last Taken ?Type atorvastatin 10 mg tablet 20 mg PO DAILY 06/28/20 03/17/24 Unknown History celecoxib 200 mg capsule 200 mg PO DAILY 06/28/20 03/17/24 Unknown History gabapentin 100 mg capsule 300 mg PO TID 06/28/20 03/17/24 Unknown History minocycline 50 mg capsule 50 mg PO BID 06/28/20 03/17/24 Unknown History omeprazole 20 mg capsule,delayed 20 mg PO DAILY 06/28/20 03/17/24 Unknown History release dicyclomine 10 mg capsule 10 mg PO DAILY 06/19/23 03/17/24 Unknown History albuterol sulfate 90 mcg/actuation 1 puff inhalation Q4H 10/11/23 03/17/24 Unknown History aerosol inhaler fluticasone propionate 50 1 spray intranasal DAILY 10/11/23 03/17/24 Unknown History mcg/actuation nasal spray,suspension tramadol 50 mg tablet 50 mg PO Q6H PRN Pain (Scale Score 10/11/23 03/17/24 Unknown History 4-6) aspirin 81 mg tablet,delayed 81 mg PO DAILY 01/06/24 03/17/24 Unknown History release triamcinolone acetonide 0.5 % 1 appl topical BID 03/17/24 03/17/24 Unknown History topical cream sitagliptin phosphate 50 1 tab PO BID 03/26/24 Unknown History mg-metformin 1,000 mg tablet (Yanni) Physical Exam 2 Vital Signs and Narrative: Vital Signs: Last Vital Signs Temp 98.0 F 03/26/24 15:14 Pulse 82 03/26/24 15:14 Resp 16 03/26/24 15:14 BP 158/85 H 03/26/24 15:14 Pulse Ox 99 03/26/24 15:14 O2 Del Method Room Air 03/26/24 15:14 BMI result Body Mass Index 26.2 Middle-aged male lying in bed in no distress Neck supple, no JVD Regular rate and rhythm, S1-S2 heard Regular breath sounds bilaterally, no wheezing or crackles appreciated Abdomen with left lower quadrant tenderness, no rigidity, no rebound tenderness Patient is awake, alert and oriented to self, place, time and person ; no focal motor deficit Psych: Normal mood No pedal edema Results Labs 03/26/24 11:09 03/26/24 11:09 Labs: Laboratory Results - last 24 hr 03/26/24 11:09 MCV 81.0 MCH 26.8 L MCHC 33.1 RDW 14.4 Plt Count 240 MPV 10.7 Immature Gran % (Auto) 0.5 H Neut % (Auto) 73.3 H Lymph % (Auto) 13.4 L Phillips % (Auto) 9.8 Eos % (Auto) 2.7 Baso % (Auto) 0.3 Lymph # (Auto) 1.3 Phillips # (Auto) 0.9 Eos # (Auto) 0.3 Baso # (Auto) 0.0 Abs Immat Gran (auto) 0.05 H Absolute Neuts (auto) 7.0 Absolute Nucleated RBC 0.000 Nucleated RBC % (auto) 0.0 Anion Gap 15 Estim Creat Clear Calc 63.9 Estimated GFR > 60 Random Glucose 111 Calcium 9.3 D Total Bilirubin 0.6 AST 11 ALT 6 Alkaline Phosphatase 58 Total Protein 6.5 Albumin 3.8 Lipase 21 Imaging Radiologist's Impressions: Impressions Abdomen/Pelvis CT 03/26/24 14:05 IMPRESSION: 1. Marked improvement in inflammatory changes in the descending colon and proximal sigmoid colon with only some minimal inflammatory changes remaining. 2. New area of inflammatory change in the pericolonic fat at the level of the hepatic flexure. 3. Incidental note made of hepatosplenomegaly, nonobstructing bilateral renal calculi and degenerative changes in the spine. Fleischner guidelines were followed. Assessment and Plan (1) Diverticulitis: Status: Acute Plan This is a 68-year-old male with pertinent history of lia-jgnerlo-qtzoemfke diabetes mellitus with neuropathy, asthma not on home oxygen, gout, CAD status post stent on DVT, former tobacco use disorder who presents to the emergency department for evaluation of abdominal pain. #. Acute diverticulitis: Will admit patient and initiate IV Zosyn. Previously failed outpatient antibiotics. IV opioids p.r.n. for analgesia. NPO for bowel rest. Previous episodes of diverticulitis in the proximal sigmoid colon, mid descending colon. New area of inflammation noted at the level of hepatic flexure. Has an outpatient appointment with GI in May. No severe sepsis #. Xyu-nrcclzj-ulpiethhr diabetes mellitus: Initiating Accu-Cheks with sliding scale insulin #. Asthma, chronic eosinophilic: Continue home inhalers. No exacerbation during admission #. Gastroesophageal reflux disease: On PPI #. Diabetic neuropathy: On gabapentin #. CAD status post stent: On dual antiplatelet therapy and statin Med rec pending DVT prophylaxis: Lovenox Full code Admit as inpatient and will require two night minimum hospital stay for IV antibiotics (as above), which is not possible in a lesser acute setting. Quality Stroke Does the patient have a stroke diagnosis?: No VTE Prior VTE?: No VTE Risk Level:: Medical - moderate - high VTE Device Contraindication: Treatment Not Indicated VTE Drug Contraindication: N/A - Med Ordered
[2024-03-26 16:54] LABS: Lactic Acid 2.1 mmol/L (0.5-2.0)
--- NOTE | 2024-03-26 17:25 | PHA.MEDREC ---
Addendum entered by Tayler Robin RPh 03/26/24 17:41: reviewed by [facility]. Original Note: Pharmacy Consult ? Medication Reconciliation Pharmacy has completed the medication reconciliation. Spoke to patient to confirm med list. Patient has a list of medication with him on his phone. Patient confirmed Dupixent 300 mg Q2W next dose is tomorrow 03-27-24, patient says he can have someone bring it him tomorrow. Patient states he was taking Magnesium Oxide 400 mg bid, however it gave him bad diarrhea. So, his Dr told him to Take Magneium gluconate daily, but he hasn't started yet. Patient states he has 2 days left of Levofloxacin 750 mg daily , last fill date 03-20-24 X 7 days, and Metronidazole 500 mg Q8H, last fill date 8 X 7 days.
[2024-03-26] MEDS: HYDROmorphone HCl 0.5 MG/0.5 ML SYRINGE IVPUSH (17:27)
[2024-03-26] MEDS: Piperacillin Sodium/Tazobactam 3.375 GM in 0.9 % Sodium Chloride 50 ML IV ×2 (17:29→22:16)
[2024-03-26] MEDS: Enoxaparin Sodium 40 MG/0.4 ML SYRINGE SUBCUT (18:26)
[2024-03-26 18:33] LABS: Reflex Lactate? Lactic Acid Added
[2024-03-26 19:07] LABS: ~Lactic Acid-LAB USE ONLY 1.6 mmol/L (0.5-2.0)
[2024-03-26] MEDS: Morphine Sulfate 4 MG/ML CARTRIDGE IVPUSH ×2 (20:20→23:27)
--- NOTE | 2024-03-26 20:25 | PC.NURSE ---
pt reporting increase in LLQ pain. rating pain a 7/10. prn medication utilized. effectiveness pending. admission worksheet complete. plan of care ongoing.
[2024-03-26 21:14] LABS: Glucose, Whole Blood 88 mg/dL (60-115)
[2024-03-26] MEDS: 0.9 % Sodium Chloride Flush 3 ML SYRINGE IVFLUSH (21:14)
--- NOTE | 2024-03-26 22:37 | PC.NURSE ---
Addendum entered by Maricel Mijares RN 03/27/24 03:12: Unable to obtain second IV access despite two RN attempts (veins rolling, blowing on insertion); will continue to pause IV fluids for short duration for abx administration. 03:00 POC was 98. Original Note: Patient admitted to s3 from ED via stretcher at 21:05, seen for abdominal pain in the setting of diverticulitis with failed outpatient management with po abx after recent discharge with similar complaints. Pt c/o 5/10 pain in LLQ. +BSx4. Abdomen soft, round, non-distended, appropriately tender to palpation. Denies n/v. Reports LBM was this morning 03/26. States eating makes the pain worse . Pt is NPO per orders and reports his last intake of food or drink was about 8:30pm last night (03/25). Diet orders and MAR reviewed, patient has orders for prn tylenol for mild pain and prn morphine for severe pain. Covering Dr. Spann notified of pt stated pain level and MAR review with orders for pain medication for moderate pain level requested by principal technical writer. Order for morphine changed from q4h to q3h prn by . written okay for po meds and sips of water per [employer] communication. MD notified of POC= 88 obtained per [facility] order on arrival. orders placed for D5/LR at 80ml/hr with POCs changed to q6hr due next at 03:00. Patient due for scheduled zosyn which unfortunately is incompatible with these IVFs; zosyn initiated. Green Feed Attendant will attempt to obtain a second IV. Plan discussed with patient who is agreeable and able to verbalize plan with teach-back. Pt educated security operations analyst orantes and safety measures. Call orantes within reach, rings appropriately to make needs known.
[2024-03-26] MEDS: Dextrose 5 % and Lactated Ring 1,000 ML 80 ML IVCONT (22:49)
[2024-03-26] MEDS: Melatonin 3 MG TABLET 6 MG PO (23:27)
[2024-03-27] VITALS (8 sets, daily range): BP systolic 119–137; BP diastolic 74–88; PULSE 69–97; RESP 16–18; TEMP 36.2–36.4; O2SAT 96–99
[2024-03-27] MEDS: Acetaminophen 325 MG TABLET 650 MG PO ×3 (00:17→13:49)
[2024-03-27 03:19] LABS: Glucose, Whole Blood 98 mg/dL (60-115)
[2024-03-27] MEDS: Piperacillin Sodium/Tazobactam 3.375 GM in 0.9 % Sodium Chloride 50 ML IV ×4 (05:46→22:26)
[2024-03-27] MEDS: Omeprazole 20 MG CAPSULE.DR PO (05:46)
[2024-03-27] MEDS: Morphine Sulfate 4 MG/ML CARTRIDGE IVPUSH ×3 (05:54→13:50)
[2024-03-27 07:23] LABS: MANUAL DIFF FLAG NO
[2024-03-27 07:48] LABS: Basophils Percent Auto 0.5 % (0-2); Eosinophils Absolute Auto 0.4 X10*3/uL (0.0-0.4); Hematocrit 35.7 % (42.0-52.0); Hemoglobin 11.7 g/dl (14.0-18.0); Imm Gran Abs Auto 0.05 X10*3/uL (0.00-0.03); Imm Gran Pct Auto 0.8 % (0.0-0.4); Lymphocytes Absolute Auto 1.3 X10*3/uL (1.2-4.9); Lymphocytes Percent Auto 19.8 % (20-40); Mean Corpuscular HGB Conc 32.8 g/dl (31.0-36.0); Mean Corpuscular Hemoglobin 26.7 pg (27.0-33.0); Mean Corpuscular Volume 81.3 fL (80.0-98.0); Monocytes Absolute Auto 0.7 X10*3/uL (0.1-1.2); Monocytes Percent Auto 10.8 % (2-11); Neutrophils Absolute Auto 3.9 x10*3/uL (2.0-8.3); Neutrophils Percent Auto 62.1 % (45-73); Platelet Count 192 X10*3/uL (160-400); Red Blood Count 4.39 X10*6/uL (4.60-5.80); Red Cell Distribution Width 14.6 % (11.0-16.0); White Blood Count 6.3 X10*3/uL (4.8-10.8)
[2024-03-27 08:09] LABS: Anion Gap 12 (12-20); Blood Urea Nitrogen 9 mg/dL (9-16); Calcium 8.5 mg/dL (8.4-10.2); Carbon Dioxide 24 mmol/L (22-29); Chloride 109 mmol/L (96-108); Creatinine Clr Calc Pharmacy 63.9; Estimated Glomerular Filt Rate > 60; Glucose Random 109 mg/dL (60-115); Sodium 141 mmol/L (135-145)
[2024-03-27] MEDS: Gabapentin 300 MG CAPSULE PO ×3 (08:36→22:19)
[2024-03-27] MEDS: Atorvastatin Calcium 20 MG TABLET PO (08:36)
--- NOTE | 2024-03-27 09:15 | MHC.CM.PN ---
IMM delivered. Patient lives in a home alone. Functionally independent. Completed HCP naming agents: 1) son Marin and 2) son Lui PCP Abdifatah Bunch MD DP: Goal is home self care. Family to transport. CM will continue to follow.
[2024-03-27] MEDS: Butalb/Acetamin/Caff 50/325/40 TABLET 1 TAB PO (10:17)
[2024-03-27] MEDS: Dextrose 5 % and Lactated Ring 1,000 ML 80 ML IVCONT ×2 (10:51→22:28)
--- NOTE | 2024-03-27 11:10 | PM.GICN ---
History of Present Illness Data of Consult Service Date: 03/27/24 Requesting physician: Jenn Berrios Primary Care Provider: Abdifatah Bunch MD HPI Reason for consult: diverticulitis 68-year-old male with history of otc-foszowx-awlssbazr diabetes mellitus with neuropathy, asthma, gout, CAD status post stent on DPT,, former tobacco use disorder who I am seeing for assessment fo diverticulitis. Patient has been having LLQ sharp pain for 1 month coming on and off with dx of diverticulitis in between involving proximal sigmoid and mid descending colon, which improved with antibiotics. He was admitted on 03/17 with acute diverticulitis and discharged on 03/20/2024. He has noted nausea but no vomiting. he has noted diarrhea fluctuating with constipation without any blood or melena. He denies fevers or chills. he has noted slow urination. He does admit to 10# weight loss since last year along with dysphagia both to liquids and solids. He has been on omeprazole for years. Other tests: Colonsocopy: 07/11- diverticulosis, polyps ba swallow: 12/2023--with GEJ narrowing, cricopharyngeal achalasia, duodenal diverticulum CT 04/11- new diverticulitis area hepatic flexure, improvement in inflammation left colon Review of Systems Review of Systems: Constitutional : + Weight loss, No Fever, No Chills ENT/Mouth : No sore throat, No Rhinorrhea Eyes: No Swelling, No Redness Cardiovascular : No Chest Pain, No SOB, No Edema Respiratory : No Cough, No Sputum, No Wheezing Gastrointestinal : see HPI Genitourinary : NO Dysuria, No Urinary Frequency, No Hematuria, No Urgency -+hesitancy Musculoskeletal : + joint pain, No Myalgias, No Joint Swelling Skin : No Skin Lesions, No rash Neuro : No Weakness, No Numbness, No Dizziness, No Headache Psych : No Anxiety/Panic, No Depression Heme/Lymph: No Bruising, No Lymphadenopathy Endocrine : No Polyuria, No Polydipsia All other systems reviewed and are negative. [facility] Past Medical History Medical History Atherosclerotic cardiovascular disease Renal stones Sigmoid diverticulitis Sciatica Neuropathy Plantar fasciitis Arthritis GERD (gastroesophageal reflux disease) Gout Diabetes Family History Family History Mother No problems noted. Father No problems noted. 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 Meds Allergies Allergy/AdvReac Type Severity Reaction Status Date / Time umeclidinium AdvReac Severe Unknown Verified 03/26/24 10:57 [From Anoro Ellipta] vilanterol AdvReac Severe Unknown Verified 03/26/24 10:57 [From Anoro Ellipta] ticagrelor AdvReac Unknown Verified 03/26/24 17:35 Brilinta AdvReac Severe SOB Uncoded 03/26/24 10:57 Active Medications: Current Medications Acetaminophen (Acetaminophen 325 Mg Tablet) 650 mg PO Q6H PRN PRN Reason: Pain, Mild (Pain Scale 1-3), fever or headache Last Admin: 03/27/24 08:36 Dose: 650 mg Albuterol Sulfate (Albuterol Sulfate 90 Mcg 8 Gm Inhaler) 1 puff INHALE Q4H PRN PRN Reason: Shortness Of Breath Or Wheezing Atorvastatin Calcium (Atorvastatin Calcium 20 Mg Tablet) 20 mg PO DAILY [facility] Last Admin: 03/27/24 08:36 Dose: 20 mg Calcium Carbonate (Calcium Carbonate 750 Mg Tab.Chew) 750 mg PO Q4H PRN PRN Reason: Heartburn Enoxaparin Sodium (Enoxaparin Sodium 40 Mg/0.4 Ml Syringe) 40 mg SUBCUT Q24H [facility] Last Admin: 03/26/24 18:26 Dose: 40 mg Fluticasone Propionate (Fluticasone Propionate Nasal 16 Gm [place]) 1 spray NOSTRIL-B DAILY [facility] Last Admin: 03/27/24 09:58 Dose: Not Given Fluticasone Propionate (Fluticasone Propionate 250 Mcg Blst.W.Dev) 1 puff INHALE RBID [facility] Gabapentin (Gabapentin 300 Mg Capsule) 300 mg PO TID [facility] Last Admin: 03/27/24 08:36 Dose: 300 mg Glucose (Glucose Gel 15 Gm Gel..Gram.) 15 gm PO Q15M PRN; Protocol PRN Reason: per Hypoglycemia Standing Ord. Dextrose (D10) 250 mls @ 750 mls/hr IV Q15M PRN; Protocol PRN Reason: per Hypoglycemia Standing Ord. Piperacillin Sod/Tazobactam (Sod 3.375 gm/ Sodium Chloride) 50 mls @ 100 mls/hr IV Q6H [facility] Last Admin: 03/27/24 10:51 Dose: 100 mls/hr Dextrose/Lactated Ringer's (D5lr) 1,000 mls @ 80 mls/hr IVCONT .[id number] [facility] Last Admin: 03/27/24 10:51 Dose: 80 mls/hr Insulin Human Lispro (Insulin Lispro 100 Unit/Ml 3 Ml Vial) 0 unit SUBCUT QIDACHS [facility]; Protocol Last Admin: 03/27/24 07:14 Dose: Not Given Magnesium Hydroxide (Milk Of Magnesia 30 Ml Oral.Susp) 30 ml PO DAILY PRN PRN Reason: Constipation Melatonin (Melatonin 3 Mg Tablet) 6 mg PO BEDTIME PRN PRN Reason: Insomnia Last Admin: 03/26/24 23:27 Dose: 6 mg Morphine Sulfate (Morphine Sulfate 4 Mg/Ml Cartridge) 4 mg IVPUSH Q3H PRN; Protocol PRN Reason: Pain, Severe (Pain Scale 7-10) Last Admin: 03/27/24 09:54 Dose: 4 mg Omeprazole (Omeprazole 20 Mg Capsule.Dr) 20 mg PO DAILY@0630 [facility] Last Admin: 03/27/24 05:46 Dose: 20 mg Ondansetron HCl (Ondansetron Hcl 4 Mg/2 Ml Vial) 4 mg IVPUSH Q8H PRN PRN Reason: Nausea and Vomiting Sodium Chloride (0.9 % Sodium Chloride Flush 3 Ml Syringe) 3 ml IVFLUSH QSHIFT [facility] Last Admin: 03/27/24 08:38 Dose: Not Given Home Medications ?Medication ?Instructions ?Recorded ?Confirmed ?Last Taken ?Type celecoxib 200 mg capsule 200 mg PO DAILY 06/28/20 03/26/2424 History minocycline 50 mg capsule 50 mg PO BID 06/28/20 03/26/24 03/26/24 History omeprazole 20 mg capsule,delayed 20 mg PO DAILY@0630 06/28/20 03/26/24 03/26/24 History release dicyclomine 10 mg capsule 10 mg PO DAILY 06/19/23 03/26/24 03/26/24 History albuterol sulfate 90 mcg/actuation 1 puff inhalation Q4H PRN 10/11/23 03/26/24 Unknown History aerosol inhaler Shortness Of Breath Or Wheezing fluticasone propionate 50 1 spray intranasal DAILY 10/11/23 03/26/24 03/26/24 History mcg/actuation nasal spray,suspension aspirin 81 mg tablet,delayed 81 mg PO DAILY 01/06/24 03/26/24 03/26/24 History release triamcinolone acetonide 0.5 % 1 appl topical BID PRN Rash 03/17/24 03/26/24 Unknown History topical cream atorvastatin 20 mg tablet 20 mg PO DAILY 03/26/24 03/26/24 03/26/24 History gabapentin 300 mg capsule 300 mg PO TID 03/26/24 03/26/24 03/26/24 History levofloxacin 750 mg tablet 750 mg PO DAILY 03/26/24 03/26/24 03/26/24 History sitagliptin phosphate 50 1 tab PO BID 03/26/24 03/26/24 03/26/24 History mg-metformin 1,000 mg tablet (Augcecy) Physical Exam Vital Signs: Vital Signs: Last Vital Signs Temp 97.3 F 03/27/24 08:00 Pulse 86 03/27/24 08:00 Resp 17 03/27/24 08:00 BP 137/88 03/27/24 08:00 Pulse Ox 98 03/27/24 08:00 O2 Del Method Room Air 03/27/24 08:00 BMI result Body Mass Index 27.1 EXAM: GENERAL: The patient is well developed and nontoxic. VITAL SIGNS:see workflow HEENT: Nonicteric sclerae, PERRLA, EOMI. Oropharynx clear. Moist mucous membranes. Conjunctivae appear well perfused. No thyroid mass. CHEST: Chest wall is nontender. HEART: Regular rate and rhythm without murmurs. LUNGS: Clear to auscultation bilaterally. ABDOMEN: Soft, positive bowel sounds, nontender, no organomegaly.no flank tenderness SKIN: No rash, no excessive bruising, petechiae, or purpura. NEUROLOGIC: Cranial nerves II-XII intact without motor/sensory deficit. Psych: normal affect Results Labs 03/27/24 07:09 03/27/24 07:09 Labs: Short CBC 03/26/24 03/27/24 Range/Units 11:09 07:09 WBC 9.6 6.3 (4.8-10.8) X10*3/uL Hgb 13.1 L D 11.7 L (14.0-18.0) g/dl Hct 39.6 L 35.7 L (42.0-52.0) % Plt Count 240 192 (160-400) X10*3/uL BMP 03/26/24 03/27/24 11:09 07:09 Sodium 138 141 Potassium 4.3 4.0 Chloride 106 109 H Carbon Dioxide 21 L 24 BUN 9 9 Creatinine 1.04 1.04 Calcium 9.3 D 8.5 D Liver Function 03/26/24 Range/Units 11:09 Total Bilirubin 0.6 (0.0-1.0) mg/dL AST 11 (5-37) U/L ALT 6 (0-40) U/L Alkaline Phosphatase 58 (39-117) U/L Albumin 3.8 (3.5-5.0) g/dL Imaging CT scan - abdomen: Attestation: I personally reviewed and interpreted this imaging study as follows: (diverticulitis hepatic flexure) Assessment and Plan (1) Diverticulitis: Status: Acute (2) Dysphagia: Status: Acute Plan 1/ Recurrent diverticulitis - unfortunately there is no known preventative treatment for this, but could try probiotics e.g align, high fiber diet and avoiding constipation, surgery may be difficult as he has multiple areas of involvement on left and right sides of the colon 2/ dysphagia, possible stricture, with weight loss, PLAN: 1/ Will discuss with Dr Drummond on Saturday about future repeat colonoscopy and possible in patient EGD for futher assessment of esophagus--can hold plavix for the moment but cont aspirin. meantime cont with current abx course. Procedures Date of Service Date of Service: 03/27/24
[2024-03-27] MEDS: Fluticasone Propionate 250 MCG BLST.W.DEV 1 PUFF INHALE ×2 (11:23→20:38)
[2024-03-27 11:57] LABS: Glucose, Whole Blood 127 mg/dL (60-115)
--- NOTE | 2024-03-27 13:16 | MHC.CLN ---
NUTRITION CONSULT FOR 10# WEIGHT LOSS AND POOR PO. CURRENTLY NPO. REVIEW OF WEIGHT HX SHOWS WEIGHT LOSS X 6 MONTHS -6#, 3.5%. WEIGHT LOSS NOT SIGNIFICANT. MONITOR FOR DIET ADVANCEMENT.
--- NOTE | 2024-03-27 14:37 | P.PNIM_ITS ---
Subjective Subjective Date of Service: 03/27/24 Interval History: seen and examined this morning Follow-up for diverticulitis Patient reports ongoing left lower quadrant abdominal pain. No nausea Review of Systems Review of Systems: Yes all other systems are reviewed and are negative Constitutional Constitutional: Denies chills and Denies fever(s) Cardiovascular Cardiovascular: Denies chest pain and Denies dyspnea Respiratory Respiratory: Denies cough and Denies dyspnea Physical Exam 2 Vital Signs: Vital Signs: Last Vital Signs Temp 97.3 F 03/27/24 08:00 Pulse 97 03/27/24 11:25 Resp 16 03/27/24 11:25 BP 137/88 03/27/24 08:00 Pulse Ox 98 03/27/24 08:00 O2 Del Method Room Air 03/27/24 08:00 BMI result Body Mass Index 27.1 Const: General: cooperative, no acute distress, alert and awake Nutritional Appearance: average body habitus Orientation/consciousness: patient oriented x3 Resp: Effort & Inspection: normal respiratory effort, able to speak in complete sentences, no respiratory distress and no use of accessory muscles Cardio: Rate: regular rate GI: Other: Soft, nondistended, tenderness to palpation left lower quadrant Neuro: General: patient oriented x3, moves all extremities and CN's II-XI intact bilaterally Extrem: General: Yes no pedal edema Objective Data Active Medications Acetaminophen (Acetaminophen 325 Mg Tablet) 650 mg PO Q6H PRN PRN Reason: Pain, Mild (Pain Scale 1-3), fever or headache Last Admin: 03/27/24 13:49 Dose: 650 mg Documented By: MAURIZIO Albuterol Sulfate (Albuterol Sulfate 90 Mcg 8 Gm Inhaler) 1 puff INHALE Q4H PRN PRN Reason: Shortness Of Breath Or Wheezing Atorvastatin Calcium (Atorvastatin Calcium 20 Mg Tablet) 20 mg PO DAILY [facility] Last Admin: 03/27/24 08:36 Dose: 20 mg Documented By: MAURIZIO Calcium Carbonate (Calcium Carbonate 750 Mg Tab.Chew) 750 mg PO Q4H PRN PRN Reason: Heartburn Enoxaparin Sodium (Enoxaparin Sodium 40 Mg/0.4 Ml Syringe) 40 mg SUBCUT Q24H [facility] Last Admin: 03/26/24 18:26 Dose: 40 mg Documented By: SERENA Fluticasone Propionate (Fluticasone Propionate Nasal 16 Gm [place]) 1 spray NOSTRIL-B DAILY [facility] Last Admin: 03/27/24 09:58 Dose: Not Given Documented By: MAURIZIO Non-Admin Reason: Med Not Available Fluticasone Propionate (Fluticasone Propionate 250 Mcg Blst.W.Dev) 1 puff INHALE RBID [facility] Last Admin: 03/27/24 11:23 Dose: 1 puff Documented By: LANE Gabapentin (Gabapentin 300 Mg Capsule) 300 mg PO TID [facility] Last Admin: 03/27/24 13:50 Dose: 300 mg Documented By: MAURIZIO Glucose (Glucose Gel 15 Gm Gel..Gram.) 15 gm PO Q15M PRN; Protocol PRN Reason: per Hypoglycemia Standing Ord. Dextrose (D10) 250 mls @ 750 mls/hr IV Q15M PRN; Protocol PRN Reason: per Hypoglycemia Standing Ord. Piperacillin Sod/Tazobactam (Sod 3.375 gm/ Sodium Chloride) 50 mls @ 100 mls/hr IV Q6H [facility] Last Infusion: 03/27/24 11:22 Dose: Infused Documented By: MAURIZIO Dextrose/Lactated Ringer's (D5lr) 1,000 mls @ 80 mls/hr IVCONT .[id number] [facility] Last Admin: 03/27/24 10:51 Dose: 80 mls/hr Documented By: MAURIZIO Insulin Human Lispro (Insulin Lispro 100 Unit/Ml 3 Ml Vial) 0 unit SUBCUT QIDACHS [facility]; Protocol Last Admin: 03/27/24 12:18 Dose: Not Given Documented By: MAURIZIO Non-Admin Reason: No Insulin Coverage Magnesium Hydroxide (Milk Of Magnesia 30 Ml Oral.Susp) 30 ml PO DAILY PRN PRN Reason: Constipation Melatonin (Melatonin 3 Mg Tablet) 6 mg PO BEDTIME PRN PRN Reason: Insomnia Last Admin: 03/26/24 23:27 Dose: 6 mg Documented By: OLIVA Morphine Sulfate (Morphine Sulfate 4 Mg/Ml Cartridge) 4 mg IVPUSH Q3H PRN; Protocol PRN Reason: Pain, Severe (Pain Scale 7-10) Last Admin: 03/27/24 13:50 Dose: 4 mg Documented By: MAURIZIO Omeprazole (Omeprazole 20 Mg Capsule.Dr) 20 mg PO DAILY@0630 [facility] Last Admin: 03/27/24 05:46 Dose: 20 mg Documented By: OLIVA Ondansetron HCl (Ondansetron Hcl 4 Mg/2 Ml Vial) 4 mg IVPUSH Q8H PRN PRN Reason: Nausea and Vomiting Sodium Chloride (0.9 % Sodium Chloride Flush 3 Ml Syringe) 3 ml IVFLUSH QSHIFT [facility] Last Admin: 03/27/24 08:38 Dose: Not Given Documented By: MAURIZIO Non-Admin Reason: IV Running Labs 03/27/24 07:09 03/27/24 07:09 Labs: Laboratory Results - last 24 hr 03/26/24 03/26/24 03/26/24 16:30 18:50 21:10 MCV MCH MCHC RDW Plt Count MPV Immature Gran % (Auto) Neut % (Auto) Lymph % (Auto) [place] % (Auto) Eos % (Auto) Baso % (Auto) Lymph # (Auto) [place] # (Auto) Eos # (Auto) Baso # (Auto) Abs Immat Gran (auto) Absolute Neuts (auto) Absolute Nucleated RBC Nucleated RBC % (auto) Anion Gap Estim Creat Clear Calc Estimated GFR POC Glucose 88 Random Glucose Lactic Acid 2.1 H* Lactic Acid F/U @ 2Hr 1.6 Calcium 03/27/24 03/27/24 03/27/24 03:11 07:09 11:52 MCV 81.3 MCH 26.7 L MCHC 32.8 RDW 14.6 Plt Count 192 MPV 11.0 Immature Gran % (Auto) 0.8 H Neut % (Auto) 62.1 Lymph % (Auto) 19.8 L [place] % (Auto) 10.8 Eos % (Auto) 6.0 H Baso % (Auto) 0.5 Lymph # (Auto) 1.3 [place] # (Auto) 0.7 Eos # (Auto) 0.4 Baso # (Auto) 0.0 Abs Immat Gran (auto) 0.05 H Absolute Neuts (auto) 3.9 Absolute Nucleated RBC 0.000 Nucleated RBC % (auto) 0.0 Anion Gap 12 Estim Creat Clear Calc 63.9 Estimated GFR > 60 POC Glucose 98 127 H Random Glucose 109 Lactic Acid Lactic Acid F/U @ 2Hr Calcium 8.5 D Assessment and Plan (1) Diverticulitis: Status: Acute Plan This is a 68-year-old male with pertinent history of xsp-[id number]-ezogfnkjw diabetes mellitus with neuropathy, asthma not on home oxygen, gout, CAD status post stent on DVT, former tobacco use disorder who presents to the emergency department for evaluation of abdominal pain. Acute diverticulitis, recurrent no sepsis continue IV Zosyn. Previously failed outpatient antibiotics NPO for bowel rest GI consult due to Previous episodes of diverticulitis in the proximal sigmoid colon, mid descending colon. New area of inflammation noted at the level of hepatic flexure formal GI consult pending [id number] diabetes mellitus: NPO hold Janumet follow POCs q6h while NPO on D5LR dysphagia, chronic GI - may benefit from repeat endoscopy hold plavix Acute lactic acidosis not due to sepsis, likely due to baseline metformin use resolved Asthma, chronic eosinophilic: Continue home inhalers No exacerbation hold Dupixent Gastroesophageal reflux disease: continue PPI Diabetic neuropathy: gabapentin CAD status post stent: On dual antiplatelet therapy and statin - hold plavix for possible endoscopy, resume asa DVT prophylaxis: Lovenox Full code Admit as inpatient and will require two night minimum hospital stay for IV antibiotics (as above), which is not possible in a lesser acute setting. Quality Stroke Does the patient have a stroke diagnosis?: No VTE Prior VTE?: No VTE Risk Level:: Medical - moderate - high VTE Device Contraindication: Treatment Not Indicated VTE Drug Contraindication: N/A - Med Ordered
[2024-03-27] MEDS: Enoxaparin Sodium 40 MG/0.4 ML SYRINGE SUBCUT (16:45)
[2024-03-27] MEDS: oxyCODONE HCl Immed Release 5 MG TABLET PO ×2 (16:45→22:54)
[2024-03-27 18:26] LABS: Glucose, Whole Blood 134 mg/dL (60-115)
[2024-03-27 23:21] LABS: Glucose, Whole Blood 123 mg/dL (60-115)
[2024-03-28] MEDS: Morphine Sulfate 4 MG/ML CARTRIDGE IVPUSH ×5 (00:17→21:31)
[2024-03-28 03:47] VITALS: BP 137/75; PULSE 66; RESP 16; TEMP 36; O2SAT 99
[2024-03-28] MEDS: Piperacillin Sodium/Tazobactam 3.375 GM in 0.9 % Sodium Chloride 50 ML IV ×4 (04:39→22:07)
[2024-03-28] MEDS: Omeprazole 20 MG CAPSULE.DR PO (05:58)
[2024-03-28 06:36] LABS: Glucose, Whole Blood 120 mg/dL (60-115)
[2024-03-28 07:04] LABS: Hematocrit 36.5 % (42.0-52.0); Hemoglobin 11.9 g/dl (14.0-18.0); Mean Corpuscular HGB Conc 32.6 g/dl (31.0-36.0); Mean Corpuscular Hemoglobin 26.5 pg (27.0-33.0); Mean Corpuscular Volume 81.3 fL (80.0-98.0); Mean Platelet Volume 10.7 fL (9.4-12.4); Platelet Count 209 X10*3/uL (160-400); Red Blood Count 4.49 X10*6/uL (4.60-5.80); Red Cell Distribution Width 14.3 % (11.0-16.0); White Blood Count 6.1 X10*3/uL (4.8-10.8)
[2024-03-28 07:22] VITALS: BP 143/84; PULSE 77; RESP 16; TEMP 36.2; O2SAT 99
[2024-03-28 07:26] LABS: Anion Gap 9 (12-20); Blood Urea Nitrogen 6 mg/dL (9-16); Calcium 8.7 mg/dL (8.4-10.2); Carbon Dioxide 29 mmol/L (22-29); Chloride 108 mmol/L (96-108); Creatinine Clr Calc Pharmacy 75.5; Estimated Glomerular Filt Rate > 60; Glucose Random 130 mg/dL (60-115); Potassium 4.4 mmol/L (3.3-5.1); Sodium 142 mmol/L (135-145)
[2024-03-28 07:49] LABS: Glucose, Whole Blood 120 mg/dL (60-115)
[2024-03-28] MEDS: Fluticasone Propionate 250 MCG BLST.W.DEV 1 PUFF INHALE (08:42)
[2024-03-28 08:43] VITALS: PULSE 77; RESP 16; O2SAT 99
[2024-03-28] MEDS: Fluticasone Propionate Nasal 16 GM SPRAY 1 SPRAY NOSTRIL-B (08:57)
[2024-03-28] MEDS: Atorvastatin Calcium 20 MG TABLET PO (08:58)
[2024-03-28] MEDS: Aspirin Enteric Coated 81 MG TABLET.DR PO (08:58)
[2024-03-28] MEDS: Gabapentin 300 MG CAPSULE PO ×3 (08:58→19:36)
[2024-03-28] MEDS: 0.9 % Sodium Chloride Flush 3 ML SYRINGE IVFLUSH ×3 (08:58→21:39)
[2024-03-28] MEDS: Dextrose 5 % and Lactated Ring 1,000 ML 80 ML IVCONT ×2 (09:03→21:38)
[2024-03-28] MEDS: oxyCODONE HCl Immed Release 5 MG TABLET PO ×2 (10:40→16:42)
[2024-03-28 11:32] LABS: Glucose, Whole Blood 125 mg/dL (60-115)
--- NOTE | 2024-03-28 14:13 | P.PNIM_ITS ---
Subjective Subjective Date of Service: 03/28/24 Interval History: Seen and examined this morning Follow-up for abdominal pain, recurrent diverticulitis Reports persistent left lower quadrant abdominal pain. No nausea, vomiting, diarrhea No fever, chills Review of Systems Review of Systems: Yes all other systems are reviewed and are negative Constitutional Constitutional: Denies chills and Denies fever(s) Cardiovascular Cardiovascular: Denies chest pain, Denies palpitations and Denies dyspnea Respiratory Respiratory: Denies cough and Denies dyspnea Gastrointestinal Gastrointestinal: Reports abdominal pain, Denies nausea and Denies vomiting Endocrine Endocrine: Denies palpitations Physical Exam 2 Vital Signs: Vital Signs: Last Vital Signs Temp 97.1 F 03/28/24 07:22 Pulse 77 03/28/24 08:43 Resp 16 03/28/24 08:43 BP 143/84 H 03/28/24 07:22 Pulse Ox 99 03/28/24 07:22 O2 Del Method Room Air 03/28/24 07:22 BMI result Body Mass Index 27.1 Const: General: cooperative, no acute distress, alert and awake Nutritional Appearance: average body habitus Orientation/consciousness: patient oriented x3 Resp: Effort & Inspection: normal respiratory effort, able to speak in complete sentences, no respiratory distress and no use of accessory muscles Cardio: Rate: regular rate GI: Other: Soft, nondistended, tenderness to palpation left lower quadrant Neuro: General: patient oriented x3, moves all extremities and CN's II-XI intact bilaterally Extrem: General: Yes no pedal edema Objective Data Active Medications Acetaminophen (Acetaminophen 325 Mg Tablet) 650 mg PO Q6H PRN PRN Reason: Pain, Mild (Pain Scale 1-3), fever or headache Last Admin: 03/27/24 13:49 Dose: 650 mg Documented By: MAURIZIO Albuterol Sulfate (Albuterol Sulfate 90 Mcg 8 Gm Inhaler) 1 puff INHALE Q4H PRN PRN Reason: Shortness Of Breath Or Wheezing Aspirin (Aspirin Enteric Coated 81 Mg Tablet.) 81 mg PO DAILY [facility] Last Admin: 03/28/24 08:58 Dose: 81 mg Documented By: DOMINICK Atorvastatin Calcium (Atorvastatin Calcium 20 Mg Tablet) 20 mg PO DAILY [facility] Last Admin: 03/28/24 08:58 Dose: 20 mg Documented By: DOMINICK Calcium Carbonate (Calcium Carbonate 750 Mg Tab.Chew) 750 mg PO Q4H PRN PRN Reason: Heartburn Enoxaparin Sodium (Enoxaparin Sodium 40 Mg/0.4 Ml Syringe) 40 mg SUBCUT Q24H [facility] Last Admin: 03/27/24 16:45 Dose: 40 mg Documented By: MAURIZIO Fluticasone Propionate (Fluticasone Propionate Nasal 16 Gm [place]) 1 spray NOSTRIL-B DAILY [facility] Last Admin: 03/28/24 08:57 Dose: 1 spray Documented By: DOMINICK Fluticasone Propionate (Fluticasone Propionate 250 Mcg Blst.W.Dev) 1 puff INHALE RBID [facility] Last Admin: 03/28/24 08:42 Dose: 1 puff Documented By: LANE Gabapentin (Gabapentin 300 Mg Capsule) 300 mg PO TID [facility] Last Admin: 03/28/24 08:58 Dose: 300 mg Documented By: DOMINICK Glucose (Glucose Gel 15 Gm Gel..Gram.) 15 gm PO Q15M PRN; Protocol PRN Reason: per Hypoglycemia Standing Ord. Dextrose (D10) 250 mls @ 750 mls/hr IV Q15M PRN; Protocol PRN Reason: per Hypoglycemia Standing Ord. Piperacillin Sod/Tazobactam (Sod 3.375 gm/ Sodium Chloride) 50 mls @ 100 mls/hr IV Q6H [facility] Last Infusion: 03/28/24 11:17 Dose: Infused Documented By: DOMINICK Dextrose/Lactated Ringer's (D5lr) 1,000 mls @ 80 mls/hr IVCONT .[id number] [facility] Last Admin: 03/28/24 10:33 Dose: Not Given Documented By: DOMINICK Non-Admin Reason: IV Running Insulin Human Lispro (Insulin Lispro 100 Unit/Ml 3 Ml Vial) 0 unit SUBCUT QIDACHS [facility]; Protocol Last Admin: 03/28/24 11:33 Dose: Not Given Documented By: DOMINICK Non-Admin Reason: No Insulin Coverage Magnesium Hydroxide (Milk Of Magnesia 30 Ml Oral.Susp) 30 ml PO DAILY PRN PRN Reason: Constipation Melatonin (Melatonin 3 Mg Tablet) 6 mg PO BEDTIME PRN PRN Reason: Insomnia Last Admin: 03/26/24 23:27 Dose: 6 mg Documented By: OLIVA Morphine Sulfate (Morphine Sulfate 4 Mg/Ml Cartridge) 4 mg IVPUSH Q3H PRN; Protocol PRN Reason: Pain, Severe (Pain Scale 7-10) Last Admin: 03/28/24 08:58 Dose: 4 mg Documented By: DOMINICK Omeprazole (Omeprazole 20 Mg Capsule.Dr) 20 mg PO DAILY@0630 [facility] Last Admin: 03/28/24 05:58 Dose: 20 mg Documented By: YOLIE Ondansetron HCl (Ondansetron Hcl 4 Mg/2 Ml Vial) 4 mg IVPUSH Q8H PRN PRN Reason: Nausea and Vomiting Oxycodone HCl (Oxycodone Hcl Immed Release 5 Mg Tablet) 5 mg PO Q6H PRN PRN Reason: Pain, Moderate(Pain Scale 4-6) Last Admin: 03/28/24 10:40 Dose: 5 mg Documented By: DOMINICK Sodium Chloride (0.9 % Sodium Chloride Flush 3 Ml Syringe) 3 ml IVFLUSH [facility] Last Admin: 03/28/24 08:58 Dose: 3 ml Documented By: DOMINICK Labs 03/28/24 06:27 03/28/24 06:27 Labs: Laboratory Results - last 24 hr 03/27/24 03/27/24 03/28/24 18:23 23:16 06:27 MCV 81.3 MCH 26.5 L MCHC 32.6 RDW 14.3 Plt Count 209 MPV 10.7 Absolute Nucleated RBC 0.000 Nucleated RBC % (auto) 0.0 Anion Gap 9 L Estim Creat Clear Calc 75.5 Estimated GFR > 60 POC Glucose 134 H 123 H Random Glucose 130 H Calcium 8.7 03/28/24 03/28/24 03/28/24 06:32 07:25 11:19 MCV MCH MCHC RDW Plt Count MPV Absolute Nucleated RBC Nucleated RBC % (auto) Anion Gap Estim Creat Clear Calc Estimated GFR POC Glucose 120 H 120 H 125 H Random Glucose Calcium Microbiology Microbiology Results: Microbiology 03/26/24 15:12 Blood Culture - Preliminary Blood - Venous No growth after 24 hours. 03/26/24 16:30 Blood Culture - Preliminary Blood - Venous No growth after 24 hours. Assessment and Plan (1) Dysphagia: Status: Acute (2) Diverticulitis: Status: Acute Plan This is a 68-year-old male with pertinent history of zef-obzoqmk-kyvotgxuv diabetes mellitus with neuropathy, asthma not on home oxygen, gout, CAD status post stent on DVT, former tobacco use disorder who presents to the emergency department for evaluation of abdominal pain. Acute diverticulitis, recurrent no sepsis continue IV Zosyn. Previously failed outpatient antibiotics advance to clear liquid diet GI consult due to Previous episodes of diverticulitis in the proximal sigmoid colon, mid descending colon. New area of inflammation noted at the level of hepatic flexure seen by GI -> no preventative treatment for this, but could try probiotics e.g align, high fiber diet and avoiding constipation, surgery may be difficult as he has multiple areas of involvement on left and right sides of the colon May need repeat colonoscopy in the future [id number] diabetes mellitus: hold Janumet follow POCs on D5LR, can d/c if able to take in adequate PO dysphagia, chronic Upper GI series from December showing esophageal dysmotility moderate narrowing at the GE junction which could represent achalasia but benign stricture can not be ruled out GI - may benefit from repeat endoscopy, plan to discuss with Dr. Drummond on Saturday. Plan for NPO at midnight on Saturday hold plavix Acute lactic acidosis not due to sepsis, likely due to baseline metformin use resolved Asthma, chronic eosinophilic: Continue home inhalers No exacerbation hold Dupixent Gastroesophageal reflux disease: continue PPI Diabetic neuropathy: gabapentin CAD status post stent: On dual antiplatelet therapy and statin - hold plavix for possible endoscopy, resume asa DVT prophylaxis: Lovenox Full code ongoing hospital stay for IV antibiotics (as above), specialist evaluation which is not possible in a lesser acute setting. Quality Stroke Does the patient have a stroke diagnosis?: No VTE Prior VTE?: No VTE Risk Level:: Medical - moderate - high VTE Device Contraindication: Treatment Not Indicated VTE Drug Contraindication: N/A - Med Ordered
[2024-03-28 15:46] VITALS: BP 124/67; PULSE 81; RESP 18; TEMP 36.1; O2SAT 98
[2024-03-28] MEDS: Enoxaparin Sodium 40 MG/0.4 ML SYRINGE SUBCUT (16:37)
[2024-03-28 16:38] LABS: Glucose, Whole Blood 122 mg/dL (60-115)
[2024-03-28 19:16] VITALS: BP 141/77; PULSE 88; RESP 18; TEMP 36.6; O2SAT 96
[2024-03-28 20:43] LABS: Glucose, Whole Blood 167 mg/dL (60-115)
[2024-03-28] MEDS: Melatonin 3 MG TABLET 6 MG PO (21:31)
[2024-03-28] MEDS: Insulin Lispro 100 UNIT/ML 3 ML VIAL SUBCUT (21:33)
[2024-03-29 03:28] VITALS: BP 141/82; PULSE 77; RESP 18; TEMP 36.6; O2SAT 98
[2024-03-29] MEDS: Piperacillin Sodium/Tazobactam 3.375 GM in 0.9 % Sodium Chloride 50 ML IV ×4 (04:21→22:04)
[2024-03-29] MEDS: Omeprazole 20 MG CAPSULE.DR PO (05:58)
[2024-03-29 07:09] VITALS: BP 147/78; PULSE 70; RESP 14; TEMP 36.3; O2SAT 98
[2024-03-29] MEDS: Aspirin Enteric Coated 81 MG TABLET.DR PO (07:55)
[2024-03-29] MEDS: Gabapentin 300 MG CAPSULE PO ×3 (07:55→19:49)
[2024-03-29] MEDS: Atorvastatin Calcium 20 MG TABLET PO (07:55)
[2024-03-29] MEDS: Morphine Sulfate 4 MG/ML CARTRIDGE IVPUSH ×3 (07:55→20:01)
[2024-03-29] MEDS: Fluticasone Propionate Nasal 16 GM SPRAY 1 SPRAY NOSTRIL-B (07:55)
[2024-03-29 07:57] LABS: Glucose, Whole Blood 118 mg/dL (60-115)
[2024-03-29 08:09] VITALS: PULSE 70; RESP 14; O2SAT 98
[2024-03-29] MEDS: Fluticasone Propionate 250 MCG BLST.W.DEV 1 PUFF INHALE ×2 (08:09→20:08)
[2024-03-29] MEDS: oxyCODONE HCl Immed Release 5 MG TABLET PO ×3 (10:20→22:43)
[2024-03-29 11:41] LABS: Glucose, Whole Blood 223 mg/dL (60-115)
[2024-03-29] MEDS: Insulin Lispro 100 UNIT/ML 3 ML VIAL SUBCUT (12:01)
--- NOTE | 2024-03-29 12:08 | P.PNIM_ITS ---
Subjective Subjective Date of Service: 03/29/24 Interval History: Seen and examined this morning Follow-up for diverticulitis Ongoing left lower quadrant abdominal pain although improving. No fever, no chills Tolerating clear liquids Review of Systems Review of Systems: Yes all other systems are reviewed and are negative Constitutional Constitutional: Denies chills and Denies fever(s) Cardiovascular Cardiovascular: Denies chest pain, Denies palpitations and Denies dyspnea Respiratory Respiratory: Denies cough and Denies dyspnea Gastrointestinal Gastrointestinal: Reports abdominal pain, Denies nausea and Denies vomiting Endocrine Endocrine: Denies palpitations Physical Exam 2 Vital Signs: Vital Signs: Last Vital Signs Temp 97.3 F 03/29/24 07:09 Pulse 70 03/29/24 08:09 Resp 14 03/29/24 08:09 BP 147/78 H 03/29/24 07:09 Pulse Ox 98 03/29/24 07:09 O2 Del Method Room Air 03/29/24 03:28 BMI result Body Mass Index 27.1 Const: General: cooperative, no acute distress, alert and awake Nutritional Appearance: average body habitus Orientation/consciousness: patient oriented x3 Resp: Effort & Inspection: normal respiratory effort, able to speak in complete sentences, no respiratory distress and no use of accessory muscles Cardio: Rate: regular rate GI: Other: Soft, nondistended, tenderness to palpation left lower quadrant Neuro: General: patient oriented x3, moves all extremities and CN's II-XI intact bilaterally Extrem: General: Yes no pedal edema Objective Data Active Medications Acetaminophen (Acetaminophen 325 Mg Tablet) 650 mg PO Q6H PRN PRN Reason: Pain, Mild (Pain Scale 1-3), fever or headache Last Admin: 03/27/24 13:49 Dose: 650 mg Documented By: MAURIZIO Albuterol Sulfate (Albuterol Sulfate 90 Mcg 8 Gm Inhaler) 1 puff INHALE Q4H PRN PRN Reason: Shortness Of Breath Or Wheezing Aspirin (Aspirin Enteric Coated 81 Mg Tablet.) 81 mg PO DAILY [facility] Last Admin: 03/29/24 07:55 Dose: 81 mg Documented By: DOMINICK Atorvastatin Calcium (Atorvastatin Calcium 20 Mg Tablet) 20 mg PO DAILY [facility] Last Admin: 03/29/24 07:55 Dose: 20 mg Documented By: DOMINICK Calcium Carbonate (Calcium Carbonate 750 Mg Tab.Chew) 750 mg PO Q4H PRN PRN Reason: Heartburn Enoxaparin Sodium (Enoxaparin Sodium 40 Mg/0.4 Ml Syringe) 40 mg SUBCUT Q24H [facility] Last Admin: 03/28/24 16:37 Dose: 40 mg Documented By: DOMINICK Fluticasone Propionate (Fluticasone Propionate Nasal 16 Gm [place]) 1 spray NOSTRIL-B DAILY [facility] Last Admin: 03/29/24 07:55 Dose: 1 spray Documented By: DOMINICK Fluticasone Propionate (Fluticasone Propionate 250 Mcg Blst.W.Dev) 1 puff INHALE RBID [facility] Last Admin: 03/29/24 08:09 Dose: 1 puff Documented By: MARLO Gabapentin (Gabapentin 300 Mg Capsule) 300 mg PO TID [facility] Last Admin: 03/29/24 07:55 Dose: 300 mg Documented By: DOMINICK Glucose (Glucose Gel 15 Gm Gel..Gram.) 15 gm PO Q15M PRN; Protocol PRN Reason: per Hypoglycemia Standing Ord. Dextrose (D10) 250 mls @ 750 mls/hr IV Q15M PRN; Protocol PRN Reason: per Hypoglycemia Standing Ord. Piperacillin Sod/Tazobactam (Sod 3.375 gm/ Sodium Chloride) 50 mls @ 100 mls/hr IV Q6H [facility] Last Infusion: 03/29/24 10:55 Dose: Infused Documented By: DOMINICK Insulin Human Lispro (Insulin Lispro 100 Unit/Ml 3 Ml Vial) 0 unit SUBCUT QIDACHS [facility]; Protocol Last Admin: 03/29/24 12:01 Dose: 4 unit Documented By: DOMINICK Magnesium Hydroxide (Milk Of Magnesia 30 Ml Oral.Susp) 30 ml PO DAILY PRN PRN Reason: Constipation Melatonin (Melatonin 3 Mg Tablet) 6 mg PO BEDTIME PRN PRN Reason: Insomnia Last Admin: 03/28/24 21:31 Dose: 6 mg Documented By: YOLIE Morphine Sulfate (Morphine Sulfate 4 Mg/Ml Cartridge) 4 mg IVPUSH Q4H PRN; Protocol PRN Reason: Pain, Severe (Pain Scale 7-10) Last Admin: 03/29/24 12:01 Dose: 4 mg Documented By: DOMINICK Omeprazole (Omeprazole 20 Mg Capsule.) 20 mg PO DAILY@0630 [facility] Last Admin: 03/29/24 05:58 Dose: 20 mg Documented By: YOLIE Ondansetron HCl (Ondansetron Hcl 4 Mg/2 Ml Vial) 4 mg IVPUSH Q8H PRN PRN Reason: Nausea and Vomiting Oxycodone HCl (Oxycodone Hcl Immed Release 5 Mg Tablet) 5 mg PO Q6H PRN PRN Reason: Pain, Moderate(Pain Scale 4-6) Last Admin: 03/29/24 10:20 Dose: 5 mg Documented By: DOMINICK Sodium Chloride (0.9 % Sodium Chloride Flush 3 Ml Syringe) 3 ml IVFLUSH QSHIFT [facility] Last Admin: 03/29/24 07:56 Dose: Not Given Documented By: DOMINICK Non-Admin Reason: IV Running Labs 03/28/24 06:27 03/28/24 06:27 Labs: Laboratory Results - last 24 hr 03/28/24 03/28/24 03/29/24 16:34 20:37 07:44 POC Glucose 122 H 167 H 118 H 03/29/24 11:25 POC Glucose 223 H Microbiology Microbiology Results: Microbiology 03/26/24 15:12 Blood Culture - Preliminary Blood - Venous No growth after 48 hours. 03/26/24 16:30 Blood Culture - Preliminary Blood - Venous No growth after 48 hours. Assessment and Plan (1) Dysphagia: Status: Acute (2) Diverticulitis: Status: Acute Plan This is a 68-year-old male with pertinent history of thx-vfclnnq-qlowhasjz diabetes mellitus with neuropathy, asthma not on home oxygen, gout, CAD status post stent on DVT, former tobacco use disorder who presents to the emergency department for evaluation of abdominal pain. Acute diverticulitis, recurrent no sepsis continue IV Zosyn. Previously failed outpatient antibiotics continue clear liquid diet GI consult due to Previous episodes of diverticulitis in the proximal sigmoid colon, mid descending colon. New area of inflammation noted at the level of hepatic flexure seen by GI -> no preventative treatment for this, but could try probiotics e.g align, high fiber diet and avoiding constipation, surgery may be difficult as he has multiple areas of involvement on left and right sides of the colon May need repeat colonoscopy in the future Blood cultures negative to date Zoq-nhdtwvs-jqqkvmiux diabetes mellitus: hold Janumet follow POCs, SSI dysphagia, chronic Upper GI series from December showing esophageal dysmotility moderate narrowing at the GE junction which could represent achalasia but benign stricture can not be ruled out GI - may benefit from repeat endoscopy, plan to discuss with Dr. Drummond on Saturday. Plan for NPO at midnight on Saturday, possible add on for Saturday hold plavix Acute lactic acidosis not due to sepsis, likely due to baseline metformin use resolved Asthma, chronic eosinophilic: Continue home inhalers No exacerbation hold Dupixent for acute infection Gastroesophageal reflux disease: continue PPI Diabetic neuropathy: gabapentin CAD status post stent: On dual antiplatelet therapy and statin - hold plavix for possible endoscopy, resume asa DVT prophylaxis: Lovenox Full code ongoing hospital stay for IV antibiotics (as above), specialist evaluation which is not possible in a lesser acute setting. Quality Stroke Does the patient have a stroke diagnosis?: No VTE Prior VTE?: No VTE Risk Level:: Medical - moderate - high VTE Device Contraindication: Treatment Not Indicated VTE Drug Contraindication: N/A - Med Ordered
[2024-03-29 16:00] VITALS: BP 132/62; PULSE 86; RESP 18; TEMP 36.2; O2SAT 96
[2024-03-29 16:09] LABS: Glucose, Whole Blood 110 mg/dL (60-115)
[2024-03-29] MEDS: Enoxaparin Sodium 40 MG/0.4 ML SYRINGE SUBCUT (16:22)
[2024-03-29] MEDS: 0.9 % Sodium Chloride Flush 3 ML SYRINGE IVFLUSH ×2 (16:23→22:07)
[2024-03-29 19:57] VITALS: BP 168/84; PULSE 79; RESP 20; TEMP 36.2; O2SAT 99
[2024-03-29 20:11] VITALS: PULSE 82; RESP 18; O2SAT 99
[2024-03-29 21:02] LABS: Glucose, Whole Blood 115 mg/dL (60-115)
[2024-03-29] MEDS: Melatonin 3 MG TABLET 6 MG PO (22:04)
[2024-03-30] VITALS (12 sets, daily range): BP systolic 127–177; BP diastolic 66–100; PULSE 71–97; RESP 12–20; TEMP 36.2–36.9; O2SAT 96–100
--- NOTE | 2024-03-30 02:33 | PC.NURSE ---
Pt sleeping at this time, no reports of pain at this time, Respirations even an non-labored, no apparent distress noted. Call orantes within reach.
[2024-03-30] MEDS: Piperacillin Sodium/Tazobactam 3.375 GM in 0.9 % Sodium Chloride 50 ML IV ×4 (05:35→23:06)
[2024-03-30 07:45] LABS: Glucose, Whole Blood 129 mg/dL (60-115)
[2024-03-30] MEDS: Fluticasone Propionate 250 MCG BLST.W.DEV 1 PUFF INHALE ×2 (07:56→19:57)
[2024-03-30] MEDS: Gabapentin 300 MG CAPSULE PO ×3 (09:21→20:27)
[2024-03-30] MEDS: Atorvastatin Calcium 20 MG TABLET PO (09:21)
[2024-03-30] MEDS: oxyCODONE HCl Immed Release 5 MG TABLET PO ×3 (09:21→23:58)
[2024-03-30] MEDS: 0.9 % Sodium Chloride Flush 3 ML SYRINGE IVFLUSH ×2 (09:24→23:07)
[2024-03-30] MEDS: Fluticasone Propionate Nasal 16 GM SPRAY 1 SPRAY NOSTRIL-B (10:45)
--- NOTE | 2024-03-30 11:07 | HO.PM.IMPN ---
Subjective Subjective Date of Service: 03/30/24 Interval History: Seen and examined this morning Follow-up for diverticulitis Ongoing left lower quadrant abdominal pain although improving. No fever, no chills Tolerating clear liquids Review of Systems Review of Systems: Yes all other systems are reviewed and are negative Constitutional Constitutional: Denies chills and Denies fever(s) Cardiovascular Cardiovascular: Denies chest pain, Denies palpitations and Denies dyspnea Respiratory Respiratory: Denies cough and Denies dyspnea Gastrointestinal Gastrointestinal: Reports abdominal pain, Denies nausea and Denies vomiting Endocrine Endocrine: Denies palpitations Physical Exam Vital Signs: Vital Signs: Last Vital Signs Temp 97.3 F 03/30/24 10:30 Pulse 97 03/30/24 10:30 Resp 14 03/30/24 10:30 BP 170/70 H 03/30/24 10:30 Pulse Ox 100 03/30/24 10:30 O2 Del Method Room Air 03/30/24 10:30 BMI result Body Mass Index 27.1 Appearing in no acute distress lung sounds are clear to auscultation heart regular rate rhythm, clear S1, S2 positive bowel sounds, abdomen is soft, nontender neuro patient is alert x3, no focal deficits Objective Data Active Medications Acetaminophen (Acetaminophen 325 Mg Tablet) 650 mg PO Q6H PRN PRN Reason: Pain, Mild (Pain Scale 1-3), fever or headache Last Admin: 03/27/24 13:49 Dose: 650 mg Documented By: MAURIZIO Albuterol Sulfate (Albuterol Sulfate 90 Mcg 8 Gm Inhaler) 1 puff INHALE Q4H PRN PRN Reason: Shortness Of Breath Or Wheezing Aspirin (Aspirin Enteric Coated 81 Mg Tablet.) 81 mg PO DAILY [facility] [place] Last Admin: 03/29/24 07:55 Dose: 81 mg Documented By: DOMINICK Atorvastatin Calcium (Atorvastatin Calcium 20 Mg Tablet) 20 mg PO DAILY [facility] [place] Last Admin: 03/30/24 09:21 Dose: 20 mg Documented By: MAURIZIO Calcium Carbonate (Calcium Carbonate 750 Mg Tab.Chew) 750 mg PO Q4H PRN PRN Reason: Heartburn Enoxaparin Sodium (Enoxaparin Sodium 40 Mg/0.4 Ml Syringe) 40 mg SUBCUT Q24H [facility] [place] Last Admin: 03/29/24 16:22 Dose: 40 mg Documented By: DOMINICK Fluticasone Propionate (Fluticasone Propionate Nasal 16 Gm [place]) 1 spray NOSTRIL-B DAILY [facility] [place] Last Admin: 03/30/24 10:45 Dose: 1 spray Documented By: MAURIZIO Fluticasone Propionate (Fluticasone Propionate 250 Mcg Blst.W.Dev) 1 puff INHALE RBID [facility] [place] Last Admin: 03/30/24 07:56 Dose: 1 puff Documented By: FARHANA Gabapentin (Gabapentin 300 Mg Capsule) 300 mg PO TID [facility] [place] Last Admin: 03/30/24 09:21 Dose: 300 mg Documented By: MAURIZIO Glucose (Glucose Gel 15 Gm Gel..Gram.) 15 gm PO Q15M PRN; Protocol PRN Reason: per Hypoglycemia Standing Ord. Dextrose (D10) 250 mls @ 750 mls/hr IV Q15M PRN; Protocol PRN Reason: per Hypoglycemia Standing Ord. Piperacillin Sod/Tazobactam (Sod 3.375 gm/ Sodium Chloride) 50 mls @ 100 mls/hr IV Q6H [facility] [place] Last Admin: 03/30/24 10:45 Dose: 100 mls/hr Documented By: MAURIZIO Insulin Human Lispro (Insulin Lispro 100 Unit/Ml 3 Ml Vial) 0 unit SUBCUT QIDACHS [facility] [place]; Protocol Last Admin: 03/30/24 07:43 Dose: Not Given Documented By: MAURIZIO Non-Admin Reason: No Insulin Coverage Magnesium Hydroxide (Milk Of Magnesia 30 Ml Oral.Susp) 30 ml PO DAILY PRN PRN Reason: Constipation Melatonin (Melatonin 3 Mg Tablet) 6 mg PO BEDTIME PRN PRN Reason: Insomnia Last Admin: 03/29/24 22:04 Dose: 6 mg Documented By: YOLIE Morphine Sulfate (Morphine Sulfate 4 Mg/Ml Cartridge) 4 mg IVPUSH Q4H PRN; Protocol PRN Reason: Pain, Severe (Pain Scale 7-10) Last Admin: 03/29/24 20:01 Dose: 4 mg Documented By: YOLIE Omeprazole (Omeprazole 20 Mg Capsule.Dr) 20 mg PO DAILY@0630 [facility] [place] Last Admin: 03/30/24 05:33 Dose: Not Given Documented By: YOLIE Non-Admin Reason: NPO Ondansetron HCl (Ondansetron Hcl 4 Mg/2 Ml Vial) 4 mg IVPUSH Q8H PRN PRN Reason: Nausea and Vomiting Oxycodone HCl (Oxycodone Hcl Immed Release 5 Mg Tablet) 5 mg PO Q6H PRN PRN Reason: Pain, Moderate(Pain Scale 4-6) Last Admin: 03/30/24 09:21 Dose: 5 mg Documented By: MAURIZIO Sodium Chloride (0.9 % Sodium Chloride Flush 3 Ml Syringe) 3 ml IVFLUSH QSHIFT [facility] [place] Last Admin: 03/30/24 09:24 Dose: 3 ml Documented By: MAURIZIO Labs 03/28/24 06:27 03/28/24 06:27 Labs: Laboratory Results - last 24 hr 03/29/24 03/29/24 03/29/24 11:25 16:00 20:58 POC Glucose 223 H 110 115 03/30/24 07:41 POC Glucose 129 H Assessment and Plan (1) Dysphagia: Status: Acute (2) Diverticulitis: Status: Acute Plan This is a 68-year-old male with pertinent history of mys-gjfhbca-[id number] diabetes mellitus with neuropathy, asthma not on home oxygen, gout, CAD status post stent on DVT, former tobacco use disorder who presents to the emergency department for evaluation of abdominal pain. Dysphagia, chronic Upper GI series from December showing esophageal dysmotility moderate narrowing at the GE junction which could represent achalasia but benign stricture can not be ruled out hold plavix, plan for repeat EGD today Acute diverticulitis, recurrent no sepsis continue IV Zosyn. Previously failed outpatient antibiotics continue clear liquid diet GI consult due to Previous episodes of diverticulitis in the proximal sigmoid colon, mid descending colon. New area of inflammation noted at the level of hepatic flexure seen by GI -> no preventative treatment for this, but could try probiotics e.g align, high fiber diet and avoiding constipation, surgery may be difficult as he has multiple areas of involvement on left and right sides of the colon May need repeat colonoscopy in the future Blood cultures negative to date Oqj-vecadkf-[id number] diabetes mellitus: hold Janumet follow POCs, SSI Acute lactic acidosis not due to sepsis, likely due to baseline metformin use resolved Asthma, chronic eosinophilic: Continue home inhalers No exacerbation hold Dupixent for acute infection Gastroesophageal reflux disease continue PPI Diabetic neuropathy gabapentin CAD status post stent: On dual antiplatelet therapy and statin - hold plavix for possible endoscopy, resume asa DVT prophylaxis: Lovenox Attending Dr. Blanco Full code ongoing hospital stay for IV antibiotics (as above), specialist evaluation which is not possible in a lesser acute setting. Quality Stroke Does the patient have a stroke diagnosis?: No VTE Prior VTE?: No VTE Risk Level:: Medical - moderate - high VTE Device Contraindication: Treatment Not Indicated VTE Drug Contraindication: N/A - Med Ordered
[2024-03-30 11:13] LABS: Glucose, Whole Blood 135 mg/dL (60-115)
[2024-03-30 14:12] LABS: Glucose, Whole Blood 126 mg/dL (60-115)
--- NOTE | 2024-03-30 14:16 | PC.NURSE ---
iv patent aware careplan hands cool to touch pale nailbeds aware
--- NOTE | 2024-03-30 14:19 | P.CONAN_ITS ---
HPI - Anesthesia Eval Consult details Narrative: 68 yo male patient with abdominal pain. For EGD. H/o diverticlulitis. Recent admission for IV antibiotics. Readmission secondary to continued abdominal pain PMFSH Active Problems Active Problems: All Active Problems Dysphagia (Acute) Diverticulitis (Acute) Asthma (Acute) Environmental allergies (Acute) Cough (Acute) SOB (shortness of breath) (Acute) COVID-19 (Acute) History of total right knee replacement (TKR) (Acute) History of total left knee replacement (TKR) (Acute) Atherosclerotic cardiovascular disease (Acute) Hands very pale. Denies Raynaud's or other circulation problems. Hct 36.5 Past Medical History Medical History Trigger finger Atherosclerotic cardiovascular disease Renal stones Sigmoid diverticulitis Sciatica Neuropathy Plantar fasciitis Arthritis GERD (gastroesophageal reflux disease) Gout Diabetes Family History Family History Mother No problems noted. Father No problems noted. Family history of problems with anesthesia: No Surgical History Surgical History History of cardiac cath History of foot surgery History of colonoscopy Previous back surgery History of total left knee replacement History of total right knee replacement History of Problems with Anesthesia: No Social History 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 Meds Allergies Allergy/AdvReac Type Severity Reaction Status Date / Time umeclidinium AdvReac Severe Unknown Verified 03/26/24 10:57 [From Anoro Ellipta] vilanterol AdvReac Severe Unknown Verified 03/26/24 10:57 [From Anoro Ellipta] ticagrelor AdvReac Unknown Verified 03/26/24 17:35 Brilinta AdvReac Severe SOB Uncoded 03/26/24 10:57 Active Medications: Current Medications Acetaminophen (Acetaminophen 325 Mg Tablet) 650 mg PO Q6H PRN PRN Reason: Pain, Mild (Pain Scale 1-3), fever or headache Last Admin: 03/27/24 13:49 Dose: 650 mg Albuterol Sulfate (Albuterol Sulfate 90 Mcg 8 Gm Inhaler) 1 puff INHALE Q4H PRN PRN Reason: Shortness Of Breath Or Wheezing Aspirin (Aspirin Enteric Coated 81 Mg Tablet.Dr) 81 mg PO DAILY [facility] Last Admin: 03/29/24 07:55 Dose: 81 mg Atorvastatin Calcium (Atorvastatin Calcium 20 Mg Tablet) 20 mg PO DAILY [facility] Last Admin: 03/30/24 09:21 Dose: 20 mg Calcium Carbonate (Calcium Carbonate 750 Mg Tab.Chew) 750 mg PO Q4H PRN PRN Reason: Heartburn Enoxaparin Sodium (Enoxaparin Sodium 40 Mg/0.4 Ml Syringe) 40 mg SUBCUT Q24H [facility] Last Admin: 03/29/24 16:22 Dose: 40 mg Fluticasone Propionate (Fluticasone Propionate Nasal 16 Gm [place]) 1 spray NOSTRIL-B DAILY [facility] Last Admin: 03/30/24 10:45 Dose: 1 spray Fluticasone Propionate (Fluticasone Propionate 250 Mcg Blst.W.Dev) 1 puff INHALE RBID [facility] Last Admin: 03/30/24 07:56 Dose: 1 puff Gabapentin (Gabapentin 300 Mg Capsule) 300 mg PO TID [facility] Last Admin: 03/30/24 13:54 Dose: Not Given Glucose (Glucose Gel 15 Gm Gel..Gram.) 15 gm PO Q15M PRN; Protocol PRN Reason: per Hypoglycemia Standing Ord. Dextrose (D10) 250 mls @ 750 mls/hr IV Q15M PRN; Protocol PRN Reason: per Hypoglycemia Standing Ord. Piperacillin Sod/Tazobactam (Sod 3.375 gm/ Sodium Chloride) 50 mls @ 100 mls/hr IV Q6H [facility] Last Infusion: 03/30/24 11:19 Dose: Infused Insulin Human Lispro (Insulin Lispro 100 Unit/Ml 3 Ml Vial) 0 unit SUBCUT QIDACHS [facility]; Protocol Last Admin: 03/30/24 11:18 Dose: Not Given Magnesium Hydroxide (Milk Of Magnesia 30 Ml Oral.Susp) 30 ml PO DAILY PRN PRN Reason: Constipation Melatonin (Melatonin 3 Mg Tablet) 6 mg PO BEDTIME PRN PRN Reason: Insomnia Last Admin: 03/29/24 22:04 Dose: 6 mg Morphine Sulfate (Morphine Sulfate 4 Mg/Ml Cartridge) 4 mg IVPUSH Q4H PRN; Protocol PRN Reason: Pain, Severe (Pain Scale 7-10) Last Admin: 03/29/24 20:01 Dose: 4 mg Omeprazole (Omeprazole 20 Mg Capsule.Dr) 20 mg PO DAILY@0630 [facility] Last Admin: 03/30/24 05:33 Dose: Not Given Ondansetron HCl (Ondansetron Hcl 4 Mg/2 Ml Vial) 4 mg IVPUSH Q8H PRN PRN Reason: Nausea and Vomiting Oxycodone HCl (Oxycodone Hcl Immed Release 5 Mg Tablet) 5 mg PO Q6H PRN PRN Reason: Pain, Moderate(Pain Scale 4-6) Last Admin: 03/30/24 09:21 Dose: 5 mg Sodium Chloride (0.9 % Sodium Chloride Flush 3 Ml Syringe) 3 ml IVFLUSH [facility] Last Admin: 03/30/24 09:24 Dose: 3 ml Home Medications ?Medication ?Instructions ?Recorded ?Confirmed ?Last Taken ?Type celecoxib 200 mg capsule 200 mg PO DAILY 06/28/20 03/26/24 03/26/24 History minocycline 50 mg capsule 50 mg PO BID 06/28/20 03/26/24 03/26/24 History omeprazole 20 mg capsule,delayed 20 mg PO DAILY@0630 06/28/20 03/26/24 03/26/24 History release dicyclomine 10 mg capsule 10 mg PO DAILY 06/19/23 03/26/24 03/26/24 History albuterol sulfate 90 mcg/actuation 1 puff inhalation Q4H PRN 10/11/23 03/26/24 Unknown History aerosol inhaler Shortness Of Breath Or Wheezing fluticasone propionate 50 1 spray intranasal DAILY 10/11/23 03/26/24 03/26/24 History mcg/actuation nasal spray,suspension aspirin 81 mg tablet,delayed 81 mg PO DAILY 01/06/24 03/26/24 03/26/24 History release triamcinolone acetonide 0.5 % 1 appl topical BID PRN Rash 03/17/24 03/26/24 Unknown History topical cream atorvastatin 20 mg tablet 20 mg PO DAILY 03/26/24 03/26/24 03/26/24 History gabapentin 300 mg capsule 300 mg PO TID 03/26/24 03/26/24 03/26/24 History levofloxacin 750 mg tablet 750 mg PO DAILY 03/26/24 03/26/24 03/26/24 History sitagliptin phosphate 50 1 tab PO BID 03/26/24 03/26/24 03/26/24 History mg-metformin 1,000 mg tablet (Yanni) Exam Height,Weight and Vital Signs: Height 5 ft 8 in Weight 81 kg Last Vital Signs Temp 98.5 F 03/30/24 14:05 Pulse 89 03/30/24 14:05 Resp 18 03/30/24 14:05 BP 168/92 H 03/30/24 14:15 Pulse Ox 97 03/30/24 14:05 O2 Del Method Room Air 03/30/24 14:05 Pertinent Lab Results Pertinent Lab Results: Laboratory Tests 03/26/24 03/26/24 03/26/24 11:09 16:30 18:50 WBC 9.6 RBC 4.89 Hgb 13.1 L D Hct 39.6 L MCV 81.0 MCH 26.8 L MCHC 33.1 RDW 14.4 Plt Count 240 MPV 10.7 Immature Gran % (Auto) 0.5 H Neut % (Auto) 73.3 H Lymph % (Auto) 13.4 L Sharp % (Auto) 9.8 Eos % (Auto) 2.7 Baso % (Auto) 0.3 Lymph # (Auto) 1.3 Sharp # (Auto) 0.9 Eos # (Auto) 0.3 Baso # (Auto) 0.0 Abs Immat Gran (auto) 0.05 H Absolute Neuts (auto) 7.0 Absolute Nucleated RBC 0.000 Nucleated RBC % (auto) 0.0 Sodium 138 Potassium 4.3 Chloride 106 Carbon Dioxide 21 L Anion Gap 15 BUN 9 Creatinine 1.04 Estim Creat Clear Calc 63.9 Estimated GFR > 60 POC Glucose Random Glucose 111 Lactic Acid 2.1 H* Lactic Acid F/U @ 2Hr 1.6 Calcium 9.3 D Total Bilirubin 0.6 AST 11 ALT 6 Alkaline Phosphatase 58 Total Protein 6.5 Albumin 3.8 Lipase 21 03/26/24 03/27/24 03/27/24 21:10 03:11 07:09 WBC 6.3 RBC 4.39 L Hgb 11.7 L Hct 35.7 L MCV 81.3 MCH 26.7 L MCHC 32.8 RDW 14.6 Plt Count 192 MPV 11.0 Immature Gran % (Auto) 0.8 H Neut % (Auto) 62.1 Lymph % (Auto) 19.8 L Sharp % (Auto) 10.8 Eos % (Auto) 6.0 H Baso % (Auto) 0.5 Lymph # (Auto) 1.3 Sharp # (Auto) 0.7 Eos # (Auto) 0.4 Baso # (Auto) 0.0 Abs Immat Gran (auto) 0.05 H Absolute Neuts (auto) 3.9 Absolute Nucleated RBC 0.000 Nucleated RBC % (auto) 0.0 Sodium 141 Potassium 4.0 Chloride 109 H Carbon Dioxide 24 Anion Gap 12 BUN 9 Creatinine 1.04 Estim Creat Clear Calc 63.9 Estimated GFR > 60 POC Glucose 88 98 Random Glucose 109 Lactic Acid Lactic Acid F/U @ 2Hr Calcium 8.5 D Total Bilirubin AST ALT Alkaline Phosphatase Total Protein Albumin Lipase 03/27/24 03/27/24 03/27/24 11:52 18:23 23:16 WBC RBC Hgb Hct MCV MCH MCHC RDW Plt Count MPV Immature Gran % (Auto) Neut % (Auto) Lymph % (Auto) Sharp % (Auto) Eos % (Auto) Baso % (Auto) Lymph # (Auto) Sharp # (Auto) Eos # (Auto) Baso # (Auto) Abs Immat Gran (auto) Absolute Neuts (auto) Absolute Nucleated RBC Nucleated RBC % (auto) Sodium Potassium Chloride Carbon Dioxide Anion Gap BUN Creatinine Estim Creat Clear Calc Estimated GFR POC Glucose 127 H 134 H 123 H Random Glucose Lactic Acid Lactic Acid F/U @ 2Hr Calcium Total Bilirubin AST ALT Alkaline Phosphatase Total Protein Albumin Lipase 03/28/24 03/28/24 03/28/24 06:27 06:32 07:25 WBC 6.1 RBC 4.49 L Hgb 11.9 L Hct 36.5 L MCV 81.3 MCH 26.5 L MCHC 32.6 RDW 14.3 Plt Count 209 MPV 10.7 Immature Gran % (Auto) Neut % (Auto) Lymph % (Auto) Sharp % (Auto) Eos % (Auto) Baso % (Auto) Lymph # (Auto) Sharp # (Auto) Eos # (Auto) Baso # (Auto) Abs Immat Gran (auto) Absolute Neuts (auto) Absolute Nucleated RBC 0.000 Nucleated RBC % (auto) 0.0 Sodium 142 Potassium 4.4 Chloride 108 Carbon Dioxide 29 Anion Gap 9 L BUN 6 L Creatinine 0.88 Estim Creat Clear Calc 75.5 Estimated GFR > 60 POC Glucose 120 H 120 H Random Glucose 130 H Lactic Acid Lactic Acid F/U @ 2Hr Calcium 8.7 Total Bilirubin AST ALT Alkaline Phosphatase Total Protein Albumin Lipase 03/28/24 03/28/24 03/28/24 11:19 16:34 20:37 WBC RBC Hgb Hct MCV MCH MCHC RDW Plt Count MPV Immature Gran % (Auto) Neut % (Auto) Lymph % (Auto) Sharp % (Auto) Eos % (Auto) Baso % (Auto) Lymph # (Auto) Sharp # (Auto) Eos # (Auto) Baso # (Auto) Abs Immat Gran (auto) Absolute Neuts (auto) Absolute Nucleated RBC Nucleated RBC % (auto) Sodium Potassium Chloride Carbon Dioxide Anion Gap BUN Creatinine Estim Creat Clear Calc Estimated GFR POC Glucose 125 H 122 H 167 H Random Glucose Lactic Acid Lactic Acid F/U @ 2Hr Calcium Total Bilirubin AST ALT Alkaline Phosphatase Total Protein Albumin Lipase 03/29/24 03/29/24 03/29/24 07:44 11:25 16:00 WBC RBC Hgb Hct MCV MCH MCHC RDW Plt Count MPV Immature Gran % (Auto) Neut % (Auto) Lymph % (Auto) Sharp % (Auto) Eos % (Auto) Baso % (Auto) Lymph # (Auto) Sharp # (Auto) Eos # (Auto) Baso # (Auto) Abs Immat Gran (auto) Absolute Neuts (auto) Absolute Nucleated RBC Nucleated RBC % (auto) Sodium Potassium Chloride Carbon Dioxide Anion Gap BUN Creatinine Estim Creat Clear Calc Estimated GFR POC Glucose 118 H 223 H 110 Random Glucose Lactic Acid Lactic Acid F/U @ 2Hr Calcium Total Bilirubin AST ALT Alkaline Phosphatase Total Protein Albumin Lipase 03/29/24 03/30/24 03/30/24 20:58 07:41 11:09 WBC RBC Hgb Hct MCV MCH MCHC RDW Plt Count MPV Immature Gran % (Auto) Neut % (Auto) Lymph % (Auto) Sharp % (Auto) Eos % (Auto) Baso % (Auto) Lymph # (Auto) Sharp # (Auto) Eos # (Auto) Baso # (Auto) Abs Immat Gran (auto) Absolute Neuts (auto) Absolute Nucleated RBC Nucleated RBC % (auto) Sodium Potassium Chloride Carbon Dioxide Anion Gap BUN Creatinine Estim Creat Clear Calc Estimated GFR POC Glucose 115 129 H 135 H Random Glucose Lactic Acid Lactic Acid F/U @ 2Hr Calcium Total Bilirubin AST ALT Alkaline Phosphatase Total Protein Albumin Lipase 03/30/24 14:08 WBC RBC Hgb Hct MCV MCH MCHC RDW Plt Count MPV Immature Gran % (Auto) Neut % (Auto) Lymph % (Auto) Sharp % (Auto) Eos % (Auto) Baso % (Auto) Lymph # (Auto) Sharp # (Auto) Eos # (Auto) Baso # (Auto) Abs Immat Gran (auto) Absolute Neuts (auto) Absolute Nucleated RBC Nucleated RBC % (auto) Sodium Potassium Chloride Carbon Dioxide Anion Gap BUN Creatinine Estim Creat Clear Calc Estimated GFR POC Glucose 126 H Random Glucose Lactic Acid Lactic Acid F/U @ 2Hr Calcium Total Bilirubin AST ALT Alkaline Phosphatase Total Protein Albumin Lipase Airway Mallampati Class: III TM Dist: >3cm Neck ROM: Full Partial: Lower Loose/Missing/Broken Teeth: Yes (Partial denture bottom. Denies broken or loose teeth) Heart: RRR Lungs: CTAB Assessment and Plan Assessment Anesthesia Assessment: Anesthesia Plan Discussed and Chart Reviewed Final Anesthetic Review Family History of Problems with Anesthesia: No History of Problems with Anesthesia: No NPO: Yes ASA Class: III Final Preanesthetic Review: No Changes in Pt Med Stat, Meds/Allgs Chart Reviewed, Consent Obtained/Reviewed and Anes Risks/Benef Reviewed Patient Risk: Intermediate Procedure Risk: Low Assessment/Block/Sedation in SS: Assess/Block/Sedation-SS Anesthetic Plan Anesthetic Plan: TIVA Disposition: Standard PACU
--- NOTE | 2024-03-30 14:27 | PC.NURSE ---
b/l pulses to hand strong
--- NOTE | 2024-03-30 14:50 | MHC.SHP ---
Pre-Procedural Eval Section A - 24 Hr Update-Section A only Date of Service: 03/30/24 The patient is an INPATIENT: Yes The patient has been examined within 24 hours of the surgical procedure. The History & Physical has been completed within 30 days and I have reviewed it.: Yes Section B - Complete if H&P > 30 days Chief Complaint: abdominal pain Allergies: Allergies Allergy/AdvReac Type Severity Reaction Status Date / Time umeclidinium AdvReac Severe Unknown Verified 03/26/24 10:57 [From Anoro Ellipta] vilanterol AdvReac Severe Unknown Verified 03/26/24 10:57 [From Anoro Ellipta] ticagrelor AdvReac Unknown Verified 03/26/24 17:35 Brilinta AdvReac Severe SOB Uncoded 03/26/24 10:57 Plan I have reviewed the history and physical and performed a pertinent physical examination on my patient. No changes have occurred unless specified. Time Spent With Patient Time: Total time managing care of this patient today ____ minutes.
--- NOTE | 2024-03-30 15:34 | P.BOP_ITS ---
Brief Operative Note Date of Service: 03/30/24 Pre-op diagnosis: Dysphagia Post-op diagnosis: other (Hiatal hernia, Mild gastritis) Procedure: EGD with Balloon dilation from 18mm to 19mm Surgeon: Natan Drummond MD Anesthesia: MAC Was an Traffic Rate Computer used for this Procedure?: No Estimated blood loss (mL): 2.0 Pathology: none sent Condition: stable Disposition: PACU
--- NOTE | 2024-03-30 15:36 | PM.EVENT ---
Event Note Date of Service: 03/30/24 Event Note: GI-EGD with Balloon Dilation-Full note dictated Findings: 1. Small hiatal hernia 2. Mild chronic antral gastritis 3. Hyperplastic proximal gastric polyps 4. Slight hesitancy of passage of scope into stomach, but no mass or definitive stricture noted. Dilated EG Junction with an 18mm to a 19mm balloon. Plan: Increase omeprazole to 40mg daily. Start clear liquids but can advance as tolerated in regard to his diverticulitis. Consult surgery if the diverticulitis does not improve or if it becomes a recurring problem.D/W patient and his son, Lui. I left a for his son Marin as well. Thanks. Time Spent With Patient Time: Total time managing care of this patient today ____ minutes.
[2024-03-30] MEDS: Morphine Sulfate 4 MG/ML CARTRIDGE IVPUSH ×2 (16:01→20:33)
[2024-03-30] MEDS: Lactated Ringers 1,000 ML 100 ML IVCONT (16:05)
[2024-03-30 16:20] LABS: Glucose, Whole Blood 155 mg/dL (60-115)
--- NOTE | 2024-03-30 16:23 | MHC.CM.PN ---
PT NOT YET MEDICALLY CLEARED DCP: HOME VIA PRIVATE TRANSPORT
[2024-03-30] MEDS: Insulin Lispro 100 UNIT/ML 3 ML VIAL SUBCUT (17:29)
[2024-03-30 20:16] LABS: Glucose, Whole Blood 142 mg/dL (60-115)
[2024-03-30] MEDS: Melatonin 3 MG TABLET 6 MG PO (23:43)
[2024-03-31] VITALS: BP 141/70; PULSE 58; RESP 16; TEMP 36.1; O2SAT 96
[2024-03-31 00:30] VITALS: RESP 16
--- NOTE | 2024-03-31 01:13 | OP_ITS ---
DATE OF SERVICE: 03/30/2024 SURGEON: Natan Drummond MD INDICATIONS: The patient presents for evaluation of dysphagia. Full consent has been obtained from him for this, including risks of bleeding and perforation. PREOPERATIVE DIAGNOSIS: Dysphagia. POSTOPERATIVE DIAGNOSIS: PROCEDURE PERFORMED: Esophagogastroduodenoscopy with balloon dilation of gastroesophageal junction. ESTIMATED BLOOD LOSS: COMPLICATIONS: ANESTHESIA: Monitored anesthesia care. ASSISTANTS: SPECIMENS: POSTOPERATIVE DIAGNOSES: Dysphagia, hiatal hernia, gastric polyps. DESCRIPTION OF PROCEDURE: The patient was placed in the left lateral decubitus position. The Olympus video gastroscope was passed in the posterior oropharynx and upper esophagus under direct vision. The scope was passed slowly into the distal esophagus. The gastroesophageal junction appeared at 36 cm. There was no sign of any esophagitis, mass, nor Cortez mucosa. There was no definitive stricture nor ring, although there was some hesitancy of the scope to advance into the stomach. However, the scope did enter the stomach fairly easily. There was a small hiatal hernia. The scope was advanced to the pylorus, and the duodenum was cannulated to the descending portion. The duodenum including the bulb appeared normal without mass or ulceration. The scope was withdrawn back in the stomach. The gastric antrum and body had some mild changes of a chronic gastritis with some edema and erythema but no erosions or ulceration. There was good peristalsis. The scope was retroflexed, visualizing the proximal stomach carefully, which appeared normal, without mass or ulceration, other than some hyperplastic appearing gastric polyps. The scope was straightened and withdrawn back to the esophagus. Given his symptoms, I did use a [employer] incremental balloon to dilate the gastroesophageal junction from 18 mm to 19 mm at the recommended pressure for between 30 and 60 seconds each. Post dilation there was a small amount of heme noted at the EG junction with some minimal disruption of the EG junction as well. The scope was withdrawn through the remainder of the esophagus, which appeared normal. The scope was withdrawn from the patient. He tolerated the procedure well and was returned to the recovery area in stable condition. IMPRESSION: 1. Hiatal hernia. 2. Mild gastritis. 3. Gastric polyps. PLAN: The patient will remain on his omeprazole but I shall increase that to 40 mg daily. His diet can slowly be advanced in regard to the diverticulitis as long as he continues to improve clinically. If he does not improve clinically in regard to the diverticulitis, he should have a surgical consultation. I do not think a colonoscopy is required given that he had a colonoscopy in June 2023 that revealed the known diverticulosis but was without any other significant pathology. MD NICOLE Reina/PRAVEEN / [id number]
[2024-03-31] MEDS: Omeprazole 40 MG CAPSULE.DR PO (06:03)
[2024-03-31] MEDS: Piperacillin Sodium/Tazobactam 3.375 GM in 0.9 % Sodium Chloride 50 ML IV ×2 (06:04→11:03)
[2024-03-31 06:39] LABS: MANUAL DIFF FLAG NO
[2024-03-31 06:51] LABS: Basophils Percent Auto 0.3 % (0-2); Eosinophils Absolute Auto 0.5 X10*3/uL (0.0-0.4); Eosinophils Percent Auto 7.1 % (0-4); Hematocrit 36.5 % (42.0-52.0); Hemoglobin 11.9 g/dl (14.0-18.0); Imm Gran Abs Auto 0.03 X10*3/uL (0.00-0.03); Imm Gran Pct Auto 0.4 % (0.0-0.4); Lymphocytes Absolute Auto 1.9 X10*3/uL (1.2-4.9); Lymphocytes Percent Auto 27.6 % (20-40); Mean Corpuscular HGB Conc 32.6 g/dl (31.0-36.0); Mean Corpuscular Hemoglobin 26.3 pg (27.0-33.0); Mean Corpuscular Volume 80.6 fL (80.0-98.0); Monocytes Absolute Auto 0.8 X10*3/uL (0.1-1.2); Monocytes Percent Auto 11.2 % (2-11); Neutrophils Absolute Auto 3.7 x10*3/uL (2.0-8.3); Neutrophils Percent Auto 53.4 % (45-73); Platelet Count 209 X10*3/uL (160-400); Red Blood Count 4.53 X10*6/uL (4.60-5.80); Red Cell Distribution Width 14.4 % (11.0-16.0); White Blood Count 6.9 X10*3/uL (4.8-10.8)
[2024-03-31 07:39] LABS: Glucose, Whole Blood 120 mg/dL (60-115)
[2024-03-31 07:51] VITALS: BP 133/64; PULSE 65; RESP 12; TEMP 36.3; O2SAT 98
[2024-03-31] MEDS: Fluticasone Propionate 250 MCG BLST.W.DEV 1 PUFF INHALE (08:01)
[2024-03-31 08:05] VITALS: PULSE 65; RESP 12
--- NOTE | 2024-03-31 08:48 | HO.POSTANES ---
Post Anesthesia Evaluation Post Anesthesia Evaluation Date of Service: 03/30/24 Vital Signs: Vital Signs Temp Pulse Resp BP Pulse Ox O2 Del Method 03/31/24 08:05 65 12 03/31/24 07:51 97.4 F 65 12 133/64 98 Room Air 03/31/24 00:30 16 03/31/24 00:00 96.9 F 58 16 141/70 H 96 Room Air 03/30/24 21:03 18 Anesthesia: Monitored Mental Status: Awake Pain Control: Satisfactory Nausea/Vomiting: None Hydration: Adequate Anesthesia-Related Issues: No Anes. Related Issues
[2024-03-31] MEDS: 0.9 % Sodium Chloride Flush 3 ML SYRINGE IVFLUSH (09:09)
[2024-03-31] MEDS: Aspirin Enteric Coated 81 MG TABLET.DR PO (09:09)
[2024-03-31] MEDS: Atorvastatin Calcium 20 MG TABLET PO (09:09)
[2024-03-31] MEDS: Gabapentin 300 MG CAPSULE PO (09:09)
[2024-03-31] MEDS: oxyCODONE HCl Immed Release 5 MG TABLET PO (09:11)
[2024-03-31 11:23] LABS: Glucose, Whole Blood 202 mg/dL (60-115)
[2024-03-31] MEDS: Insulin Lispro 100 UNIT/ML 3 ML VIAL SUBCUT (11:36)
--- NOTE | 2024-03-31 13:28 | MHC.CM.PN ---
EMR reviewed and per MD rounds, pt is not medically cleared for discharge due to EGD today.
--- NOTE | 2024-03-31 14:59 | PM.DS ---
DS: Providers Provider Date of Service: 03/31/24 Date of admission: 03/26/24 16:32 Primary care physician: Abdifatah Bunch MD Consults: 03/27/24 07:55 Consult to Gastroenterology Routine Consulting Provider: Rivka Levin Reason for consultation: recurrent diverticulitis Has provider been notified: No DS: Diagnosis Discharge Diagnosis (1) Dysphagia: Status: Acute (2) Diverticulitis: Status: Acute DS: Summary Hospital Course Hospital Course: HP as per admitting provider. This is a 68-year-old male with pertinent history of ywt-ugujkod-emqjeqemb diabetes mellitus with neuropathy, asthma not on home oxygen, gout, CAD status post stent on DVT, former tobacco use disorder who presents to the emergency department for evaluation of abdominal pain. Patient recently had episodes of diverticulitis of the proximal sigmoid colon and mid descending colon. Of note, patient was recently admitted on 03/17 with acute diverticulitis and discharged on 03/20/2024. Patient previously failed outpatient antibiotics for diverticulitis. Patient states he started having left lower quadrant pain 1 day prior to presentation. Patient states he was compliant with his home antibiotics and has 2 days remaining. No fever, chills, chest discomfort, palpitations, shortness of breath, changes in urinary or bowel habits. In the emergency department, new area of inflammation around the hepatic flexure. 68 year old man admitted with abdominal pain secondary to diverticultis. He was also having episodes of dysphagia. Upper GI series from December showed esophageal dysmotility with moderate narrowing at the GE junction. EGD with balloon dilation with findings of small hiatal hernia, mild chronic antral gastritis, hyperplastic proximal gastric polyps. Plan is to increase omeprazole to 40 mg daily, advanced diet to regular and patient did well. He can follow up with Gastroenterology outpatient and if he continues having issues with the diverticulitis he should follow-up with the general surgeon as well. Further diverticulitis he was treated with IV Zosyn, advanced diet regular. Patient will complete total 10 days of antibiotics, 40s of Levaquin and Flagyl. Was given information regarding diet. Encouraged to try probiotic, high-fiber diet and avoid constipation. Blood cultures remained negative during hospitalization. Diabetes mellitus type 2. Continue home medications Acute lactic acidosis. No sepsis, likely from metformin use Asthma, chronic eosinophilic. Continue home inhalers, no exacerbation during hospitalization GERD. Continue PPI and increased to 40 mg daily Diabetic neuropathy. Continue gabapentin Coronary artery disease with drug-eluting stent Continue dual antiplatelet therapy and statin Time Attestation Discharge Coordination Time (in mins): 36 Quality: Safe Use of Opioids Does Pt have an Active Cancer Diagnosis on the Problem List?: No Quality: Stroke Does the patient have a stroke diagnosis?: No Physical Exam Vital Signs: Vital Signs: Last Vital Signs Temp 97.4 F 03/31/24 07:51 Pulse 65 03/31/24 08:05 Resp 12 03/31/24 08:05 BP 133/64 03/31/24 07:51 Pulse Ox 98 03/31/24 07:51 O2 Del Method Room Air 03/31/24 07:51 BMI result Body Mass Index 27.1 Appearing in no acute distress head is normocephalic atraumatic eyes pupils are PERRLA sclera is anicteric mouth throat mucous membranes are intact and moist neck is supple no lymphadenopathy, no JVD noted lung sounds are clear to auscultation heart regular rate rhythm, clear S1, S2 positive bowel sounds, abdomen is soft, nontender neuro patient is alert x3, no focal deficits DS: Data Data Completed and Pending Labs on day of discharge: Laboratory Results - last 24 hr 03/30/24 03/30/24 03/31/24 16:12 20:13 05:53 WBC 6.9 RBC 4.53 L Hgb 11.9 L Hct 36.5 L MCV 80.6 MCH 26.3 L MCHC 32.6 RDW 14.4 Plt Count 209 MPV 11.0 Immature Gran % (Auto) 0.4 Neut % (Auto) 53.4 Lymph % (Auto) 27.6 [place] % (Auto) 11.2 H Eos % (Auto) 7.1 H Baso % (Auto) 0.3 Lymph # (Auto) 1.9 [place] # (Auto) 0.8 Eos # (Auto) 0.5 H Baso # (Auto) 0.0 Abs Immat Gran (auto) 0.03 Absolute Neuts (auto) 3.7 Absolute Nucleated RBC 0.000 Nucleated RBC % (auto) 0.0 POC Glucose 155 H 142 H 03/31/24 03/31/24 07:36 11:12 WBC RBC Hgb Hct MCV MCH MCHC RDW Plt Count MPV Immature Gran % (Auto) Neut % (Auto) Lymph % (Auto) [place] % (Auto) Eos % (Auto) Baso % (Auto) Lymph # (Auto) [place] # (Auto) Eos # (Auto) Baso # (Auto) Abs Immat Gran (auto) Absolute Neuts (auto) Absolute Nucleated RBC Nucleated RBC % (auto) POC Glucose 120 H 202 H Preliminary micro results at discharge 03/26/24 15:12 Blood Culture - Preliminary Blood - Venous No growth after 48 hours. 03/26/24 16:30 Blood Culture - Preliminary Blood - Venous No growth after 48 hours. Discharge Plan Discharge Anticipated Discharge Date/Time: 03/31/24 14:49 Patient Disposition: Home, Self-Care Discharge Diagnosis: Diverticulitis Chronic dysphagia Referrals: Abdifatah Bunch MD [Primary Care Provider] - 1 Week Discharge Medications: New omeprazole 40 mg Capsule,Delayed Release(Dr/Ec) 40 mg PO DAILY@0630 Qty: 90 0RF metronidazole 500 mg tablet 500 mg PO Q8H Qty: 12 0RF Continued Dupixent Syringe 300 mg/2 mL syringe 300 mg subcut Q2W 28 Days Qty: 4 12RF Rx Instructions: Next dose due 03-27-24 clopidogrel [Plavix] 75 mg tablet 75 mg PO DAILY Qty: 30 1RF triamcinolone acetonide 0.5 % cream 1 appl topical BID PRN (Reason: Rash) Janumet 50-1,000 mg tablet 1 tab PO BID atorvastatin 20 mg Tablet 20 mg PO DAILY gabapentin 300 mg Capsule 300 mg PO TID dicyclomine 10 mg capsule 10 mg PO DAILY minocycline 50 mg capsule 50 mg PO BID celecoxib 200 mg capsule 200 mg PO DAILY omeprazole 20 mg capsule,delayed release(DR/EC) 20 mg PO DAILY@0630 albuterol sulfate 90 mcg/actuation HFA aerosol inhaler 1 puff inhalation Q4H PRN (Reason: Shortness Of Breath Or Wheezing) fluticasone propionate 50 mcg/actuation spray,suspension 1 spray intranasal DAILY Arnuity Ellipta 200 mcg/actuation blister with device 1 inh inhalation DAILY 30 Days Qty: 1 6RF aspirin 81 mg tablet,delayed release (DR/EC) 81 mg PO DAILY Changed levofloxacin 750 mg tablet 750 mg PO DAILY Qty: 4 0RF Discontinued metronidazole 500 mg Tablet 500 mg PO Q8H Qty: 21 0RF Rx Instructions: End date 03-27-24 Discharge Orders: Discharge Order (Routine); Ordered 03/31/24 Ordered By: Emili Van Diet: Advance to usual diet Activity on Discharge: As tolerated Stand Alone Forms: Patient Portal Discharge page Print Language: Luxembourger Care Plan Goals: Complete antibiotic course for diverticulitis flare, Levaquin and Flagyl for 4 more days Health Concerns: Diverticulitis Chronic dysphagia Plan of Treatment: Follow-up with primary care provider as needed Take all medications as prescribed Assessment: See discharge summary Patient Instructions: Diverticulitis Diet (DC)
--- NOTE | 2024-03-31 15:15 | MHC.CM.PN ---
Second IMM given 03/31, pt is medically cleared for discharge home self-care.
== END 2024-03-31 15:37 | disposition home or self-care (01) | DRG 392 ==
LOC: HO.ED 15:58 → HO.EDOVER 16:35 → HO.S3 20:00
PROVIDERS: Internal Medicine; Physician Assistant Medical; Admitting Provider Student in an Organized Health Care Education/Training Program; Emergency Provider Emergency Medicine; PCP Internal Medicine; Visit Provider Nurse Practitioner Acute Care
PROC: 0DJ08ZZ Inspection of Upper Intestinal Tract, Via Natural or Artificial Opening Endoscopic (ICD-10-PCS; CPT 43235; principal; 2024-03-30 14:40)
DX: K22.2 Esophageal obstruction (principal); J82.83 Eosinophilic asthma; E87.21 Acute metabolic acidosis; K57.32 Diverticulitis of large intestine without perforation or abscess without bleeding; K29.50 Unspecified chronic gastritis without bleeding; I25.10 Atherosclerotic heart disease of native coronary artery without angina pectoris; K22.4 Dyskinesia of esophagus; E11.40 Type 2 diabetes mellitus with diabetic neuropathy, unspecified; K44.9 Diaphragmatic hernia without obstruction or gangrene; K31.7 Polyp of stomach and duodenum; K21.9 Gastro-esophageal reflux disease without esophagitis; M10.9 Gout, unspecified; Z95.5 Presence of coronary angioplasty implant and graft; Z79.02 Long term (current) use of antithrombotics/antiplatelets; Z79.51 Long term (current) use of inhaled steroids; Z79.82 Long term (current) use of aspirin; Z79.899 Other long term (current) drug therapy
CPT/HCPCS: 36415; 74177; 80048; 80053; 82947; 83605; 83690; 85025; 85027; 87040; 99285; C1726; J0131; J1170; J1596; J1650; J2270; J2405; J2543; J2704; J7120; Q9967

== ENCOUNTER → 2024-03-26 16:32 | Outpatient (BNV) | payer MEDICARE, SELFPAY | PROVIDERS: Admitting Provider Student in an Organized Health Care Education/Training Program; Emergency Provider Emergency Medicine; PCP Internal Medicine; Visit Provider Student in an Organized Health Care Education/Training Program | DX: K57.92 Diverticulitis of intestine, part unspecified, without perforation or abscess without bleeding (principal); R13.10 Dysphagia, unspecified; E11.40 Type 2 diabetes mellitus with diabetic neuropathy, unspecified; J82.83 Eosinophilic asthma | CPT/HCPCS: 99222; 99232; 99233; 99239 ==

== ENCOUNTER → 2024-03-26 16:32 | Outpatient (BNV) | payer MEDICARE, SELFPAY | PROVIDERS: Admitting Provider Student in an Organized Health Care Education/Training Program; Emergency Provider Emergency Medicine; PCP Internal Medicine; Visit Provider Internal Medicine Gastroenterology | DX: K57.92 Diverticulitis of intestine, part unspecified, without perforation or abscess without bleeding (principal); R13.10 Dysphagia, unspecified | CPT/HCPCS: 99223 ==

== ENCOUNTER 2024-04-03 16:11 | Outpatient (REF) | payer MEDICARE, SELFPAY ==
[2024-04-03 17:23] LABS: CDiff Gene PCR NEGATIVE (Negative)
== END 2024-04-03 16:12 | disposition home or self-care (01) ==
LOC: HO.LNP 16:11
PROVIDERS: Visit Provider Internal Medicine
DX: R19.7 Diarrhea, unspecified (principal)
CPT/HCPCS: 87493

== ENCOUNTER 2024-05-08 10:42 | Outpatient (REF) | payer MEDICARE, SELFPAY ==
[2024-05-08 11:40] LABS: Estimated Average Glucose 128 mg/dL; Hemoglobin A1c % 6.1 % (<6.0)
[2024-05-08 11:53] LABS: Alanine Aminotransferase 10 U/L (0-40); Albumin Level 3.9 g/dL (3.5-5.0); Alkaline Phosphatase 58 U/L (39-117); Aspartate Amino Transferase 15 U/L (5-37); Bilirubin Direct 0.2 mg/dL (0.0-0.5); Bilirubin Total 0.6 mg/dL (0.0-1.0); Cholesterol 139 mg/dL (<200); Glucose Fasting 138 mg/dL (60-99); HDL Cholesterol 52 mg/dL (>40); LDL Cholesterol Calculated 63 mg/dL (<100); Total Protein 6.4 g/dL (6.5-8.0); Triglycerides 122 mg/dL (<150)
[2024-05-08 12:15] LABS: Reflex LDLD? No
== END 2024-05-08 10:43 | disposition home or self-care (01) ==
LOC: HO.LNP 10:42
PROVIDERS: Visit Provider Internal Medicine
DX: E11.42 Type 2 diabetes mellitus with diabetic polyneuropathy (principal); E78.00 Pure hypercholesterolemia, unspecified
CPT/HCPCS: 80061; 80076; 82947; 83036

== ENCOUNTER 2024-06-08 09:37 | Outpatient (AMB) | payer MEDICARE, SELFPAY ==
[2024-06-08 09:40] VITALS: BP 128/70; PULSE 85; BMI 27.8
--- NOTE | 2024-06-08 09:40 | A.OFFVIS_ITS ---
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 Accompanied by: Self / Same As Patient Allergies umeclidinium [From Anoro Ellipta] Adverse Reaction (Severe, Verified 03/26/24 10:57) Unknown vilanterol [From Anoro Ellipta] Adverse Reaction (Severe, Verified 03/26/24 10:57) Unknown ticagrelor Adverse Reaction (Verified 03/26/24 17:35) Unknown Brilinta Adverse Reaction (Severe, Uncoded 03/26/24 10:57) SOB Medication List - Last Reconciled 06/08/24 by Canelo Fletcher MD albuterol sulfate 90 mcg/actuation 1 puff inhalation Q4H PRN aspirin 81 mg PO DAILY atorvastatin 20 mg PO DAILY celecoxib 200 mg PO DAILY clopidogrel (Plavix) 75 mg PO DAILY dicyclomine 10 mg PO DAILY dupilumab (Dupixent) 300 mg (2 mL) subcut Q2W 28 days fluticasone furoate 200 mcg/actuation (Arnuity Ellipta) 1 inh inhalation DAILY 3 0 days fluticasone propionate 50 mcg/actuation 1 spray intranasal DAILY gabapentin 300 mg PO TID minocycline 50 mg PO BID omeprazole 40 mg PO DAILY@0630 sitagliptin phos-metformin 50-1,000 mg (Janumet) 1 tab PO BID triamcinolone acetonide 0.5% 1 appl topical BID PRN HPI Comments Details: Adrian returns for follow-up. To recall, he was having shortness of breath and cough that led to further workup. He underwent a comprehensive cardiac workup including echocardiogram, coronary CTA and cardiac catheterization. Overall, he states he is actually much better now than before. He no longer has any symptoms. No shortness of breath. Feels much better. [facility] Medical History Trigger finger Atherosclerotic cardiovascular disease Renal stones Sigmoid diverticulitis Sciatica Neuropathy Plantar fasciitis Arthritis GERD (gastroesophageal reflux disease) Gout Diabetes Surgical History History of cardiac cath History of foot surgery History of colonoscopy Previous back surgery History of total left knee replacement History of total right knee replacement Family History Mother No problems noted. Father No problems noted. 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 Review of Systems Const Denies chills, Denies fatigue, Denies fever(s), Denies weight gain and Denies weight loss ENT Denies dizziness Card Denies chest pain, Denies leg edema, Denies lightheadedness, Denies palpitations, Denies dyspnea on exertion, Denies orthopnea and Denies other Resp Denies cough and Denies dyspnea on exertion GI Denies hematochezia and Denies change in stool character Musc Denies abnormal gait, Denies muscle weakness, Denies numbness, Denies radiating pain into limb and Denies tingling Neuro Denies abnormal gait, Denies dizziness, Denies numbness and Denies tingling Endo Denies fatigue and Denies palpitations Physical Exam Vital Signs: Last Vital Signs Pulse 85 06/08/24 09:40 BP 128/70 06/08/24 09:40 BMI result Body Mass Index 27.8 Const General: comfortable and no acute distress Orientation/consciousness: patient oriented x3 HEENT Other: Unremarkable Head: Yes normal to inspection Neck Neck: Yes normal visual inspection Chest Chest palpation & inspection: normal inspection of the chest Resp Auscultation: clear to auscultation bilaterally Cardio Palpation: normal PMI Heart sounds: S1 normal heart sound present, S2 normal heart sound present, no gallops, no murmurs and no rubs GI Palpation (GI): Soft to palpation Back/Spine/Pelvis Other: unremarkable Skin General skin exam: no rashes or lesions noted Neuro General: patient oriented x3 Extrem General: Yes normal to inspection Psych Mental Status: mental status grossly normal Office Procedures EKG Details: EKG with underlying sinus rhythm at 85/Min; mild ST depression inferior and anterolateral leads, upsloping. Has been seen before. [id number], Complete Assessment & Plan Assessment & Plan (1) Atherosclerotic cardiovascular disease: Code(s): I25.10 - Atherosclerotic heart disease of [place] coronary artery without angina pectoris Category: Medical Plan Cardiac studies reviewed. Echocardiogram with LVEF of 55-60%. Mild diastolic dysfunction. Inferior/inferolateral wall motion abnormalities likely from underlying coronary disease in the RCA territory. In the repeat echocardiogram, LVEF 45-50%. Basal inferior/inferolateral hypokinesis. Coronary CTA reviewed. High calcium score of almost 2000. Left main with no significant disease. Multifocal mixed plaque in LAD/circumflex and RCA. However, most significant plaque in proximal RCA where there is more than 70% luminal narrowing. Other areas rather ytte-zo-cjykpvzo. Pulmonary findings described including chronic tree-in-bud nodularity/ground-glass airspace disease suggesting ongoing endobronchial infectious/inflammatory process. In the cardiac catheterization, mid RCA 70% stenosis; status post PCI. Mild irregularities in the left circumflex. No significant disease in the LAD. Normal LVEDP. Overall, suspect the shortness of breath/cough was more pulmonary in nature. He did have coexisting coronary disease but not clear how much of his symptoms were related to that. Any case he did receive RCA intervention. Currently, he states he feels fine. Hence continue medical therapy without changes. At the 1 year juan diego, we may be able to stop the Plavix. Continue statins. LDL is very well controlled at about 60 mg/dL. Orders: Orders CA echo transthoracic complete 12/17/24 I25.10 - Atherosclerotic heart disease of [place] coronary artery without angina pectoris Coding Level of Care Code Est Pt Level 4 (75889) Diagnoses Atherosclerotic cardiovascular disease I25.10 CPT Codes EKG - CPT: 56277-[id number], Complete ([id number])
== END 2024-06-08 10:04 | disposition home or self-care (01) ==
PROVIDERS: PCP Internal Medicine; Visit Provider Internal Medicine
DX: I25.10 Atherosclerotic heart disease of native coronary artery without angina pectoris (principal)
CPT/HCPCS: 93010; 99214

== ENCOUNTER → 2024-06-08 09:37 | Outpatient (BNVA) | payer MEDICARE, SELFPAY | PROVIDERS: PCP Internal Medicine; Visit Provider Internal Medicine | DX: I25.10 Atherosclerotic heart disease of native coronary artery without angina pectoris (principal); R94.31 Abnormal electrocardiogram [ECG] [EKG] | CPT/HCPCS: 93005; 99212 ==

== ENCOUNTER 2024-06-19 10:06 | Outpatient (AMB) | payer MEDICARE, SELFPAY ==
[2024-06-19 10:27] VITALS: BP 122/62; PULSE 89; O2SAT 99; BMI 27.4
--- NOTE | 2024-06-19 10:27 | MHC.OFFVIS ---
Vital Signs 06/19/24 10:27 Height 5 ft 8 in Weight 180 lb BMI 27.4 BP 122/62 Blood Pressure Location Lt brachial Position Sitting Pulse 89 Pulse Source Doppler Pulse Oximetry (%) 99 Oxygen Delivery Method Room Air Intake Visit Reasons: Dyspnea Allergies umeclidinium [From Anoro Ellipta] Adverse Reaction (Severe, Verified 03/26/24 10:57) Unknown vilanterol [From Anoro Ellipta] Adverse Reaction (Severe, Verified 03/26/24 10:57) Unknown ticagrelor Adverse Reaction (Verified 03/26/24 17:35) Unknown Brilinta Adverse Reaction (Severe, Uncoded 03/26/24 10:57) SOB HPI HPI Dyspnea: Details: 68-year-old gentleman, former 50+ year smoker, quit 2003 referred for evaluation of productive cough ongoing since June of 2023. Patient also had COVID in July of 2023. He has been treated with a course of azithromycin, prednisone, and Levaquin with mild improvement his symptoms. He also complains of environmental allergies worse in winter. Patient denies prior personal or family history of lung disease. H He does complain of dyspnea on exertion when going uphill. He has been using albuterol MDI with suboptimal control of his symptoms. Patient was tried on Anoro, however he developed allergic reaction to it. He did complete his immunologic workup that showed significant eosinophilia. He continues on Dupixent, Arnuity, and albuterol MDI with good control of his symptoms. He denies any recent exacerbations. [facility] Medical History Trigger finger Atherosclerotic cardiovascular disease Renal stones Sigmoid diverticulitis Sciatica Neuropathy Plantar fasciitis Arthritis GERD (gastroesophageal reflux disease) Gout Diabetes Surgical History History of cardiac cath History of foot surgery History of colonoscopy Previous back surgery History of total left knee replacement History of total right knee replacement Family History Mother No problems noted. Father No problems noted. 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 Review of Systems Const Denies daytime sleepiness, Denies excessive sweating, Denies fatigue, Denies fever(s), Denies lethargy, Denies malaise, Denies night sweats, Denies snoring and Denies weight loss Eyes Denies blurry vision and Denies itchy eyes ENT Denies nasal congestion, Denies post nasal drip, Denies sinus pain, Denies sinus pressure and Denies other ( Thrush) Card Denies chest pain, Denies pedal edema, Denies dyspnea, Denies orthopnea and Denies paroxysmal nocturnal dyspnea Resp Denies cough, Denies hemoptysis, Denies excessive phlegm production, Denies dyspnea, Denies snoring and Denies wheezing GI Denies abdominal pain and Denies heartburn Musc Denies myalgias, Denies arthralgias and Denies joint swelling Skin/Breast Denies rash Neuro Denies memory loss and Denies seizure-like activity Psych Denies abnormal sleep pattern, Denies anxiety and Denies memory loss Endo Denies excessive sweating, Denies fatigue and Denies heat intolerance Ryan/Lymph Denies easy bruising Aller/Immun Denies itchy eyes, Denies seasonal rhinorrhea and Denies wheezing Physical Exam Vital Signs: Last Vital Signs Pulse 89 06/19/24 10:27 BP 122/62 06/19/24 10:27 Pulse Ox 99 06/19/24 10:27 Oxygen Delivery Method Room Air 06/19/24 10:27 BMI result Body Mass Index 27.4 Const General: no acute distress and alert Nutritional Appearance: not obese Orientation/consciousness: Other orientation findings ( oriented) HEENT Head: Yes atraumatic Eyes General: appearance normal, both eyes and all related structures Sclerae: sclerae normal EOM: EOMs intact bilaterally Neck Neck: Yes supple Lymphatic: no lymphadenopathy noted Resp Effort & Inspection: normal respiratory effort and no use of accessory muscles Auscultation: clear to auscultation bilaterally Cardio Rate: regular rate Rhythm: regular rhythm Heart sounds: no gallops, no murmurs and no rubs Skin General skin exam: other ( warm) Extrem General: No clubbing, No cyanosis and No edema Assessment & Plan Assessment & Plan (1) Asthma: Code(s): J45.909 - Unspecified asthma, uncomplicated Category: Medical Plan: Well controlled on current regimen of Dupixent, Arnuity, and albuterol MDI. Continue current regimen. (2) Environmental allergies: Code(s): Z91.09 - Other allergy status, other than to drugs and biological substances Category: Medical Plan: Well controlled on Dupixent. Continue current regimen. Coding Level of Care Code Est Pt Level 4 (42524) Diagnoses Asthma J45.909 Environmental allergies Z91.09
== END 2024-06-19 10:51 | disposition home or self-care (01) ==
LOC: HO.HPS 10:07
PROVIDERS: PCP Internal Medicine; Visit Provider Internal Medicine Pulmonary Disease
DX: J45.909 Unspecified asthma, uncomplicated (principal); Z91.09 Other allergy status, other than to drugs and biological substances
CPT/HCPCS: 99214

== ENCOUNTER → 2024-06-19 10:06 | Outpatient (BNVA) | payer MEDICARE, SELFPAY | PROVIDERS: PCP Internal Medicine; Visit Provider Internal Medicine Pulmonary Disease | DX: J45.909 Unspecified asthma, uncomplicated (principal); D72.10 Eosinophilia, unspecified; Z91.09 Other allergy status, other than to drugs and biological substances | CPT/HCPCS: 99212 ==

== ENCOUNTER 2024-07-14 19:04 | Emergency (ER) | payer MEDICARE, SELFPAY ==
--- NOTE | ~2024-07-14 | CT_ITS ---
EXAMINATION: CT ABDOMEN AND PELVIS WITH CONTRAST CLINICAL INFORMATION: Left lower quadrant pain. COMPARISON: March 26, 2024 TECHNIQUE: Multidetector volumetric images were obtained from the superior aspect of the liver through the pubic symphysis following administration 85 mL of Omnipaque 350 intravenous contrast. Sagittal and coronal reformatted images were obtained on the technologist's workstation. Oral contrast: No This CT examination was performed using dose optimization techniques as appropriate, variously including the following: *Automated exposure control *Adjustment of mA and/or kV according to patient size (this includes techniques or standardized protocols for targeted exams where dose is matched to indication/reason for exam; i.e. extremities or head) *Use of iterative reconstruction technique DLP: 594 mGy-cm FINDINGS: LUNG BASES: The visualized lung bases are unremarkable. LIVER, GALLBLADDER, AND BILIARY TREE: The liver is normal in size, shape, and attenuation. No focal hepatic lesion or biliary ductal dilatation is present. The gallbladder is unremarkable with no evidence of radiopaque gallstones, gallbladder wall thickening, or obvious pericholecystic inflammatory changes. PANCREAS: Unremarkable. SPLEEN: Unremarkable. ADRENAL GLANDS: There is mild bilateral adrenal gland nodularity. KIDNEYS AND URETERS: The kidneys are normal in size, shape, and attenuation. There are bilateral renal vascular calcifications. There is no hydronephrosis. BLADDER: Unremarkable. GASTROINTESTINAL TRACT: There are diverticula seen throughout the colon with mid to distal descending colonic thickening and surrounding infiltration. The appendix is visualized and is within normal limits. ABDOMINAL WALL: No significant hernia is appreciated. LYMPH NODES: Normal. VASCULAR: There is atherosclerotic plaque of the abdominal aorta and proximal branches PELVIC VISCERA: Unremarkable. OSSEOUS STRUCTURES: There is diffuse thoracolumbar degenerative change most significant at L5-S1. CT/CT abdomen pelvis w IV con IMPRESSION: Diverticulitis of the mid to distal descending colon. Fleischner guidelines were followed. Electronically signed by: Damian Bowman MD 07/15/2024 06:24 AM NIK
[2024-07-14 19:10] VITALS: BP 156/76; PULSE 118; RESP 20; TEMP 37.2; O2SAT 100; BMI 30.2
--- NOTE | 2024-07-14 19:13 | ED_ITS ---
HPI - General Adult General Chief complaint: Abdominal Pain Stated complaint: stomach pain ? diverticulitis Time Seen by Provider: 07/15/24 00:03 Source: patient and old records reviewed Mode of arrival: ambulatory Limitations: no limitations History of Present Illness ED Provider: CHARBEL CEDRA narrative: 68 yo male with PMH of CAD, asthma, R TKR, HLD, DM2, diverticulitis here with c/o LLQ pain since 4am with nausea. He notes a fever of 100. He states it has gotten worse. He feels like this is diverticulitis. No urinary symptoms. MD complaint: LLQ abd pain Onset (ago): day(s) (1) Location: abdomen Radiation: non-radiation Severity: moderate Quality: aching Pain Consistency: constant Relieving factors: none Exacerbating factors: movement Associated symptoms: fever/chills, loss of appetite and malaise Treatments prior to arrival: none Related Data Home Medications ?Medication ?Instructions ?Recorded ?Confirmed celecoxib 200 mg capsule 200 mg PO DAILY 06/28/20 06/08/24 minocycline 50 mg capsule 50 mg PO BID 06/28/20 06/08/24 dicyclomine 10 mg capsule 10 mg PO DAILY 06/19/23 06/08/24 albuterol sulfate 90 mcg/actuation 1 puff inhalation Q4H PRN 10/11/23 06/08/24 aerosol inhaler Shortness Of Breath Or Wheezing fluticasone propionate 50 1 spray intranasal DAILY 10/11/23 06/08/24 mcg/actuation nasal spray,suspension aspirin 81 mg tablet,delayed 81 mg PO DAILY 01/06/24 06/08/24 release triamcinolone acetonide 0.5 % 1 appl topical BID PRN Rash 03/17/24 06/08/24 topical cream atorvastatin 20 mg tablet 20 mg PO DAILY 03/26/24 06/08/24 gabapentin 300 mg capsule 300 mg PO TID 03/26/24 06/08/24 sitagliptin phosphate 50 1 tab PO BID 03/26/24 06/08/24 mg-metformin 1,000 mg tablet (Janumet) Previous Rx's ?Medication ?Instructions ?Recorded dupilumab 300 mg/2 mL subcutaneous 300 mg (2 mL) subcut Q2W 28 days 12/26/23 syringe (Dupixent) #4 mL clopidogrel 75 mg tablet (Plavix) 75 mg PO DAILY #30 tabs 02/19/24 omeprazole 40 mg capsule,delayed 40 mg PO DAILY@0630 #90 caps 03/31/24 release fluticasone furoate 200 1 inh inhalation DAILY 30 days #1 06/19/24 mcg/actuation blister powder for ea inhalation (Arnuity Ellipta) amoxicillin 875 mg-potassium 1 tab PO BID #20 tabs 07/15/24 clavulanate 125 mg tablet ondansetron 4 mg disintegrating 4 mg PO Q8H PRN nausea and 07/15/24 tablet vomiting #20 tabs oxycodone 10 mg tablet 10 mg PO Q6H PRN pain #12 tabs 07/15/24 Allergies Allergy/AdvReac Type Severity Reaction Status Date / Time umeclidinium AdvReac Severe Unknown Verified 07/14/24 19:14 [From Anoro Ellipta] vilanterol AdvReac Severe Unknown Verified 07/14/24 19:14 [From Anoro Ellipta] levofloxacin [From Levaquin] AdvReac Gastrointestinal Verified 07/14/24 19:15 Upset metronidazole [From Flagyl] AdvReac Gastrointestinal Verified 07/14/24 19:15 Upset ticagrelor AdvReac Unknown Verified 07/14/24 19:14 Brilinta AdvReac Severe SOB Uncoded 07/14/24 19:14 Review of Systems 2 Review of Systems: Constitutional : No Weight loss, pos Fever, pos Chills ENT/Mouth : No sore throat, No Rhinorrhea Eyes: No Swelling, No Redness Cardiovascular : No Chest Pain, No SOB, No Edema Respiratory : No Cough, No Sputum, No Wheezing Gastrointestinal : Positive Nausea, no Vomiting, no Diarrhea, positive abdominal Pain, No Hematochezia, No Melena Genitourinary : No Dysuria, No Urinary Frequency, No Hematuria, No Urgency Musculoskeletal : No joint pain, No Myalgias, No Joint Swelling Skin : No Skin Lesions, No rash Neuro : No Weakness, No Numbness, No Dizziness, No Headache Psych : No Anxiety/Panic, No Depression All other systems reviewed and are negative. [facility] Past Medical History Attestation statement: The following information was validated with the patient. Source: old records reviewed Medical History Trigger finger Atherosclerotic cardiovascular disease Renal stones Sigmoid diverticulitis Sciatica Neuropathy Plantar fasciitis Arthritis GERD (gastroesophageal reflux disease) Gout Diabetes Surgical History History of cardiac cath History of foot surgery History of colonoscopy Previous back surgery History of total left knee replacement History of total right knee replacement Family History Family History Mother No problems noted. Father No problems noted. Social History Social History Household Members: None Housing: House Do you presently have visiting nurse or other home services: No Alcohol intake: never Patient Tobacco Use Status: Former Tobacco user Tobacco use type: Cigarette Second Hand Smoke Exposure: Yes Advance Directives: Yes Advance Directives on File: Yes Advance Directives Date on File: 04/01/24 service: No Current occupational status: retired 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 Physical Exam ED Vital Signs: Vital Signs - 24 hr 07/14/24 19:10 07/15/24 02:23 07/15/24 05:28 Temperature 98.9 F 98.7 F 98.3 F Pulse Rate 118 H 89 82 Respiratory Rate 20 18 18 Blood Pressure 156/76 H 110/76 117/75 Pulse Oximetry 100 96 96 Oxygen Delivery Method Room Air Room Air Room Air BMI result Body Mass Index 30.2 Appearance: Alert. Oriented X3. No acute distress. Eyes: Pupils equal, round and reactive to light. ENT: Pharynx normal. Neck: Normal inspection. Neck supple. CVS: Normal heart rate and rhythm. Pulses normal. Respiratory: No respiratory distress. Breath sounds normal. Abdomen: Soft and moderate LLQ Pain no rebound Skin: Skin warm and dry. Normal skin color. Normal skin turgor. Extremities: No lower extremity edema. No calf ttp Neuro: Oriented X 3. No motor deficit. No sensory deficit. Course Course Course Narrative: This is a rapid medical exam performed by Mega Garzon NP: Additional HPI, ROS, PE not included below will be deferred to primary provider. Patient is a 68-year-old male presenting with complaint of left sided abdominal pain, bloating, constipation, fever. States feels similar to prior episodes of diverticulitis. States he had allergic reaction to the antibiotics he was discharged on after last bout of diverticulitis (levofloxacin and flagyl), reports GI upset as reaction. Plan: labs, UA Medications Administered Discontinued Medications Generic Name Dose Route Start Last Admin Trade Name Kajal PRN Reason Stop Dose Admin Piperacillin Sod/Tazobactam 50 mls @ 100 mls/hr 07/15/24 00:10 07/15/24 05:36 Sod 3.375 gm/ Sodium Chloride IV 07/15/24 00:39 Infused ONCE ONE Infusion Acetaminophen 1,000 mg in 100 mls @ 400 mls/hr 07/15/24 00:10 07/15/24 05:35 Ofirmev IV 07/15/24 00:24 Infused ONCE ONE Infusion Iohexol 85 ml 07/15/24 03:54 07/15/24 03:54 Iohexol 350 Mg/Ml 100 Ml Infus..Btl IV 07/15/24 03:55 85 ml ONCE ONE Administration Morphine Sulfate 4 mg 07/15/24 00:10 07/15/24 00:34 Morphine Sulfate 4 Mg/Ml Cartridge IVPUSH 07/15/24 00:11 4 mg ONCE ONE Administration Protocol Morphine Sulfate 4 mg 07/15/24 05:23 07/15/24 05:32 Morphine Sulfate 4 Mg/Ml Cartridge IVPUSH 07/15/24 05:24 4 mg ONCE ONE Administration Protocol Ondansetron HCl 4 mg 07/15/24 00:10 07/15/24 00:34 Ondansetron Hcl 4 Mg/2 Ml Vial IVPUSH 07/15/24 00:11 4 mg ONCE ONE Administration Medical Decision Making Medical Decision Making [facility] Narrative: 68 yo male with PMH of CAD, asthma, R TKR, HLD, DM2, diverticulitis here with c/o LLQ pain and nausea and chills I have ordered labs, cultures, CT scan for diverticulitis, IV morphine for pain and start on zosyn. Differential Diagnosis Differential Diagnoses: The differential diagnosis associated with the presentation includes diverticulitis, constipation, colitis, renal colic Admission/Observation Consideration of admission/observation: Escalation of care including admission/observation considered wants to try to go home, tolerating PO, VS stable, stable for DC at this time Lab Data [facility] Lab Attestation statement: I reviewed the patient's lab results. 07/14/24 19:28 07/14/24 19:28 Labs: Lab Results 07/14/24 07/14/24 07/15/24 Range/Units 19:28 19:31 00:30 WBC 11.4 H (4.8-10.8) X10*3/uL RBC 4.89 (4.60-5.80) X10*6/uL Hgb 13.3 L (14.0-18.0) g/dl Hct 39.4 L (42.0-52.0) % MCV 80.6 (80.0-98.0) fL MCH 27.2 (27.0-33.0) pg MCHC 33.8 (31.0-36.0) g/dl RDW 14.4 (11.0-16.0) % Plt Count 179 (160-400) X10*3/uL MPV 10.3 (9.4-12.4) fL Immature Gran % (Auto) 0.4 (0.0-0.4) % Neut % (Auto) 71.3 (45-73) % Lymph % (Auto) 14.1 L (20-40) % [place] % (Auto) 12.4 H (2-11) % Eos % (Auto) 1.7 (0-4) % Baso % (Auto) 0.1 (0-2) % Lymph # (Auto) 1.6 (1.2-4.9) X10*3/uL [place] # (Auto) 1.4 H (0.1-1.2) X10*3/uL Eos # (Auto) 0.2 (0.0-0.4) X10*3/uL Baso # (Auto) 0.0 (0.0-0.2) X10*3/uL Abs Immat Gran (auto) 0.05 H (0.00-0.03) X10*3/uL Absolute Neuts (auto) 8.1 (2.0-8.3) x10*3/uL Absolute Nucleated RBC 0.000 (0.0-0.012) X10*3/uL Nucleated RBC % (auto) 0.0 (0.0-0.2) /100WBC Sodium 136 (135-145) mmol/L Potassium 4.3 (3.3-5.1) mmol/L Chloride 103 (96-108) mmol/L Carbon Dioxide 24 (22-29) mmol/L Anion Gap 13 (12-20) BUN 16 (9-16) mg/dL Creatinine 0.85 (0.5-1.4) mg/dL Estim Creat Clear Calc 82.5 Estimated GFR > 60 Random Glucose 118 H (60-115) mg/dL Lactic Acid 1.7 (0.5-2.0) mmol/L Calcium 8.6 (8.4-10.2) mg/dL Total Bilirubin 0.8 (0.0-1.0) mg/dL AST 18 (5-37) U/L ALT 11 (0-40) U/L Alkaline Phosphatase 68 (39-117) U/L Total Protein 6.7 (6.5-8.0) g/dL Albumin 4.1 (3.5-5.0) g/dL Lipase 24 (8-78) U/L Urine Color Yellow Urine Appearance Clear Urine pH 7.0 (5.0-9.0) Ur Specific [place] 1.020 (1.005-1.025) Urine Protein Trace (Neg-Trace) mg/dL Urine Glucose (UA) Negative (Negative) mg/dL Urine Ketones Trace (Negative) mg/dL Urine Blood Negative (Negative) Urine Nitrite Negative (Negative) Ur Leukocyte Esterase Negative (Negative) Independent Interpretation I performed an independent interpretation of an: CT Scan (diverticulitis) Radiology Impression Discussion of test interpretation with radiology: I have reviewed the radiologist's reading. External Record Review External record reviewed: Outpatient record Prescription Management I considered prescription management with: Pain Medication, Antibiotic and Other Discharge Plan Discharge Clinical Impression: Diverticulitis Abdominal pain Qualifiers: Abdominal location: left lower quadrant Qualified Code(s): R10.32 - Left lower quadrant pain Patient Disposition: Home, Self-Care Instructions: Diverticulitis (ED), Acute Abdominal Pain (ED) Additional Instructions: labs reassuring return for any worsening symptoms such as bleeding, fevers, severe pain, vomiting or any other concerns notify your doctor about your visit On amoxicillin-clavulanate, softer bowel movements are to be expected. Call your provider if you move your bowels more than 4 times a day, your bowel movements are almost all liquid, or you get a rash.? CT/CT abdomen pelvis w IV con IMPRESSION: Diverticulitis of the mid to distal descending colon. Prescriptions: New amoxicillin-pot clavulanate 875-125 mg tablet 1 tab PO BID Qty: 20 0RF oxycodone 10 mg tablet 10 mg PO Q6H PRN (Reason: pain) Qty: 12 0RF Rx Instructions: Partial Fill upon patient request. ondansetron 4 mg tablet,disintegrating 4 mg PO Q8H PRN (Reason: nausea and vomiting) Qty: 20 0RF No Action Dupixent Syringe 300 mg/2 mL syringe 300 mg subcut Q2W 28 Days Qty: 4 12RF Rx Instructions: Next dose due 03-27-24 clopidogrel [Plavix] 75 mg tablet 75 mg PO DAILY Qty: 30 1RF Arnuity Ellipta 200 mcg/actuation blister with device 1 inh inhalation DAILY 30 Days Qty: 1 6RF triamcinolone acetonide 0.5 % cream 1 appl topical BID PRN (Reason: Rash) Janumet 50-1,000 mg tablet 1 tab PO BID atorvastatin 20 mg Tablet 20 mg PO DAILY gabapentin 300 mg Capsule 300 mg PO TID omeprazole 40 mg Capsule,Delayed Release(Dr/Ec) 40 mg PO DAILY@0630 Qty: 90 0RF dicyclomine 10 mg capsule 10 mg PO DAILY minocycline 50 mg capsule 50 mg PO BID celecoxib 200 mg capsule 200 mg PO DAILY albuterol sulfate 90 mcg/actuation HFA aerosol inhaler 1 puff inhalation Q4H PRN (Reason: Shortness Of Breath Or Wheezing) fluticasone propionate 50 mcg/actuation spray,suspension 1 spray intranasal DAILY aspirin 81 mg tablet,delayed release (DR/EC) 81 mg PO DAILY Print Language: Portuguese
[2024-07-14 19:35] LABS: MANUAL DIFF FLAG NO
[2024-07-14 19:36] LABS: Basophils Percent Auto 0.1 % (0-2); Eosinophils Absolute Auto 0.2 X10*3/uL (0.0-0.4); Eosinophils Percent Auto 1.7 % (0-4); Hematocrit 39.4 % (42.0-52.0); Hemoglobin 13.3 g/dl (14.0-18.0); Imm Gran Abs Auto 0.05 X10*3/uL (0.00-0.03); Imm Gran Pct Auto 0.4 % (0.0-0.4); Lymphocytes Absolute Auto 1.6 X10*3/uL (1.2-4.9); Lymphocytes Percent Auto 14.1 % (20-40); Mean Corpuscular HGB Conc 33.8 g/dl (31.0-36.0); Mean Corpuscular Hemoglobin 27.2 pg (27.0-33.0); Mean Corpuscular Volume 80.6 fL (80.0-98.0); Mean Platelet Volume 10.3 fL (9.4-12.4); Monocytes Absolute Auto 1.4 X10*3/uL (0.1-1.2); Monocytes Percent Auto 12.4 % (2-11); Neutrophils Absolute Auto 8.1 x10*3/uL (2.0-8.3); Neutrophils Percent Auto 71.3 % (45-73); Platelet Count 179 X10*3/uL (160-400); Red Blood Count 4.89 X10*6/uL (4.60-5.80); Red Cell Distribution Width 14.4 % (11.0-16.0); White Blood Count 11.4 X10*3/uL (4.8-10.8)
[2024-07-14 19:37] LABS: Appearance Urine Clear; Color Urine Yellow; Glucose Urine UA Negative (Negative); Leukocyte Esterase Urine Negative (Negative); Nitrite Urine Negative (Negative); Urine Blood Negative (Negative); Urine Ketones Trace mg/dL (Negative); Urine Protein Trace mg/dL (Neg-Trace)
[2024-07-14 19:51] LABS: Alanine Aminotransferase 11 U/L (0-40); Albumin Level 4.1 g/dL (3.5-5.0); Alkaline Phosphatase 68 U/L (39-117); Anion Gap 13 (12-20); Aspartate Amino Transferase 18 U/L (5-37); Bilirubin Total 0.8 mg/dL (0.0-1.0); Blood Urea Nitrogen 16 mg/dL (9-16); Calcium 8.6 mg/dL (8.4-10.2); Carbon Dioxide 24 mmol/L (22-29); Chloride 103 mmol/L (96-108); Creatinine Clr Calc Pharmacy 82.5; Estimated Glomerular Filt Rate > 60; Glucose Random 118 mg/dL (60-115); Potassium 4.3 mmol/L (3.3-5.1); Sodium 136 mmol/L (135-145); Total Protein 6.7 g/dL (6.5-8.0)
[2024-07-15 00:25] LABS: Lipase 24 U/L (8-78)
[2024-07-15] MEDS: Piperacillin Sodium/Tazobactam 3.375 GM in 0.9 % Sodium Chloride 50 ML IV (00:34)
[2024-07-15] MEDS: Morphine Sulfate 4 MG/ML CARTRIDGE IVPUSH ×2 (00:34→05:32)
[2024-07-15] MEDS: ondansetron HCL 4 MG/2 ML VIAL IVPUSH (00:34)
[2024-07-15] MEDS: Acetaminophen 1,000 MG/100 ML PIGGYBACK 400 MG IV (00:36)
[2024-07-15 00:54] LABS: Lactic Acid 1.7 mmol/L (0.5-2.0)
[2024-07-15 02:23] VITALS: BP 110/76; PULSE 89; RESP 18; TEMP 37.1; O2SAT 96
[2024-07-15] MEDS: iohexoL 350 MG/ML 100 ML INFUS..BTL 85 ML IV (03:54)
[2024-07-15 05:28] VITALS: BP 117/75; PULSE 82; RESP 18; TEMP 36.8; O2SAT 96
[2024-07-15 06:51] VITALS: BP 117/75; PULSE 82; RESP 18; TEMP 36.8; O2SAT 96
== END 2024-07-15 06:54 | disposition home or self-care (01) ==
PROVIDERS: Registered Nurse Emergency; Emergency Provider Emergency Medicine; PCP Internal Medicine
DX: K57.32 Diverticulitis of large intestine without perforation or abscess without bleeding (principal); R10.2 Pelvic and perineal pain; R10.32 Left lower quadrant pain; Z79.899 Other long term (current) drug therapy; Z87.891 Personal history of nicotine dependence
CPT/HCPCS: 36415; 74177; 80053; 81003; 83605; 83690; 85025; 87040; 96365; 96366; 96375; 96376; 99284; 99285; J0131; J2270; J2405; J2543; Q9967

== ENCOUNTER 2024-09-14 07:14 | Outpatient (REF) | payer MEDICARE, SELFPAY ==
--- NOTE | ~2024-09-14 | CT_ITS ---
CLINICAL HISTORY: LUNG NODULE CT chest without contrast Comparison: CT/REG/SR - CT CHEST WO IV CON - 09/26/23 07:27 EST Findings: No infiltrates or concerning pulmonary nodules are identified. No pleural effusion or pneumothorax. Mild vascular calcification of the thoracic aorta. More pronounced calcification of the coronary arteries. 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 No enlarged lymph nodes. No free fluid or free air within the upper abdomen. Calcifications in each renal mirza is likely related to vascular calcifications. No acute bony abnormality. IMPRESSION: No concerning infiltrates or pulmonary nodules. This document has been electronically signed by: Gomez Eisenberg MD on 09/14/2024 09:50:49
--- OUTSIDE RECORDS SUMMARY | 2024-09-14 07:16 | XMS_ITS | Patient Health Record ---
Author Organization [facility] Address [address] [place] [address] Care Team Providers Care Professor Of Legal Studies Name Role Phone Abdifatah Bunch MD Primary Care Provider Natan Morales [phone] ALLERGIES Allergen (clinical drug ingredient) Drug/Non Drug Allergy documented on EMR Reaction Allergy Type Onset Date Status ticagrelor Ticagrelor Unknown Drug Allergy Activ e metronidazole metroNIDAZOLE Unknown Drug Allergy Active levofloxacin levoFLOXacin Unknown Drug Allergy A ctive ticagrelor Brilinta Unknown Drug Allergy Active metronidazole Flagyl Unknown Drug Allergy Act rigo RESULTS Component Value Reference Range Notes Complete Blood Count Auto Di ff Reviewed date:03/31/2024 09:26:34 AM Interpretation: Performing Lab:[facility], [address] [place] [phone] Notes/Report: White Blood Count 6.9 4.8-10.8 X10*3/uL Red Blood Count 4.53 4.60-5.80 X10*6/uL Hemoglobin 11.9 14.0-18.0 g/dl Hematocrit 36.5 42.0-52.0 % Mean Corpuscular Volume 80.6 80.0-98.0 fL Mean Corpuscular Hemoglobin 26.3 27.0-33.0 pg Mean Corpuscular HGB Conc 32.6 31.0-36.0 g/dl Red Cell Distribution Width 14.4 11.0-16.0 % Platelet Count 209 160-400 X10*3/uL Mean Platelet Volume 11.0 9.4-12.4 fL Neutrophils Percent Auto 53.4 45-73 % Imm Gran Pct Auto 0.4 0.0-0.4 % Lymphocytes Percent Auto 27.6 20-40 % Monocytes Percent Auto 11.2 2-11 % Eosinophils Percent Auto 7.1 0-4 % Basophils Percent Auto 0.3 0-2 % NRBC Pct Auto 0.0 0.0-0.2 /100WBC Neutrophils Absolute Auto 3.7 2.0-8.3 x10*3/u L Imm Gran Abs Auto 0.03 0.00-0.03 X10*3/uL Lymphocytes Absolute Auto 1.9 1.2-4.9 X10*3/u L Monocytes Absolute Auto 0.8 0.1-1.2 X10*3/uL Eosinophils Absolute Auto 0.5 0.0-0.4 X10*3/u L Basophils Absolute Auto 0.0 0.0-0.2 X10*3/uL NRBC Abs Auto 0.000 0.0-0.012 X10*3/uL Hold Green Gel Reviewed date:03/31/2024 09:26:19 AM Interpretation: Performing Lab:[facility], [address] [place] [phone] Notes/Report: Hold Green Gel See Note Specimen held untested for 24 hours; Call to request Chemistry testing. REASON FOR REFERRAL No Information MEDICATIONS Medication SIG (Take, Route, Frequency, Duration) Notes Start Date End Date Status Janumet 50-1000 MG Oral for 45 Active Celecoxib 200 MG Oral for 90 A ctive Omeprazole 40 MG 1 capsule Orally Onc e a day Active Fluticasone Propionate 50 MCG/ACT INSTILL 1 SPRAY IN EACH NOSTRIL EVERY DAY Diagnosis Unavailable Nasal for 60 Active Minocycline HCl as needed Acti ve Gabapentin 300 MG Orally Three times a day Active Atorvastatin Calcium 20 MG 1 tablet Orally Once a day Active Clopidogrel Bisulfate 75 MG TAKE 1 TABLET BY MOUTH DAILY Oral for 90 E1142,Unavailab le Active Arnuity Ellipta 200 MCG/ACT Inhalation for 30 Active traMADol HCl 50 MG 1 tablet as needed Orally every 6 hrs Active Dicyclomine HCl 10 MG 1 capsule Orally Daily Active IMMUNIZATIONS Vaccine Route Administration Date Status Comme nts Influenza Unknown 05/20/2024 Administered SOCIAL HISTORY Sex Assigned At : Social History Observation Description Sex Assigned At Unknown Alcohol Screen Question Answer Notes Did you have a drink containing alcohol in the p ast year? No Points 0 Interpretation Negative PROBLEMS Problem Type ICD Code Onset Dates Problem Status W/U Status Risk SNOMED Code Notes Problem Encounter for screening for malignant neoplasm of colon (Z12.11) Active confirmed 694621142 Problem History of adenomatous polyp of colon (Z86.010) Active confirmed 807205630 Problem Diverticulosis of large intestine without perforation or abscess without bleeding (K57.30) Active confirmed Diverticul ar disease of colon (880854626) Problem Encounter for screening for malignant neoplasm of rectum (Z12.12) Active confirmed Screening for malignant neoplasm of rectum (374572166) Problem Dysphagia (R13.10) Active confirmed Dys phagia (35251715) Problem Gastroesophageal reflux disease without esophagitis (K21.9) Active confirmed 208195360 Problem Gastric polyps (K31.7) Active confirmed Benign neoplasm of stomach (45771614) Problem Diverticulitis of colon (K57.32) Active confirmed Diverticuliti s of colon (072148220) Problem Gastritis (K29.70) Active confirmed Gas tritis (4886383) VITAL SIGNS Temperature 97.3 degrees Fahrenheit 06/03/2024 Blood pressure diastolic 00 mm Hg 06/03/2024 Height 68.25 in 06/03/2024 Blood pressure systolic 000 mm Hg 06/03/2024 Weight 186 lb 4 oz lbs 06/03/2024 BMI 28.11 kg/m2 06/03/2024 Encounters Encounter Location Date Provider Diagnosis [facility] [address] [place] [address] 06/03/2024 Natan Drummond Gastroesophageal ref lux disease without esophagitis K21.9 ; Encounter for screening for malignant neoplasm of colon Z12.11 ; History of adenomatous polyp of colon Z86.010 ; Diverticulosis of large intestine without perforation or abscess without bleeding K57.30 ; Diverticulitis of colon K57.32 and Dysphagia R13.10 ASSESSMENTS Encounter Date Diagnosis Assessment Notes Treatment Notes Treatment Clinical Notes 06/03/2024 Encounter for screening for malignant neoplasm of colon (ICD-10 - Z12.11) Repeat colonoscopy in 202706/03/2024 Gastroesophageal reflux disease without esophagitis (ICD-10 - K21.9) Call me if the swallowing worsens 06/03/2024 History of adenomato us polyp of colon (ICD-10 - Z86.010) 06/03/2024 Diverticulosis of large intestine without perforation or abscess without bleeding (ICD-10 - K57.30) Call for antibiotics if the diverticulitis flares up 06/03/2024 Diverticulitis of colon (ICD-10 - K57.32) 06/03/2024 Dysphagia (ICD-10 - R13.10) PLAN OF TREATMENT Future Test Test Name Order Date COLONOSCOPY 08/07/2016 COLONOSCOPY 03/28/2023 Insurance Providers Payer Name Payer Address Payer Phone Subscriber Number Group Number Insured Name Patient Relationship to Insured Coverage Start Date Coverage End Date MEDICARE OF [place] [address] [place] [address] [id number] JAVIER LEMUS Self - patient is the insured MED[employer] ATTN CLAIMS [address] [place] [address] [id number] JAVIER LEMUS Self - patient is the insured MEDICAL (GENERAL) HISTORY Medical History History ICD Code GERD-neg EGD in 11/2005 except for a smal l HH Arthritis--cortisone shots for his knees Plantar fasciitis Denies NH,CVA,Lung disease,renal disease Diabetes mellitus--neuropathy Neg. colonoscopy in 11/2005 e xcept for mild diverticulosis and small internal hemorrhoids Sciatica--s/p back surgery as below Sigmoid diverticulitis in [address] s can Kidney stones Colonoscopy 09/2016 with 1 tubular adenom a removed Acne rosacea Colonoscopy in 2022 was nega tive other than two non-adenomatous polyps that were removed Diverticulitis involving the left colon and hepatic flexure areas in summer for which he Was hospitalized twice. He did not require any surgery and there was no associated perforation or abscess Upper endoscopy in March of 2024 did not reveal any significant esophagitis, Cortez's esophagus, nor esophageal stricture. There was a small hiatal hernia.The gastroesophageal junction was dilated with an 18 mm to a 19 mm balloon due to his dysphagia with some improvement symptomatically after that and increasing his daily omeprazole from 20 mg to 40 mg. CAD with stents 2023 Surgical History Surgery Date(Month/Year) Knee surgeries-- 1 left, 2 right Hand surgeries X 3-- right--trigger fing er Foot [id number]-[id number]-[id number], Fili's ne uroma 2 back surgeries-- lower disc x 2 Bilateral knee replacements 2018 Hospitalization History Reason Date(Month/Year)
--- OUTSIDE RECORDS SUMMARY | 2024-09-14 07:16 | XMS_ITS | Clinical Summary ---
Author Organization [facility] Address [address] [place] [id number] Care Team Providers Care Denial Management Representative Name Role Phone Abdifatah Bunch MD Primary Care Provider [phone] Allergies Active Allergy Reactions Criticality Noted Date Comments Umeclidinium-Vilanterol Other (See Comments) Social History Tobacco Use Types Packs/Day Years Used Date Smoking Tobacco: Never Assessed Sex and Gender Information Value Date Recorded Sex Assigned at Male 11/13/2023 8:42 AM EDT Gender Identity Male 10/18/2023 3:58 PM EST Sexual Orientation Heterosexual (straight) 11/12 8:42 AM EDT Last Filed Vital Signs Vital Sign Reading Time Taken Comments Blood Pressure 147/83 11/13/2023 10:57 AM EDT Pulse 89 11/13/2023 10:57 AM EDT Temperature - - Respiratory Rate 17 11/13/2023 10:57 AM EDT Oxygen Saturation 97% 11/13/2023 10:57 AM EDT Inhaled Oxygen Concentration - - Weight - - Height - - Body Mass Index - - Plan of Treatment Health Maintenance Due Date Last Done Comments Hepatitis C Virus Screening 1955 DTaP/Tdap/Td Vaccines (1 - Tdap) 1972 Pneumococcal Vaccines 50+ (1 of 2 - PCV) 1972 Colonoscopy 1998 Zoster (Shingles) Vaccine (1 of 2) 11/02/2003 RSV Vaccine 60 years and older and Patients (1 - Risk 60-74 years 1-dose series) 2013 Influenza Vaccine 03/19/2024 06/04/2016, , 05/21/2013, Additional history exists COVID-19 Vaccine ( season) 2024 06/19/2021, 2020 Hepatitis B Vaccines Aged Out No long er eligible based on patient's age to complete this topic Care Teams Denial Management Representative Relationship Specialty Start Date End Date Abdifatah Bunch MD [address] [place] [address] [place] [id number] PCP - General Internal Medicine 11/13/23
--- OUTSIDE RECORDS SUMMARY | 2024-09-14 07:16 | XMS_ITS ---
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 Name Role Phone Abdifatah Bunch MD Primary Care Provider UnavaNatan Almanzar Unavailable [phone] REASON FOR VISIT screening,hx polyps PROBLEMS Problem Type ICD Code Onset Dates Problem Status W/U Status Risk SNOMED Code Notes Problem Diverticulosis of large intestine without perforation or abscess without bleeding (K57.30) Active confirmed Diverticul ar disease of colon ([id number]) Encounters Encounter Location Date Provider Diagnosis [facility] [address] [place], [place] [id number] 06/24/2023 Natan Drummond Encounter for scre ening colonoscopy Z12.11 ; Colon polyps K63.5 ; Diverticulosis of large intestine without perforation or abscess without bleeding K57.30 and Other hemorrhoids K64.8 ASSESSMENTS Encounter Date Diagnosis Assessment Notes Treatment Notes Treatment Clinical Notes 06/24/2023 Encounter for screening colonoscopy (ICD-10 - Z12.11) 06/24/2023 Colon polyps (ICD-10 - K63.5) 06/24/2023 Diverticulosis of large intestine without perforation or abscess without bleeding (ICD-10 - K57.30) 06/24/2023 Other hemorrhoids (ICD-10 - K64.8) PLAN OF TREATMENT No Information
--- OUTSIDE RECORDS SUMMARY | 2024-09-14 07:16 | XMS_ITS ---
Author Organization [facility] Address [address] [place] [address] Care Team Providers Care Adult Care Manager Name Role Phone Alivia SANCHEZ, Abdifatah Primary Care Provider Barber Painter Unavailable [phone] Allergies No Known Allergies REASON FOR VISIT Foot pain, Painful thick toenails which are aggrevated by shoes and causes difficulty standing/walking, Pcp- 06/11 Medications Medication SIG (Take, Route, Frequency, Duration) Notes Start Date End Date Status Gabapentin 300 MG 1 capsule Orally Three times a day for 30 day(s) Not-Taking Extra-Depth Diabetic Shoes with 3 Pair Custom heat-molded multi-density innersoles . 1pair shoes/3sets inserts . . for 1 year 10/27/2012 Not-Taking Diabetic Insoles Not -Taking Drysol 20 % as directed Externally Not-Taking metFORMIN HCl 1000 MG Orally Twice a day Not-Taking Januvia Not-Taking Dicyclomine HCl Not- Taking oxyCODONE HCl PRN for teeth No t-Taking Ticagrelor Not-Takin g Keflex 500 MG 1 capsule Orally every 12 hrs for 10 day(s) 01/25/2020 Not-Taking traMADol HCl 50 MG Orally PRN A ctive Omeprazole 20 MG Orally Act rigo Minocycline HCl 50 MG Orally PRN Active Indomethacin 50 MG 5 ml with food or milk Orally Three times a day Active Janumet Active Colchicine 0.6 MG 1 tablet Orally Once a day for 10 days Active CeleBREX Active Atorvastatin Calcium 20 MG 1 tablet Orally Once a day for 30 day(s) Active Gabapentin 300 MG 1 capsule Orally Three times a day for 30 day(s) 08/22/2015 Active Fluticasone Propionate HFA Active Antibiotic for dental apts Active Arnuity Ellipta Acti ve Dicyclomine HCl 10 MG 2 capsules Orally Three times a day Active Albuterol Active predniSONE 20 MG 1 tablet Orally Once a day Not-Taking Gabapentin 300 MG take 1 capsule by mouth three times a day for 30 Not-Taking Colchicine Not-Takin g levoFLOXacin 500 MG 1 tablet Orally Once a day Not-Taking Plavix Active Anoro Ellipta 62.5-25 MCG/ACT 1 puff Inhalation Once a day Not-Taking Colcrys 0.6 MG as directed Orally Not-Taking Neurontin 300 MG 1 capsule Orally Three times a day for 30 days Not-Taking Social History Tobacco Use: Social History Observation Description Date Details (start date - stop date) Former Smoker NA - NA Tobacco Use/Smoking Question Answer Notes Are you a: former smoker Additional Findings: Tobacco Non-User Current no n-smoker Alcohol Screen Question Answer Notes Did you have a drink containing alcohol in the p ast year? No Points 0 Interpretation Negative Tobacco use other than smoking: Question Answer Notes Are you an other tobacco user? No Vital Signs Height 5ft 8in in 06/04/2024 Weight 180 lbs 06/04/2024 BMI 27.37 kg/m2 06/04/2024 Procedures Procedure Date Ordered Date Performed Result Body Sit e 74680, J0702- INJECT TENDON ORIGIN/INSERT 06/04/2024 N/A Encounters Encounter Location Date Provider Diagnosis [facility] [address] [id number] 06/04/2024 Barber Saenz Pain in right foot M79.671 ; Tinea unguium B35.1 ; Type 2 diabetes mellitus with diabetic polyneuropathy E11.42 ; Neuralgia and neuritis, unspecified M79.2 ; Pain in right toe(s) M79.674 ; Pain in left toe(s) M79.675 ; Hallux valgus (acquired), left foot M20.12 ; Xerosis cutis L85.3 ; Ingrowing nail L60.0 and Right peroneal tendinosis M67.88 Assessments Encounter Date Diagnosis (ICD Code) Assessment Notes Treatment Notes Treatment Clinical Notes Section Notes 06/04/2024 Pain in right foot (ICD-10 - M79.671) 06/04/2024 Tinea unguium (ICD-10 - B35.1) 06/04/2024 Type 2 diabetes mellitus with diabetic polyneuropathy (ICD-10 - E11.42) 06/04/2024 Neuralgia and neuritis, unspecified (ICD-10 - M79.2) 06/04/2024 Pain in right toe(s) (ICD-10 - M79.674) 06/04/2024 Pain in left toe(s) (ICD-10 - M79.675) 06/04/2024 Hallux valgus (acquired), left foot (ICD-10 - M20.12) 06/04/2024 Xerosis cutis (ICD-10 - L85.3) 06/04/2024 Ingrowing nail (ICD-10 - L60.0) 06/04/2024 Right peroneal tendinosis (ICD-10 - M67.88) Plan Of Treatment Pending Test Test Name Order Date - INJECT TENDON ORIGIN/INSER T 06/04/2024 Next Appt Details Follow Up: prn, Reason: Provider Name:Ludivina orozco, 06/04/2025 09:00:00 AM, [address] [place] [address], [phone], Procedure Notes * Category Sub-Category Detail Notes Injection Tendon Origin/insertion 701 Injection - Tendon Origin/Insertion w/ mixture of Celestone Soluspan 3mg and 1cc 1 percent Xylocaine Plain anes. utilizing aseptic technique. The patient tolerated the procedure well. A dry sterile dressing was applied. Post injection instructions were dispensed, verbally discussed, and confirmed understood by the patient. I explained that a steroid and local anesthetic injections are administered to relieve pain and inflammation and thereby meant to improve function. I explained the possible complications including but not limited to signs/symptoms of steroid flare, infection, bruising, atrophy, discoloration of skin, change/deviation in toe position, and that additional injections may be necessary, Patient relates post-procedural pain assessment improved at ( 0-1) out of 10, I explained that a steroid and local anesthetic injection usually decreases pain and inflammation. I explained the possible complications including but not limited to signs/symptoms of steroid flare, infection, atrophy, discoloration of skin, additional injections may be necessary, RIGHT 5th mt base Progress Notes * Adrian PHAM DDOB:[birth year] (68 yo M)Acc No.[id number]:06/04/2024 Progress Note Patient:Adrian Aviles Provider:?Barber Saenz DPM :1955???Age:68 Y???Sex:Male Thomas e:06/04/2024 Address:[address] [place], [place] [id number] Pcp:Abdifatah Bunch MD Subjective: * Chief Complaints: * ???Foot painPainful thick to enails which are aggrevated by shoes and causes difficulty standing/walkingPcp- 06/11 * HPI: ???Foot Pain:?Nature:?aching, pulling, throbbing, weakness , tenderness , throbbing , swelling.?Location:?RIGHT , Midfoot , Outside , Great toe joint , LEFT.?Duration:?several months.?Onset:?unknown.?Course:?improved, at __20_ %.?Aggravated:?any pressure, standing, walking.?Treatments:?pt has compliede with use of aso ankle brace daily.?Severity/Quality:?States pain 8 on a scale to max of 10.?Painful Nails:?Pt States Last PCP Visit:?Date:?04/19/2023 * ROS:?General/Constitutional:?Nausea?denies.?Vomiting?denies.?Hunger Thirst?denies.?Loss appetite?denies.?Chills?denies.?Fatigue?denies.?Fever?denies.?Night Sweats?denies.?Unexplained weight loss?denies.?Unexplained weight gain?denies.?HEENTM:?Dentures?denies.?Dizziness?denies.?Glasses/contacts?admits.?Retinopathy?de nies.?Blurred/double vision?denies.?TMJ?denies.?Discharge/drainage?denies.?Implants?denies.?Sore throat?denies.?Dental implants?denies.?Hard of hearing ?denies.?Difficulty chewing/swallowing/speaking?denies.?Nose bleeds?denies.?Sore mouth?denies.?Respiratory:?On Oxygen?denies.?Pneumonia/pleurisy?denies.?Bronchitis?denies.?Emphysema?denies.?C oughing?denies.?Cough blood?denies.?Shortness of breath?denies.?Wheezing?denies.?Cardiovascular:?Pacemaker?denies.?MVP?denies.?WPW?denies.?CHF?denies.?Heart attack?denies.?Septal defect?denies.?Rapid beat?denies.?Chest pain ?denies.?Atrial Fib.?denies.?Murmur/Palpitations?denies.?Gastrointestinal:?Hemorrhoids?denies.?Stomach/Abdominal pain?denies.?Dark blood stool?denies.?Irritable bowel ?denies.?Constipation?denies.?Diarrhea?denies.?Hematology:?Swelling?denies.?Clots?denies.?Varicose Veins?denies.?Bruising?denies.?Bleeding problem?denies.?Genitourinary:?Blood urine?denies.?Frequent/Painfu/urination/bladder control?denies.?Kidney stones?denies.?Infection (UTI)?denies.?Nephropathy?denies.?sex trans dis (STD)?denies.?Prostate?denies.?Musculoskeletal:?Hammertoes?denies.?Bunions?denies.?Back Pain?denies.?Muscle Cramps/ Resting?denies.?Muscle cramps / walking?denies.?Generalized aches and pains?admits.?Weakness?denies.?Integ.:?Jackson?denies.?Scars?denies.?Corns/calluses?denies.?Ingrown nails?denies.?Painful nails?denies.?Open Sores?denies.?Rashes?denies.?Neurologic:?Difficulty sleeping?denies.?Brain disorder?denies.?Numbness?denies.?Balance trouble?denies.?Confusion?denies.?Fainting/blackouts?denies.?Tingling?denies.?Tr emors?denies.?Patient is having right knee pain. Patient is having right knee pain. * Medical History:? * Surgical History:?bunionecto my 2010hand/wrist 2010knee surgery, right 1997Exc Neuroma right 12/17/2013ack surgery 11/29/2014 & 01/20/2015colonoscopy 11/2005right knee replacement 12/29/2018trigger finger release-right hand 04/02/2019left knee replacement 05/11/2019Hand operation- left tent 2023 * Hospitalization/Major Diagno stic Procedure:?[facility]- Kidney stones, encollitis 09/07[facility]- diverticulitis 03/11,03/2024 * Family History:?Mother: dece ased, diagnosed with Diabetic - NIDDM, Unspecified heart disease.?Father: , poor circulation, diagnosed with Diabetic - NIDDM, Unspecified essential hypertension.?Paternal aunt: diabetes.?Paternal uncle: diabetes.?Siblings: heart attack.? * Social History:?Tobacco Use:?Tobacco Use/Smoking?Are you a:?former smoker ?Additional Findings: Tobacco Non-User?Current non-smoker ?Tobacco use other than smoking?Are you an other tobacco user??No ???Drugs/Alcohol:?Drugs?Have you used drugs other than those for medical reasons in the past 12 months??No ?Alcohol Screen?Did you have a drink containing alcohol in the past year??No ?Points?0 ?Interpretation?Negative ???Miscellaneous:?no Caffeine. ?Children: yes, 2. ?Exercise: yes, walking. ?Marital status: single. ?Occupation: retired/ [employer]. * Medications:?TakingPlavix Al buterol Dicyclomine HCl 10 MG Capsule 2 capsules Orally Three times a dayArnuity Ellipta Antibiotic , Notes: for dental aptsAtorvastatin Calcium 20 MG Tablet 1 tablet Orally Once a dayCeleBREX Colchicine 0.6 MG Tablet 1 tablet Orally Once a dayFluticasone Propionate HFA Gabapentin 300 MG Capsule 1 capsule Orally Three times a dayJanumet Indomethacin 50 MG Capsule 5 ml with food or milk Orally Three times a dayMinocycline HCl 50 MG Capsule Orally , Notes: PRNOmeprazole 20 MG Capsule Delayed Release Orally traMADol HCl 50 MG Tablet Orally , Notes: PRNTaking Plavix Taking Albuterol Taking Dicyclomine HCl 10 MG Capsule 2 capsules Orally Three times a dayTaking Arnuity Ellipta Taking Antibiotic , Notes: for dental aptsTaking Atorvastatin Calcium 20 MG Tablet 1 tablet Orally Once a dayTaking CeleBREX Taking Colchicine 0.6 MG Tablet 1 tablet Orally Once a dayTaking Fluticasone Propionate HFA Taking Gabapentin 300 MG Capsule 1 capsule Orally Three times a dayTaking Janumet Taking Indomethacin 50 MG Capsule 5 ml with food or milk Orally Three times a dayTaking Minocycline HCl 50 MG Capsule Orally , Notes: PRNTaking Omeprazole 20 MG Capsule Delayed Release Orally Taking traMADol HCl 50 MG Tablet Orally , Notes: PRNNot-Taking/PRNAnoro Ellipta 62.5-25 MCG/ACT Aerosol Powder Breath Activated 1 puff Inhalation Once a daylevoFLOXacin 500 MG Tablet 1 tablet Orally Once a daypredniSONE 20 MG Tablet 1 tablet Orally Once a dayTicagrelor oxyCODONE HCl , Notes: PRN for teethDicyclomine HCl Januvia Keflex 500 MG Capsule 1 capsule Orally every 12 hrsmetFORMIN HCl 1000 MG Tablet Orally Twice a dayDrysol 20 % Solution as directed Externally Diabetic Insoles Extra-Depth Diabetic Shoes with 3 Pair Custom heat-molded multi-density innersoles . . 1pair shoes/3sets inserts . .Gabapentin 300 MG Capsule 1 capsule Orally Three times a dayNeurontin 300 MG Capsule 1 capsule Orally Three times a dayColcrys 0.6 MG Tablet as directed Orally Colchicine Gabapentin 300 MG Capsule take 1 capsule by mouth three times a day Medication List reviewed and reconciled with the patientNot-Taking/PRN Anoro Ellipta 62.5-25 MCG/ACT Aerosol Powder Breath Activated 1 puff Inhalation Once a dayNot-Taking/PRN levoFLOXacin 500 MG Tablet 1 tablet Orally Once a dayNot-Taking/PRN predniSONE 20 MG Tablet 1 tablet Orally Once a dayNot-Taking/PRN Ticagrelor Not-Taking/PRN oxyCODONE HCl , Notes: PRN for teethNot-Taking/PRN Dicyclomine HCl Not-Taking/PRN Januvia Not-Taking/PRN Keflex 500 MG Capsule 1 capsule Orally every 12 hrsNot-Taking/PRN metFORMIN HCl 1000 MG Tablet Orally Twice a dayNot-Taking/PRN Drysol 20 % Solution as directed Externally Not-Taking/PRN Diabetic Insoles Not-Taking/PRN Extra-Depth Diabetic Shoes with 3 Pair Custom heat-molded multi-density innersoles . . 1pair shoes/3sets inserts . .Not-Taking/PRN Gabapentin 300 MG Capsule 1 capsule Orally Three times a dayNot-Taking/PRN Neurontin 300 MG Capsule 1 capsule Orally Three times a dayNot-Taking/PRN Colcrys 0.6 MG Tablet as directed Orally Not-Taking/PRN Colchicine Not-Taking/PRN Gabapentin 300 MG Capsule take 1 capsule by mouth three times a day Medication List reviewed and reconciled with the patient * Allergies:?N.K.D.A.yes[Aller gies Verified] Objective: * Vitals:?Ht: 5ft 8in, Wt:180, BMI:27.37, Shoe size: 9, BS: not taken, Ht-cm: 172.72 cm, Wt-k.65 kg. * ???Past Orders: ???Lab:HEMOGLOBIN A1C (GLYCO HEMOGLOBIN) (Order Date - 01/27/2024) (Collection Date - 01/27/2024) ? Value Reference Range ?HEMOGLOBIN A1C % (HH) 6.0 * Examination: ???Neurological: ?SENSORY:?exam demonstrates. reduced vibration lower extremity, at Forefoot, B/L assymmetric with more sensory loss right, 5.07 monofilament test performed at plantar aspects of 5 varied sites per foot shows sensation, reduced , B/L, Neurological exam demonstrates pop right 5th mt base .?Vascular: ?DP PULSES(B):?09/22, B/L.?PT PULSES(B):?08/22, B/L.?Nails: ?NAILS are:?Elongated, overgrown, dystrophic, lytic, greater than 3mm thick, discolored and friable with crumbly malodorous subungual debris, with pain on palpation, T5, proximal clearing of nail __80__ %, remaining nails are elongated, overgrown, and dystrophic .?Dermatologic: ?SKIN FINDINGS:?Skin exam reveals Keratotic lesion(s) located at, Medial plantar, IPJ, TA, T5, Heel(s), B/L , SUB MTH (s), 1, B/L .?Orthopedic: ?BUNION:?Medially prominent 1st MPJ, LEFT, Lateral tracking 1st MPJ incompletely reducable.?Ophthalmology Referral: ?DIABETES EYE EXAM?General Examination: ?GENERAL APPEARANCE:?Reveals a pleasant, alert, well nourished, well developed, well hydrated individual, who demonstrates proper attention to hygene/body habitus, and is in no acute distress.?ORIENTED:?person, place, and time.?FOOT EXAM:? Assessment: * Assessment: 1.?Tinea unguium - B35.1?2.? Pain in right foot - M79.671 (Primary)?3.?Type 2 diabetes mellitus with diabetic polyneuropathy - E11.42?4.?Neuralgia and neuritis, unspecified - M79.2?5.?Pain in right toe(s) - M79.674?6.?Pain in left toe(s) - M79.675?7.?Hallux valgus (acquired), left foot - M20.12?8.?Xerosis cutis - L85.3?9.?Ingrowing nail - L60.0?10.?Right peroneal tendinosis - M67.88? Plan: * Treatment: * Procedures:?Injection:?Tendon Origin/insertion?94438, J0702 Injection - Tendon Origin/Insertion w/ mixture of Celestone Soluspan 3mg and 1cc 1 percent Xylocaine Plain anes. utilizing aseptic technique. The patient tolerated the procedure well. A dry sterile dressing was applied. Post injection instructions were dispensed, verbally discussed, and confirmed understood by the patient. I explained that a steroid and local anesthetic injections are administered to relieve pain and inflammation and thereby meant to improve function. I explained the possible complications including but not limited to signs/symptoms of steroid flare, infection, bruising, atrophy, discoloration of skin, change/deviation in toe position, and that additional injections may be necessary, Patient relates post-procedural pain assessment improved at ( 0-1) out of 10, I explained that a steroid and local anesthetic injection usually decreases pain and inflammation. I explained the possible complications including but not limited to signs/symptoms of steroid flare, infection, atrophy, discoloration of skin, additional injections may be necessary, RIGHT 5th ga base.? * Procedure Codes:?94115 INJEC T TENDON ORIGIN/INSERT, Modifiers: XS J0702 INJ BETAMETHSN ACTAT&SOD PHOSPH-3MG * Preventive Medicine:? ??Counseling:?Discussion:?-14: Office or other outpatient visit for the evaluation and management of an established patient, which required a medically appropriate history and/or examination and MODERATE level of DECISION MAKING for: 1 OR MORE CHRONIC PROBLEM(S) THATS WORSENING, 2 STABLE CHRONIC PROBLEMS, A NEWLY DIAGNOSED PROBLEM WITH UNCERTAIN PROGNOSIS, AN ACUTE COMPLICATED INJURY WITH MULTIPLE TREATMENT OPTIONS, OR AN ACUTE PROBLEM WITH ACCOMPANYING SYSTEMIC SYMPTOMS, THAT POSE(S) A MODERATE RISK OF MORBIDITY. THIS CONDITION MAY ALSO INCLUDE RX DRUG MANAGEMENT, OR A DECISON FOR MINOR SURGERY. The visit on the day of the encounter encompassed interpreting the data and educating the patient as to the nature of their condition, treatment options available according to their individual PMH, meds, allergies, and overall health/living conditions, as well as any potential risks or complications that may occur from a failure to adhere to, and participate in, the recommended course of therapy. The discussion included a complete verbal, and/or written explanation of the examination results, any x-rays taken, the proposed diagnosis, and outline of the treatment plan. A schedule for future care needs was also explained. The patient verbalized an understanding of the instructions at this time and agreed to be an active participant in their treatment. If the patient should think of any questions or concerns after the visit, I have encouraged the patient to call the office.?Myositis/Tendonitis:?TENDONITIS: I explained to the patient the possible etiologies of their Tendonitis, including foot type/shoegear/activity level/exercise routine and the risks/benefits of the different treatment options for their pain including: No treatment at all, Rest, Ice, Oral Prednisone, NSAIDs(only if well tolerated after meals), New/supportive Shoegear, Strappings and Tapings, Stretching exercises, Deep Tissue Massage, Heel cups/cushions, Arch support/shoe inserts, Custom orthoses, Foot/Ankle AFO Bracing, Cast boot with crutches/cane/or walker for assisted ambulation, Topical analgesics including Aspercream/Voltaren gel, Physical Therapy, EPAT/ESWT, and Interfil injection therapy. Tendon surgical procedures including reefing and/or transfers were also detailed should either one become necessary through failure of conservative treatment. The advantages and disadvantages of each option were discussed and the patients questions re: shoegear, the difference between custom vs prefabricated inserts, activity level, PO vs Topical medications (and their respective potential complications/drug interactions/side effects), consistency in home treatment regimens for optimal success, as well as the potential benefits and possible complications of reconstructive surgery (includeing, but not limited to failure, prolongued/delayed healing, infection, weakness, persistant pain) were answered to their verbally confirmed satisfaction.?Orthotics:?I explained to the patient the benefits of OT use. I explained that orthoses are medically necessary to decrease the foot pain through proper mechanical control, support of their foot.?P.R.I.C.E.:?The patient was counseled on the use of P.R.I.C.E. and NSAIDS (if well tolerated) to aid in the recovery from their painful condition, Recommended Topical analgesics including Aspercream/Biofreeze/Voltaren gel as directed.?Physical Therapy:?Discussed the potential short and retirement benefits of physical therapy including pain relief, improved function for activity of daily life, return to exercise, increased quality of life. We discussed the usual/customary PT treatment schedule of 2-3 times per week for 4 weeks to as much as 12 weeks depending on insurance approval/coverage. We discussed various PT treatment modalities including, but not limited to, gate training, muscular stabilization, stretching, deep tissue therapeutic massage, ultrasound, TENS, iontophoresis, fluidotherapy, laser therapy, hydrotherapy, contrast ice/heat bath, and passive as well as active ROM exercises. Questions re: PT including visit amounts, rates of success, and goals were answered to the patient's satisfaction. The patient verbally confirmed the medical necessity and use of PT therapy treatment for their MSK condition.?Shoe Gear Counseling:?The patient and I reviewed the types of shoes they should be wearing. My recommendation included obtaining a well-fitted shoe with a good supportive, non-foldable nor twistable sole, plenty of toe/room for the forefoot, and proper arch support. Based on todays examination, I recommended the patient look for new shoes, by having their feet professionally measured. We discussed that generally the best time of the day for a shoe fitting is the afternoon. Different shoes types and brands to best match the patients occupation and vocation were discussed. Specific brand selection will be up to the patient, their individual foot condition/deformities, and fit. The patient and I reviewed the standard new shoe break in period by wearing them for a few hours a day while checking for redness or sores as wear time is increased. The patient verbally confirmed to understanding the information discussed.?X-rays:?Discussed and reviewed the X-rays with the patient. We discussed how the findings relate to the patients symptoms/complaints. Answered any and all questions..? * Follow Up:?prn * Images: * Sign off status: Completed true * Provider:?Barber Saenz DPM Date:? 024 Generated for Printi ng/Faxing/eTransmitting on:?09/14/2024 07:16 AM EST History and Physical Notes * HPI (History of Present Illness) Category Sub-Category Detail Notes Category Not es Painful Nails Pt States Last PCP Visit: Date:: 04/19/2023 Foot Pain Nature: aching, pulling, throbbing, weakness , tenderness , throbbing , swelling Location: RIGHT , Midfoot , Ou tside , Great toe joint , LEFT Duration: several months Onset: unknown Course: improved, at __20_ % Aggravated: any pressure, standi ng, walking Treatments: pt has compliede wit h use of aso ankle brace daily Severity/Quality: States pain 8 on a s diana to max of 10 Examination Category Sub-Category Detail Notes Category Not es Neurological SENSORY: exam demonstrate s. reduced vibration lower extremity, at Forefoot, B/L assymmetric with more sensory loss right, 5.07 monofilament test performed at plantar aspects of 5 varied sites per foot shows sensation, reduced , B/L, Neurological exam demonstrates pop right 5th mt base Dermatologic SKIN FINDINGS: Skin exam reveal s Keratotic lesion(s) located at, Medial plantar, IPJ, TA, T5, Heel(s), B/L , SUB MTH (s), 1, B/L Orthopedic BUNION: Medially promine nt 1st MPJ, LEFT, Lateral tracking 1st MPJ incompletely reducable General Examination GENERAL APPEARANCE: Reveals a pleasant, alert, well nourished, well developed, well hydrated individual, who demonstrates proper attention to hygene/body habitus, and is in no acute distress FOOT EXAM: Lower Extremity Neurological Exa m performed:: Yes Visual exam of foot performed:: Yes Date: 06/04/2024 Sensory testing performed:: sensations d iminished Pedal pulse taking performed:: 2+ ORIENTED: person, place, and t aj Ophthalmology Referral DIABETES EYE EXAM Diabeti c Retinopathy Screening:: Yes 10/2021 Findings of Diabetic Eye Exam:: no retin opathy 07/2018 Vascular DP PULSES (B): 2/4, B/L PT PULSES (B): 1/4, B/L Nails NAILS are: Elongated, overg rown, dystrophic, lytic, greater than 3mm thick, discolored and friable with crumbly malodorous subungual debris, with pain on palpation, T5, proximal clearing of nail __80__ %, remaining nails are elongated, overgrown, and dystrophic
--- OUTSIDE RECORDS SUMMARY | 2024-09-14 07:16 | XMS_ITS | Encounter Summary ---
Author Organization [facility] Address [address] [place] [address] Care Team Providers Care Geology Scientist Name Role Phone Unknown Primary Care Provider [phone] Abdifatah Bunch MD Primary Care Provider [phone] Encounter Details Date Type Department Care Team (Late st Contact Info) Description 10/22/2023 Scanned Document [address] [place] [phone] Radiology, Scan Social History Tobacco Use Types Packs/Day Years Used Date Smoking Tobacco: Never Assessed Sex and Gender Information Value Date Recorded Sex Assigned at Male 11/13/2023 8:42 AM EDT Gender Identity Male 10/18/2023 3:58 PM EST Sexual Orientation Heterosexual (straight) 11/12 8:42 AM EDT documented as of this encounter Plan of Treatment Not on file documented as of this encounter Procedures Procedure Name Priority Date/Time Associated Diagnosis Comments HX OUTSIDE ORDER 11/05/2023 HX OUTSIDE ORDER 10/22/2023 documented in this encounter Results * HX OUTSIDE ORDER (11/05/2023) Scan Radiology HX AMB PROCEDURES * HX OUTSIDE ORDER (10/22/2023) Scan Radiology HX AMB PROCEDURES documented in this encounter Visit Diagnoses Not on filedocumented in this encounter Care Teams Geology Scientist Relationship Specialty Start Date End Date Unknown Unknow Provider Address PCP - General 10/18/23 11/12/23 Abdifatah Bunch MD [address] [place] [address] [place] [address] PCP - General Internal Medicine 11/13/23 documented as of this encounter
--- OUTSIDE RECORDS SUMMARY | 2024-09-14 07:17 | XMS_ITS ---
Author Organization Abdifatah Bunch MD Address [address] [place] [phone] Care Team Providers Care Meat Cutter Apprentice Name Role Phone Abdifatah Bunch Primary Care Provider REASON FOR VISIT Chest CT due Encounters Encounter Location Date Provider Diagnosis Abdifatah Bunch MD [facility] [address] [place] [phone] 08/04/2024 Abdifatah Bunch Plan Of Treatment Next Appt Details Provider Name:Abdifatah darnell, 11/05/2024 07:15:00 AM, [address] [place] [address], [address] [place] [address], [phone], Provider Name:Abdifatah darnell, 11/12/2024 08:30:00 AM, [address] [place] [address], [address], [phone], Progress Notes * Adrian PHAM DDOB:[birth year] (68 yo M)Acc No.[id number]:08/04/2024 Patient:?Adrian PHAM :1955???Age:68 Y???Sex:Male Address:[address] [place] [address] * * Date:?
--- OUTSIDE RECORDS SUMMARY | 2024-09-14 07:17 | XMS_ITS ---
Author Name [facility] Organization Unknown History of Medication Use Medication Directions Dispensed Refills Start Date End Date Stat us nitroglycerin (NITROSTAT) SL tablet 0.4 mg 0.4 mg, Sublingual, Once, On Sat11/13/23 at 0930, For 1 dose, Please give in the CT scanner room as part of the cardiac CTA procedure. Do not chew, crush, or swallow sublingual tablet. Place under tongue and allow to dissolve. Alternately, may be placed in the buccal pouch. 11/13/2023 11/13/2023 completed iohexol (OMNIPAQUE) 350 mg/mL injection 80 mL 80 mL, Intravenous, Once in imaging, contrast, Starting on Sat11/13/23 at 1141, For 1 dose, Radiology Appointment 11/13/2023 11/13/2023 completed Problems Problem Status Onset Date Problem Type Date of Resoluti on Source Shortness of breath active EncounterDiagnosisAc t [facility] Coronary artery disease involving [place] coronary artery, unspecified whether angina present, unspecified whether [place] or transplanted heart active EncounterDiagnosisAct [facility] Ventricular hypokinesis active EncounterDiagnosisAct [facility] COVID-19 active EncounterDiagnosisAct [facility]
--- OUTSIDE RECORDS SUMMARY | 2024-09-14 07:17 | XMS_ITS ---
Author Organization [facility] Address [address] [place] [phone] Care Team Providers Care Shop Mechanic Helper Name Role Phone Abdifatah Bunch MD Primary Care Provider Natan Morales Unavailable [phone] ALLERGIES Allergen (clinical drug ingredient) Drug/Non Drug Allergy documented on EMR Reaction Allergy Type Onset Date Status ticagrelor Ticagrelor Unknown Drug Allergy Activ e metronidazole metroNIDAZOLE Unknown Drug Allergy Active levofloxacin levoFLOXacin Unknown Drug Allergy A ctive ticagrelor Brilinta Unknown Drug Allergy Active metronidazole Flagyl Unknown Drug Allergy Act rigo MEDICATIONS Medication SIG (Take, Route, Frequency, Duration) Notes Start Date End Date Status Omeprazole 40 MG 1 capsule Orally Onc e a day Active Clopidogrel Bisulfate 75 MG TAKE 1 TABLET BY MOUTH DAILY Oral for 90 E1142,Unavailab le Active Arnuity Ellipta 200 MCG/ACT Inhalation for 30 Active traMADol HCl 50 MG 1 tablet as needed Orally every 6 hrs Active Dicyclomine HCl 10 MG 1 capsule Orally Daily Active Janumet 50-1000 MG Oral for 45 Active Celecoxib 200 MG Oral for 90 A ctive Fluticasone Propionate 50 MCG/ACT INSTILL 1 SPRAY IN EACH NOSTRIL EVERY DAY Diagnosis Unavailable Nasal for 60 Active Minocycline HCl as needed Acti ve Gabapentin 300 MG Orally Three times a day Active Atorvastatin Calcium 20 MG 1 tablet Orally Once a day Active SOCIAL HISTORY Sex Assigned At : Social History Observation Description Sex Assigned At Unknown Alcohol Screen Question Answer Notes Did you have a drink containing alcohol in the p ast year? No Points 0 Interpretation Negative PROBLEMS Problem Type ICD Code Onset Dates Problem Status W/U Status Risk SNOMED Code Notes Problem Diverticulitis of colon (K57.32) Active confirmed Diverticuliti s of colon (349124090) VITAL SIGNS BMI 28.11 kg/m2 06/03/2024 Blood pressure systolic 000 mm Hg 06/03/20 Blood pressure diastolic 00 mm Hg 024 Height 68.25 in 06/03/2024 Temperature 97.3 degrees Fahrenheit 06/03/20 Weight 186 lb 4 oz lbs 06/03/2024 Encounters Encounter Location Date Provider Diagnosis [facility] [address] [place] [address] 06/03/2024 Natan Drummond Gastroesophageal ref lux disease without esophagitis K21.9 ; Encounter for screening for malignant neoplasm of colon Z12.11 ; History of adenomatous polyp of colon Z86.010 ; Diverticulosis of large intestine without perforation or abscess without bleeding K57.30 ; Diverticulitis of colon K57.32 and Dysphagia R13.10 ASSESSMENTS Encounter Date Diagnosis Assessment Notes Treatment Notes Treatment Clinical Notes 06/03/2024 Gastroesophageal reflux disease without esophagitis (ICD-10 - K21.9) Call me if the swallowing worsens 06/03/2024 Encounter for screening for malignant neoplasm of colon (ICD-10 - Z12.11) Repeat colonoscopy in 202706/03/2024 History of adenomato us polyp of colon (ICD-10 - Z86.010) 06/03/2024 Diverticulosis of large intestine without perforation or abscess without bleeding (ICD-10 - K57.30) Call for antibiotics if the diverticulitis flares up 06/03/2024 Diverticulitis of colon (ICD-10 - K57.32) 06/03/2024 Dysphagia (ICD-10 - R13.10) PLAN OF TREATMENT Medication Medication Name Sig Start Date Stop Date Notes Omeprazole 40 MG 1 capsule Orally Once a day Treatment Notes Assessment Notes Gastroesophageal reflux dise ase without esophagitis Call me if the swallowing worsens Encounter for screening for malignant neoplasm of colon Repeat colonoscopy in 2027 Diverticulosis of large inte jorge luis without perforation or abscess without bleeding Call for antibiotics if the diverticulitis flares up Next Appt Details Follow Up: prn, Reason: Progress Notes * Examination Category Sub-Category Detail Notes General Examination GENERAL APPEARANCE: pleasant , well nourished, well developed, in no acute distress HEAD: EYES: sclera non-icteric EARS: NOSE: THROAT: NECK/THYROID: no cervical lymphade nopathy, neck supple HEART: S1, S2 normal CHEST: LUNGS: clear to auscultatio n bilaterally ABDOMEN: normal bowel sounds, no guarding or rigidity, no guarding or rigidity, no masses palpable, soft, nontender, nondistended NEUROLOGIC: alert and oriented SKIN: nonjaundiced, no spi brandin angiomata EXTREMITIES: no edema PERIPHERAL PULSES: BACK: BREASTS: MUSCULOSKELETAL: MALE GENITOURINARY: LYMPH NODES: RECTAL EXAM: FEMALE GENITOURINARY: ORAL CAVITY: mucosa moist
--- OUTSIDE RECORDS SUMMARY | 2024-09-14 07:17 | XMS_ITS ---
Author Organization Abdifatah Bunch MD Address [address] [place] [phone] Care Team Providers Care Project Management Intern Name Role Phone Abdifatah Bunch Primary Care Provider REASON FOR VISIT ER Report Encounters Encounter Location Date Provider Diagnosis Abdifatah Bunch MD [address] [place] [address] [address] [place] [phone] 07/23/2024 Abdifatah Bunch Plan Of Treatment Next Appt Details Provider Name:Abdifatah darnell, 11/05/2024 07:15:00 AM, [address] [place] [address], [address], [phone], Provider Name:Abdifatah darnell, 11/12/2024 08:30:00 AM, [address] [place] [address], [address], [phone], Progress Notes * Adrian PHAM DDOB:[birth year] (68 yo M)Acc No.[id number]:07/23/2024 Patient:?Adrian Pham D :1955???Age:68 Y???Sex:Male Address:[address] [place] [address] * true * Date:? Generated for Abel you/Abbey/eTransmitting on:?09/14/2024 07:16 AM EST
--- OUTSIDE RECORDS SUMMARY | 2024-09-14 07:18 | XMS_ITS ---
Author Organization [facility] Address [address] [place] [phone] Care Team Providers Care Scroll Machine Operator Name Role Phone Alivia SANCHEZ, Abdifatah Primary Care Provider Barber Painter Unavailable [phone] Encounters Encounter Location Date Provider Diagnosis [address] [phone] 06/03/2024 Barber Saenz Plan Of Treatment Next Appt Details Provider Name:Ludivina orozco, 06/04/2025 09:00:00 AM, [address] [place], [phone], Progress Notes * Adrian PAHM DDOB:[birth year] (68 yo M)Acc No.[id number]:06/03/2024 Progress Note Patient:?Adrian PHAM Provider:?Barber Saenz DPM :1955???Age:68 Y???Sex:Male Thomas e:06/03/2024 Address:[address] [place] [phone] Pcp:Abdifatah Bunch MD Subjective: * Chief Complaints: * ??? * Medical History:? Objective: * Vitals:? Assessment: Plan: * Treatment: * Images: * The named appointment provid er may or may not be the originator of this progress note, and it is not deemed complete until electronically signed by the appointment provider. Sign off status: Pending * Provider:?Barber Saenz DPM Date:? 024 Generated for Abel you/Abbey/Aby on:?09/14/2024 07:17 AM EST
--- OUTSIDE RECORDS SUMMARY | 2024-09-14 07:18 | XMS_ITS ---
Author Organization Abdifatah Bunch MD Address [address] [place], [place] [id number] Care Team Providers Care Certified Optician Name Role Phone Abdifatah Bunch Primary Care Provider Allergies Allergen (clinical drug ingredient) Drug/Non Drug Allergy documented on EMR Reaction Allergy Type Onset Date Status umeclidinium / vilanterol Anoro Ellipta sore feet Drug Allergy Active Reason For Referral Reason upper back pain Diagnosis 1 Upper back pain (M54 .9) Referral Organization Abdifatah Bunch MD Referring Provider First Name Abdifatah Referring Provider Last Name Alivia Referring Provider Speciality Internal M edicine Referred Provider [facility] Referred Provider Specialty Physical Med icine General Notes Lexii German 11:27:31 AM EST > info faxed , Lexii German 08/06/2024 01:10:27 PM EST > left messag for patient to call with appt , Heidi Villa 08/07/2024 11:19:50 AM EST > PATIENT HAD APPT 08/07 AND OFFICE NOTE HAS BEEEN FAXED INTO CHART Referral Priority Routine Referral Appointment Date 08/07/2024 REASON FOR VISIT F/U ER Diverticulitis, c/o upper back pain since this summer Medications Medication SIG (Take, Route, Frequency, Duration) Notes Start Date End Date Status traMADol HCl 50 MG 1 tablet as needed Orally every 8 hrs for 30 days 07/27/2024 Active Indomethacin 50 MG 1 capsule with food or milk Orally Three times a day for 10 days 03/23/2016 Not-Taking Celecoxib 200 MG take 1 capsule by mo ut every day with food Orally Once a day Active Omeprazole 40 MG take 1 capsule by mo uth every day Orally Once a day Active Janumet 50-1000 MG take 1 tablet by alexander th twice daily with meals. Orally Twice a day Active Ncduqxwvja-AZC-Ushlmyya 50-325-40 MG 1 capsule as needed Orally every 4 hrs 09/17/2019 Not-Taking Fluticasone Propionate 50 MCG/ACT instill 1 spray in each nostril once a day Nasally Once a day for 90 days Active Albuterol Sulfate HFA 108 (90 Base) MCG/ACT 1 puff as needed Inhalation every 4 hrs for 30 days 07/15/2023 Active Atorvastatin Calcium 20 MG take 1 tablet by mouth every day Orally Once a day for 30 days Active Dicyclomine HCl 10 MG take 1 capsule by mouth every day Orally 0nce a day for 30 days Active Minocycline HCl 50 MG take one capsule b y mouth twice daily Orally Twice a day for 45 days Active traMADol HCl 50 MG 1 tablet as needed Orally Once a day for 30 days 04/03/2024 Active Triamcinolone Acetonide 0.5 % 1 application Externally Twice a day for 30 days 01/07/2024 Active Gabapentin 300 MG take 1 capsule by mo uth three times daily Orally 3 times per day for 90 days Active Plavix 75 MG 1 tablet Orally Once a day for 30 day(s) Active Colcrys 0.6 MG 1 tablet Orally michel y for 90 days 10/31/2021 Active FreeStyle Lite 0 use to test blood mcdonnell agr subQ DX:11:42 once a day for 30 days 09/20/2015 Active FreeStyle Lite Test 0 use to test blood sugar In Vitro DX:11:42 once a day for 30 days 09/20/2015 Active Arnuity Ellipta 200 MCG/ACT 1 puff Inhalation Once a day Active Dupixent 300 MG/2ML as directed Subcutaneous Active Vital Signs Blood pressure systolic 102 mm Hg 07/27/20 24 Blood pressure diastolic 66 mm Hg 024 Height 68.5 in 07/27/2024 Weight 182 lbs 07/27/2024 BMI 27.27 kg/m2 07/27/2024 Encounters Encounter Location Date Provider Diagnosis Abdifatah Bunch MD [address] [facility] [address] [place], [place] [phone] 07/27/2024 Abdifatah Bunch Upper back pain M54. 9 ; Acute diverticulitis K57.92 ; Gastroesophageal reflux disease without esophagitis K21.9 and Type 2 diabetes mellitus with diabetic polyneuropathy E11.42 Assessments Encounter Date Diagnosis (ICD Code) Assessment Notes Treatment Notes Treatment Clinical Notes Section Notes 07/27/2024 Upper back pain (ICD-10 - M54.9) referral to anne rollins verbalized understanding of medication and directions for use 07/27/2024 Acute diverticulitis (ICD-10 - K57.92) 07/27/2024 Gastroesophageal reflux disease without esophagitis (ICD-10 - K21.9) reflux is failry well controlled, will continue current regiment 07/27/2024 Type 2 diabetes mellitus with diabetic polyneuropathy (ICD-10 - E11.42) doing well with good a1c, will continue current regiment Plan Of Treatment Medication Medication Name Sig Start Date Stop Date Notes traMADol HCl 50 MG 1 tablet as needed O rally every 8 hrs for 30 days 07/27/2024 Celecoxib 200 MG take 1 capsule by mo uth every day with food Orally Once a day Omeprazole 40 MG take 1 capsule by mo uth every day Orally Once a day Janumet 50-1000 MG take 1 tablet by twice daily with meals. Orally Twice a day Treatment Notes Assessment Notes Upper back pain referral to mirian rollins verbalized understanding of medication and directions for use Gastroesophageal reflux dise ase without esophagitis reflux is failry well controlled, will continue current regiment Type 2 diabetes mellitus wit h diabetic polyneuropathy doing well with good a1c, will continue current regiment Referrals Referral Date Details 07/27/2024 07/27/2024, upper ba ck pain , [facility] Next Appt Details Provider Name:Abdifatah Diallo mann, 11/05/2024 07:15:00 AM, [address], [address], [place], [place], [phone], Provider Name:Abdifatah Diallo ier, 11/12/2024 08:30:00 AM, [address], [address], [place], [place], [phone], Progress Notes * Adrian PHAM DDOB:[birth year] (68 yo M)Acc No.[id number]:07/27/2024 Progress Notes Patient:?Adrian Pham Provider:?Abdifatah Bunch MD :1955???Age:68 Y???Sex:Male Thomas e:07/27/2024 Address:[address] [place], [place] [phone] Subjective: * Chief Complaints: * ???F/U ER DiverticulitisC/o upper back pain since this summer * HPI: ???Symptom(s):? patient is a 68 yo male here for follow up from recent ER visit, 2 weeks ago had fever to 100 and was constipated. started to get pain. went to er and was better in couple days. took augmentin 10 days/ has upper disc problem below neck in mid back. has a lot of times. comes with activity. * ROS:?General/Constitutional:?Denies?Chills.?Denies?Fatigue.?Denies?Fever.?Denies?Headache.?ENT:?Patient denies?decreased sense of smell , any loss of taste , sore throat.?Denies?Sore throat.?Respiratory:?Denies?Cough.?Denies?Shortness of breath at rest.?Denies?Shortness of breath with exertion.?Gastrointestinal:?Denies?Abdominal pain.?Denies?Constipation.?Denies?Diarrhea.?Denies?Nausea.?Musculoskeletal:?Patient denies?muscle aches.?Peripheral Vascular:?Patient denies?red and blue toes.? * Medical History:? * Surgical History:? * Hospitalization/Major Diagno stic Procedure:? * Medications:?TakingDupixent 300 MG/2ML Solution Prefilled Syringe as directed Subcutaneous Arnuity Ellipta 200 MCG/ACT Aerosol Powder Breath Activated 1 puff Inhalation Once a dayFreeStyle Lite Test 0 Strip use to test blood sugar In Vitro DX:11:42 once a dayFreeStyle Lite 0 Device use to test blood suagr subQ DX:11:42 once a dayColcrys 0.6 MG Tablet 1 tablet Orally dailyGabapentin 300 MG Capsule take 1 capsule by mouth three times daily Orally 3 times per dayTriamcinolone Acetonide 0.5 % Cream 1 application Externally Twice a dayJanumet 50-1000 MG Tablet take 1 tablet by mouth twice daily with meals. Orally Twice a daytraMADol HCl 50 MG Tablet 1 tablet as needed Orally Once a dayMinocycline HCl 50 MG Capsule take one capsule by mouth twice daily Orally Twice a dayPlavix 75 MG Tablet 1 tablet Orally Once a dayOmeprazole 40 MG Capsule Delayed Release take 1 capsule by mouth every day Orally Once a dayDicyclomine HCl 10 MG Capsule take 1 capsule by mouth every day Orally 0nce a dayAtorvastatin Calcium 20 MG Tablet take 1 tablet by mouth every day Orally Once a dayCelecoxib 200 MG Capsule take 1 capsule by mouth every day with food Orally Once a dayAlbuterol Sulfate HFA 108 (90 Base) MCG/ACT Aerosol Solution 1 puff as needed Inhalation every 4 hrsFluticasone Propionate 50 MCG/ACT Suspension instill 1 spray in each nostril once a day Nasally Once a dayTaking Dupixent 300 MG/2ML Solution Prefilled Syringe as directed Subcutaneous Taking Arnuity Ellipta 200 MCG/ACT Aerosol Powder Breath Activated 1 puff Inhalation Once a dayTaking FreeStyle Lite Test 0 Strip use to test blood sugar In Vitro DX:11:42 once a dayTaking FreeStyle Lite 0 Device use to test blood suagr subQ DX:11:42 once a dayTaking Colcrys 0.6 MG Tablet 1 tablet Orally dailyTaking Gabapentin 300 MG Capsule take 1 capsule by mouth three times daily Orally 3 times per dayTaking Triamcinolone Acetonide 0.5 % Cream 1 application Externally Twice a dayTaking Janumet 50-1000 MG Tablet take 1 tablet by mouth twice daily with meals. Orally Twice a dayTaking traMADol HCl 50 MG Tablet 1 tablet as needed Orally Once a dayTaking Minocycline HCl 50 MG Capsule take one capsule by mouth twice daily Orally Twice a dayTaking Plavix 75 MG Tablet 1 tablet Orally Once a dayTaking Omeprazole 40 MG Capsule Delayed Release take 1 capsule by mouth every day Orally Once a dayTaking Dicyclomine HCl 10 MG Capsule take 1 capsule by mouth every day Orally 0nce a dayTaking Atorvastatin Calcium 20 MG Tablet take 1 tablet by mouth every day Orally Once a dayTaking Celecoxib 200 MG Capsule take 1 capsule by mouth every day with food Orally Once a dayTaking Albuterol Sulfate HFA 108 (90 Base) MCG/ACT Aerosol Solution 1 puff as needed Inhalation every 4 hrsTaking Fluticasone Propionate 50 MCG/ACT Suspension instill 1 spray in each nostril once a day Nasally Once a dayNot-Taking/AIZJeqkeybanb-UDF-Dhdofpqn 50-325-40 MG Capsule 1 capsule as needed Orally every 4 hrsIndomethacin 50 MG Capsule 1 capsule with food or milk Orally Three times a dayMedication List reviewed and reconciled with the patientNot-Taking/PRN Elpjwiwdxp-QTG-Qhovwnhj 50-325-40 MG Capsule 1 capsule as needed Orally every 4 hrsNot-Taking/PRN Indomethacin 50 MG Capsule 1 capsule with food or milk Orally Three times a dayMedication List reviewed and reconciled with the patient * Allergies:?Anoro Ellipta: so re sjyes[Allergies Verified] Objective: * Vitals:?Ht: 68.5, Wt:182, BM I:27.27, BP:102/66. * Examination: ???General Examination: ?GENERAL APPEARANCE:?alert, well hydrated, in no distress.?HEAD:?normocephalic.?SKIN:?good turgor.?HEART:?regular rate and rhythm , no murmurs, rubs, gallops.?LUNGS:?no wheezes, rales, rhonchi , good air movement , clear to auscultation bilaterally.? Assessment: * Assessment: 1.?Upper back pain - M54.9 ( Primary)?2.?Acute diverticulitis - K57.92?3.?Gastroesophageal reflux disease without esophagitis - K21.9?4.?Type 2 diabetes mellitus with diabetic polyneuropathy - E11.42? Plan: * Treatment: 2.?Gastroesophageal reflux d isease without esophagitis? Continue Omeprazole Capsule Delayed Release, 40 MG, take 1 capsule by mouth every day, Orally, Once a day.?? Notes: reflux is failry well controlled, will continue current regiment?? 3.?Type 2 diabetes mellitus with diabetic polyneuropathy? Continue Janumet Tablet, 50-1000 MG, take 1 tablet by mouth twice daily with meals., Orally, Twice a day.?? Notes: doing well with good a1c, will continue current regiment?? * Procedure Codes:? * * Sign off status: Completed true * Provider:?Abdifatah Bunch MD Date:?1 09/27/2023 Generated for Abel you/Abbey/eTleonorsmitting on:?09/14/2024 07:17 AM EST History and Physical Notes * HPI (History of Present Illness) Category Sub-Category Detail Notes Category Not es Symptom(s) patient is a 68 yo male here for follow up from recent ER visit, 2 weeks ago had fever to 100 and was constipated. started to get pain. went to er and was better in couple days. took augmentin 10 days/ has upper disc problem below neck in mid back. has a lot of times. comes with activity. Examination Category Sub-Category Detail Notes Category Not es General Examination GENERAL APPEARANCE: alert, w ell hydrated, in no distress HEAD: normocephalic HEART: regular rate and rhy thm , no murmurs, rubs, gallops LUNGS: no wheezes, rales, r honchi , good air movement , clear to auscultation bilaterally SKIN: good turgor Consultation Request Notes Referral Date Referring Provider Referred Provider Not es 07/27/2024 Abdifatah Bunch, [facility] upper back pain
--- OUTSIDE RECORDS SUMMARY | 2024-09-14 07:18 | XMS_ITS ---
Author Organization [facility] Address [address] [place] [id number] Care Team Providers Care Web Marketing Coordinator Name Role Phone Abdifatah Bunch MD Primary Care Provider Natan Morales Unavailable [phone] ALLERGIES No Known Allergies REASON FOR VISIT Patient presents today for a screening colonoscopy MEDICATIONS Medication SIG (Take, Route, Frequency, Duration) Notes Start Date End Date Status traMADol HCl 50 MG 1 tablet as needed O rally every 6 hrs Active Atorvastatin Calcium 20 MG 1 tablet Oral ly Once a day Active Dicyclomine HCl 10 MG 1 capsule Orally Daily Active Gabapentin 300 MG Orally Three times a day Active Omeprazole 20 MG 1 capsule Orally Onc e a day Active Janumet 50-1000 MG Oral for 45 Active Fluticasone Propionate 50 MCG/ACT INSTILL 1 SPRAY IN EACH NOSTRIL EVERY DAY Diagnosis Unavailable Nasal for 60 Active Celecoxib 200 MG Oral for 90 A ctive Minocycline HCl as needed Acti ve SOCIAL HISTORY Sex Assigned At : Social History Observation Description Sex Assigned At Unknown Alcohol Screen Question Answer Notes Did you have a drink containing alcohol in the p ast year? No Points 0 Interpretation Negative PROBLEMS Problem Type ICD Code Onset Dates Problem Status W/U Status Risk SNOMED Code Notes Problem History of adenomatous polyp of colon (Z86.010) Active confirmed [id number] VITAL SIGNS BMI 28.22 kg/m2 03/28/2023 Blood pressure systolic 000 mm Hg 03/28/20 23 Blood pressure diastolic 00 mm Hg 023 Height 68.25 in 03/28/2023 Temperature 97.7 degrees Fahrenheit 03/28/20 23 Weight 187 lbs 03/28/2023 Encounters Encounter Location Date Provider Diagnosis [facility] [address] [place] [address] 03/28/2023 Natan Drummond Encounter for screen ing for malignant neoplasm of colon Z12.11 ; Gastroesophageal reflux disease without esophagitis K21.9 and History of adenomatous polyp of colon Z86.010 ASSESSMENTS Encounter Date Diagnosis Assessment Notes Treatment Notes Treatment Clinical Notes 03/28/2023 Encounter for screening for malignant neoplasm of colon (ICD-10 - Z12.11) Do not take the Janumet the night before nor on the morning of the colonoscopy 03/28/2023 Gastroesophageal reflux disease without esophagitis (ICD-10 - K21.9) 03/28/2023 History of adenomato us polyp of colon (ICD-10 - Z86.010) PLAN OF TREATMENT Medication Medication Name Sig Start Date Stop Date Notes Omeprazole 20 MG 1 capsule Orally Once a day Treatment Notes Assessment Notes Encounter for screening for malignant neoplasm of colon Do not take the Janumet the night before nor on the morning of the colonoscopy Future Test Test Name Order Date COLONOSCOPY 03/28/2023 Next Appt Details Follow Up: prn, Reason: [...]
--- OUTSIDE RECORDS SUMMARY | 2024-09-14 07:18 | XMS_ITS ---
Author Organization [facility] Address [address] [place] [address] Care Team Providers Care Underground Mining Section Foreman Name Role Phone Alivia SANCHEZ, Abdifatah Primary Care Provider Barber Painter Unavailable [phone] Ludivina Jack Unavailable [phone] Allergies Allergen (clinical drug ingredient) Drug/Non Drug Allergy documented on EMR Reaction Allergy Type Onset Date Status metronidazole Flagyl Unknown Drug Allergy Act rigo ticagrelor Brilinta Unknown Drug Allergy Active levofloxacin Levofloxacin Unknown Drug Allergy A ctive metronidazole Metronidazole Unknown Drug Allergy Active ticagrelor Ticagrelor Unknown Drug Allergy Activ e REASON FOR VISIT Foot pain Medications Medication SIG (Take, Route, Frequency, Duration) Notes Start Date End Date Status Extra-Depth Diabetic Shoes with 3 Pair Custom heat-molded multi-density innersoles . 1pair shoes/3sets inserts . . for 1 year 10/27/2012 Not-Taking Colchicine Not-Takin g Colcrys 0.6 MG as directed Orally Not-Taking Neurontin 300 MG 1 capsule Orally Three times a day for 30 days Not-Taking Gabapentin 300 MG 1 capsule Orally Three times a day for 30 day(s) Not-Taking Diabetic Insoles Not -Taking Drysol 20 % as directed Externally Not-Taking metFORMIN HCl 1000 MG Orally Twice a day Not-Taking Keflex 500 MG 1 capsule Orally every 12 hrs for 10 day(s) 01/25/2020 Not-Taking Januvia Not-Taking levoFLOXacin 500 MG 1 tablet Orally Once a day Not-Taking Dicyclomine HCl Not- Taking oxyCODONE HCl PRN for teeth No t-Taking Ticagrelor Not-Takin g predniSONE 20 MG 1 tablet Orally Once a day Not-Taking Anoro Ellipta 62.5-25 MCG/ACT 1 puff Inhalation Once a day Not-Taking traMADol HCl 50 MG Orally PRN A ctive Omeprazole 40 MG 1 capsule 1/2 to 1 hour before morning meal Orally Once a day Active Minocycline HCl 50 MG Orally PRN Active Indomethacin 50 MG 5 ml with food or milk Orally Three times a day Unknown CeleBREX Active Janumet Active Gabapentin 300 MG 1 capsule Orally Three times a day for 30 day(s) 08/22/2015 Active Fluticasone Propionate HFA Active Colchicine 0.6 MG 1 tablet Orally Once a day for 10 days Active Atorvastatin Calcium 20 MG 1 tablet Orally Once a day for 30 day(s) Active Antibiotic for dental apts Not-Taking Arnuity Ellipta Acti ve Dicyclomine HCl 10 MG 2 capsules Orally Three times a day Active Albuterol Active Plavix Not-Taking Gabapentin 300 MG take 1 capsule by mouth three times a day for 30 Not-Taking Social History Tobacco Use: Social History [...] No Vital Signs Height 5ft 8in in 07/24/2024 Weight 180 lbs 07/24/2024 BMI 27.37 kg/m2 07/24/2024 Encounters Encounter Location Date Provider Diagnosis [facility] [address] [place] [address] 07/24/2024 Ludivina Jack Peroneal tendinitis, right leg M76.71 and Type 2 diabetes mellitus with diabetic polyneuropathy E11.42 Assessments Encounter Date Diagnosis (ICD Code) Assessment Notes Treatment Notes Treatment Clinical Notes Section Notes 07/24/2024 Peroneal tendinitis, right leg (ICD-10 - M76.71) 07/24/2024 Type 2 diabetes mellitus with diabetic polyneuropathy (ICD-10 - E11.42) Plan Of Treatment Next Appt Details Follow Up: 1 Year, Reason: Provider Name:Ludivina orozco, 06/04/2025 09:00:00 AM, [address] [place], [address], Progress Notes * Adrian PHAM DDOB:[birth year] (68 yo M)Acc No.[id number]:07/24/2024 Progress Note Patient:?Adrian PHAM Provider:?Ludivina Jack DPM :1955???Age:68 Y???Sex:Male Thomas e:07/24/2024 Address:[address] [place], [place] [id number] Pcp:Abdifatah Bunch MD Subjective: * Chief Complaints: * ???Foot pain * HPI: ???Foot Pain:?Nature:?aching, pulling, throbbing, weakness , tenderness , throbbing , swelling.?Location:?RIGHT , Midfoot , Outside , Great toe joint , LEFT.?Duration:?several months.?Onset:?unknown.?Course:?resolved.?Aggravated:?any pressure, standing, walking.?Treatments:?pt has compliede with use of aso ankle brace daily, cortisone injection x 1?.?Painful Nails:?Pt States Last PCP Visit:?Date:?04/19/2023 * ROS:?General/Constitutional:?Nausea?denies.?Vomiting?denies.?Hunger [...] hand 04/02/2019left knee replacement 05/11/2019Hand operation- left t 2023 * Hospitalization/Major Diagno stic Procedure:?[facility]- Kidney stones, encollitis 09/07[facility]- diverticulitis 03/11,03/2024[facility]- Diverticulitis 07/19/2024 * Family History:?Mother: dece ased, diagnosed with [...] alcohol in the past year??No ?Points?0 ?Interpretation?Negative ???Miscellaneous:?Caffeine: no. ?Children: yes, 2. ?Exercise: yes, walking. ?Marital status: single. ?Occupation: retired/ [employer]. * Medications:?TakingAlbuterol Dicyclomine HCl 10 MG Capsule 2 capsules Orally Three times a day Arnuity Ellipta Atorvastatin Calcium 20 MG Tablet 1 tablet Orally Once a day CeleBREX Colchicine 0.6 MG Tablet 1 tablet Orally Once a day Fluticasone Propionate HFA Gabapentin 300 MG Capsule 1 capsule Orally Three times a day Janumet Minocycline HCl 50 MG Capsule Orally , Notes to Pharmacist: PRNOmeprazole 40 MG Capsule Delayed Release 1 capsule 1/2 to 1 hour before morning meal Orally Once a day traMADol HCl 50 MG Tablet Orally , Notes to Pharmacist: PRNTaking Albuterol Taking Dicyclomine HCl 10 MG Capsule 2 capsules Orally Three times a day Taking Arnuity Ellipta Taking Atorvastatin Calcium 20 MG Tablet 1 tablet Orally Once a day Taking CeleBREX Taking Colchicine 0.6 MG Tablet 1 tablet Orally Once a day Taking Fluticasone Propionate HFA Taking Gabapentin 300 MG Capsule 1 capsule Orally Three times a day Taking Janumet Taking Minocycline HCl 50 MG Capsule Orally , Notes to Pharmacist: PRNTaking Omeprazole 40 MG Capsule Delayed Release 1 capsule 1/2 to 1 hour before morning meal Orally Once a day Taking traMADol HCl 50 MG Tablet Orally , Notes to Pharmacist: PRNNot-Taking/PRNPlavix Antibiotic , Notes to Pharmacist: for dental aptsAnoro Ellipta 62.5-25 MCG/ACT Aerosol Powder Breath Activated 1 puff Inhalation Once a day levoFLOXacin 500 MG Tablet 1 tablet Orally Once a day predniSONE 20 MG Tablet 1 tablet Orally Once a day Ticagrelor oxyCODONE HCl , Notes to Pharmacist: PRN for teethDicyclomine HCl Januvia Keflex 500 MG Capsule 1 capsule Orally every 12 hrs metFORMIN HCl 1000 MG Tablet Orally Twice a day Drysol 20 % Solution as directed Externally Diabetic Insoles Extra-Depth Diabetic Shoes with 3 Pair Custom heat-molded multi-density innersoles . . 1pair shoes/3sets inserts . . Gabapentin 300 MG Capsule 1 capsule Orally Three times a day Neurontin 300 MG Capsule 1 capsule Orally Three times a day Colcrys 0.6 MG Tablet as directed Orally Colchicine Gabapentin 300 MG Capsule take 1 capsule by mouth three times a day Not-Taking/PRN Plavix Not-Taking/PRN Antibiotic , Notes to Pharmacist: for dental aptsNot-Taking/PRN Anoro Ellipta 62.5-25 MCG/ACT Aerosol Powder Breath Activated 1 puff Inhalation Once a day Not-Taking/PRN levoFLOXacin 500 MG Tablet 1 tablet Orally Once a day Not-Taking/PRN predniSONE 20 MG Tablet 1 tablet Orally Once a day Not-Taking/PRN Ticagrelor Not-Taking/PRN oxyCODONE HCl , Notes to Pharmacist: PRN for teethNot-Taking/PRN Dicyclomine HCl Not-Taking/PRN Januvia Not-Taking/PRN Keflex 500 MG Capsule 1 capsule Orally every 12 hrs Not-Taking/PRN metFORMIN HCl 1000 MG Tablet Orally Twice a day Not-Taking/PRN Drysol 20 % Solution as directed Externally Not-Taking/PRN Diabetic Insoles Not-Taking/PRN Extra-Depth Diabetic Shoes with 3 Pair Custom heat-molded multi-density innersoles . . 1pair shoes/3sets inserts . . Not-Taking/PRN Gabapentin 300 MG Capsule 1 capsule Orally Three times a day Not-Taking/PRN Neurontin 300 MG Capsule 1 capsule Orally Three times a day Not-Taking/PRN Colcrys 0.6 MG Tablet as directed Orally Not-Taking/PRN Colchicine Not-Taking/PRN Gabapentin 300 MG Capsule take 1 capsule by mouth three times a day UnknownIndomethacin 50 MG Capsule 5 ml with food or milk Orally Three times a day Medication List reviewed and reconciled with the patientUnknown Indomethacin 50 MG Capsule 5 ml with food or milk Orally Three times a day Medication List reviewed and reconciled with the patient * Allergies:?TicagrelorBrilint aMetronidazoleLevofloxacinFlagylyes[Allergies Verified] Objective: * Vitals:?Ht: 5ft 8in, Wt:180, BMI:27.37, Shoe size: 9, BS: not taken, Ht-cm: 172.72 cm, Wt-k.65 kg. * ???Past Orders: ???Lab:HEMOGLOBIN A1C (GLYCO HEMOGLOBIN) (Order Date - 01/27/2024) (Collection Date & Time - 01/27/2024 12:19 PM) ? Value Reference Range ?HEMOGLOBIN A1C % (HH) 6.0 * Examination: ???Neurological: ?SENSORY:?Neurological exam demonstrates reduced sharp/dull pin prick discrimination reduced light touch sensation reduced vibration sensation reduced proprioception sensation in a stocking fashion 5.07 monofilament test performed at plantar aspects of 5 varied sites per foot shows sensation plantar aspects absent at Forefoot B/L.?Vascular: ?DP PULSES(B):?2/4, B/L.?PT PULSES(B):?1/4, B/L.?Dermatologic: ?SKIN FINDINGS:?Skin exam reveals normal color, texture, elasticity, and turgor. There are no masses, nor excrescences. The interspaces are clear, B/L.?Orthopedic: ?MUSCLE STRENGTH:?5/5 all groups in a symmetrical fashion, B/L.?TENDONITIS:?No , Pain on palpation, inflammation, or fusiform swelling to, Peroneal Complex, insertion, RIGHT.?Ophthalmology Referral: ?DIABETES EYE EXAM?General Examination: ?GENERAL APPEARANCE:?Reveals a pleasant, alert, well nourished, well developed, well hydrated individual, who demonstrates proper attention to hygene/body habitus, and is in no acute distress.?ORIENTED:?person, place, and time.?FOOT EXAM:? Assessment: * Assessment: 1.?Peroneal tendinitis, righ t leg - M76.71 (Primary)???Specify :Acute problem, Stable???2.?Type 2 diabetes mellitus with diabetic polyneuropathy - E11.42??? Plan: * Treatment: * Procedure Codes:? * Preventive Medicine:? ??Counseling:?Discussion:?-13: Office or other outpatient visit for the evaluation and management of an established patient, which required a medically appropriate history and/or examination and LOW level of DECISION MAKING for: 1 STABLE ACUTE UNCOMPLICATED PROBLEM, 2 OR MORE MINOR PROBLEMS, OR 1 STABLE CHRONIC PROBLEM, THAT POSE(S) A LOW RISK FOR MORBIDITY/MORTALITY. The visit on the day of the [...] have encouraged the patient to call the office, Patients podiatric issue has improved, they should call the office with any future issues or concerns, pt can transition out of the ankle brace and continue with supportive shoes.?Shoe Gear Counseling:?The patient and I reviewed the [...] patient verbally confirmed to understanding the information discussed, The patient deferred recommended diabetic shoes with heat moled inserts.? * Follow Up:?1 Year * Images: * Sign off status: Completed true * Provider:China Jack, DPM Date:?01/2024 Generated for [employer] avelino/[employer]/eTransmitting on:?09/14/2024 07:17 AM EST History and Physical Notes * HPI (History of Present Illness) Category Sub-Category Detail Notes Category Not es Painful Nails Pt States Last PCP Visit: Date:: 04/19/2023 Foot Pain Nature: aching, pulling, throbbing, weakness , tenderness , throbbing , swelling Location: RIGHT , Midfoot , Ou tside , Great toe joint , LEFT Duration: several months Onset: unknown Course: resolved Aggravated: any pressure, standi ng, walking Treatments: pt has compliede wit h use of aso ankle brace daily, cortisone injection x 1 Examination Category Sub-Category Detail Notes Category Not es Neurological SENSORY: Neurological exa m demonstrates reduced sharp/dull pin prick discrimination reduced light touch sensation reduced vibration sensation reduced proprioception sensation in a stocking fashion 5.07 monofilament test performed at plantar aspects of 5 varied sites per foot shows sensation plantar aspects absent at Forefoot B/L Dermatologic SKIN FINDINGS: Skin exam reveal s normal color, texture, elasticity, and turgor. There are no masses, nor excrescences. The interspaces are clear, B/L Orthopedic TENDONITIS: No , Pain on pal pation, inflammation, or fusiform swelling to, Peroneal Complex, insertion, RIGHT MUSCLE STRENGTH: 5/5 all groups in a symmetrical fashion, B/L General Examination GENERAL APPEARANCE: Reveals a pleasant, [...]
== END 2024-09-14 07:15 | disposition home or self-care (01) ==
LOC: HO.CT 07:14
PROVIDERS: PCP Internal Medicine; Visit Provider Internal Medicine
DX: R91.8 Other nonspecific abnormal finding of lung field (principal)
CPT/HCPCS: 71250

== ENCOUNTER → 2024-09-14 07:16 | Outpatient (BNV) | payer MEDICARE, SELFPAY | PROVIDERS: PCP Internal Medicine; Visit Provider Radiology Diagnostic Radiology | DX: R91.1 Solitary pulmonary nodule (principal) | CPT/HCPCS: 71250 ==

== ENCOUNTER 2024-11-05 10:34 | Outpatient (REF) | payer MEDICARE, SELFPAY ==
[2024-11-05 10:47] LABS: MANUAL DIFF FLAG NO
[2024-11-05 11:37] LABS: Appearance Urine Clear; Basophils Percent Auto 0.3 % (0-2); Color Urine Yellow; Eosinophils Absolute Auto 0.3 X10*3/uL (0.0-0.4); Glucose Urine UA Negative (Negative); Hematocrit 38.6 % (42.0-52.0); Hemoglobin 12.3 g/dl (14.0-18.0); Imm Gran Abs Auto 0.02 X10*3/uL (0.00-0.03); Imm Gran Pct Auto 0.3 % (0.0-0.4); Leukocyte Esterase Urine Negative (Negative); Lymphocytes Absolute Auto 1.6 X10*3/uL (1.2-4.9); Lymphocytes Percent Auto 25.8 % (20-40); Mean Corpuscular HGB Conc 31.9 g/dl (31.0-36.0); Mean Corpuscular Hemoglobin 26.9 pg (27.0-33.0); Mean Corpuscular Volume 84.3 fL (80.0-98.0); Mean Platelet Volume 11.7 fL (9.4-12.4); Monocytes Absolute Auto 0.6 X10*3/uL (0.1-1.2); Monocytes Percent Auto 10.6 % (2-11); Neutrophils Absolute Auto 3.5 x10*3/uL (2.0-8.3); Nitrite Urine Negative (Negative); PH 5.5 (5.0-9.0); Platelet Count 182 X10*3/uL (160-400); Red Blood Count 4.58 X10*6/uL (4.60-5.80); Red Cell Distribution Width 13.7 % (11.0-16.0); Specific Gravity - Urine 1.015 (1.005-1.025); Urine Blood Negative (Negative); Urine Ketones Negative (Negative); Urine Protein Negative (Neg-Trace)
[2024-11-05 11:41] LABS: Bacteria Urine None Seen (None Seen); Hyaline Casts Urine 0-2 /LPF (0-2); RBC Urine 0-2 /HPF (0-2); Squamous Epithelial Cell Urine 0-2 /HPF (0-2); WBC Urine 0-5 /HPF (0-5)
[2024-11-05 11:50] LABS: Estimated Average Glucose 131 mg/dL; Hemoglobin A1c % 6.2 % (<6.0)
[2024-11-05 11:51] LABS: Alanine Aminotransferase 14 U/L (0-40); Alkaline Phosphatase 66 U/L (39-117); Anion Gap 11 (12-20); Aspartate Amino Transferase 23 U/L (5-37); Blood Urea Nitrogen 9 mg/dL (9-16); Calcium 8.7 mg/dL (8.4-10.2); Carbon Dioxide 25 mmol/L (22-29); Chloride 109 mmol/L (96-108); Cholesterol 123 mg/dL (<200); Estimated Glomerular Filt Rate > 60; Glucose Fasting 135 mg/dL (60-99); HDL Cholesterol 49 mg/dL (>40); LDL Cholesterol Calculated 56 mg/dL (<100); Potassium 3.9 mmol/L (3.3-5.1); Sodium 141 mmol/L (135-145); Total Protein 6.6 g/dL (6.5-8.0); Triglycerides 94 mg/dL (<150)
[2024-11-05 12:08] LABS: PSA,Total (Free>4and<10) 0.36 ng/mL (0.00-4.00)
[2024-11-05 12:15] LABS: Creatinine Urine 130.48 mg/dL; Microalbumin Urine < 5.0 mg/L
== END 2024-11-05 10:35 | disposition home or self-care (01) ==
LOC: HO.LNP 10:34
PROVIDERS: Visit Provider Internal Medicine
DX: E11.42 Type 2 diabetes mellitus with diabetic polyneuropathy (principal); E78.00 Pure hypercholesterolemia, unspecified; Z12.5 Encounter for screening for malignant neoplasm of prostate
CPT/HCPCS: 80053; 80061; 81001; 82043; 82570; 83036; 84153; 85025

== ENCOUNTER → 2024-12-17 08:46 | Outpatient (REF) | payer MEDICARE, SELFPAY ==
--- OUTSIDE RECORDS SUMMARY | 2024-12-17 09:07 | XMS_ITS ---
Author Organization [facility] Address [address] [place] [address] Care Team Providers Care Supervisor Cigarette Making Department Name Role Phone Alivia SANCHEZ, Abdifatah Primary Care Provider Barber Painter Unavailable [phone] Ludivina Jack Unavailable [phone] Allergies Allergen (clinical drug ingredient) Drug/Non Drug [...] 07/24/2024 Encounters Encounter Location Date Provider Diagnosis [facility] [address] [place] [address] 07/24/2024 Ludivina Jack Peroneal tendinitis, right leg [...] Provider Name:Ludivina orozco, 06/04/2025 09:00:00 AM, [address] [place], [phone], Progress Notes * Adrian PHAM DDOB:[birth year] (68 yo M)Acc No.[id number]:07/24/2024 Progress Note Patient:?Adrian PHAM Provider:?Ludivina Jack DPM :1955???Age:68 Y???Sex:Male Thomas e:07/24/2024 Address:[address] [place], [place] [phone] Pcp:Abdifatah Bunch MD Subjective: * Chief Complaints: [...] ?Marital status: single. ?Occupation: retired/ [employer]. * Medications:?TakingAlbuterol Dicyclomine HCl 10 MG Capsule [...] absent at [place] B/L.?Vascular: ?DP PULSES(B):?2/4, B/L.?PT PULSES(B):?/4, B/L.?Dermatologic: ?SKIN FINDINGS:?Skin exam reveals normal color, texture, elasticity, and turgor. There are no masses, nor excrescences. The interspaces are clear, B/L.?Orthopedic: ?MUSCLE STRENGTH:?5/5 all groups in a symmetrical fashion, B/L.?TENDONITIS:?No , Pain on palpation, inflammation, or fusiform swelling to, Peroneal Complex, insertion, RIGHT.?Ophthalmology Referral: ?DIABETES EYE EXAM?Diabetic Retinopathy Screening:?Yes 10/2021 ?Findings of Diabetic Eye Exam:?no retinopathy 07/2018?General Examination: ?GENERAL APPEARANCE:?Reveals a pleasant, alert, well nourished, well developed, well hydrated individual, who demonstrates proper attention to hygene/body habitus, and is in no acute distress.?ORIENTED:?person, place, and time.?FOOT EXAM:?Lower Extremity Neurological Exam performed:?Yes ?Visual exam of foot performed:?Yes ?Date?06/04/2024 ?Sensory testing performed:?sensations diminished ?Pedal pulse taking performed:?2+??? Assessment: * Assessment: 1.?Peroneal tendinitis, righ t [...] * Sign off status: Completed true * Provider:?Ludivina Jack, LUIS Date:?01/2024 Generated for Abel you/Abbey/eTransmitting on:?12/17/2024 09:07 AM EDT History and Physical Notes * [...]
--- OUTSIDE RECORDS SUMMARY | 2024-12-17 09:07 | XMS_ITS | Patient Health Record ---
Author Organization [facility] Address [address] [place] [address] Care Team Providers Care Glass Mechanic Name Role Phone Alivia SANCHEZ, Abdifatah Primary Care Provider Barber Painter Unavailable [phone] Ludivina Jack Unavailable [phone] Allergies Allergen (clinical drug ingredient) Drug/Non Drug Allergy documented on EMR Reaction Allergy Type Onset Date Status metronidazole Flagyl Unknown Drug Allergy Act rigo ticagrelor Brilinta Unknown Drug Allergy Active levofloxacin Levofloxacin Unknown Drug Allergy A ctive metronidazole Metronidazole Unknown Drug Allergy Active ticagrelor Ticagrelor Unknown Drug Allergy Activ e Results Component Value Reference Range Notes HEMOGLOBIN A1C (GLYCOHEMOGLO BIN) Reviewed date:02/28/2024 12:20:24 PM Interpretation: Performing Lab: Notes/Report: HEMOGLOBIN A1C % (HH) 6.0 Reason For Referral No Information Medications Medication SIG (Take, Route, Frequency, Duration) Notes Start Date End Date Status CeleBREX Active Atorvastatin Calcium 20 MG 1 tablet Orally Once a day for 30 day(s) Active Antibiotic for dental apts Not-Taking Extra-Depth Diabetic Shoes with 3 Pair Custom heat-molded multi-density innersoles . 1pair shoes/3sets inserts . . for 1 year 10/27/2012 Not-Taking Arnuity Ellipta Acti ve Diabetic Insoles Not -Taking Dicyclomine HCl 10 MG 2 capsules Orally Three times a day Active Drysol 20 % as directed Externally Not-Taking Minocycline HCl 50 MG Orally PRN Active Indomethacin 50 MG 5 ml with food or milk Orally Three times a day Unknown Janumet Active Gabapentin 300 MG 1 capsule Orally Three times a day for 30 day(s) 08/22/2015 Active Gabapentin 300 MG take 1 capsule by mouth three times a day for 30 Not-Taking Fluticasone Propionate HFA Active Colchicine Not-Takin g Colchicine 0.6 MG 1 tablet Orally Once a day for 10 days Active Colcrys 0.6 MG as directed Orally Not-Taking Neurontin 300 MG 1 capsule Orally Three times a day for 30 days Not-Taking Gabapentin 300 MG 1 capsule Orally Three times a day for 30 day(s) Not-Taking levoFLOXacin 500 MG 1 tablet Orally Once a day Not-Taking Anoro Ellipta 62.5-25 MCG/ACT 1 puff Inhalation Once a day Not-Taking traMADol HCl 50 MG Orally PRN A ctive Omeprazole 40 MG 1 capsule 1/2 to 1 hour before morning meal Orally Once a day Active Albuterol Active metFORMIN HCl 1000 MG Orally Twice a day Not-Taking Plavix Not-Taking Keflex 500 MG 1 capsule Orally every 12 hrs for 10 day(s) 01/25/2020 Not-Taking Januvia Not-Taking Dicyclomine HCl Not- Taking oxyCODONE HCl PRN for teeth No t-Taking Ticagrelor Not-Takin g predniSONE 20 MG 1 tablet Orally Once a day Not-Taking Immunizations Vaccine Route Administration Date Status Comme nts COVID-19 Adilson & Adilson/Amanda Unknown 2020 A dministered Influenza Unknown 06/04/2016 Administered Influenza Unknown 06/03/2018 Administered Influenza Unknown 04/29/2019 Administered Influenza Unknown 04/18/2020 Administered Influenza Unknown 04/25/2020 Administered Influenza Unknown 04/27/2021 Administered Influenza Unknown 04/19/2023 Administered Pneumococcal Unknown 06/03/2013 Administered Social History Tobacco Use: Social History Observation [...] Are you an other tobacco user? No Problems Problem Type SNOMED Code ICD Code Onset Dates Problem Status W/U Status Risk Notes Problem Acquired hallux valgus (15518078) Hallux valgus (acquired), left foot (M20.12) Active confirmed Problem Polyneuropathy due to type 2 diabetes mellitus (801394284) Type 2 diabetes mellitus with diabetic polyneuropathy (E11.42) Active confirmed Problem Primary gout (64016852) Idiopathic gout, left ankle and foot (M10.072) Active confirmed Problem Acquired cavus deformity of right foot (disorder) (1534546463116353 ) Cavus deformity of right foot (Q66.71) Active confirmed Vital Signs Height 5ft 8in in 07/24/2024 Weight 180 lbs 07/24/2024 BMI 27.37 kg/m2 07/24/2024 Procedures Procedure Date Ordered Date Performed Result Body Sit e , J0702- INJECT TENDON ORIGIN/INSERT 06/04/2024 N/A Encounters Encounter Location Date Provider Diagnosis [address] [address] 02/28/2024 Ludivina Perica Pain in right foot M79.671 and Peroneal tendinitis, right leg M76.[address] [address] 06/04/2024 Barber Saenz Pain in right foot M79.671 ; Tinea unguium B35.1 ; Type 2 diabetes mellitus with diabetic polyneuropathy E11.42 ; Neuralgia and neuritis, unspecified M79.2 ; Pain in right toe(s) M79.674 ; Pain in left toe(s) M79.675 ; Hallux valgus (acquired), left foot M20.12 ; Xerosis cutis L85.3 ; Ingrowing nail L60.0 and Right peroneal tendinosis M67.[address] [address] 07/24/2024 Ludivina Perica Peroneal tendinitis, right leg M76.71 and Type 2 diabetes mellitus with diabetic polyneuropathy E11.[address] [address] 02/27/2024 Barber Saenz Assessments Encounter Date Diagnosis (ICD Code) Assessment Notes Treatment Notes Treatment Clinical Notes Section Notes 02/28/2024 Pain in right foot (ICD-10 - M79.671) 02/28/2024 Peroneal tendinitis, right leg (ICD-10 - M76.71) 06/04/2024 Tinea unguium (ICD-10 - B35.1) 06/04/2024 Pain in right foot (ICD-10 - M79.671) 07/24/2024 Peroneal tendinitis, right leg (ICD-10 - M76.71) 07/24/2024 Type 2 diabetes mellitus with diabetic polyneuropathy (ICD-10 - E11.42) 06/04/2024 Type 2 diabetes mellitus with diabetic [...] Treatment Pending Test Test Name Order Date X ray : Foot, right 2V 11/04/2013 X ray : Foot, right 2V 12/18/2013 X ray : Foot, right 2V 01/13/2014 X ray : Foot, right 3V 02/28/2024 82857-UZICUCA NAIL, 1-5 07/21/2018 07260-FOVZVCH NAIL, 1-5 08/06/2016 56828-WVIGOZG NAIL, 1-5 08/05/2017 83377-JXTKOJG NAIL, 1-5 01/20/2018 72667- Debride <25 sq cm 08/23/2014, J0702- INJECT TENDON ORIGIN/INSER T 06/04/2024 99679-WJXI SKIN LESIONS, OVER 4 05/31/20 21 42408-IHRS SKIN LESIONS, OVER 4 07/29/20 13 90240-QCAV SKIN LESIONS, OVER 4 10/29/19 14 40155-YSJR SKIN LESIONS, 2 TO 4 09/17/19 12 81718-ZAYN SKIN LESIONS, 2 TO 4 10/28/19 13 77005-XWOY SKIN LESIONS, 2 TO 4 01/27/20 13 86635-DGOX SKIN LESIONS, 2 TO 4 05/06/20 13 69234-ZYDL SKIN LESIONS, 2 TO 4 08/05/20 17 18256-MQIW SKIN LESIONS, 2 TO 4 01/21/20 18 80999-OMTQ SKIN LESIONS, 2 TO 4 02/05/20 17 44294-IMDC SKIN LESIONS, 2 TO 4 08/23/19 15 75405-SHGG SKIN LESIONS, 2 TO 4 02/17/20 15 65367-KOVT SKIN LESIONS, 2 TO 4 08/22/19 16 26869-MEJC SKIN LESIONS, 2 TO 4 02/13/20 16 95751-WMEF SKIN LESIONS, 2 TO 4 08/06/20 16 55232-FPSY SKIN LESIONS, 2 TO 4 11/25/19 21 47932-RTSB SKIN LESIONS, 2 TO 4 10/19/19 20 01701-JDBD SKIN LESIONS, 2 TO 4 05/09/20 20 66235-PBVH SKIN LESIONS, 2 TO 4 01/20/20 19 16396-GDPB SKIN LESIONS, 2 TO 4 04/22/20 19 50242-BWXI SKIN LESIONS, 2 TO 4 07/20/20 19 46166-YIXT SKIN LESIONS, 2 TO 4 07/21/20 18 40146-BNMY NAIL(S) 08/06/2016 71088-MCQX NAIL(S) 02/13/2016 67247-CMHB NAIL(S) 08/22/2015 78540-MVCA NAIL(S) 02/16/2015 80053-KMTF NAIL(S) 02/04/2017 58650-HKBK NAIL(S) 08/05/2017 54793-RXFU NAIL(S) 01/20/2018 17767-QOOW NAIL(S) 05/06/2013 63879-ZWSQ NAIL(S) 07/29/2013 80390-GUBJ NAIL(S) 01/26/2013 67578-GWVV NAIL(S) 10/27/2012 75153-DQAQ NAIL(S) 04/28/2012 40054-DFWL NAIL(S) 10/28/2013 02336-VLAB NAIL(S) 08/23/2014 T9549-TGKALXHI DYSTROPHIC NAILS ANY # G7294-XBBBPHWV DYSTROPHIC NAILS ANY # Q4376-AWZAUGQX DYSTROPHIC NAILS ANY # J7169-MRXFWRXA DYSTROPHIC NAILS ANY # N6692-DBXMFULH DYSTROPHIC NAILS ANY # H1489-VPYGRKJI DYSTROPHIC NAILS ANY # Z9986-MXIUNGIX DYSTROPHIC NAILS ANY # A2406-TUWJYKWP DYSTROPHIC NAILS ANY # 29915, J0702- Neuroma/Injection 09/17/19 12 Next Appt Details Provider Name:Ludivina orozco, 06/04/2025 09:00:00 AM, [address] [place], [address], Insurance Providers Payer Name Payer Address Payer Phone Subscriber Number Group Number Insured Name Patient Relationship to Insured Coverage Start Date Coverage End Date Medicare National [employer]t [employer] [address] [facility] [place] [address] [id number] Adrian Galicia Self - patient is the insured 9 [employer] [address] [place] [address] [id number] Adrian Galicia Self - patient is the insured Medical (General) History Medical History History ICD Code diabetic (controlled by oral hypoglycemi cs) mumps measles hypertension Gout chicken pox reflux Rosacea Hypercholesterolemia Gastroesophageal reflux disease (GERD) Prostate conditions Prostate Irregular covid-19 Cataracts Surgical History Surgery Date(Month/Year) bunionectomy 2010 hand/wrist 2010 knee surgery, right 1997 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
--- OUTSIDE RECORDS SUMMARY | 2024-12-17 09:07 | XMS_ITS ---
Author Organization [facility] Address [address] [place] [address] Care Team Providers Care Stoner Hand Name Role Phone Alivia SANCHEZ, Abdifatah Primary Care Provider Barber Painter Unavailable [phone] Allergies No Known Allergies REASON FOR VISIT [...] Ordered Date Performed Result Body Sit e 27942, J0702- INJECT TENDON ORIGIN/INSERT 06/04/2024 N/A Encounters Encounter Location Date Provider Diagnosis [facility] [address] [id number] 06/04/2024 Barber Saenz Pain in right foot [...] Reason: Provider Name:Ludivina orozco, 06/04/2025 09:00:00 AM, [address] [place] [address], [phone], Procedure Notes * Category Sub-Category Detail [...] * Adrian PHAM DDOB:[birth year] (68 yo M)Acc No.[id number]:06/04/2024 Progress Note Patient:Adrian Aviles Provider:?Barber Saenz DPM :1955???Age:68 Y???Sex:Male Thomas e:06/04/2024 Address:[address] [place], [place] [id number] Pcp:Abdifatah Bunch MD Subjective: * Chief Complaints: [...] Cramps/ Resting?denies.?Muscle cramps / walking?denies.?Generalized aches and pains?admits.?Weakness?denies.?Integ.:?Jcakson?denies.?Scars?denies.?Corns/calluses?denies.?Ingrown nails?denies.?Painful nails?denies.?Open Sores?denies.?Rashes?denies.?Neurologic:?Difficulty sleeping?denies.?Brain disorder?denies.?Numbness?denies.?Balance trouble?denies.?Confusion?denies.?Fainting/blackouts?denies.?Tingling?denies.?Tr emors?denies.?Patient [...] ?Marital status: single. ?Occupation: retired/ [employer]. * Medications:?TakingPlavix Al buterol Dicyclomine HCl 10 [...] 1st MPJ incompletely reducable.?Ophthalmology Referral: ?DIABETES EYE EXAM?Diabetic Retinopathy Screening:?Yes 10/2021 [...] ?Pedal pulse taking performed:?2+??? Assessment: * Assessment: 1.?Tinea unguium - B35.1?2.? Pain in right foot - M79.671 (Primary)?3.?Type 2 diabetes mellitus with diabetic polyneuropathy - E11.42?4.?Neuralgia and neuritis, unspecified - M79.2?5.?Pain in right toe(s) - M79.674?6.?Pain in left toe(s) - M79.675?7.?Hallux valgus (acquired), left foot - M20.12?8.?Xerosis cutis - L85.3?9.?Ingrowing nail - L60.0?10.?Right peroneal tendinosis - M67.88? Plan: * Treatment: * Procedures:?Injection:?Tendon Origin/insertion?75569, J0702 Injection - Tendon Origin/Insertion w/ mixture [...] injections may be necessary, RIGHT 5th mt base.? * Procedure Codes:?72907 INJEC T TENDON ORIGIN/INSERT, Modifiers: XS J0702 [...] as directed.?Physical Therapy:?Discussed the potential short and longterm benefits of physical therapy including pain relief, [...] Saenz DPM Date:? 024 Generated for Abel you/Abbey/eTransmitting on:?12/17/2024 09:07 AM [...]
--- OUTSIDE RECORDS SUMMARY | 2024-12-17 09:08 | XMS_ITS | Encounter Summary ---
Author Organization [facility] Address [address] [place] [address] Care Team Providers Care Primary Operator Name Role Phone Unknown Primary Care Provider [phone] Abdifatah Bunch MD Primary Care Provider [phone] Encounter Details Date Type Department Care Team (Late st Contact Info) Description 10/22/2023 Scanned Document [address] [place] [phone] Radiology, Scan Social History Tobacco Use Types Packs/Day Years Used Date Smoking Tobacco: Never Assessed Sex and Gender Information Value Date Recorded Sex Assigned at Male 11/13/2023 8:42 AM EDT Legal Sex Male 3:16 PM EST Gender Identity Male 10/18/2023 3:58 PM EST Sexual Orientation Heterosexual (straight) 11/12 8:42 AM EDT documented as of this encounter Plan of Treatment Not on file documented as of this encounter Procedures Procedure Name Priority Date/Time Associated Diagnosis Comments HX OUTSIDE ORDER 11/05/2023 HX OUTSIDE ORDER 10/22/2023 documented in this encounter Results * HX OUTSIDE ORDER (11/05/2023) us Scan Radiology HX AMB PROCEDURES Final Result * HX OUTSIDE ORDER (10/22/2023) us Scan Radiology HX AMB PROCEDURES Final Result documented in this encounter Visit Diagnoses Not on filedocumented in this encounter Care Teams Primary Operator Relationship Specialty Start Date End Date Unknown Unknow Provider Address PCP - General 10/18/23 11/12/23 Abdifatah Bunch MD [address] [place] [address] [place] [address] PCP - General Internal Medicine 11/13/23 documented as of this encounter
--- OUTSIDE RECORDS SUMMARY | 2024-12-17 09:08 | XMS_ITS | Clinical Summary ---
Author Organization [facility] Address [address] [place] [address] Care Team Providers Care Soot Blower Name Role Phone Abdifatah Bunch MD Primary Care Provider [phone] Allergies Active Allergy Reactions Criticality Noted Date [...] 1955 DTaP/Tdap/Td Vaccines (1 - Tdap) 1972 Colonoscopy 1998 Pneumococcal Vaccines 50+ (1 of 1 - PCV) 11/02/2003 Zoster (Shingles) Vaccine (1 of 2) 11/02/2003 RSV Vaccine 60 years and older and Patients (1 - Risk 60-74 years 1-dose series) 2013 Influenza Vaccine 03/19/2024 06/04/2016, , 05/21/2013, Additional history exists COVID-19 Vaccine ( season) 2024 06/19/2021, 2020 Hepatitis B Vaccines Aged Out No long er eligible based on patient's age to complete this topic Insurance MEDICARE PART A & B [facility] Care Teams Soot Blower Relationship Specialty Start Date End Date Abdifatah Bunch MD [address] [place] [address] [place] [address] PCP - General Internal Medicine 11/13/23
== END ==
LOC: HO.CARD 08:46
PROVIDERS: PCP Internal Medicine; Visit Provider Internal Medicine
DX: I25.10 Atherosclerotic heart disease of native coronary artery without angina pectoris (principal)
CPT/HCPCS: 93306

== ENCOUNTER → 2024-12-17 08:48 | Outpatient (BNV) | payer MEDICARE, SELFPAY | PROVIDERS: PCP Internal Medicine; Visit Provider Internal Medicine Cardiovascular Disease | DX: I25.10 Atherosclerotic heart disease of native coronary artery without angina pectoris (principal); I42.8 Other cardiomyopathies; I77.810 Thoracic aortic ectasia | CPT/HCPCS: 93306 ==

== ENCOUNTER 2025-03-11 15:04 | Outpatient (AMB) | payer MEDICARE, SELFPAY ==
--- OUTSIDE RECORDS SUMMARY | 2024-11-12 04:30 | XMS_ITS ---
Author Organization Abdifatah Bunch MD Address [address] [place] [phone] Care Team Providers Care City Secretary Name Role Phone Abdifatah Bunch Primary Care [...] 8 hrs for 30 days 07/27/2024 Active Gdyukikdxy-PKF-Omdvzdmp 50-325-40 MG 1 capsule as needed Orally every 4 hrs 09/17/2019 Not-Taking Indomethacin 50 MG 1 capsule with food or milk Orally Three times a day for 10 days 03/23/2016 Not-Taking traMADol HCl 50 MG 1 tablet as needed Orally Once a day for 30 days 11/12/2024 Active Celecoxib 200 MG take 1 capsule by mo [facility] every day with food Orally [...] 40 MG take 1 capsule by mo [facility] every day Orally Once a day for 90 days Active Minocycline HCl 50 MG take one capsule b y mouth twice daily Orally Twice a day for 45 days Active Atorvastatin Calcium 20 MG take 1 tablet by mouth every day Orally Once a day for 90 days Active Gabapentin 300 MG take 1 capsule by mo [facility] three times daily Orally 3 times per day for 90 days Active Dupixent 300 MG/2ML as directed Subcutaneous Active Janumet 50-1000 MG take 1 tablet [facility] twice [facility] with meals. Orally [...] Location Date Provider Diagnosis Abdifatah Bunch MD [address] [place] [address] [address] [place], [place] [phone] 11/12/2024 Abdifatah Bunch Lumbar back pain M52 [...] Name:Abdifatah Diallo ier, 05/10/2025 07:00:00 AM, [address], Suite [facility], [place], [place], [phone], Provider Name:Abdifatah Diallo ier, 05/17/2025 09:00:00 AM, [address] [facility], Suite [facility], [place], [place], [phone], Provider Name:Abdifatah Diallo ier, 11/05/2025 07:15:00 AM, [address] [place] [address] Drive, Suite [facility], [place], [place], [phone], Provider Name:Abdifatah Diallo ier, 11/15/2025 09:30:00 AM, [address] [place] [address], Suite [facility], [place], [place], [phone], Progress Notes * Adrian PHAM DDOB:[birth year] (69 yo M)Acc No.[id number]:11/12/2024 Patient: Francisca Adrian SIMMONS Provider: Margarito Bunch MD :1955 A ge:69 Y S ex:Male Date:11/12/2024 Address:[address] [place], [place] [phone] Subjective: * Chief Complaints: * R eview [...] * Family History: F ather: 83 yrs, [place]. M other: 68 yrs, Sepsis. 1 brother(s) , 1 sister(s) . 2 son(s) . . 1 brother [place] fATHER- SEPSIS MOTHER- [place] aLCOHOLISM BROTHER NO MENTAL ILLNESS IN THE [...] mouth every day Orally 0nce a day Smwnoukkid-RMF-Yqtfnvah 50-325-40 MG Capsule 1 capsule as needed Orally every 4 hrs Indomethacin 50 MG Capsule 1 capsule with food or milk Orally Three times a day Medication List reviewed and reconciled with the patientNot-Taking/PRN Dicyclomine HCl 10 MG Capsule take 1 capsule by mouth every day Orally 0nce a day Not-Taking/PRN Fxeqetpovu-XBR-Dzggnwud 50-325-40 MG Capsule 1 capsule as needed [...] mg/dL Urine Blood Negative Negative - Specific [place] - Urine 1.015 1.005-1.025 - Urine Protein [...] Auto 0.000 0.0-0.012 - X10*3/uL L ab:Comprehensive [place]. Panel Fast (Order Date - 11/05/2024) (Collection [...] 11/12/2024 Generated for Abel you/Abbey/Caroitting on: 0 03/11/2025 03:09 PM EDT History and Physical Notes * [...]
--- OUTSIDE RECORDS SUMMARY | 2025-03-11 15:09 | XMS_ITS | Clinical Summary ---
Author Organization [facility] Address [address] [place] [address] Care Team Providers Care Bridge Club Manager Name Role Phone Abdifatah Bunch MD Primary Care Provider [phone] Allergies Active Allergy Reactions Criticality Noted Date [...] topic Insurance MEDICARE PART A & B [facility] Care Teams Bridge Club Manager Relationship Specialty Start Date End Date Abdifatah Bunch MD [address] [place] [address] [place] [address] PCP - General Internal Medicine 11/13/23
--- OUTSIDE RECORDS SUMMARY | 2025-03-11 15:09 | XMS_ITS | Patient Health Record ---
Author Organization [facility] Address [address] [place] [address] Care Team Providers Care Chef Kitchen Manager Name Role Phone Abdifatah Bunch MD Primary Care Provider Natan Morales [phone] Allergies Allergen (clinical drug ingredient) Drug/Non Drug [...] ff Reviewed date:03/31/2024 09:26:34 AM Interpretation: Performing Lab:[facility], [address] [place] [phone] Notes/Report: White Blood Count 6.9 4.8-10.8 X10*3/uL [...] Gel Reviewed date:03/31/2024 09:26:19 AM Interpretation: Performing Lab:[facility], [address] [place] [phone] Notes/Report: Hold Green Gel See Note Specimen [...] Problem Status W/U Status Risk Notes Problem [id number] Encounter for screening for malignant neoplasm of colon (Z12.11) Active confirmed Problem 905929414 History of adenomatous polyp of colon (Z86.010) Active confirmed Problem Diverticular disease of colon (729248031) Diverticulosis of large intestine without perforation or abscess without bleeding (K57.30) Active confirmed Problem Screening for malignant neoplasm of rectum (658152699) Encounter for screening for malignant neoplasm of rectum (Z12.12) Active confirmed Problem Dysphagia (03510369) Dysphagia (R13.10) Active confirmed Problem 812432636 Gastroesophageal reflux disease without esophagitis (K21.9) Active confirmed Problem 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) Gastric polyps (K31.7) Active confirmed Problem Diverticulitis of colon (906684651) Diverticulitis of colon (K57.32) Active confirmed Problem Gastritis (7208887) Gastritis (K29.70) Active confirmed Vital Signs Temperature 97.3 degrees Fahrenheit 06/03/2024 Blood pressure diastolic 00 mm Hg 06/03/2024 Height 68.25 in 06/03/2024 Blood pressure systolic 000 mm Hg 06/03/2024 Weight 186 lb 4 oz lbs 06/03/2024 BMI 28.11 kg/m2 06/03/2024 Encounters Encounter Location Date Provider Diagnosis [facility] [address] [facility] [address] [place] [phone] 06/03/2024 Natan Drummond Gastroesophageal ref lux disease [...] Date MEDICARE OF [place] [address] [place] [address] [id number] ADRIAN LEMUS Self - patient is the insured [employer] ATT[employer] CLAIMS [address] [place] [address] [phone] [id number] ADRIAN LEMUS Self - patient is the insured Medical (General) History Medical History History ICD Code GERD-neg EGD in 11/2005 except for a smal l HH Arthritis--cortisone shots for his knees Plantar fasciitis Denies NM,CVA,Lung disease,renal disease Diabetes mellitus--neuropathy Neg. colonoscopy in [...] surgeries X 3-- right--trigger fing er Foot gorbakcgi-wcikm-Tepmdy, [facility] uroma 2 back surgeries-- lower disc x 2 Bilateral knee replacements 2018 Hospitalization History Reason Date(Month/Year)
--- OUTSIDE RECORDS SUMMARY | 2025-03-11 15:09 | XMS_ITS | Patient Health Record ---
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 Name Role Phone Alivia SANCHEZ, Abdifatah Primary Care Provider Barber Painter Unavailable [phone] Ludivina Jack Unavailable [phone] Allergies Allergen (clinical drug ingredient) Drug/Non Drug [...] Administration Date Status Comme nts Influenza Unknown 06/04/2016 Administered Influenza Unknown 06/03/2018 Administered Influenza Unknown 04/29/2019 Administered Influenza Unknown 04/18/2020 Administered Influenza Unknown 04/25/2020 Administered Influenza Unknown 04/27/2021 Administered Influenza Unknown 04/19/2023 Administered Pneumococcal Unknown 06/03/2013 Administered COVID-19 Adilson & Adilson/Amanda Unknown 2020 A dministered Social History Tobacco Use: Social History Observation [...] Status Risk Notes Problem Acquired hallux valgus (28397770) Hallux valgus (acquired), left foot (M20.12) Active confirmed Problem Type 2 diabetes mellitus with diabetic polyneuropathy (E11.42) Active confirmed Problem Primary gout (40967582) Idiopathic gout, left ankle and foot (M10.072) Active confirmed Problem Acquired cavus deformity of right foot (disorder) ([id number] 9102) Cavus deformity of right foot (Q66.71) Active confirmed Vital Signs Height 5ft 8in in 07/24/2024 Weight 180 lbs 07/24/2024 BMI 27.37 kg/m2 07/24/2024 Procedures Procedure Date Ordered Date Performed Result Body Sit e 43530, J0702- INJECT TENDON ORIGIN/INSERT 06/04/2024 N/A Encounters Encounter Location Date Provider Diagnosis [facility] [address] 06/04/2024 Barber Saenz Pain in right foot M79.671 ; Tinea unguium B35.1 ; Type 2 diabetes mellitus with diabetic polyneuropathy E11.42 ; Neuralgia and neuritis, unspecified M79.2 ; Pain in right toe(s) M79.674 ; Pain in left toe(s) M79.675 ; Hallux valgus (acquired), left foot M20.12 ; Xerosis cutis L85.3 ; Ingrowing nail L60.0 and Right peroneal tendinosis M67.88 [facility] [address] 07/24/2024 Ludivina Jack Peroneal tendinitis, right leg M76.71 and Type 2 diabetes mellitus with diabetic polyneuropathy E11.42 Assessments Encounter Date Diagnosis (ICD Code) Assessment Notes Treatment Notes Treatment Clinical Notes Section Notes 06/04/2024 Tinea unguium (ICD-10 - B35.1) 06/04/2024 [...] X ray : Foot, right 3V 02/28/2024 34527-YJTYRPP NAIL, 1-5 07/21/2018 97267-EASMJML NAIL, 1-5 08/06/2016 32613-DLHFMNZ NAIL, 1-5 08/05/2017 42679-WNXACNM NAIL, 1-5 01/20/2018 48943- Debride <25 sq cm 08/23/201427467, J0702- INJECT TENDON ORIGIN/INSER T 06/04/2024 33601-NXLE SKIN LESIONS, OVER 4 05/31/20 21 92734-EOMZ SKIN LESIONS, OVER 4 07/29/20 13 20510-JKFQ SKIN LESIONS, OVER 4 10/29/19 14 67161-RYSJ SKIN LESIONS, 2 TO 4 09/17/19 12 20809-LRYV SKIN LESIONS, 2 TO 4 10/28/19 13 75979-NLNM SKIN LESIONS, 2 TO 4 01/27/20 13 80102-BZBP SKIN LESIONS, 2 TO 4 05/06/20 13 89901-UVQZ SKIN LESIONS, 2 TO 4 08/05/20 17 64804-KCSG SKIN LESIONS, 2 TO 4 01/21/20 18 40407-ZYHD SKIN LESIONS, 2 TO 4 02/05/20 17 96840-WICC SKIN LESIONS, 2 TO 4 08/23/19 15 26287-QHXD SKIN LESIONS, 2 TO 4 02/17/20 15 69127-ALLM SKIN LESIONS, 2 TO 4 08/22/19 16 62853-APDV SKIN LESIONS, 2 TO 4 02/13/20 16 31779-MPPI SKIN LESIONS, 2 TO 4 08/06/20 16 86859-EGBB SKIN LESIONS, 2 TO 4 11/25/19 21 34534-GDUN SKIN LESIONS, 2 TO 4 10/19/19 20 70392-SFQG SKIN LESIONS, 2 TO 4 05/09/20 20 69193-TJWP SKIN LESIONS, 2 TO 4 01/20/20 19 34734-FQDV SKIN LESIONS, 2 TO 4 04/22/20 19 93228-DBLO SKIN LESIONS, 2 TO 4 07/20/20 19 56776-TFFF SKIN LESIONS, 2 TO 4 07/21/20 18 23169-TURJ NAIL(S) 08/06/2016 89873-XLHE NAIL(S) 02/13/2016 13072-KLMS NAIL(S) 08/22/2015 90837-YKGA NAIL(S) 02/16/2015 82895-MKTF NAIL(S) 02/04/2017 20898-DIET NAIL(S) 08/05/2017 66961-IMFQ NAIL(S) 01/20/2018 54734-GVYT NAIL(S) 05/06/2013 66833-HYNJ NAIL(S) 07/29/2013 54278-DNOE NAIL(S) 01/26/2013 18382-KLLY NAIL(S) 10/27/2012 84378-HUNO NAIL(S) 04/28/2012 13906-EANQ NAIL(S) 10/28/2013 20409-OYDO NAIL(S) 08/23/2014 A4836-WMCHMYDC DYSTROPHIC NAILS ANY # O6818-COONWJLD DYSTROPHIC NAILS ANY # C8107-QOWKDHRP DYSTROPHIC NAILS ANY # O3352-LTIRICZU DYSTROPHIC NAILS ANY # P5736-ORMEKUCL DYSTROPHIC NAILS ANY # J4139-DNZBJEWX DYSTROPHIC NAILS ANY # P2623-PFUIWUFK DYSTROPHIC NAILS ANY # R2372-CSUPYGFD DYSTROPHIC NAILS ANY # 53649, J0702- Neuroma/Injection 09/17/19 12 Next Appt Details Provider Name:Ludivina orozco, 06/04/2025 09:00:00 AM, [address] [place] [address], [place], [address], Insurance Providers Payer Name Payer Address Payer Phone Subscriber Number Group Number Insured Name Patient Relationship to Insured Coverage Start Date Coverage End Date Medicare National [employer] S[employer] [address] [place] [address] [id number] Adrian Galicia Self - patient is the insured 9 [employer] [address] [place] [address] [id number] Adrian Galicia Self - patient is the insured Medical (General) History Medical History History ICD Code diabetic (controlled by oral hypoglycemi cs) mumps measles hypertension Gout chicken pox reflux Rosacea Hypercholesterolemia Gastroesophageal reflux disease (GERD) Prostate conditions Prostate Irregular covid-19 Cataracts Surgical History Surgery Date(Month/Year) bunionectomy 2009 hand/wrist 2009 knee surgery, right 1997 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
[2025-03-11 15:12] VITALS: BP 122/66; PULSE 86; BMI 27.8
--- NOTE | 2025-03-11 15:12 | A.OFFVIS_ITS ---
Vital Signs 03/11/25 15:12 Height 5 ft 6 in Weight 171 lb 15.369 oz BMI 27.8 BP 122/66 Blood Pressure Location Lt brachial Position Sitting Pulse 86 Pulse Source Monitor Intake Visit Reasons: 8 mth f/up echo r/s 01-27-25 Allergies umeclidinium (From Anoro Ellipta) Adverse Reaction (Severe, Verified 07/14/24 19:14) Unknown vilanterol (From Anoro Ellipta) Adverse Reaction (Severe, Verified 07/14/24 19:14) Unknown levofloxacin (From Levaquin) Adverse Reaction (Verified 07/14/24 19:15) Gastrointestinal Upset metronidazole (From Flagyl) Adverse Reaction (Verified 07/14/24 19:15) Gastrointestinal Upset ticagrelor Adverse Reaction (Verified 07/14/24 19:14) Unknown Brilinta Adverse Reaction (Severe, Uncoded 07/14/24 19:14) SOB Medication List - Last Reconciled 03/11/25 by Canelo Fletcher MD albuterol sulfate 90 mcg/actuation 1 puff inhalation Q4H PRN aspirin (Adult Aspirin Regimen) 81 mg PO DAILY atorvastatin 20 mg PO DAILY celecoxib 200 mg PO DAILY dupilumab (Dupixent) 300 mg (2 mL) subcut Q2W 28 days fluticasone furoate 200 mcg/actuation (Arnuity Ellipta) 1 inh PO DAILY fluticasone propionate 50 mcg/actuation 1 spray intranasal DAILY gabapentin 300 mg PO TID omeprazole 40 mg PO DAILY@0630 ondansetron 4 mg PO Q8H PRN oxycodone 10 mg PO Q6H PRN sitagliptin phos-metformin 50-1,000 mg (Janumet) 1 tab PO BID triamcinolone acetonide 0.5% 1 appl topical BID PRN HPI Comments Details: Adrian returns for follow-up. To recall, he was having shortness of breath and cough that led to further workup. He underwent a comprehensive cardiac workup including echocardiogram, coronary CTA and cardiac catheterization and RCA stenting. Overall, he states he feels quite well. No new concerns. He has stopped taking antiplatelet drugs including aspirin. Seems that he has been having some nosebleeds. [facility] Medical History Trigger finger Atherosclerotic cardiovascular disease Renal stones Sigmoid diverticulitis Sciatica Neuropathy Plantar fasciitis Arthritis GERD (gastroesophageal reflux disease) Gout Diabetes Surgical History History of cardiac cath History of foot surgery History of colonoscopy Previous back surgery History of total left knee replacement History of total right knee replacement Family History Mother No problems noted. Father No problems noted. Social History Household Members: None Housing: House Do you presently have visiting nurse or other home services: No Alcohol intake: never Patient Tobacco Use Status: Former Tobacco user Tobacco use type: Cigarette Second Hand Smoke Exposure: Yes Advance Directives Date on File: 04/01/24 service: No Current occupational status: retired 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 Review of Systems Const Denies weakness ENT Denies dizziness Card Denies chest pain, Denies chest pain with activity, Denies syncope, Denies rapid heart rate, Denies pedal edema, Denies edema, Denies leg edema, Denies lightheadedness, Denies palpitations, Denies dyspnea, Denies dyspnea on exertion and Denies orthopnea Resp Denies cough, Denies dyspnea and Denies dyspnea on exertion GI Denies hematochezia and Denies change in stool character Musc Denies abnormal gait, Denies muscle cramps, Denies muscle weakness, Denies numbness, Denies radiating pain into limb and Denies tingling Neuro Denies abnormal gait, Denies dizziness, Denies syncope, Denies numbness, Denies tingling and Denies weakness Endo Denies palpitations Physical Exam Vital Signs: Last Vital Signs Pulse 86 03/11/25 15:12 BP 122/66 03/11/25 15:12 BMI result Body Mass Index 27.8 Const General: comfortable and no acute distress Orientation/consciousness: patient oriented x3 HEENT Other: Unremarkable Head: Yes normal to inspection Neck Neck: Yes normal visual inspection Chest Chest palpation & inspection: normal inspection of the chest Resp Auscultation: clear to auscultation bilaterally Cardio Palpation: normal PMI Heart sounds: S1 normal heart sound present, S2 normal heart sound present, no gallops, no murmurs and no rubs GI Palpation (GI): Soft to palpation Back/Spine/Pelvis Other: unremarkable Skin General skin exam: no rashes or lesions noted Neuro General: patient oriented x3 Extrem General: Yes normal to inspection Psych Mental Status: mental status grossly normal Office Procedures EKG Details: EKG with underlying sinus rhythm at 86/Min; nonspecific ST[place] changes; [place]. [address]-Kqfismjkxnrqikjoo, Complete Assessment & Plan Assessment & Plan (1) Atherosclerotic cardiovascular disease: Code(s): I25.10 - Atherosclerotic heart disease of [place] coronary artery without angina pectoris Category: Medical (2) Epistaxis: Code(s): R04.0 - Epistaxis Category: Medical Plan Cardiac studies reviewed. In the most recent echocardiogram, LVEF is 50-55%. Basal inferior hypokinesis and basal inferolateral akinesis. In the cardiac catheterization, mid RCA 70% stenosis; status post PCI. Mild irregularities in the left circumflex. No significant disease in the LAD. Normal LVEDP. Overall, stable coronary artery disease. Due to history of PCI, recommend that he goes back on low-dose aspirin. If he gets recurrent nosebleeds, then needs to see ENT. We discussed about this today. Otherwise, continue statins. Last LDL cholesterol 56 mg/dL and triglycerides 94 mg/dL. Discussion Notes I discussed with the patient the importance of continuing baby aspirin therapy due to his coronary artery stent placement. We reviewed the potential risks of bleeding and the need to monitor for any adverse symptoms. I also advised on the use of a humidifier to help with dry air conditions that may be contributing to his nosebleeds. If this continues to persist, then recommended ENT consultation. Patient was informed and verbally consented to the use of an ambient scribe for clinic note documentation during this visit. Total time spent including review of data, counseling, documentation, coordination of care-31 minutes. Coding Level of Care Code Est Pt Level 4 (85025) Diagnoses Atherosclerotic cardiovascular disease I25.10 Epistaxis R04.0 CPT Codes EKG - CPT: 49673-Yyyirceeqftnuvuqd, Complete ([id number])
== END 2025-03-11 15:29 | disposition home or self-care (01) ==
LOC: HO.HCS 15:04
PROVIDERS: PCP Internal Medicine; Visit Provider Internal Medicine
DX: I25.10 Atherosclerotic heart disease of native coronary artery without angina pectoris (principal); R04.0 Epistaxis; R94.31 Abnormal electrocardiogram [ECG] [EKG]
CPT/HCPCS: 93010; 99214

== ENCOUNTER → 2025-03-11 15:04 | Outpatient (BNVA) | payer MEDICARE, SELFPAY | PROVIDERS: PCP Internal Medicine; Visit Provider Internal Medicine | DX: I25.10 Atherosclerotic heart disease of native coronary artery without angina pectoris (principal); Z98.61 Coronary angioplasty status; Z79.82 Long term (current) use of aspirin | CPT/HCPCS: 93005; 99212 ==

== ENCOUNTER 2025-03-22 06:16 | Day surgery (SDC) | payer MEDICARE, SELFPAY ==
--- OUTSIDE RECORDS SUMMARY | 2024-11-12 04:30 | XMS_ITS ---
Author Organization Abdifatah Bunch MD Address [address] [place] [phone] Care Team Providers Care Asset Liability Analyst Name Role Phone Abdifatah Bunch Primary Care [...] 8 hrs for 30 days 07/27/2024 Active Ikgvjtenic-ZRL-Sdikchnv 50-325-40 MG 1 capsule as needed Orally every 4 hrs 09/17/2019 Not-Taking Indomethacin 50 MG 1 capsule with food or milk Orally Three times a day for 10 days 03/23/2016 Not-Taking traMADol HCl 50 MG 1 tablet as needed Orally Once a day for 30 days 11/12/2024 Active Celecoxib 200 MG take 1 capsule by mo [facility] every day with food Orally Once a [...] 40 MG take 1 capsule by mo [facility] every day Orally Once a day for 90 days Active Minocycline HCl 50 MG take one capsule b y mouth twice daily Orally Twice a day for 45 days Active Atorvastatin Calcium 20 MG take 1 tablet by mouth every day Orally Once a day for 90 days Active Gabapentin 300 MG take 1 capsule by mo [facility] three times daily Orally 3 times per day for 90 days Active Dupixent 300 MG/2ML as directed Subcutaneous Active Janumet 50-1000 MG take 1 tablet by [facility] twice [facility] with meals. Orally Twice [...] Location Date Provider Diagnosis Abdifatah Bunch MD [address] [place] [address] [address] [place], [place] [phone] 11/12/2024 Abdifatah Bunch Lumbar back pain M52 [...] Name:Abdifatah Diallo ier, 05/10/2025 07:00:00 AM, [address] [facility] [address], Suite [facility], [place], [place], [phone], Provider Name:Abdifatah Diallo ier, 05/17/2025 09:00:00 AM, [address] [facility], Suite [facility], [place], [place], [phone], Provider Name:Abdifatah Diallo ier, 11/05/2025 07:15:00 AM, [address] [place] [address] Drive, Suite [facility], [place], [place], [phone], Provider Name:Abdifatah Diallo ier, 11/15/2025 09:30:00 AM, [address] [place] [address], Suite [facility], [place], [place], [phone], Progress Notes * Adrian PHAM DDOB:[birth year] (69 yo M)Acc No.[id number]:11/12/2024 Patient: Francisca Adrian SIMMONS Provider: Margarito Bunch MD :1955 A ge:69 Y S ex:Male Date:11/12/2024 Address:[address] [place], [place] [phone] Subjective: * Chief Complaints: * R eview [...] * Family History: F ather: 83 yrs, [place]. M other: 68 yrs, Sepsis. 1 brother(s) , 1 sister(s) . 2 son(s) . . 1 brother [place] fATHER- SEPSIS MOTHER- [place] aLCOHOLISM BROTHER NO MENTAL ILLNESS IN THE [...] mouth every day Orally 0nce a day Bvtoiayded-TAI-Cgxdttau 50-325-40 MG Capsule 1 capsule as needed Orally every 4 hrs Indomethacin 50 MG Capsule 1 capsule with food or milk Orally Three times a day Medication List reviewed and reconciled with the patientNot-Taking/PRN Dicyclomine HCl 10 MG Capsule take 1 capsule by mouth every day Orally 0nce a day Not-Taking/PRN Jjulmjrjyp-YWA-Ydbxvdkv 50-325-40 MG Capsule 1 capsule as needed [...] mg/dL Urine Blood Negative Negative - Specific [place] - Urine 1.015 1.005-1.025 - Urine Protein [...] Auto 0.000 0.0-0.012 - X10*3/uL L ab:Comprehensive [place]. Panel Fast (Order Date - 11/05/2024) (Collection [...] 11/12/2024 Generated for Abel you/Abbey/Caroitting on: 0 02/17/2025 10:29 AM EDT History and Physical Notes * HPI [...]
--- OUTSIDE RECORDS SUMMARY | 2025-02-17 10:29 | XMS_ITS | Patient Health Record ---
Author Organization [facility] Address [address] [place] [address] Care Team Providers Care Policy Change Clerk Name Role Phone Alivia SANCHEZ, Abdifatah Primary Care Provider Barber Painter Unavailable [phone] Ludivina Jack Unavailable [phone] Allergies Allergen (clinical drug ingredient) Drug/Non Drug Allergy documented on EMR Reaction Allergy Type Onset Date Status metronidazole Flagyl Unknown Drug Allergy Act rigo ticagrelor Brilinta Unknown Drug Allergy Active levofloxacin Levofloxacin Unknown Drug Allergy A ctive metronidazole Metronidazole Unknown Drug Allergy Active ticagrelor Ticagrelor Unknown Drug Allergy Activ e Reason For Referral No Information Medications Medication SIG (Take, Route, Frequency, Duration) Notes Start Date End Date Status CeleBREX Active Atorvastatin Calcium 20 MG 1 tablet Orally Once a day; Duration: 30 day(s) Active Antibiotic for dental apts Not-Taking Extra-Depth Diabetic Shoes with 3 Pair Custom heat-molded multi-density innersoles . 1pair shoes/3sets inserts . .; Duration: 1 year 10/27/2012 Not-Taking Arnuity Ellipta Acti [...] MG 1 capsule Orally Three times a day; Duration: 30 day(s) 08/22/2015 Active Gabapentin 300 MG take 1 capsule by mouth three times a day; Duration: 30 Not-Taking Fluticasone Propionate HFA Active Colchicine Not-Takin g Colchicine 0.6 MG 1 tablet Orally Once a day; Duration: 10 days Active Colcrys 0.6 MG as directed Orally Not-Taking Neurontin 300 MG 1 capsule Orally Three times a day; Duration: 30 days Not-Taking Gabapentin 300 MG 1 capsule Orally Three times a day; Duration: 30 day(s) Not-Taking levoFLOXacin 500 MG 1 [...] 500 MG 1 capsule Orally every 12 hrs; Duration: 10 day(s) 01/25/2020 Not-Taking Januvia Not-Taking Dicyclomine HCl Not- Taking oxyCODONE HCl PRN for teeth No t-Taking Ticagrelor Not-Takin g predniSONE 20 MG 1 tablet Orally Once a day Not-Taking Immunizations Vaccine Route Administration Date Status Comme nts COVID-19 [employer] Adilson/Amanda Unknown 2020 A dministered Influenza [...] Status Risk Notes Problem Acquired hallux valgus (99585351) Hallux valgus (acquired), left foot (M20.12) Active confirmed Problem Type 2 diabetes mellitus with diabetic polyneuropathy (E11.42) Active confirmed Problem Primary gout (21416394) Idiopathic gout, left ankle and foot (M10.072) Active confirmed Problem Acquired cavus deformity of right foot (disorder) (846643018451 9102) Cavus deformity of right foot (Q66.71) Active confirmed Vital Signs Height 5ft 8in in 07/24/2024 Weight 180 lbs 07/24/2024 BMI 27.37 kg/m2 07/24/2024 Procedures Procedure Date Ordered Date Performed Result Body Sit e 41987, J0702- INJECT TENDON ORIGIN/INSERT 06/04/2024 N/A Encounters Encounter Location Date Provider Diagnosis [address] [address] 02/28/2024 Ludivina Perica Pain in right foot M79.671 and Peroneal tendinitis, right leg M76.[address] [address] 06/04/2024 Barber Saenz Pain in right foot M79.671 ; Tinea unguium B35.1 ; Type 2 diabetes mellitus with diabetic polyneuropathy E11.42 ; Neuralgia and neuritis, unspecified M79.2 ; Pain in right toe(s) M79.674 ; Pain in left toe(s) M79.675 ; Hallux valgus (acquired), left foot M20.12 ; Xerosis cutis L85.3 ; Ingrowing nail L60.0 and Right peroneal tendinosis M67.[address] [address] 07/24/2024 Ludivina Perica Peroneal tendinitis, right leg M76.71 and Type 2 diabetes mellitus with diabetic polyneuropathy E11.[address] [address] 02/27/2024 Barber Saenz Assessments Encounter Date Diagnosis [...] X ray : Foot, right 3V 02/28/2024 85208-ESCHIOD NAIL, 1-5 07/21/2018 46832-RPVNROM NAIL, 1-5 08/06/2016 75342-ARNSQAV NAIL, 1-5 08/05/2017 53892-ZYSEIGV NAIL, 1-5 01/20/2018 79142- Debride <25 sq cm 08/23/2014, J0702- INJECT TENDON ORIGIN/INSER T 06/04/2024 59128-CORL SKIN LESIONS, OVER 4 05/31/20 21 56046-FLZH SKIN LESIONS, OVER 4 07/29/20 13 64099-XNSC SKIN LESIONS, OVER 4 10/29/19 14 99192-NJKM SKIN LESIONS, 2 TO 4 09/17/19 12 64176-BUQF SKIN LESIONS, 2 TO 4 10/28/19 13 66689-XJMW SKIN LESIONS, 2 TO 4 01/27/20 13 11101-AGQR SKIN LESIONS, 2 TO 4 05/06/20 13 89920-EPXK SKIN LESIONS, 2 TO 4 08/05/20 17 63839-SBFW SKIN LESIONS, 2 TO 4 01/21/20 18 56103-NMBD SKIN LESIONS, 2 TO 4 02/05/20 17 54351-UWOT SKIN LESIONS, 2 TO 4 08/23/19 15 15723-LENL SKIN LESIONS, 2 TO 4 02/17/20 15 32043-RQWK SKIN LESIONS, 2 TO 4 08/22/19 16 49874-EDYZ SKIN LESIONS, 2 TO 4 02/13/20 16 59499-DGEU SKIN LESIONS, 2 TO 4 08/06/20 16 53511-JIZJ SKIN LESIONS, 2 TO 4 11/25/19 21 17802-KSHE SKIN LESIONS, 2 TO 4 10/19/19 20 40686-LWDR SKIN LESIONS, 2 TO 4 05/09/20 20 60529-TRYE SKIN LESIONS, 2 TO 4 01/20/20 19 90467-CYHP SKIN LESIONS, 2 TO 4 04/22/20 19 87903-SBIR SKIN LESIONS, 2 TO 4 07/20/20 19 59169-UGQN SKIN LESIONS, 2 TO 4 07/21/20 18 39817-OGVU NAIL(S) 08/06/2016 22848-GRZY NAIL(S) 02/13/2016 16704-GCQY NAIL(S) 08/22/2015 36085-WJTV NAIL(S) 02/16/2015 30733-PKSH NAIL(S) 02/04/2017 95788-BVJF NAIL(S) 08/05/2017 31407-YKUP NAIL(S) 01/20/2018 56143-OWFP NAIL(S) 05/06/2013 81609-LAGA NAIL(S) 07/29/2013 23789-IJWB NAIL(S) 01/26/2013 26845-XKMI NAIL(S) 10/27/2012 84804-WKGO NAIL(S) 04/28/2012 01356-FSVD NAIL(S) 10/28/2013 47743-ILYH NAIL(S) 08/23/2014 A3940-TFMTLWSG DYSTROPHIC NAILS ANY # G0612-OVXAZUQN DYSTROPHIC NAILS ANY # E2486-FDQOUITL DYSTROPHIC NAILS ANY # P7734-ITNMZPRO DYSTROPHIC NAILS ANY # I2785-ATRAJBFC DYSTROPHIC NAILS ANY # R2980-BBQALYAI DYSTROPHIC NAILS ANY # B6054-QUSEBXVT DYSTROPHIC NAILS ANY # G6002-LENUXSKY DYSTROPHIC NAILS ANY # 20966, J0702- Neuroma/Injection 09/17/19 12 Next Appt Details Provider Name:Ludivina Orozco Soco orozco, 06/04/2025 09:00:00 AM, [address] [facility], [place], [address], Insurance Providers Payer Name Payer Address Payer Phone Subscriber Number Group Number Insured Name Patient Relationship to Insured Coverage Start Date Coverage End Date Medicare [facility] [employer] [address] [place] [address] [id number] Adrian Galicia Self - patient is the insured 9 [employer] [address] [place] [address] [id number] Adrian Galicia Self - patient is the [...] 03/07 Stent 2023 [place] History Reason Date(Month/Year[place] [facility] [place] [facility] [place] [facility]- Kidney stones, encollitis 09/07
--- OUTSIDE RECORDS SUMMARY | 2025-02-17 10:30 | XMS_ITS | Patient Health Record ---
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 Name Role Phone Abdifatah Bunch MD Primary Care Provider Natan Morales [phone] Allergies Allergen (clinical drug ingredient) Drug/Non Drug Allergy documented on EMR Reaction Allergy Type Onset Date Status ticagrelor Ticagrelor Unknown Drug Allergy Activ e metronidazole metroNIDAZOLE Unknown Drug Allergy Active levofloxacin levoFLOXacin Unknown Drug Allergy A ctive ticagrelor Brilinta Unknown Drug Allergy Active metronidazole Flagyl Unknown Drug Allergy Act rigo Results Component Value Reference Range Notes Complete Blood Count Auto Di ff Reviewed date:03/31/2024 09:26:34 AM Interpretation: Performing Lab:[facility], [address] [place] [id number] Notes/Report: White Blood Count 6.9 4.8-10.8 X10*3/uL [...] Gel Reviewed date:03/31/2024 09:26:19 AM Interpretation: Performing Lab:[facility], [address] [place] [id number] Notes/Report: Hold Green Gel See Note Specimen held untested for 24 hours; Call to request Chemistry testing. Reason For Referral No Information Medications Medication [...] 10 MG 1 capsule Orally Daily Active Immunizations Vaccine Route Administration Date Status Comme nts Influenza Unknown 05/20/2024 Administered Social History Alcohol Screen Question Answer Notes Did you have a drink containing alcohol in the p ast year? No Points 0 Interpretation Negative Section Notes: Nonsmoker; no sig alcohol Nonsmoker; no sig alcohol Nonsmoker; no sig alcohol Problems Problem Type SNOMED Code ICD Code Onset Dates Problem Status W/U Status Risk Notes Problem 553565111 Encounter for screening for malignant neoplasm of colon (Z12.11) Active confirmed Problem 812593272 History of adenomatous polyp of colon (Z86.010) Active confirmed Problem Diverticular disease of colon (608693689) Diverticulosis of large intestine without perforation or abscess without bleeding (K57.30) Active confirmed Problem Screening for malignant neoplasm of rectum (802073388) Encounter for screening for malignant neoplasm of rectum (Z12.12) Active confirmed Problem Dysphagia (17881712) Dysphagia (R13.10) Active confirmed Problem 716960672 Gastroesophageal reflux disease without esophagitis (K21.9) Active confirmed Problem Benign neoplasm of stomach (58106834) Gastric polyps (K31.7) Active confirmed Problem Diverticulitis of colon (591011733) Diverticulitis of colon (K57.32) Active confirmed Problem Gastritis (2564217) Gastritis (K29.70) Active confirmed Vital Signs Temperature 97.3 degrees Fahrenheit 06/03/2024 Blood pressure diastolic 00 mm Hg 06/03/2024 Height 68.25 in 06/03/2024 Blood pressure systolic 000 mm Hg 06/03/2024 Weight 186 lb 4 oz lbs 06/03/2024 BMI 28.11 kg/m2 06/03/2024 Encounters Encounter Location Date Provider Diagnosis [facility] [address] [facility] [address] [place] [phone] 06/03/2024 Natan Drummond Gastroesophageal ref lux disease without esophagitis K21.9 ; Encounter for screening for malignant neoplasm of colon Z12.11 ; History of adenomatous polyp of colon Z86.010 ; Diverticulosis of large intestine without perforation or abscess without bleeding K57.30 ; Diverticulitis of colon K57.32 and Dysphagia R13.10 Assessments Encounter Date Diagnosis (ICD Code) Assessment Notes Treatment Notes Treatment Clinical Notes Section Notes 06/03/2024 Encounter for screening for malignant neoplasm of colon (ICD-10 - Z12.11) Repeat colonoscopy in 2027 Overall, Adrian presently appears well. His diverticulitis has remained asymptomatic since the episodes over the summer. We did review the potential for these episodes to recur unpredictably. I did advise him that he should certainly call if this happens and try to get on antibiotics sooner, rather than later. I did advise him to certainly go to the ER develops any significant pain with associated fever, vomiting, or other significant symptoms. We did review the potential for surgical intervention if these episodes continue to recur and be problematic. I did advise him to stay on a healthy and high-fiber diet with plenty of fluids so as to avoid constipation. In regard to his previous dysphagia this seems to be stable on his current regimen of the omeprazole 40 mg. We did review his previous endoscopy in March. I do suspect he has a combination of some reflux and esophageal spasm contributing to the dysphagia and therefore I would keep him on the current higher dose of his PPI. I did advise him that certainly if dysphagia becomes problematic he should contact me and we can always perform a repeat endoscopy with dilation, but also consider having him undergo esophageal motility testing. I did advise him the need for a followup screening colonoscopy in 2027 given his prior history of tubular adenomas and his last colonoscopy being in 2022. At this point if things otherwise remain stable with his diverticulitis, gastroesophageal reflux, and dysphagia, I advised Adrian to see me in the interim on a p.r.n. basis. Adrian was comfortable with this plan. Thank you again for allowing me to participate in Adrian's care. I shall continue to keep you advised of his progress. 06/03/2024 Gastroesophageal reflux disease without esophagitis (ICD-10 - K21.9) Call me if the swallowing worsens Overall, Adrian presently appears well. His diverticulitis has remained asymptomatic since the episodes over the summer. We did review the potential for these episodes to recur unpredictably. I did advise him that he should certainly call if this happens and try to get on antibiotics sooner, rather than later. I did advise him to certainly go to the ER develops any significant pain with associated fever, vomiting, or other significant symptoms. We did review the potential for surgical intervention if these episodes continue to recur and be problematic. I did advise him to stay on a healthy and high-fiber diet with plenty of fluids so as to avoid constipation. In regard to his previous dysphagia this seems to be stable on his current regimen of the omeprazole 40 mg. We did review his previous endoscopy in March. I do suspect he has a combination of some reflux and esophageal spasm contributing to the dysphagia and therefore I would keep him on the current higher dose of his PPI. I did advise him that certainly if dysphagia becomes problematic he should contact me and we can always perform a repeat endoscopy with dilation, but also consider having him undergo esophageal motility testing. I did advise him the need for a followup screening colonoscopy in 2027 given his prior history of tubular adenomas and his last colonoscopy being in 2022. At this point if things otherwise remain stable with his diverticulitis, gastroesophageal reflux, and dysphagia, I advised Adrian to see me in the interim on a p.r.n. basis. Adrian was comfortable with this plan. Thank you again for allowing me to participate in Adrian's care. I shall continue to keep you advised of his progress. 06/03/2024 History of adenomatous polyp of colon (ICD-10 - Z86.010) Overall, Adrian presently appears well. His diverticulitis has remained asymptomatic since the episodes over the summer. We did review the potential for these episodes to recur unpredictably. I did advise him that he should certainly call if this happens and try to get on antibiotics sooner, rather than later. I did advise him to certainly go to the ER develops any significant pain with associated fever, vomiting, or other significant symptoms. We did review the potential for surgical intervention if these episodes continue to recur and be problematic. I did advise him to stay on a healthy and high-fiber diet with plenty of fluids so as to avoid constipation. In regard to his previous dysphagia this seems to be stable on his current regimen of the omeprazole 40 mg. We did review his previous endoscopy in March. I do suspect he has a combination of some reflux and esophageal spasm contributing to the dysphagia and therefore I would keep him on the current higher dose of his PPI. I did advise him that certainly if dysphagia becomes problematic he should contact me and we can always perform a repeat endoscopy with dilation, but also consider having him undergo esophageal motility testing. I did advise him the need for a followup screening colonoscopy in 2027 given his prior history of tubular adenomas and his last colonoscopy being in 2022. At this point if things otherwise remain stable with his diverticulitis, gastroesophageal reflux, and dysphagia, I advised Adrian to see me in the interim on a p.r.n. basis. Adrian was comfortable with this plan. Thank you again for allowing me to participate in Adrian's care. I shall continue to keep you advised of his progress. 06/03/2024 Diverticulosis of large intestine without perforation or abscess without bleeding (ICD-10 - K57.30) Call for antibiotics if the diverticulitis flares up Overall, Adrian presently appears well. His diverticulitis has remained asymptomatic since the episodes over the summer. We did review the potential for these episodes to recur unpredictably. I did advise him that he should certainly call if this happens and try to get on antibiotics sooner, rather than later. I did advise him to certainly go to the ER develops any significant pain with associated fever, vomiting, or other significant symptoms. We did review the potential for surgical intervention if these episodes continue to recur and be problematic. I did advise him to stay on a healthy and high-fiber diet with plenty of fluids so as to avoid constipation. In regard to his previous dysphagia this seems to be stable on his current regimen of the omeprazole 40 mg. We did review his previous endoscopy in March. I do suspect he has a combination of some reflux and esophageal spasm contributing to the dysphagia and therefore I would keep him on the current higher dose of his PPI. I did advise him that certainly if dysphagia becomes problematic he should contact me and we can always perform a repeat endoscopy with dilation, but also consider having him undergo esophageal motility testing. I did advise him the need for a followup screening colonoscopy in 2027 given his prior history of tubular adenomas and his last colonoscopy being in 2022. At this point if things otherwise remain stable with his diverticulitis, gastroesophageal reflux, and dysphagia, I advised Adrian to see me in the interim on a p.r.n. basis. Adrian was comfortable with this plan. Thank you again for allowing me to participate in Adrian's care. I shall continue to keep you advised of his progress. 06/03/2024 Diverticulitis of colon (ICD-10 - K57.32) Overall, Adrian presently appears well. His diverticulitis has remained asymptomatic since the episodes over the summer. We did review the potential for these episodes to recur unpredictably. I did advise him that he should certainly call if this happens and try to get on antibiotics sooner, rather than later. I did advise him to certainly go to the ER develops any significant pain with associated fever, vomiting, or other significant symptoms. We did review the potential for surgical intervention if these episodes continue to recur and be problematic. I did advise him to stay on a healthy and high-fiber diet with plenty of fluids so as to avoid constipation. In regard to his previous dysphagia this seems to be stable on his current regimen of the omeprazole 40 mg. We did review his previous endoscopy in March. I do suspect he has a combination of some reflux and esophageal spasm contributing to the dysphagia and therefore I would keep him on the current higher dose of his PPI. I did advise him that certainly if dysphagia becomes problematic he should contact me and we can always perform a repeat endoscopy with dilation, but also consider having him undergo esophageal motility testing. I did advise him the need for a followup screening colonoscopy in 2027 given his prior history of tubular adenomas and his last colonoscopy being in 2022. At this point if things otherwise remain stable with his diverticulitis, gastroesophageal reflux, and dysphagia, I advised Adrian to see me in the interim on a p.r.n. basis. Adrian was comfortable with this plan. Thank you again for allowing me to participate in Adrian's care. I shall continue to keep you advised of his progress. 06/03/2024 Dysphagia (ICD-10 - R13.10) Overall, Adrian presently appears well. His diverticulitis has remained asymptomatic since the episodes over the summer. We did review the potential for these episodes to recur unpredictably. I did advise him that he should certainly call if this happens and try to get on antibiotics sooner, rather than later. I did advise him to certainly go to the ER develops any significant pain with associated fever, vomiting, or other significant symptoms. We did review the potential for surgical intervention if these episodes continue to recur and be problematic. I did advise him to stay on a healthy and high-fiber diet with plenty of fluids so as to avoid constipation. In regard to his previous dysphagia this seems to be stable on his current regimen of the omeprazole 40 mg. We did review his previous endoscopy in March. I do suspect he has a combination of some reflux and esophageal spasm contributing to the dysphagia and therefore I would keep him on the current higher dose of his PPI. I did advise him that certainly if dysphagia becomes problematic he should contact me and we can always perform a repeat endoscopy with dilation, but also consider having him undergo esophageal motility testing. I did advise him the need for a followup screening colonoscopy in 2027 given his prior history of tubular adenomas and his last colonoscopy being in 2022. At this point if things otherwise remain stable with his diverticulitis, gastroesophageal reflux, and dysphagia, I advised Adrian to see me in the interim on a p.r.n. basis. Adrian was comfortable with this plan. Thank you again for allowing me to participate in Adrian's care. I shall continue to keep you advised of his progress. Plan Of Treatment Future Test Test Name Order Date COLONOSCOPY 08/07/2016 COLONOSCOPY 03/28/2023 Insurance Providers Payer Name Payer Address Payer Phone Subscriber Number Group Number Insured Name Patient Relationship to Insured Coverage Start Date Coverage End Date MEDICARE OF [place] [address] [place] [address] [phone] [id number] ADRIAN LEMUS Self - patient is the insured [employer] CLAIM[employer] [address] [place] [address] [phone] [id number] ADRIAN LEMUS Self - patient is the insured Medical (General) History Medical History History ICD Code GERD-neg EGD in 11/2005 except for a smal l HH Arthritis--cortisone shots for his knees Plantar fasciitis Denies ND,CVA,Lung disease,renal disease Diabetes mellitus--neuropathy Neg. colonoscopy in [...] surgeries X 3-- right--trigger fing er Foot wkyzokttz-luwkw-Vtfsot, [facility] uroma 2 back surgeries-- lower disc x 2 Bilateral knee replacements 2018 Hospitalization History Reason Date(Month/Year)
--- OUTSIDE RECORDS SUMMARY | 2025-02-17 10:30 | XMS_ITS | Clinical Summary ---
Author Organization [facility] Address [address] [place] [address] Care Team Providers Care Laboratory [facility] Name Role Phone Abdifatah Bunch MD Primary Care Provider [phone] Allergies Active Allergy Reactions Criticality Noted Date [...] Zoster (Shingles) Vaccine (1 of 2) 11/02/2003 COVID-19 Vaccine (3 - season) 2024 06/19/2021, 2020 Influenza Vaccine 03/19/2025 06/04/2016, , 05/21/2013, Additional history exists RSV Vaccine 60 years and older and Patients (1 - 1-dose 75+ series) 2028 Hepatitis B Vaccines Aged Out No long er eligible based on patient's age to complete this topic Insurance MEDICARE PART A & B [facility] Care Teams Laboratory Miller Relationship Specialty Start Date End Date Abdifatah Bunch MD [address] [place] [address] [place] [address] PCP - General Internal Medicine 11/13/23
[2025-03-12 14:51] VITALS: BMI 26.2
--- NOTE | 2025-03-19 10:16 | HO.ANESPROP2 ---
Documented by User: Vivi Pinto NP 03/19/25 10:19 HPI - Anesthesia Eval Consult details Narrative: 69yo M for Right Cataract Extraction IOL Insertion No previous cataract [place] [facility] [place] for CAD s/p stent 2023 - stable at 02/2025 office visit Anesthesia Pre-Procedure Meds Is the patient on any of the following meds?: GLP1/DPP4 PMFSH Active Problems Active Problems: All Active Problems Epistaxis (Acute) Asthma (Acute) Environmental allergies (Acute) Cough (Acute) SOB (shortness of breath) (Acute) COVID-19 (Acute) History of total right knee replacement (TKR) (Acute) History of total left knee replacement (TKR) (Acute) Atherosclerotic cardiovascular disease (Acute) Past Medical History Medical History Back pain CAD (coronary artery disease) Trigger finger Atherosclerotic cardiovascular disease Renal stones Sigmoid diverticulitis Sciatica Neuropathy Plantar fasciitis Arthritis GERD (gastroesophageal reflux disease) Gout Diabetes Family History Family History Mother No problems noted. Father No problems noted. Family history of problems with anesthesia: No Surgical History Surgical History (Updated 03/22/25 @ 06:47 by Shruthi Pedro RN) Hx of arthroscopic knee surgery Hx of hand surgery History of coronary artery stent placement History of cardiac cath History of foot surgery History of colonoscopy Previous back surgery History of total left knee replacement History of total right knee replacement History of Problems with Anesthesia: No Social History Social History Household Members: None Housing: House Do you presently have visiting nurse or other home services: No Alcohol intake: never Patient Tobacco Use Status: Former Tobacco user Tobacco use type: Cigarette Second Hand Smoke Exposure: Yes Are you DNR?: No Advance Directives: Yes Advance Directives Information Provided: Yes Advance Directives on File: No Advance Directives Date on File: 04/01/24 service: No Current occupational status: retired 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 Meds Allergies Allergy/AdvReac Type Severity Reaction Status Date / Time umeclidinium (From Anoro AdvReac Severe Unknown Verified 03/22/25 06:46 Ellipta) vilanterol (From Anoro AdvReac Severe Unknown Verified 03/22/25 06:46 Ellipta) levofloxacin (From Levaquin) AdvReac Gastrointestinal Verified 03/22/25 06:46 Upset metronidazole (From Flagyl) AdvReac Gastrointestinal Verified 03/22/25 06:46 Upset ticagrelor AdvReac Unknown Verified 03/22/25 06:46 Brilinta AdvReac Severe SOB Uncoded 07/14/24 19:14 Home Medications ?Medication ?Instructions ?Recorded ?Confirmed ?Last Taken ?Type celecoxib 200 mg capsule 200 mg PO DAILY 06/28/20 03/12/25 03/26/24 History albuterol sulfate 90 mcg/actuation 1 puff inhalation Q4H PRN 10/11/23 03/12/25 Unknown History aerosol inhaler Shortness Of Breath Or Wheezing fluticasone propionate 50 1 spray intranasal DAILY 10/11/23 03/12/25 03/26/24 History mcg/actuation nasal spray,suspension triamcinolone acetonide 0.5 % 1 appl topical BID PRN Rash 03/17/24 03/12/25 Unknown History topical cream atorvastatin 20 mg tablet 20 mg PO DAILY 03/26/24 03/12/25 03/26/24 History gabapentin 300 mg capsule 300 mg PO TID 03/26/24 03/12/25 03/26/24 History sitagliptin phosphate 50 1 tab PO BID 03/26/24 03/12/25 03/19/25 History mg-metformin 1,000 mg tablet (Janumet) aspirin 81 mg tablet,delayed 81 mg PO DAILY 03/12/25 03/12/25 03/22/25 05:00 History release colchicine 0.6 mg tablet (Colcrys) 0.6 mg PO DAILY 03/12/25 03/12/25 Unknown History minocycline 50 mg capsule 50 mg PO BID 03/12/25 03/12/25 Unknown History tramadol 50 mg tablet 50 mg PO DAILY PRN Pain 03/12/25 03/12/25 Unknown History Exam Height,Weight and Vital Signs: Height 5 ft 8.5 in Weight 79.379 kg Narrative Narrative: EKG 02/2025 Details: EKG with underlying sinus rhythm at 86/Min; nonspecific ST-T changes; normal AR corrected QT. In the most recent echocardiogram, LVEF is 50-55%. Basal inferior hypokinesis and basal inferolateral akinesis. In the cardiac catheterization, mid RCA 70% stenosis; status post PCI. Mild irregularities in the left circumflex. No significant disease in the LAD. Normal LVEDP. Assessment and Plan Assessment Anesthesia Assessment: Chart Reviewed Final Anesthetic Review Family History of Problems with Anesthesia: No History of Problems with Anesthesia: No Documented by User: Valentina Ogden MD 03/22/25 07:24 [facility] Past Medical History Medical History Back pain CAD (coronary artery disease) Trigger finger Atherosclerotic cardiovascular disease Renal stones Sigmoid diverticulitis Sciatica Neuropathy Plantar fasciitis Arthritis GERD (gastroesophageal reflux disease) Gout Diabetes Family History Family History Mother No problems noted. Father No problems noted. Surgical History Surgical History (Updated 03/22/25 @ 06:47 by Shruthi Pedro RN) Hx of arthroscopic knee surgery Hx of hand surgery History of coronary artery stent placement History of cardiac cath History of foot surgery History of colonoscopy Previous back surgery History of total left knee replacement History of total right knee replacement Social History Social History Household Members: None Housing: House Do you presently have visiting nurse or other home services: No Alcohol intake: never Patient Tobacco Use Status: Former Tobacco user Tobacco use type: Cigarette Second Hand Smoke Exposure: Yes Are you DNR?: No Advance Directives: Yes Advance Directives Information Provided: Yes Advance Directives on File: No Advance Directives Date on File: 04/01/24 service: No Current occupational status: retired 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 Meds Allergies Allergy/AdvReac Type Severity Reaction Status Date / Time umeclidinium (From Anoro AdvReac Severe Unknown Verified 03/22/25 06:46 Ellipta) vilanterol (From Anoro AdvReac Severe Unknown Verified 03/22/25 06:46 Ellipta) levofloxacin (From Levaquin) AdvReac Gastrointestinal Verified 03/22/25 06:46 Upset metronidazole (From Flagyl) AdvReac Gastrointestinal Verified 03/22/25 06:46 Upset ticagrelor AdvReac Unknown Verified 03/22/25 06:46 Brilinta AdvReac Severe SOB Uncoded 07/14/24 19:14 Home Medications ?Medication ?Instructions ?Recorded ?Confirmed ?Last Taken ?Type celecoxib 200 mg capsule 200 mg PO DAILY 06/28/20 03/12/25 03/26/24 History albuterol sulfate 90 mcg/actuation 1 puff inhalation Q4H PRN 10/11/23 03/12/25 Unknown History aerosol inhaler Shortness Of Breath Or Wheezing fluticasone propionate 50 1 spray intranasal DAILY 10/11/23 03/12/25 03/26/24 History mcg/actuation nasal spray,suspension triamcinolone acetonide 0.5 % 1 appl topical BID PRN Rash 03/17/24 03/12/25 Unknown History topical cream atorvastatin 20 mg tablet 20 mg PO DAILY 03/26/24 03/12/25 03/26/24 History gabapentin 300 mg capsule 300 mg PO TID 03/26/24 03/12/25 03/26/24 History sitagliptin phosphate 50 1 tab PO BID 03/26/24 03/12/25 03/19/25 History mg-metformin 1,000 mg tablet (Janumet) aspirin 81 mg tablet,delayed 81 mg PO DAILY 03/12/25 03/12/25 03/22/25 05:00 History release colchicine 0.6 mg tablet (Colcrys) 0.6 mg PO DAILY 03/12/25 03/12/25 Unknown History minocycline 50 mg capsule 50 mg PO BID 03/12/25 03/12/25 Unknown History tramadol 50 mg tablet 50 mg PO DAILY PRN Pain 03/12/25 03/12/25 Unknown History Exam Airway Mallampati Class: II (caps throughout) TM Dist: >3cm Neck ROM: Full Heart: rrr Lungs: cta Assessment and Plan Assessment Anesthesia Assessment: Anesthesia Plan Discussed Final Anesthetic Review NPO: Yes ASA Class: III Final Preanesthetic Review: No Changes in Pt Med Stat, Meds/Allgs Chart Reviewed and Consent Obtained/Reviewed Patient Risk: Low Procedure Risk: Low Anesthetic Plan Anesthetic Plan: MAC: Disposition: Standard PACU
[2025-03-22 06:39] VITALS: BP 139/76; PULSE 75; RESP 16; TEMP 35.9; O2SAT 100
[2025-03-22] MEDS: Tetracaine HCl/PF 0.5% Oph Sol 4 ML DROPS 1 DROP EYE-RIGHT (06:44)
[2025-03-22] MEDS: Cyclopentolate 1 % Ophth Sol 2 ML DRPBTL 1 DROP EYE-RIGHT ×3 (06:48→07:01)
[2025-03-22] MEDS: Tropicamide 1 % Ophth Sol 3 ML BTL 1 DROP EYE-RIGHT ×3 (06:50→07:02)
[2025-03-22] MEDS: Ketorolac Tromethamine 0.5% Op 5 ML DROPS 1 DROP EYE-RIGHT ×3 (06:52→07:03)
[2025-03-22] MEDS: Phenylephrine HCL 2.5% Oph SoL 2 ML BOTTLE 1 DROP EYE-RIGHT ×3 (06:53→07:04)
[2025-03-22] MEDS: Lactated Ringers 500 ML 50 ML IV (06:59)
[2025-03-22 07:15] LABS: Glucose, Whole Blood 128 mg/dL (60-115)
--- NOTE | 2025-03-22 07:57 | P.PCNO_ITS ---
Ophthalmology Procedure Procedure Date of Service: 03/22/25 Ophthalmology Viscoelastic: Healon Duet Dual Pack Pro Ophthalmology Lenses: IOL Acrysof MP - [id number] (21) Procedure Notes: PREOPERATIVE DIAGNOSIS: Decreased visual acuity right eye secondary to cataract POSTOPERATIVE DIAGNOSIS: Same PROCEDURE: Right cataract extraction with intraocular lens insertion SURGEON: Mazin Avitia M.D. ANESTHESIA: Topical/MAC ESTIMATED BLOOD LOSS: None COMPLICATIONS: None After obtaining informed consent, the patient was brought to the operating room suite and placed in the supine position. After adequate sedation per anesthesia, topical drops of Tetracaine were given to the right eye. The eye was then prepped and draped in the usual sterile fashion. The operating room microscope was then positioned over the operative eye and a lid speculum placed. A paracentesis was created. Viscoelastic was then instilled into the anterior chamber. A three plane incision was then created temporally, utilizing a 2.85 mm keratome. Capsulotomy forceps were then utilized to create a circular tear capsulotomy. Hydrodissection and hydrodelineation were carried out until adequate mobilization of the nucleus occurred. Phacoemulsification was then utilized to remove the dense central nucl eus followed by removal of the cortical material utilizing the automated aspiration irrigation unit. Viscoelastic was instilled into the posterior capsular bag followed by placement of a posterior chamber intraocular lens without difficulty. The residual Viscoelastic was then removed utilizing the automated IA machine. The wound was checked and found to be watertight. The patient tolerated the procedure well and the lid speculum was removed. Intracameral injection of Vigamox 0.1 mL followed by a subtenon injection of Kenalog-40 0.2 mL were administered. The patient will be seen in the a.m.
--- NOTE | 2025-03-22 07:57 | MHC.SHP ---
Pre-Procedural Eval Section A - 24 Hr Update-Section A only Date of Service: 03/22/25 The patient is an INPATIENT: No Changes since office visit: No Cold of Flu in the past 2 weeks, No New Medical Problems, No Changes in Medication and No Patient answered all questions The patient has been examined within 24 hours of the surgical procedure. The History & Physical has been completed within 30 days and I have reviewed it.: Yes Section B - Complete if H&P > 30 days Chief Complaint: Age-related nuclear cataract, right eye Allergies: Allergies Allergy/AdvReac Type Severity Reaction Status Date / Time umeclidinium (From Anoro AdvReac Severe Unknown Verified 03/22/25 06:46 Ellipta) vilanterol (From Anoro AdvReac Severe Unknown Verified 03/22/25 06:46 Ellipta) levofloxacin (From Levaquin) AdvReac Gastrointestinal Verified 03/22/25 06:46 Upset metronidazole (From Flagyl) AdvReac Gastrointestinal Verified 03/22/25 06:46 Upset ticagrelor AdvReac Unknown Verified 03/22/25 06:46 Brilinta AdvReac Severe SOB Uncoded 07/14/24 19:14 Plan Diagnosis/Plan: Unchanged I have reviewed the history and physical and performed a pertinent physical examination on my patient. No changes have occurred unless specified. Time Spent With Patient Time: Total time managing care of this patient today ____ minutes.
[2025-03-22 08:22] VITALS: BP 147/84; PULSE 76; RESP 16; TEMP 36.1; O2SAT 100
== END 2025-03-22 08:31 | disposition home or self-care (01) ==
PROVIDERS: PCP Internal Medicine; Visit Provider Ophthalmology
PROC: (CPT 66985; principal; 2025-03-22 08:00)
DX: H25.11 Age-related nuclear cataract, right eye (principal); H54.7 Unspecified visual loss; Z83.511 Family history of glaucoma; H18.413 Arcus senilis, bilateral; H11.153 Pinguecula, bilateral; E11.42 Type 2 diabetes mellitus with diabetic polyneuropathy; I25.10 Atherosclerotic heart disease of native coronary artery without angina pectoris; Z95.5 Presence of coronary angioplasty implant and graft; J45.909 Unspecified asthma, uncomplicated; K21.9 Gastro-esophageal reflux disease without esophagitis; M10.9 Gout, unspecified; Z79.51 Long term (current) use of inhaled steroids; Z79.82 Long term (current) use of aspirin; Z79.84 Long term (current) use of oral hypoglycemic drugs; Z79.899 Other long term (current) drug therapy; Z88.1 Allergy status to other antibiotic agents; Z88.8 Allergy status to other drugs, medicaments and biological substances; Z87.891 Personal history of nicotine dependence; Z98.890 Other specified postprocedural states
CPT/HCPCS: 66984; 82947; J2250; J3301; V2630

== ENCOUNTER 2025-04-05 06:22 | Day surgery (SDC) | payer MEDICARE, SELFPAY ==
--- OUTSIDE RECORDS SUMMARY | 2025-02-22 12:53 | XMS_ITS | Patient Health Record ---
Author Organization [facility] [place] Address [address] [place] [address] Care Team Providers Care Prescriptionist Name Role Phone Alivia SANCHEZ, Abdifatah Primary Care Provider Barber Painter Unavailable [phone] Ludivina Jack Unavailable [phone] Allergies Allergen (clinical drug ingredient) Drug/Non Drug [...] Route Administration Date Status Comme nts COVID-19 Stir & Adilson/Amanda Unknown 2020 A dministered Influenza [...] Status Risk Notes Problem Acquired hallux valgus (04187763) Hallux valgus (acquired), left foot (M20.12) Active confirmed Problem Polyneuropathy due to type 2 diabetes mellitus (804551733) Type 2 diabetes mellitus with diabetic polyneuropathy (E11.42) Active confirmed Problem Primary gout (12909028) Idiopathic gout, left ankle and foot (M10.072) Active confirmed Problem Acquired cavus deformity of right foot (disorder) (7287750560445898 ) Cavus deformity of right foot (Q66.71) Active confirmed Vital Signs Height 5ft 8in in 07/24/2024 Weight 180 lbs 07/24/2024 BMI 27.37 kg/m2 07/24/2024 Procedures Procedure Date Ordered Date Performed Result Body Sit e 81063, J0702- INJECT TENDON ORIGIN/INSERT 06/04/2024 N/A Encounters Encounter Location Date Provider Diagnosis [address] [address] 02/28/2024 Ludivina Perica Pain in right foot M79.671 and Peroneal tendinitis, right leg M76.[address] [address] 06/04/2024 Barber Saenz Pain in right foot M79.671 ; Tinea unguium B35.1 ; Type 2 diabetes mellitus with diabetic polyneuropathy E11.42 ; Neuralgia and neuritis, unspecified M79.2 ; Pain in right toe(s) M79.674 ; Pain in left toe(s) M79.675 ; Hallux valgus (acquired), left foot M20.12 ; Xerosis cutis L85.3 ; Ingrowing nail L60.0 and Right peroneal tendinosis M67.[address] [address] 07/24/2024 Ludivina Perica Peroneal tendinitis, right leg M76.71 and Type 2 diabetes mellitus with diabetic polyneuropathy E11.[address] [address] 02/27/2024 Barber Saenz Assessments Encounter Date Diagnosis [...] Date X ray : Foot, right 2V 12/18/2013 X ray : Foot, right 2V 01/13/2014 X ray : Foot, right 2V 11/04/2013 X ray : Foot, right 3V 02/28/2024 42197-LWZNPJY NAIL, 1-5 01/20/2018 73726-OGNFOUX NAIL, 1-5 08/06/2016 52488-JRRSXQH NAIL, 1-5 08/05/2017 30330-VBESHTA NAIL, 1-5 07/21/2018 49218- Debride <25 sq cm 08/23/2014, J0702- INJECT TENDON ORIGIN/INSER T 06/04/2024 79757-RGQV SKIN LESIONS, OVER 4 05/31/20 21 68500-YWJR SKIN LESIONS, OVER 4 07/29/20 13 99587-AASJ SKIN LESIONS, OVER 4 10/29/19 14 66465-XIBG SKIN LESIONS, 2 TO 4 09/17/19 12 11107-VYTY SKIN LESIONS, 2 TO 4 10/28/19 13 37724-TIQL SKIN LESIONS, 2 TO 4 01/27/20 13 23882-DBCU SKIN LESIONS, 2 TO 4 05/06/20 13 39178-GGAG SKIN LESIONS, 2 TO 4 01/20/20 19 74648-ZBHI SKIN LESIONS, 2 TO 4 04/22/20 19 98433-FORH SKIN LESIONS, 2 TO 4 07/20/20 19 77617-PZWA SKIN LESIONS, 2 TO 4 08/05/20 17 95351-ZEXU SKIN LESIONS, 2 TO 4 08/23/19 15 81453-EJFU SKIN LESIONS, 2 TO 4 02/13/20 16 66582-FAQT SKIN LESIONS, 2 TO 4 08/06/20 16 74388-SDUH SKIN LESIONS, 2 TO 4 11/25/19 21 57503-HCRB SKIN LESIONS, 2 TO 4 10/19/19 20 39202-OTWI SKIN LESIONS, 2 TO 4 05/09/20 20 87750-MGPV SKIN LESIONS, 2 TO 4 01/21/20 18 04456-BLWQ SKIN LESIONS, 2 TO 4 02/05/20 17 95368-KWXG SKIN LESIONS, 2 TO 4 08/22/19 16 10980-XAIE SKIN LESIONS, 2 TO 4 02/17/20 15 03344-NSRU SKIN LESIONS, 2 TO 4 07/21/20 18 39879-TZWW NAIL(S) 02/16/2015 60574-WHWV NAIL(S) 08/22/2015 38179-EXJO NAIL(S) 02/04/2017 53725-EFWI NAIL(S) 01/20/2018 78269-RUXH NAIL(S) 08/06/2016 23648-DBPT NAIL(S) 02/13/2016 98672-QHJC NAIL(S) 08/05/2017 46146-FOOT NAIL(S) 05/06/2013 03019-KLXL NAIL(S) 07/29/2013 16092-HNDA NAIL(S) 01/26/2013 48373-ZIEO NAIL(S) 10/27/2012 14183-RBRP NAIL(S) 04/28/2012 24898-JJBS NAIL(S) 10/28/2013 03635-OPKX NAIL(S) 08/23/2014 K7967-EBDJGDGC DYSTROPHIC NAILS ANY # M9498-TSILTKKT DYSTROPHIC NAILS ANY # I7811-YMDVONJK DYSTROPHIC NAILS ANY # C1459-IRGDGNSW DYSTROPHIC NAILS ANY # L9181-AHOTAFMA DYSTROPHIC NAILS ANY # J7486-ZPZHZVVT DYSTROPHIC NAILS ANY # X9929-UXHYQHXQ DYSTROPHIC NAILS ANY # X2446-MRKIJLBY DYSTROPHIC NAILS ANY # 31304, J0702- Neuroma/Injection 09/17/19 12 Next Appt Details Provider Name:Ludivina Orozco Soco orozco, 06/04/2025 09:00:00 AM, [address] [place], [address], Insurance Providers Payer Name Payer Address Payer Phone Subscriber Number Group Number Insured Name Patient Relationship to Insured Coverage Start Date Coverage End Date Medicare [facility] [employer] [address] [place] [address] [id number] Adrian Galicia Self - patient is the insured 9 [employer] [address] [place] [address] [id number] Adrian Galicia Self - patient is the insured Medical (General) History Medical History History ICD Code diabetic (controlled by oral hypoglycemi cs) mumps measles hypertension Gout chicken pox reflux Rosacea Hypercholesterolemia Gastroesophageal reflux disease (GERD) Prostate conditions Prostate Irregular covid-19 Cataracts Surgical History Surgery Date(Month/Year) bunionectomy 2009 hand/wrist 2010 knee surgery, right 1996 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
--- OUTSIDE RECORDS SUMMARY | 2025-02-22 12:54 | XMS_ITS | Patient Health Record ---
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 Name Role Phone Abdifatah Bunch MD Primary Care Provider Natan Morales [phone] Allergies Allergen (clinical drug ingredient) Drug/Non Drug [...] ff Reviewed date:03/31/2024 09:26:34 AM Interpretation: Performing Lab:[facility], [address] [place] [phone] Notes/Report: White Blood Count 6.9 4.8-10.8 X10*3/uL [...] Gel Reviewed date:03/31/2024 09:26:19 AM Interpretation: Performing Lab:[facility], [address] [place] [phone] Notes/Report: Hold Green Gel See Note Specimen [...] Problem Status W/U Status Risk Notes Problem 517509086 Encounter for screening for malignant neoplasm of colon (Z12.11) Active confirmed Problem 809278636 History of adenomatous polyp of colon (Z86.010) Active confirmed Problem Diverticular disease of colon (569745623) Diverticulosis of large intestine without perforation or abscess without bleeding (K57.30) Active confirmed Problem Screening for malignant neoplasm of rectum (173675696) Encounter for screening for malignant neoplasm of rectum (Z12.12) Active confirmed Problem Dysphagia (85762009) Dysphagia (R13.10) Active confirmed Problem 288856948 Gastroesophageal reflux disease without esophagitis (K21.9) Active confirmed Problem 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) Gastric polyps (K31.7) Active confirmed Problem Diverticulitis of colon (296557334) Diverticulitis of colon (K57.32) Active confirmed Problem Gastritis (3302528) Gastritis (K29.70) Active confirmed Vital Signs Temperature 97.3 degrees Fahrenheit 06/03/2024 Blood pressure diastolic 00 mm Hg 06/03/2024 Height 68.25 in 06/03/2024 Blood pressure systolic 000 mm Hg 06/03/2024 Weight 186 lb 4 oz lbs 06/03/2024 BMI 28.11 kg/m2 06/03/2024 Encounters Encounter Location Date Provider Diagnosis [facility] [address] [facility] [address] [place] [phone] 06/03/2024 Natan Drummond Gastroesophageal ref lux disease [...] again for allowing me to participate in Adiran's care. I shall continue to keep you [...] Date MEDICARE OF [place] [address] [place] [address] [id number] ADRIAN LEMUS Self - patient is the insured [employer] CLAIMS [address] [place] [phone] [id number] ADRIAN LEMUS Self - patient is the insured Medical (General) History Medical History History ICD Code GERD-neg EGD in 11/2005 except for a smal l HH Arthritis--cortisone shots for his knees Plantar fasciitis Denies [place],CVA,Lung disease,renal disease Diabetes mellitus--neuropathy Neg. colonoscopy in [...] surgeries X 3-- right--trigger fing er Foot wbxdevjjq-oxwso-Smlcjh, [facility] uroma 2 back surgeries-- lower disc x 2 Bilateral knee replacements 2018 Hospitalization History Reason Date(Month/Year)
--- OUTSIDE RECORDS SUMMARY | 2025-02-22 12:54 | XMS_ITS | Patient Health Record ---
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 Name Role Phone Abdifatah Bunch Primary Care Provider Allergies Allergen (clinical drug ingredient) Drug/Non Drug Allergy documented on EMR Reaction Allergy Type Onset Date Status umeclidinium / vilanterol Anoro Ellipta sore feet Drug Allergy Active Results Component Value Reference Range Notes Liver Panel Reviewed date:05/08/2024 12:26:41 PM Interpretation: Performing Lab:[facility], [address] [place] [phone] Notes/Report: Bilirubin Total 0.6 0.0-1.0 mg/dL Bilirubin Direct 0.2 0.0-0.5 mg/dL Aspartate Amino Transferase 15 5-37 U/L Alanine Aminotransferase 10 0-40 U/L Total Protein 6.4 6.5-8.0 g/dL Albumin Level 3.9 3.5-5.0 g/dL Alkaline Phosphatase 58 39-117 U/L Glucose Fasting Reviewed date:05/08/2024 12:26:24 PM Interpretation: Performing Lab:[address] [address] Notes/Report: Glucose Fasting 138 60-99 mg/dL A fasting glucose of 126 mg/dl or greater on more than one occasion is considered diagnostic of diabetes. Lipid Panel with Reflex Reviewed date:05/08/2024 12:26:14 PM Interpretation: Performing Lab:[address] [phone] Notes/Report: Triglycerides 122 <150 mg/dL Desirable Triglyceride: less than 150 mg/dL Borderline High Triglyceride 150-199 mg/dL High Triglyceride: 200-499 mg/dL Very High Triglyceride: greater than or equal to 5OO mg/dL Cholesterol 139 <200 mg/dL Desirable Cholesterol: less than 200 mg/dL Borderline High Cholesterol: 200-239 mg/dL High Cholesterol: greater than 239 mg/dL LDL Cholesterol Calculated 63 <100 mg/dL Desirable LDL: less than 100 mg/dL Near Optimal/Above Optimal LDL: 110-129 mg/dL Borderline High LDL: 130-159 mg/dL High LDL: 160-189 mg/dL Very High LDL: greater than or equal to 190 mg/dL HDL Cholesterol 52 >40 mg/dL Desirable HDL: greater than 40 mg/dL Note: This HDL assay may give artificially low results in patients with liver disease. Hemoglobin A1c Reviewed date:05/08/2024 12:26:32 PM Interpretation: Performing Lab:[address] [phone] Notes/Report: Hemoglobin A1c % 6.1 <6.0 % Hemoglobin A1C Reference Range Adults: 4.8 - 6.0 % Non diabetic: < 6.0 % Goal: < 7.0 % Additional Action Suggested: > 8.0 % Note: Hemoglobin A1c results are invalid for patients with abnormal amounts of HbF. Blood transfusions may impact the HbA1c concentration in the patient sample. Estimated Average Glucose 128 eAG = Estimated average glucose which is %A1C expressed as average glucose, using the formula of the D6T-[place] Average Glucose study (ADAG), Diabetes Care, Vol.31,#8, 2007 Complete Blood Count Auto Di ff Reviewed date:11/05/2024 12:34:06 PM Interpretation: Performing Lab:[facility], [address] [place] [phone] Notes/Report: White Blood Count 6.0 4.8-10.8 X10*3/uL [...] 0.0-0.2 /100WBC Neutrophils Absolute Auto 3.5 2.0-8.3 x10*3/uL Imm Gran Abs Auto 0.02 0.00-0.03 X10*3/uL Lymphocytes Absolute Auto 1.6 1.2-4.9 X10*3/uL Monocytes Absolute Auto 0.6 0.1-1.2 X10*3/uL Eosinophils Absolute Auto 0.3 0.0-0.4 X10*3/uL Basophils Absolute Auto 0.0 0.0-0.2 X10*3/uL NRBC Abs Auto 0.000 0.0-0.012 X10*3/uL Comprehensive [place]. Panel Fa st Reviewed date:11/05/2024 12:21:00 PM Interpretation: Performing Lab:[facility], [address] [place] [phone] Notes/Report: Sodium 141 135-145 mmol/L Potassium 3.9 [...] Panel Reviewed date:11/05/2024 12:24:32 PM Interpretation: Performing Lab:[address] [phone] Notes/Report: Triglycerides 94 <150 mg/dL Desirable Triglyceride: [...] (Free>4and<10) Reviewed date:11/05/2024 12:23:51 PM Interpretation: Performing Lab:[facility], [address] [place] [phone] Notes/Report: PSA,Total (Free>4and<10) 0.36 0.00-4.00 ng/mL A [...] Random Reviewed date:11/05/2024 12:24:24 PM Interpretation: Performing Lab:[address] [address] Notes/Report: Creatinine Urine 130.48 Microalbumin Urine < 5.0 Microalbum/Creatinine Ratio Ur TNP <30 ug/mg cr Unable to calculate albumin/creatinine ratio due to low microalbumin or creatinine result. Hemoglobin A1c Reviewed date:11/05/2024 12:24:10 PM Interpretation: Performing Lab:[address] [address] Notes/Report: Hemoglobin A1c % 6.2 <6.0 % [...] average glucose, using the formula of the G4V-[place]ljkibk Average Glucose study (ADAG), Diabetes Care, Vol.31,#8, 2007 UA ClnCatch+Micro w/rflx Cul t Reviewed date:11/05/2024 12:27:48 PM Interpretation: Performing Lab:[address] [phone] Notes/Report: Urine, Clean Catch Color Urine Yellow Appearance Urine Clear PH 5.5 5.0-9.0 Glucose Urine UA Negative Negative mg/dL Urine Blood Negative Negative Specific [place] - Urine 1.015 1.005-1.025 Urine Protein Negative Neg-Trace mg/dL Urine Ketones Negative Negative mg/dL Nitrite Urine Negative Negative Leukocyte Esterase Urine Negative Negative RBC Urine 0-2 0-2 /HPF WBC Urine 0-5 0-5 /HPF Squamous Epithelial Cell Urine 0-2 0-2 /HPF Bacteria Urine None Seen None Seen Hyaline Casts Urine 0-2 0-2 /LPF Glucose, finger stick Reviewed date:05/19/2024 09:14:39 AM Interpretation: Performing Lab: Notes/Report: Value 152 CT abdomen pelvis w con Reviewed date:03/10/2024 01:06:52 PM Interpretation: Performing Lab: Notes/Report: [address] [address] [address] Scan Report Signed Patient: Javier Atkins MR#: [id number] : 1955 Acct:[id number] Age/Sex: 68 / M ADM Date: 03/10/24 Loc: .CT Attending Dr: Abdifatah Bunch MD Ordering Physician: Abdifatah Bunch MD Date of Service: 03/10/24 Procedure(s): CT abdomen pelvis w IV con Accession Number(s): [id number] cc: Abdifatah Bunch MD EXAMINATION: CT ABDOMEN AND PELVIS WITH CONTRAST CLINICAL INFORMATION: Acute diverticulitis COMPARISON: The abdomen pelvis from 10/02/2019 TECHNIQUE: Multidetector volumetric images were obtained from the superior aspect of the liver through the pubic symphysis following administration 85 mL of Omnipaque 350 intravenous contrast. Sagittal and coronal reformatted images were obtained on the technologist's workstation. Oral contrast: No This CT examination was performed using dose optimization techniques as appropriate, variously including the following: *Automated exposure control *Adjustment of mA and/or kV according to patient size (this includes techniques or standardized protocols for targeted exams where dose is matched to indication/reason for exam; i.e. extremities or head) *Use of iterative reconstruction technique DLP: 128 mGy-cm FINDINGS: LUNG BASES: No pneumothorax. No large pleural effusion. Slight elevation right hemidiaphragm. LIVER, GALLBLADDER, AND BILIARY TREE: Liver is enlarged measuring 18.7 cm. No focal hepatic lesion or biliary ductal dilatation is present. The gallbladder is unremarkable with no evidence of radiopaque gallstones, gallbladder wall thickening, or obvious pericholecystic inflammatory changes. PANCREAS: Unremarkable. SPLEEN: Spleen is enlarged measuring 13.9 cm. ADRENAL GLANDS: Stable nodular focus left adrenal body measuring 1.3 cm. Right adrenal gland is unremarkable. KIDNEYS AND URETERS: Cortical defect along the lateral wall of the right kidney. No right-sided nephrolithiasis or hydronephrosis. Left-sided nephrolithiasis measuring 8 mm without hydronephrosis. BLADDER: Potential nondependent curvilinear air in the urinary bladder which may be iatrogenic versus infectious/inflammatory etiology. GASTROINTESTINAL TRACT: Colonic diverticulosis with wall thickening and pericolonic inflammatory changes predominantly involving the descending colon/proximal sigmoid colon with diverticulitis. Multiple loops of mildly prominent small bowel without pathologic obstruction. Duodenal diverticulum redemonstrated. The small and large bowel are otherwise unremarkable. The appendix is unremarkable. ABDOMINAL WALL: Small fat filled umbilical hernia. LYMPH NODES: A few mildly prominent though nonenlarged mesenteric and aortocaval and portacaval lymph nodes are noted, not enlarged per size criteria. VASCULAR: Abdominal aorta is nonaneurysmal. PELVIC VISCERA: Prostate measures 2.6 cm. OSSEOUS STRUCTURES: Multilevel degenerative changes of the thoracolumbar and lumbosacral spine. Nonspecific sclerosis of the bilateral iliac bones CT/CT abdomen pelvis w IV con IMPRESSION: 1. Colonic diverticulosis with wall thickening and pericolonic inflammatory changes predominantly involving the descending colon/proximal sigmoid colon with diverticulitis. Multiple loops of mildly prominent small bowel without pathologic obstruction. Duodenal diverticulum redemonstrated. 2. Potential nondependent curvilinear air in the urinary bladder which may be iatrogenic versus infectious/inflammatory etiology. 3. Hepatosplenomegaly. 4. Left-sided nephrolithiasis measuring 8 mm without hydronephrosis. Dictated By: Sree Calderon MD Signed By: <Electronically signed by Sree Calderon MD in [place]> 03/10/24 1229 DD/ 1026 TD/TT: Pipe Stripper: [address] [address] [address] Scan Report Signed Patient: Javier Atkins MR#: [id number] : 1955 Acct:[id number] Age/Sex: 68 / M ADM Date: 03/10/24 Loc: HO.CT Attending Dr: Abdifatah Bunch MD Ordering Physician: Abdifatah Bunch MD Date of Service: 03/10/24 Procedure(s): CT abd omen pelvis w IV con Accession Number(s): [id number] cc: Abdifatah Bunch MD EXAMINATION: CT ABDOMEN AND PELVI S WITH CONTRAST CLINICAL INFORMATION: Acute diverticulitis COMPARISON: The abdomen pelvis f rom 10/02/2019 TECHNIQUE: Multidetector volume tric images were obtained from the superior aspect of the liver through the pubic symphysis following administration 85 mL of Omnipaque 350 intravenous contrast. Sagittal and coronal reformatted images were obtained on the technologist's workstation. Oral contrast: No This CT examination was performed using dose optimization techniques as appropriate, various ly including the following: *Automated exposure control *Adjustment of mA an d/or kV according to patient size (this includes techniques or standardized protocols for targeted exams where dose is matched to indication/reason for exam; i.e. extremities or head) *Use of iterative reconstruction technique DLP: 128 mGy-cm FINDINGS: LUNG BASES: No pneumothorax. No large pleural effusion. Slight elevation right hemidiaphragm. LIVER, GALLBLADDER, AND BILIARY TREE: Liver is enlarged measuring 18.7 cm. No focal hepatic lesion or biliary ductal dilatation is present. The gallbladder is unremarkable with no evidence of radiopaque gallstones, gallblad brandin wall thickening, or obvious pericholecystic inflammatory changes. PANCREAS: Unremarkable. SPLEEN: Spleen is enlarged measuring 13.9 cm. ADRENAL GLANDS: Stab le nodular focus left adrenal body measuring 1.3 cm. Right adrenal gl and is unremarkable. KIDNEYS AND URETERS: Cortical defect along the lateral wall of the right kidney. No right-sided nephrolithiasis or hydronephrosis. Left-sided nephrolithiasis measuring 8 mm without hydronephrosis. BLADDER: Potential nondependent curvilinear air in the urinary bladder which may be iatroge lisa versus infectious/inflammatory etiology. GASTROINTESTINAL TRA CT: Colonic diverticulosis with wall thickening and pericolonic inflamma tory changes predominantly involving the descending colon/proximal sigmo id colon with diverticulitis. Multiple loops of mildly prominent sma ll bowel without pathologic obstruction. Duodenal diverticulum redemonstrated. The small and large bowel are otherwise unremarkable. The appendix is unremarkable. ABDOMINAL WALL: Smal l fat filled umbilical hernia. LYMPH NODES: A few mildly prominent though nonenlarged mesenteric and aortocaval and portacaval lymph nodes are noted, not enlarged per size criteria. VASCULAR: Abdominal aorta is nonaneurysmal. PELVIC VISCERA: Pros [place] measures 2.6 cm. OSSEOUS STRUCTURES: Multilevel degenerative changes of the thoracolumbar and lumbosacral spine. Nonspecific sclerosis of the bilateral iliac bones C T/CT abdomen pelvis w IV con IMPRESSION: 1. Colonic diverticulosis with wall thickening and pericolonic inflammatory changes predominantly involving the descending colon/proximal sigmo id colon with diverticulitis. Multiple loops of mildly prominent sma ll bowel without pathologic obstruction. Duodenal diverticulum redemonstrated. 2. Potential nondependent curvilinear air in the urinary bladder which may be iatrogenic ve rsus infectious/inflammatory etiology. 3. Hepatosplenomegaly. 4. Left-sided nephrolithiasis measuring 8 mm without hydronephrosis. Dictated By: Sa daryl Calderon MD Signed By: <Electronically signed by Sree Calderon MD in [place]> 03/10/24 1229 DD/ 1026 TD/TT: Pipe Stripper: Complete Blood Count Auto Di ff Reviewed date:03/17/2024 12:25:06 PM Interpretation: Performing Lab:[facility], [address] [place] [phone] Notes/Report: White Blood Count 9.1 4.8-10.8 X10*3/uL Red Blood Count 5.11 4.60-5.80 X10*6/uL Hemoglobin 13.5 14.0-18.0 g/dl Hematocrit 40.2 42.0-52.0 % Mean Corpuscular Volume 78.7 80.0-98.0 fL Mean Corpuscular Hemoglobin 26.4 27.0-33.0 pg Mean Corpuscular HGB Conc 33.6 31.0-36.0 g/dl Red Cell Distribution Width 14.1 11.0-16.0 % Platelet Count 273 160-400 X10*3/uL Mean Platelet Volume 10.7 9.4-12.4 fL Neutrophils Percent Auto 69.8 45-73 % Imm Gran Pct Auto 0.4 0.0-0.4 % Lymphocytes Percent Auto 17.5 20-40 % Monocytes Percent Auto 9.4 2-11 % Eosinophils Percent Auto 2.6 0-4 % Basophils Percent Auto 0.3 0-2 % NRBC Pct Auto 0.0 0.0-0.2 /100WBC Neutrophils Absolute Auto 6.4 2.0-8.3 x10*3/uL Imm Gran Abs Auto 0.04 0.00-0.03 X10*3/uL Lymphocytes Absolute Auto 1.6 1.2-4.9 X10*3/uL Monocytes Absolute Auto 0.9 0.1-1.2 X10*3/uL Eosinophils Absolute Auto 0.2 0.0-0.4 X10*3/uL Basophils Absolute Auto 0.0 0.0-0.2 X10*3/uL NRBC Abs Auto 0.000 0.0-0.012 X10*3/uL Liver Panel Reviewed date:03/18/2024 03:32:36 PM Interpretation: Performing Lab:[address] [phone] Notes/Report: Bilirubin Total 0.6 0.0-1.0 mg/dL Bilirubin Direct 0.3 0.0-0.5 mg/dL Aspartate Amino Transferase 15 5-37 U/L Alanine Aminotransferase 7 0-40 U/L Total Protein 6.9 6.5-8.0 g/dL Albumin Level 4.0 3.5-5.0 g/dL Alkaline Phosphatase 76 39-117 U/L Basic Metabolic Panel Reviewed date:03/18/2024 03:32:36 PM Interpretation: Performing Lab:[address] [phone] Notes/Report: Sodium 140 135-145 mmol/L Potassium 4.0 3.3-5.1 mmol/L Chloride 105 96-108 mmol/L Carbon Dioxide 24 22-29 mmol/L Anion Gap 15 12-20 Blood Urea Nitrogen 5 9-16 mg/dL Creatinine 0.94 0.5-1.4 mg/dL Creatinine Clr Calc Pharmacy 70.7 eGFR (calculated from the MDRD study equation) and eCrCl (calculated from the Cockcroft-Gault equation) are based on different parameters and may not yield comparable results. If eCrCl result is absurd, please check patient's height/weight. Estimated Glomerular Filt Rate > 60 NOTE: For -Cypriot individuals, multiply the result by 1.210. Chronic Kidney Disease: Estimated GFR < 60 mL/min/1.73m2 Severe Kidney Disease: Estimated GFR < 15 mL/min/1.73m2 Glucose Random 122 60-115 mg/dL Calcium 9.7 8.4-10.2 mg/dL Lactic Acid Reviewed date:03/17/2024 12:24:45 PM Interpretation: Performing Lab:[facility], [address] [place] [phone] Notes/Report: Lactic Acid 3.4 0.5-2.0 mmol/L Critical value for LACTIC: Results called to and read back by: AZRA Person calling: EVAN Date: 03/17/24 Time: 1157 Magnesium Reviewed date:03/18/2024 03:32:36 PM Interpretation: Performing Lab:[facility], [address] [place] [phone] Notes/Report: Magnesium 1.1 1.6-2.6 mg/dL Critical value for MAG: Results called to and read back by: DEVEN Person calling: ANGELAKIR Date: 03/17/24 Time: 1201 IRON PROFILE Reviewed date:03/18/2024 03:32:36 PM Interpretation: Performing Lab:[facility], [address] [place] [phone] Notes/Report: Iron 43 45-160 mcg/dL Total Iron Binding Capacity 252 228-428 mcg/dL Percent Iron Saturation 17 15-50 % Unsaturated Iron Binding 209 Ferritin Reviewed date:03/18/2024 03:32:36 PM Interpretation: Performing Lab:[facility], [address] [place] [phone] Notes/Report: Ferritin 62 20-250 ng/mL Lipase Reviewed date:03/18/2024 03:32:36 PM Interpretation: Performing Lab:[facility], [address] [place] [phone] Notes/Report: Lipase 31 8-78 U/L Glucose, Whole Blood Reviewed date:03/18/2024 03:32:36 PM Interpretation: Performing Lab:[facility], [address] [place] [phone] Notes/Report: Glucose, Whole Blood 87 60-115 mg/dL METER # : [id number] UA CC w/rflx Micro + Cult Reviewed date:03/17/2024 01:30:49 PM Interpretation: Performing Lab:[facility], [address] [place] [phone] Notes/Report: Urine, Clean Catch Color Urine Yellow Appearance Urine Clear PH 6.0 5.0-9.0 Glucose Urine UA Negative Negative mg/dL Urine Blood Negative Negative Specific [place] - Urine <= 1.005 1.005-1.025 Urine Protein Negative Neg-Trace mg/dL Urine Ketones Negative Negative mg/dL Nitrite Urine Negative Negative Leukocyte Esterase Urine Negative Negative Lactic Acid-LAB USE ONLY Reviewed date:03/17/2024 05:06:54 PM Interpretation: Performing Lab:[facility], [address] [place] [phone] Notes/Report: Lactic Acid-LAB USE ONLY 2.7 0.5-2.0 mmol/L Critical value for LACTIC: Results called to and read back by: ERIKA Person calling: EHSAN Date: 03/17/2024 Time: 1502 Lactic Acid-LAB USE ONLY Reviewed date:03/18/2024 03:32:36 PM Interpretation: Performing Lab:[facility], [address] [place] [phone] Notes/Report: Lactic Acid-LAB USE ONLY 2.8 0.5-2.0 mmol/L Critical value for test(s): LACTIC Results called to and read back by: ERIKA Person calling: ORINA Date: 03/17/24 Time: 1732 CT abdomen pelvis w con Reviewed date:03/30/2024 01:13:43 PM Interpretation: Performing Lab: Notes/Report: [address] [place] [address] CT Scan Report Signed Patient: Javier Atkins MR#: [id number] : 1955 Acct:[id number] Age/Sex: 68 / M ADM Date: 03/17/24 Loc: .ED Attending Dr: Ordering Physician: Ld Keith MD Date of Service: 03/17/24 Procedure(s): CT abdomen pelvis w IV con Accession Number(s): [id number] cc: Abdifatah Bunch MD; Ld Keith MD EXAMINATION: CT ABDOMEN AND PELVIS WITH CONTRAST CLINICAL INFORMATION: LLQ pain, recently diagnosed diverticulitis COMPARISON: CT abdomen and pelvis 03/10/24 TECHNIQUE: Multidetector volumetric images were obtained from the superior aspect of the liver through the pubic symphysis following administration 85 mL of Omnipaque 350 intravenous contrast. Sagittal and coronal reformatted images were obtained on the technologist's workstation. Oral contrast: No This CT examination was performed using dose optimization techniques as appropriate, variously including the following: *Automated exposure control *Adjustment of mA and/or kV according to patient size (this includes techniques or standardized protocols for targeted exams where dose is matched to indication/reason for exam; i.e. extremities or head) *Use of iterative reconstruction technique DLP: 539 mGy-cm FINDINGS: LUNG BASES: The visualized lung bases are unremarkable. LIVER, GALLBLADDER, AND BILIARY TREE: The liver is normal in size, shape, and attenuation. No focal hepatic lesion or biliary ductal dilatation is present. The gallbladder is unremarkable with no evidence of radiopaque gallstones, gallbladder wall thickening, or obvious pericholecystic inflammatory changes. PANCREAS: Unremarkable. SPLEEN: Unremarkable. ADRENAL GLANDS: Stable nodular thickening of the left adrenal body measuring up to 1.3 cm. Right adrenal gland is normal. KIDNEYS AND URETERS: Chronic cortical defect involving the posterolateral right kidney. No hydronephrosis or hydroureter. Stable mild nonspecific perinephric stranding. Stable nonobstructing left nephrolithiasis measuring up to 8 mm. BLADDER: Unremarkable. GASTROINTESTINAL TRACT: Diffuse colonic diverticulosis. Compared to CT from 03/10/2024, there is decreased wall thickening and pericolonic stranding involving the proximal sigmoid colon, compatible with improving diverticulitis. There is some new pericolonic fat stranding surrounding the mid descending colon which may reflect a component of worsening diverticulitis. No evidence of perforation or abscess. The appendix is unremarkable. Small duodenal diverticulum. ABDOMINAL WALL: Small fat filled umbilical hernia. LYMPH NODES: Normal. VASCULAR: Aortoiliac atherosclerotic calcification. Normal caliber of the abdominal aorta. PELVIC VISCERA: Unremarkable. OSSEOUS STRUCTURES: No acute osseous abnormality. Multilevel degenerative changes of the lower thoracic and lumbar spine including severe degenerative disc disease at L5-S1. Nonspecific of the right greater left iliac bones, possibly degenerative. CT/CT abdomen pelvis w IV con IMPRESSION: Improving diverticulitis involving the proximal sigmoid colon. However, compared to CT from 03/10/2024, there is new mild pericolonic fat stranding involving the mid descending colon which may reflect a component of worsening diverticulitis. No evidence of complication including perforation or abscess Fleischner guidelines were followed. Dictated By: Mayank Alvarado Signed By: <Electronically signed by Mayank Alvarado in [place]> 03/17/24 1748 DD/ 1426 TD/TT: Pipe Stripper: [place] [address] CT Scan Report Signed Patient: Javier Atkins MR#: [id number] : 1955 Acct:[id number] Age/Sex: 68 / M ADM Date: 03/17/24 Loc: HO.ED Attending Dr: Ordering Physician: Ld Keith MD Date of Service: 03/17/24 Procedure(s): CT abd omen pelvis w IV con Accession Number(s): [id number] cc: Abdifatah Bunch MD; Ld Keith MD EXAMINATION: CT ABDOMEN AND PELVI S WITH CONTRAST CLINICAL INFORMATION: LLQ pain, recently diagnosed diverticulitis COMPARISON: CT abdomen and pelvi s 03/10/24 TECHNIQUE: Multidetector volume tric images were obtained from the superior aspect of the liver through the pubic symphysis following administration 85 mL of Omnipaque 350 intravenous contrast. Sagittal and coronal reformatted images were obtained on the technologist's workstation. Oral contrast: No This CT examination was performed using dose optimization techniques as appropriate, various ly including the following: *Automated exposure control *Adjustment of mA an d/or kV according to patient size (this includes techniques or standardized protocols for targeted exams where dose is matched to indication/reason for exam; i.e. extremities or head) *Use of iterative reconstruction technique DLP: 539 mGy-cm FINDINGS: LUNG BASES: The visualized lung bases are unremarkable. LIVER, GALLBLADDER, AND BILIARY TREE: The liver is normal in size, shape, and attenuati on. No focal hepatic lesion or biliary ductal dilatation is presen t. The gallbladder is unremarkable with no evidence of radiopaque gallstones, gallbladder wall thickening, or obvious pericholecystic inflammatory changes. PANCREAS: Unremarkable. SPLEEN: Unremarkable. ADRENAL GLANDS: Stab le nodular thickening of the left adrenal body measuring up to 1.3 cm. Right adrenal gland is normal. KIDNEYS AND URETERS: Chronic cortical defect involving the posterolateral right kidney. No hydronephrosis or hydroureter. Stable mild nonspecific perinephric stranding. Stable nonobstructing left nephrolithiasis measuring up to 8 mm. BLADDER: Unremarkable. GASTROINTESTINAL TRA CT: Diffuse colonic diverticulosis. Compared to CT from 03/10/2024, the re is decreased wall thickening and pericolonic stranding involving the proximal sigmoid colon, compatible with improving diverticulitis. There is some new pericolonic fat stranding surrounding the mid descending colon which may reflect a component of worsening diverticulitis. No evidence of perforation or abscess. The appendix is unremarkable. Small duodenal diverticulum. ABDOMINAL WALL: Smal l fat filled umbilical hernia. LYMPH NODES: Normal. VASCULAR: Aortoiliac atherosclerotic calcification. Normal caliber of the abdominal aorta. PELVIC VISCERA: Unremarkable. OSSEOUS STRUCTURES: No acute osseous abnormality. Multilevel degenerative changes of the lower thoracic and lumbar spine including severe degenerative disc disease at L5-S1. Nonspecific of the right greater left iliac bones, possibly degenerative. C T/CT abdomen pelvis w IV con IMPRESSION: Improving diverticul itis involving the proximal sigmoid colon. However, compared to CT from 03/10/2024, there is new mild pericolonic fat stranding involv ing the mid descending colon which may reflect a component of worseni ng diverticulitis. No evidence of complication including perforatio n or abscess Fleischner guideline s were followed. Dictated By: Mayank Alvarado Signed By: <Electronically signed by Mayank Alvarado in [place]> 03/17/24 1748 DD/ 1426 TD/TT: Pipe Stripper: Complete Blood Count Auto Di ff Reviewed date:03/18/2024 03:32:36 PM Interpretation: Performing Lab:[facility], [address] [place] [phone] Notes/Report: White Blood Count 8.7 4.8-10.8 X10*3/uL Red Blood Count 4.42 4.60-5.80 X10*6/uL Hemoglobin 11.8 14.0-18.0 g/dl Hematocrit 35.2 42.0-52.0 % Mean Corpuscular Volume 79.6 80.0-98.0 fL Mean Corpuscular Hemoglobin 26.7 27.0-33.0 pg Mean Corpuscular HGB Conc 33.5 31.0-36.0 g/dl Red Cell Distribution Width 14.1 11.0-16.0 % Platelet Count 222 160-400 X10*3/uL Mean Platelet Volume 11.3 9.4-12.4 fL Neutrophils Percent Auto 75.6 45-73 % Imm Gran Pct Auto 0.3 0.0-0.4 % Lymphocytes Percent Auto 13.3 20-40 % Monocytes Percent Auto 8.6 2-11 % Eosinophils Percent Auto 2.0 0-4 % Basophils Percent Auto 0.2 0-2 % NRBC Pct Auto 0.0 0.0-0.2 /100WBC Neutrophils Absolute Auto 6.6 2.0-8.3 x10*3/uL Imm Gran Abs Auto 0.03 0.00-0.03 X10*3/uL Lymphocytes Absolute Auto 1.2 1.2-4.9 X10*3/uL Monocytes Absolute Auto 0.8 0.1-1.2 X10*3/uL Eosinophils Absolute Auto 0.2 0.0-0.4 X10*3/uL Basophils Absolute Auto 0.0 0.0-0.2 X10*3/uL NRBC Abs Auto 0.000 0.0-0.012 X10*3/uL Basic Metabolic Panel Reviewed date:03/18/2024 03:32:36 PM Interpretation: Performing Lab:[facility], [address] [place] [phone] Notes/Report: Sodium 136 135-145 mmol/L Potassium 4.0 3.3-5.1 mmol/L Chloride 106 96-108 mmol/L Carbon Dioxide 22 22-29 mmol/L Anion Gap 12 12-20 Blood Urea Nitrogen 6 9-16 mg/dL Creatinine 0.81 0.5-1.4 mg/dL Creatinine Clr Calc Pharmacy 89.4 eGFR (calculated from the MDRD study equation) and eCrCl (calculated from the Cockcroft-Gault equation) are based on different parameters and may not yield comparable results. If eCrCl result is absurd, please check patient's height/weight. Estimated Glomerular Filt Rate > 60 NOTE: For -Cypriot individuals, multiply the result by 1.210. Chronic Kidney Disease: Estimated GFR < 60 mL/min/1.73m2 Severe Kidney Disease: Estimated GFR < 15 mL/min/1.73m2 Glucose Random 124 60-115 mg/dL Calcium 8.5 8.4-10.2 mg/dL Magnesium Reviewed date:03/18/2024 03:32:36 PM Interpretation: Performing Lab:[address] [phone] Notes/Report: Magnesium 1.7 1.6-2.6 mg/dL Glucose, Whole Blood Reviewed date:03/18/2024 03:32:36 PM Interpretation: Performing Lab:[facility], [address] [place] [phone] Notes/Report: Glucose, Whole Blood 137 60-115 mg/dL METER # : [id number] Glucose, Whole Blood Reviewed date:03/18/2024 03:32:36 PM Interpretation: Performing Lab:[facility], [address] [place] [phone] Notes/Report: Glucose, Whole Blood 141 60-115 mg/dL METER # : [id number] Glucose, Whole Blood Reviewed date:03/19/2024 12:42:23 PM Interpretation: Performing Lab:[facility], [address] [place] [phone] Notes/Report: Glucose, Whole Blood 114 60-115 mg/dL METER # : [id number] Glucose, Whole Blood Reviewed date:03/19/2024 12:40:18 PM Interpretation: Performing Lab:[facility], [address] [place] [phone] Notes/Report: Glucose, Whole Blood 142 60-115 mg/dL METER # : [id number] Complete Blood Count no Diff Reviewed date:03/19/2024 01:16:37 PM Interpretation: Performing Lab:[facility], [address] [place] [phone] Notes/Report: White Blood Count 6.4 4.8-10.8 X10*3/uL Red Blood Count 4.14 4.60-5.80 X10*6/uL Hemoglobin 10.9 14.0-18.0 g/dl Hematocrit 33.5 42.0-52.0 % Mean Corpuscular Volume 80.9 80.0-98.0 fL Mean Corpuscular Hemoglobin 26.3 27.0-33.0 pg Mean Corpuscular HGB Conc 32.5 31.0-36.0 g/dl Red Cell Distribution Width 14.1 11.0-16.0 % Platelet Count 198 160-400 X10*3/uL Mean Platelet Volume 11.1 9.4-12.4 fL NRBC Pct Auto 0.0 0.0-0.2 /100WBC NRBC Abs Auto 0.000 0.0-0.012 X10*3/uL Basic Metabolic Panel Reviewed date:03/19/2024 12:39:15 PM Interpretation: Performing Lab:[facility], [address] [place] [phone] Notes/Report: Sodium 141 135-145 mmol/L Potassium 3.9 3.3-5.1 mmol/L Chloride 108 96-108 mmol/L Carbon Dioxide 25 22-29 mmol/L Anion Gap 12 12-20 Blood Urea Nitrogen 5 9-16 mg/dL Creatinine 0.93 0.5-1.4 mg/dL Creatinine Clr Calc Pharmacy 77.9 eGFR (calculated from the MDRD study equation) and eCrCl (calculated from the Cockcroft-Gault equation) are based on different parameters and may not yield comparable results. If eCrCl result is absurd, please check patient's height/weight. Estimated Glomerular Filt Rate > 60 NOTE: For -Cypriot individuals, multiply the result by 1.210. Chronic Kidney Disease: Estimated GFR < 60 mL/min/1.73m2 Severe Kidney Disease: Estimated GFR < 15 mL/min/1.73m2 Glucose Random 124 60-115 mg/dL Calcium 8.1 8.4-10.2 mg/dL Glucose, Whole Blood Reviewed date:03/19/2024 12:48:56 PM Interpretation: Performing Lab:[facility], [address] [place] [phone] Notes/Report: Glucose, Whole Blood 129 60-115 mg/dL METER # : [id number] Glucose, Whole Blood Reviewed date:03/19/2024 12:25:13 PM Interpretation: Performing Lab:[facility], [address] [place] [phone] Notes/Report: Glucose, Whole Blood 184 60-115 mg/dL METER # : [id number] Glucose, Whole Blood Reviewed date:03/20/2024 12:29:43 PM Interpretation: Performing Lab:[facility], [address] [place] [phone] Notes/Report: Glucose, Whole Blood 100 60-115 mg/dL METER # : [id number] Glucose, Whole Blood Reviewed date:03/20/2024 12:29:43 PM Interpretation: Performing Lab:[facility], [address] [place] [phone] Notes/Report: Glucose, Whole Blood 136 60-115 mg/dL METER # : [id number] Glucose, Whole Blood Reviewed date:03/20/2024 12:29:43 PM Interpretation: Performing Lab:[facility], [address] [place] [phone] Notes/Report: Glucose, Whole Blood 125 60-115 mg/dL METER # : [id number] Glucose, Whole Blood Reviewed date:03/20/2024 12:29:43 PM Interpretation: Performing Lab:[facility], [address] [place] [phone] Notes/Report: Glucose, Whole Blood 121 60-115 mg/dL METER # : [id number] Complete Blood Count Auto Di ff Reviewed date:03/27/2024 09:43:30 AM Interpretation: Performing Lab:[facility], [address] [place] [phone] Notes/Report: White Blood Count 9.6 4.8-10.8 X10*3/uL Red Blood Count 4.89 4.60-5.80 X10*6/uL Hemoglobin 13.1 14.0-18.0 g/dl Hematocrit 39.6 42.0-52.0 % Mean Corpuscular Volume 81.0 80.0-98.0 fL Mean Corpuscular Hemoglobin 26.8 27.0-33.0 pg Mean Corpuscular HGB Conc 33.1 31.0-36.0 g/dl Red Cell Distribution Width 14.4 11.0-16.0 % Platelet Count 240 160-400 X10*3/uL Mean Platelet Volume 10.7 9.4-12.4 fL Neutrophils Percent Auto 73.3 45-73 % Imm Gran Pct Auto 0.5 0.0-0.4 % Lymphocytes Percent Auto 13.4 20-40 % Monocytes Percent Auto 9.8 2-11 % Eosinophils Percent Auto 2.7 0-4 % Basophils Percent Auto 0.3 0-2 % NRBC Pct Auto 0.0 0.0-0.2 /100WBC Neutrophils Absolute Auto 7.0 2.0-8.3 x10*3/uL Imm Gran Abs Auto 0.05 0.00-0.03 X10*3/uL Lymphocytes Absolute Auto 1.3 1.2-4.9 X10*3/uL Monocytes Absolute Auto 0.9 0.1-1.2 X10*3/uL Eosinophils Absolute Auto 0.3 0.0-0.4 X10*3/uL Basophils Absolute Auto 0.0 0.0-0.2 X10*3/uL NRBC Abs Auto 0.000 0.0-0.012 X10*3/uL Comprehensive Met. Panel Reviewed date:03/27/2024 09:44:05 AM Interpretation: Performing Lab:[facility], [address] [place] [phone] Notes/Report: Sodium 138 135-145 mmol/L Potassium 4.3 3.3-5.1 mmol/L Chloride 106 96-108 mmol/L Carbon Dioxide 21 22-29 mmol/L Anion Gap 15 12-20 Blood Urea Nitrogen 9 9-16 mg/dL Creatinine 1.04 0.5-1.4 mg/dL Creatinine Clr Calc Pharmacy 63.9 eGFR (calculated from the MDRD study equation) and eCrCl (calculated from the Cockcroft-Gault equation) are based on different parameters and may not yield comparable results. If eCrCl result is absurd, please check patient's height/weight. Estimated Glomerular Filt Rate > 60 NOTE: For -Cypriot individuals, multiply the result by 1.210. Chronic Kidney Disease: Estimated GFR < 60 mL/min/1.73m2 Severe Kidney Disease: Estimated GFR < 15 mL/min/1.73m2 Glucose Random 111 60-115 mg/dL Calcium 9.3 8.4-10.2 mg/dL Bilirubin Total 0.6 0.0-1.0 mg/dL Aspartate Amino Transferase 11 5-37 U/L Alanine Aminotransferase 6 0-40 U/L Total Protein 6.5 6.5-8.0 g/dL Albumin Level 3.8 3.5-5.0 g/dL Alkaline Phosphatase 58 39-117 U/L Lactic Acid Reviewed date:03/27/2024 09:41:09 AM Interpretation: Performing Lab:[facility], [address] [place] [phone] Notes/Report: Lactic Acid 2.1 0.5-2.0 mmol/L Critical LACTA sent by a secure message and confirmed by DR VICTORIA 03-26-24 1653 Tech:[facility] Lipase Reviewed date:03/26/2024 11:55:44 AM Interpretation: Performing Lab:[facility], [address] [place] [phone] Notes/Report: Lipase 21 8-78 U/L Glucose, Whole Blood Reviewed date:03/27/2024 09:41:32 AM Interpretation: Performing Lab:[facility], [address] [place] [phone] Notes/Report: Glucose, Whole Blood 88 60-115 mg/dL METER # : [id number] Blood Culture (First) Reviewed date:04/01/2024 08:10:00 PM Interpretation: Performing Lab:[facility], [address] [place] [phone] Notes/Report: Blood Culture (First) No growth after 5 days. Blood Culture (Second) Reviewed date:04/01/2024 08:10:09 PM Interpretation: Performing Lab:[facility], [address] [place] [phone] Notes/Report: Blood Culture (Second) No growth after 5 days. Lactic Acid-LAB USE ONLY Reviewed date:03/27/2024 09:41:19 AM Interpretation: Performing Lab:[facility], [address] [place] [phone] Notes/Report: Lactic Acid-LAB USE ONLY 1.6 0.5-2.0 mmol/L CT abdomen pelvis w con Reviewed date:03/26/2024 04:21:59 PM Interpretation: Performing Lab: Notes/Report: [address] [address] [address] Scan Report Signed Patient: Javier Atkins MR#: [id number] : 1955 Acct:[id number] Age/Sex: 68 / M ADM Date: 03/26/24 Loc: HO.ED Attending Dr: Ordering Physician: Agustin Jauregui DO Date of Service: 03/26/24 Procedure(s): CT abdomen pelvis w IV con Accession Number(s): [id number] cc: Abdifatah Bunch MD; Agustin Jauregui DO EXAMINATION: CT ABDOMEN AND PELVIS WITH CONTRAST CLINICAL INFORMATION: Diverticulitis. COMPARISON: CT abdomen and pelvis 03/10/2024 and 03/17/2024. TECHNIQUE: Multidetector volumetric images were obtained from the superior aspect of the liver through the pubic symphysis following administration 85 mL of Omnipaque 350 intravenous contrast. Sagittal and coronal reformatted images were obtained on the technologist's workstation. Oral contrast: No This CT examination was performed using dose optimization techniques as appropriate, variously including the following: *Automated exposure control *Adjustment of mA and/or kV according to patient size (this includes techniques or standardized protocols for targeted exams where dose is matched to indication/reason for exam; i.e. extremities or head) *Use of iterative reconstruction technique DLP: 596 mGy-cm FINDINGS: LUNG BASES: The visualized lung bases are unremarkable. LIVER, GALLBLADDER, AND BILIARY TREE: The liver is enlarged at 18 cm in greatest length. Attenuation difficult to criminal court judge after IV contrast. No focal hepatic lesion or biliary ductal dilatation is present. The gallbladder is unremarkable with no evidence of radiopaque gallstones, gallbladder wall thickening, or obvious pericholecystic inflammatory changes. PANCREAS: Unremarkable. SPLEEN: Spleen is enlarged at 14.4 cm in greatest dimension. ADRENAL GLANDS: Unremarkable. KIDNEYS AND URETERS: The kidneys are normal in size, shape, and attenuation. There are punctate calculi present in each kidney without obstruction. No hydronephrosis, hydroureter, or ureteral calculi seen. No perinephric stranding. A few small benign Bosniak class I renal cysts are noted on the right which require no additional imaging or follow-up. No solid renal masses are seen. BLADDER: Empty but unremarkable. GASTROINTESTINAL TRACT: Stomach is unremarkable. A 2.8 cm duodenal diverticulum is seen arising from the second portion of the duodenum. Moderately extensive diverticular changes are present in the colon. There has been a marked decrease in the inflammatory change seen around colonic diverticula in the mid descending colon and proximal sigmoid colon with only some minimal inflammatory changes in the pericolonic fat remaining. There is a new area of inflammatory change in the pericolonic fat at the level of the hepatic flexure compared to the prior study (5:17 compare prior 6:27). The small bowel is unremarkable. The appendix is unremarkable. ABDOMINAL WALL: No significant hernia is appreciated. LYMPH NODES: No retroperitoneal lymphadenopathy. VASCULAR: Calcific atherosclerotic changes are present in the aorta and iliofemoral vessels. There is no evidence of an abdominal aortic aneurysm. PELVIC VISCERA: The prostate and seminal vesicles are unremarkable. OSSEOUS STRUCTURES: Degenerative changes are present in the spine most marked at L5-S1. CT/CT abdomen pelvis w IV con IMPRESSION: 1. Marked improvement in inflammatory changes in the descending colon and proximal sigmoid colon with only some minimal inflammatory changes remaining. 2. New area of inflammatory change in the pericolonic fat at the level of the hepatic flexure. 3. Incidental note made of hepatosplenomegaly, nonobstructing bilateral renal calculi and degenerative changes in the spine. Fleischner guidelines were followed. Dictated By: Parminder Cisneros MD Signed By: <Electronically signed by Parminder Cisneros MD in OV> 03/26/24 1544 DD/ 1405 TD/TT: Pipe Stripper: [address] [address] [address] Scan Report Signed Patient: Javier Atkins MR#: [id number] : 1955 Acct:[id number] Age/Sex: 68 / M ADM Date: 03/26/24 Loc: HO.ED Attending Dr: Ordering Physician: Agustin Jauregui DO Date of Service: 03/26/24 Procedure(s): CT abd omen pelvis w IV con Accession Number(s): [id number] cc: Abdifatah Bunch MD; Agustin Jauregui DO EXAMINATION: CT ABDOMEN AND PELVI S WITH CONTRAST CLINICAL INFORMATION: Diverticulitis. COMPARISON: CT abdomen and pelvi s 03/10/2024 and 03/17/2024. TECHNIQUE: Multidetector volume tric images were obtained from the superior aspect of the liver through the pubic symphysis following administration 85 mL of Omnipaque 350 intravenous contrast. Sagittal and coronal reformatted images were obtained on the technologist's workstation. Oral contrast: No This CT examination was performed using dose optimization techniques as appropriate, various ly including the following: *Automated exposure control *Adjustment of mA an d/or kV according to patient size (this includes techniques or standardized protocols for targeted exams where dose is matched to indication/reason for exam; i.e. extremities or head) *Use of iterative reconstruction technique DLP: 596 mGy-cm FINDINGS: LUNG BASES: The visualized lung bases are unremarkable. LIVER, GALLBLADDER, AND BILIARY TREE: The liver is enlarged at 18 cm in greatest length. Attenuation difficult to criminal court judge after IV contrast. No focal hepatic lesion or biliary ductal dilatation is present. The gallbladder is unremarkable with no evidence of radiopaque gallstones, gallbladder wall thickening, or obvious pericholecystic inflammatory changes. PANCREAS: Unremarkable. SPLEEN: Spleen is enlarged at 14.4 cm in greatest dimension. ADRENAL GLANDS: Unremarkable. KIDNEYS AND URETERS: The kidneys are normal in size, shape, and attenuation. There a re punctate calculi present in each kidney without obstruction. No hydronephrosis, hydroureter, or ureteral calculi seen. No perinephric stranding. A few small benign Bosniak class I renal cysts are noted on t he right which require no additional imaging or follow-up. No solid renal masses are seen. BLADDER: Empty but unremarkable. GASTROINTESTINAL TRA CT: Stomach is unremarkable. A 2.8 cm duodenal diverticulum is seen arising from the second portion of the duodenum. Moderately extensive diverticular changes are present in the colon. There has been a mar ked decrease in the inflammatory change seen around colonic diverticula in the mid descending colon and proximal sigmoid colon with only some minimal inflammatory changes in the pericolonic fat remaining. There is a new area of inflammatory change in the pericolonic fat at t he level of the hepatic flexure compared to the prior study (5:17 compare prior 6:27). The small bowel is unremarkable. The appendix is unremarkable. ABDOMINAL WALL: No significant hernia is appreciated. LYMPH NODES: No retroperitoneal lymphadenopathy. VASCULAR: Calcific atherosclerotic changes are present in the aorta and iliofemoral vessels. There is no evidence of an abdominal aortic aneurysm. PELVIC VISCERA: The prostate and seminal vesicles are unremarkable. OSSEOUS STRUCTURES: Degenerative changes are present in the spine most marked at L5-S1. C T/CT abdomen pelvis w IV con IMPRESSION: 1. Marked improvemen t in inflammatory changes in the descending colon and proximal sigmoid colon with only some minimal inflammatory changes remaining. 2. New area of inflammatory change in the pericolonic fat at the level of the hepatic flexure. 3. Incidental note m iraida of hepatosplenomegaly, nonobstructing bilateral renal calculi and degenerative changes in the spine. Fleischner guideline s were followed. Dictated By: Parminder Cisneros MD Signed By: <Electronically signed by Parminder Cisneros MD in OV> 03/26/24 1544 DD/ 1405 TD/TT: Resume Specialist ist: SS Complete Blood Count Auto Di ff Reviewed date:03/27/2024 09:41:53 AM Interpretation: Performing Lab:[facility], [address] [place] [phone] Notes/Report: White Blood Count 6.3 4.8-10.8 X10*3/uL Red Blood Count 4.39 4.60-5.80 X10*6/uL Hemoglobin 11.7 14.0-18.0 g/dl Hematocrit 35.7 42.0-52.0 % Mean Corpuscular Volume 81.3 80.0-98.0 fL Mean Corpuscular Hemoglobin 26.7 27.0-33.0 pg Mean Corpuscular HGB Conc 32.8 31.0-36.0 g/dl Red Cell Distribution Width 14.6 11.0-16.0 % Platelet Count 192 160-400 X10*3/uL Mean Platelet Volume 11.0 9.4-12.4 fL Neutrophils Percent Auto 62.1 45-73 % Imm Gran Pct Auto 0.8 0.0-0.4 % Lymphocytes Percent Auto 19.8 20-40 % Monocytes Percent Auto 10.8 2-11 % Eosinophils Percent Auto 6.0 0-4 % Basophils Percent Auto 0.5 0-2 % NRBC Pct Auto 0.0 0.0-0.2 /100WBC Neutrophils Absolute Auto 3.9 2.0-8.3 x10*3/uL Imm Gran Abs Auto 0.05 0.00-0.03 X10*3/uL Lymphocytes Absolute Auto 1.3 1.2-4.9 X10*3/uL Monocytes Absolute Auto 0.7 0.1-1.2 X10*3/uL Eosinophils Absolute Auto 0.4 0.0-0.4 X10*3/uL Basophils Absolute Auto 0.0 0.0-0.2 X10*3/uL NRBC Abs Auto 0.000 0.0-0.012 X10*3/uL Basic Metabolic Panel Reviewed date:03/27/2024 09:44:23 AM Interpretation: Performing Lab:[facility], [address] [place] [phone] Notes/Report: Sodium 141 135-145 mmol/L Potassium 4.0 3.3-5.1 mmol/L Chloride 109 96-108 mmol/L Carbon Dioxide 24 22-29 mmol/L Anion Gap 12 12-20 Blood Urea Nitrogen 9 9-16 mg/dL Creatinine 1.04 0.5-1.4 mg/dL Creatinine Clr Calc Pharmacy 63.9 eGFR (calculated from the MDRD study equation) and eCrCl (calculated from the Cockcroft-Gault equation) are based on different parameters and may not yield comparable results. If eCrCl result is absurd, please check patient's height/weight. Estimated Glomerular Filt Rate > 60 NOTE: For -Cypriot individuals, multiply the result by 1.210. Chronic Kidney Disease: Estimated GFR < 60 mL/min/1.73m2 Severe Kidney Disease: Estimated GFR < 15 mL/min/1.73m2 Glucose Random 109 60-115 mg/dL Calcium 8.5 8.4-10.2 mg/dL Glucose, Whole Blood Reviewed date:03/27/2024 09:42:59 AM Interpretation: Performing Lab:[facility], [address] [place] [phone] Notes/Report: Glucose, Whole Blood 98 60-115 mg/dL METER # : [id number] Glucose, Whole Blood Reviewed date:03/27/2024 03:26:01 PM Interpretation: Performing Lab:[facility], [address] [place] [phone] Notes/Report: Glucose, Whole Blood 127 60-115 mg/dL METER # : [id number] Glucose, Whole Blood Reviewed date:03/28/2024 08:53:31 AM Interpretation: Performing Lab:[facility], [address] [place] [phone] Notes/Report: Glucose, Whole Blood 134 60-115 mg/dL METER # : [id number] Glucose, Whole Blood Reviewed date:03/28/2024 08:53:31 AM Interpretation: Performing Lab:[facility], [address] [place] [phone] Notes/Report: Glucose, Whole Blood 123 60-115 mg/dL METER # : [id number] Complete Blood Count no Diff Reviewed date:03/28/2024 08:53:31 AM Interpretation: Performing Lab:[facility], [address] [place] [phone] Notes/Report: White Blood Count 6.1 4.8-10.8 X10*3/uL Red Blood Count 4.49 4.60-5.80 X10*6/uL Hemoglobin 11.9 14.0-18.0 g/dl Hematocrit 36.5 42.0-52.0 % Mean Corpuscular Volume 81.3 80.0-98.0 fL Mean Corpuscular Hemoglobin 26.5 27.0-33.0 pg Mean Corpuscular HGB Conc 32.6 31.0-36.0 g/dl Red Cell Distribution Width 14.3 11.0-16.0 % Platelet Count 209 160-400 X10*3/uL Mean Platelet Volume 10.7 9.4-12.4 fL NRBC Pct Auto 0.0 0.0-0.2 /100WBC NRBC Abs Auto 0.000 0.0-0.012 X10*3/uL Basic Metabolic Panel Reviewed date:03/28/2024 08:53:31 AM Interpretation: Performing Lab:[address] [phone] Notes/Report: Sodium 142 135-145 mmol/L Potassium 4.4 3.3-5.1 mmol/L Chloride 108 96-108 mmol/L Carbon Dioxide 29 22-29 mmol/L Anion Gap 9 12-20 Blood Urea Nitrogen 6 9-16 mg/dL Creatinine 0.88 0.5-1.4 mg/dL Creatinine Clr Calc Pharmacy 75.5 eGFR (calculated from the MDRD study equation) and eCrCl (calculated from the Cockcroft-Gault equation) are based on different parameters and may not yield comparable results. If eCrCl result is absurd, please check patient's height/weight. Estimated Glomerular Filt Rate > 60 NOTE: For -Cypriot individuals, multiply the result by 1.210. Chronic Kidney Disease: Estimated GFR < 60 mL/min/1.73m2 Severe Kidney Disease: Estimated GFR < 15 mL/min/1.73m2 Glucose Random 130 60-115 mg/dL Calcium 8.7 8.4-10.2 mg/dL Glucose, Whole Blood Reviewed date:03/28/2024 08:53:31 AM Interpretation: Performing Lab:[facility], [address] [place] [phone] Notes/Report: Glucose, Whole Blood 120 60-115 mg/dL METER # : [id number] Glucose, Whole Blood Reviewed date:03/28/2024 08:53:31 AM Interpretation: Performing Lab:[facility], [address] [place] [phone] Notes/Report: Glucose, Whole Blood 120 60-115 mg/dL METER # : [id number] Glucose, Whole Blood Reviewed date:03/29/2024 03:40:14 PM Interpretation: Performing Lab:[facility], [address] [place] [phone] Notes/Report: Glucose, Whole Blood 125 60-115 mg/dL METER # : [id number] Glucose, Whole Blood Reviewed date:03/29/2024 03:40:14 PM Interpretation: Performing Lab:[facility], [address] [place] [phone] Notes/Report: Glucose, Whole Blood 122 60-115 mg/dL METER # : [id number] Glucose, Whole Blood Reviewed date:03/29/2024 03:40:14 PM Interpretation: Performing Lab:[facility], [address] [place] [phone] Notes/Report: Glucose, Whole Blood 167 60-115 mg/dL METER # : [id number] Glucose, Whole Blood Reviewed date:03/29/2024 03:40:14 PM Interpretation: Performing Lab:[facility], [address] [place] [phone] Notes/Report: Glucose, Whole Blood 118 60-115 mg/dL METER # : [id number] Glucose, Whole Blood Reviewed date:03/29/2024 03:40:14 PM Interpretation: Performing Lab:[facility], [address] [place] [phone] Notes/Report: Glucose, Whole Blood 223 60-115 mg/dL METER # : [id number] Glucose, Whole Blood Reviewed date:03/30/2024 12:42:34 PM Interpretation: Performing Lab:[facility], [address] [place] [phone] Notes/Report: Glucose, Whole Blood 110 60-115 mg/dL METER # : [id number] Glucose, Whole Blood Reviewed date:03/30/2024 12:41:17 PM Interpretation: Performing Lab:[facility], [address] [place] [phone] Notes/Report: Glucose, Whole Blood 115 60-115 mg/dL METER # : [id number] Glucose, Whole Blood Reviewed date:03/30/2024 12:39:47 PM Interpretation: Performing Lab:[facility], [address] [place] [phone] Notes/Report: Glucose, Whole Blood 129 60-115 mg/dL METER # : [id number] Glucose, Whole Blood Reviewed date:03/30/2024 12:36:48 PM Interpretation: Performing Lab:[facility], [address] [place] [phone] Notes/Report: Glucose, Whole Blood 135 60-115 mg/dL METER # : [id number] Glucose, Whole Blood Reviewed date:03/30/2024 04:50:39 PM Interpretation: Performing Lab:[facility], [address] [place] [phone] Notes/Report: Glucose, Whole Blood 126 60-115 mg/dL METER # : [id number] Glucose, Whole Blood Reviewed date:03/30/2024 04:50:38 PM Interpretation: Performing Lab:[facility], [address] [place] [phone] Notes/Report: Glucose, Whole Blood 155 60-115 mg/dL METER # : [id number] Glucose, Whole Blood Reviewed date:03/31/2024 09:14:39 AM Interpretation: Performing Lab:[facility], [address] [place] [phone] Notes/Report: Glucose, Whole Blood 142 60-115 mg/dL METER # : [id number] Complete Blood Count Auto Di ff Reviewed date:03/31/2024 12:49:33 PM Interpretation: Performing Lab:[facility], [address] [place] [phone] Notes/Report: White Blood Count 6.9 4.8-10.8 X10*3/uL [...] 0.0-0.2 /100WBC Neutrophils Absolute Auto 3.7 2.0-8.3 x10*3/uL Imm Gran Abs Auto 0.03 0.00-0.03 X10*3/uL Lymphocytes Absolute Auto 1.9 1.2-4.9 X10*3/uL Monocytes Absolute Auto 0.8 0.1-1.2 X10*3/uL Eosinophils Absolute Auto 0.5 0.0-0.4 X10*3/uL Basophils Absolute Auto 0.0 0.0-0.2 X10*3/uL NRBC Abs Auto 0.000 0.0-0.012 X10*3/uL Glucose, Whole Blood Reviewed date:03/31/2024 08:54:01 AM Interpretation: Performing Lab:[facility], [address] [place] [phone] Notes/Report: Glucose, Whole Blood 120 60-115 mg/dL METER # : [id number] Hold Green Gel Reviewed date:03/31/2024 08:54:15 AM Interpretation: Performing Lab:[facility], [address] [place] [phone] Notes/Report: Hold Green Gel See Note Specimen held untested for 24 hours; Call to request Chemistry testing. Glucose, Whole Blood Reviewed date:03/31/2024 12:49:05 PM Interpretation: Performing Lab:[facility], [address] [place] [phone] Notes/Report: Glucose, Whole Blood 202 60-115 mg/dL METER # : [id number] CDiff Gene PCR Reviewed date:04/05/2024 06:26:29 PM Interpretation: Performing Lab:[facility], [address] [place] [phone] Notes/Report: CDiff Gene PCR NEGATIVE Negative If C. difficile strongly suspected despite one negative test, a second test may be sent vs. empiric treatment for C. difficile infection. Hold Gold Reviewed date:05/08/2024 12:26:05 PM Interpretation: Performing Lab:[facility], [address] [place] [phone] Notes/Report: Hold Gold See Note Specimen held untested for 24 hours; Call to request Chemistry testing. Complete Blood Count Auto Di ff Reviewed date:07/18/2024 01:42:47 PM Interpretation: Performing Lab:[facility], [address] [place] [phone] Notes/Report: White Blood Count 11.4 4.8-10.8 X10*3/uL Red Blood Count 4.89 4.60-5.80 X10*6/uL Hemoglobin 13.3 14.0-18.0 g/dl Hematocrit 39.4 42.0-52.0 % Mean Corpuscular Volume 80.6 80.0-98.0 fL Mean Corpuscular Hemoglobin 27.2 27.0-33.0 pg Mean Corpuscular HGB Conc 33.8 31.0-36.0 g/dl Red Cell Distribution Width 14.4 11.0-16.0 % Platelet Count 179 160-400 X10*3/uL Mean Platelet Volume 10.3 9.4-12.4 fL Neutrophils Percent Auto 71.3 45-73 % Imm Gran Pct Auto 0.4 0.0-0.4 % Lymphocytes Percent Auto 14.1 20-40 % Monocytes Percent Auto 12.4 2-11 % Eosinophils Percent Auto 1.7 0-4 % Basophils Percent Auto 0.1 0-2 % NRBC Pct Auto 0.0 0.0-0.2 /100WBC Neutrophils Absolute Auto 8.1 2.0-8.3 x10*3/uL Imm Gran Abs Auto 0.05 0.00-0.03 X10*3/uL Lymphocytes Absolute Auto 1.6 1.2-4.9 X10*3/uL Monocytes Absolute Auto 1.4 0.1-1.2 X10*3/uL Eosinophils Absolute Auto 0.2 0.0-0.4 X10*3/uL Basophils Absolute Auto 0.0 0.0-0.2 X10*3/uL NRBC Abs Auto 0.000 0.0-0.012 X10*3/uL Comprehensive Met. Panel Reviewed date:07/18/2024 01:44:08 PM Interpretation: Performing Lab:[facility], [address] [place] [phone] Notes/Report: Sodium 136 135-145 mmol/L Potassium 4.3 3.3-5.1 mmol/L Chloride 103 96-108 mmol/L Carbon Dioxide 24 22-29 mmol/L Anion Gap 13 12-20 Blood Urea Nitrogen 16 9-16 mg/dL Creatinine 0.85 0.5-1.4 mg/dL Creatinine Clr Calc Pharmacy 82.5 eGFR (calculated from the MDRD study equation) and eCrCl (calculated from the Cockcroft-Gault equation) are based on different parameters and may not yield comparable results. If eCrCl result is absurd, please check patient's height/weight. Estimated Glomerular Filt Rate > 60 Chronic Kidney Disease: Estimated GFR < 60 mL/min/1.73m2 Severe Kidney Disease: Estimated GFR < 15 mL/min/1.73m2 Glucose Random 118 60-115 mg/dL Calcium 8.6 8.4-10.2 mg/dL Bilirubin Total 0.8 0.0-1.0 mg/dL Aspartate Amino Transferase 18 5-37 U/L Alanine Aminotransferase 11 0-40 U/L Total Protein 6.7 6.5-8.0 g/dL Albumin Level 4.1 3.5-5.0 g/dL Alkaline Phosphatase 68 39-117 U/L Lipase Reviewed date:07/16/2024 12:01:30 PM Interpretation: Performing Lab:[address] [phone] Notes/Report: Lipase 24 8-78 U/L UA CC w/rflx Micro + Cult Reviewed date:07/19/2024 02:44:52 PM Interpretation: Performing Lab:[address] [phone] Notes/Report: 1926 Urine, Clean Catch Color Urine Yellow Appearance Urine Clear PH 7.0 5.0-9.0 Glucose Urine UA Negative Negative mg/dL Urine Blood Negative Negative Specific [place] - Urine 1.020 1.005-1.025 Urine Protein Trace Neg-Trace mg/dL Urine Ketones Trace Negative mg/dL Nitrite Urine Negative Negative Leukocyte Esterase Urine Negative Negative Lactic Acid Reviewed date:07/16/2024 12:00:04 PM Interpretation: Performing Lab:[address] [place] [address] Notes/Report: Lactic Acid 1.7 0.5-2.0 mmol/L Blood Culture (First) Reviewed date:07/20/2024 12:54:52 PM Interpretation: Performing Lab:[facility], [address] [place] [phone] Notes/Report: Blood Culture (First) No growth after 5 days. Blood Culture (Second) Reviewed date:07/20/2024 12:54:42 PM Interpretation: Performing Lab:[facility], [address] [place] [phone] Notes/Report: Blood Culture (Second) No growth after [address] abdomen pelvis w con Reviewed date:07/20/2024 01:22:37 PM Interpretation:called [facility] LM Performing Lab: Notes/Report: [address] [place] [address] CT Scan Report Signed Patient: Javier Atkins MR#: [id number] : 1955 Acct:[id number] Age/Sex: 68 / M ADM Date: 07/14/24 Loc: HO.ED Attending Dr: Ordering Physician: Maite Lakhani DO Date of Service: 07/15/24 Procedure(s): CT abdomen pelvis w IV con Accession Number(s): [id number] cc: Abdifatah Bunch MD; Maite Lakhani DO EXAMINATION: CT ABDOMEN AND PELVIS WITH CONTRAST CLINICAL INFORMATION: Left lower quadrant pain. COMPARISON: March 26, 2024 TECHNIQUE: Multidetector volumetric images were obtained from the superior aspect of the liver through the pubic symphysis following administration 85 mL of Omnipaque 350 intravenous contrast. Sagittal and coronal reformatted images were obtained on the technologist's workstation. Oral contrast: No This CT examination was performed using dose optimization techniques as appropriate, variously including the following: *Automated exposure control *Adjustment of mA and/or kV according to patient size (this includes techniques or standardized protocols for targeted exams where dose is matched to indication/reason for exam; i.e. extremities or head) *Use of iterative reconstruction technique DLP: 594 mGy-cm FINDINGS: LUNG BASES: The visualized lung bases are unremarkable. LIVER, GALLBLADDER, AND BILIARY TREE: The liver is normal in size, shape, and attenuation. No focal hepatic lesion or biliary ductal dilatation is present. The gallbladder is unremarkable with no evidence of radiopaque gallstones, gallbladder wall thickening, or obvious pericholecystic inflammatory changes. PANCREAS: Unremarkable. SPLEEN: Unremarkable. ADRENAL GLANDS: There is mild bilateral adrenal gland nodularity. KIDNEYS AND URETERS: The kidneys are normal in size, shape, and attenuation. There are bilateral renal vascular calcifications. There is no hydronephrosis. BLADDER: Unremarkable. GASTROINTESTINAL TRACT: There are diverticula seen throughout the colon with mid to distal descending colonic thickening and surrounding infiltration. The appendix is visualized and is within normal limits. ABDOMINAL WALL: No significant hernia is appreciated. LYMPH NODES: Normal. VASCULAR: There is atherosclerotic plaque of the abdominal aorta and proximal branches PELVIC VISCERA: Unremarkable. OSSEOUS STRUCTURES: There is diffuse thoracolumbar degenerative change most significant at L5-S1. CT/CT abdomen pelvis w IV con IMPRESSION: Diverticulitis of the mid to distal descending colon. Fleischner guidelines were followed. Electronically signed by: Damian Bowman MD 07/15/2024 06:24 AM [facility] Dictated By: Damian Bowman MD Signed By: <Electronically signed by Damian Bowman MD in OV> 07/15/24623 DD/ 0335 TD/TT: 07/15/24 0400 Pipe Stripper: [place] [address] CT Scan Report Signed Patient: Javier Atkins MR#: [id number] : 1955 Acct:[id number] Age/Sex: 68 / M ADM Date: 07/14/24 Loc: HO.ED Attending Dr: Ordering Physician: Maite Lakhani DO Date of Service: 07/15/24 Procedure(s): CT abd omen pelvis w IV con Accession Number(s): [id number] cc: Abdifatah Bunch MD; Maite Lakhani DO EXAMINATION: CT ABDOMEN AND PELVI S WITH CONTRAST CLINICAL INFORMATION: Left lower quadrant pain. COMPARISON: March 26, 2024 TECHNIQUE: Multidetector volume tric images were obtained from the superior aspect of the liver through the pubic symphysis following administration 85 mL of Omnipaque 350 intravenous contrast. Sagittal and coronal reformatted images were obtained on the technologist's workstation. Oral contrast: No This CT examination was performed using dose optimization techniques as appropriate, various ly including the following: *Automated exposure control *Adjustment of mA an d/or kV according to patient size (this includes techniques or standardized protocols for targeted exams where dose is matched to indication/reason for exam; i.e. extremities or head) *Use of iterative reconstruction technique DLP: 594 mGy-cm FINDINGS: LUNG BASES: The visualized lung bases are unremarkable. LIVER, GALLBLADDER, AND BILIARY TREE: The liver is normal in size, shape, and attenuati on. No focal hepatic lesion or biliary ductal dilatation is presen t. The gallbladder is unremarkable with no evidence of radiopaque gallstones, gallbladder wall thickening, or obvious pericholecystic inflammatory changes. PANCREAS: Unremarkable. SPLEEN: Unremarkable. ADRENAL GLANDS: Ther e is mild bilateral adrenal gland nodularity. KIDNEYS AND URETERS: The kidneys are normal in size, shape, and attenuation. There a re bilateral renal vascular calcifications. There is no hydronephrosis. BLADDER: Unremarkable. GASTROINTESTINAL TRA CT: There are diverticula seen throughout the colon with mid to distal descending colonic thickening and surrounding infiltration. The appendix is visualized and is within normal limits. ABDOMINAL WALL: No significant hernia is appreciated. LYMPH NODES: Normal. VASCULAR: There is atherosclerotic plaque of the abdominal aorta and proximal branches PELVIC VISCERA: Unremarkable. OSSEOUS STRUCTURES: There is diffuse thoracolumbar degenerative change most significant at L5-S1. C T/CT abdomen pelvis w IV con IMPRESSION: Diverticulitis of th e mid to distal descending colon. Fleischner guideline s were followed. Electronically linda d by: Damian Bowman MD 07/15/2024 06:24 AM EST Dictated By: Deanna Bowman MD Signed By: <Electronically signed by Damian Bowman MD in OV> 07/15/2424 DD/ TD/TT: 07/15/24 0400 Pipe Stripper: CT chest wo con Reviewed date:09/14/2024 04:59:50 PM Interpretation: Performing Lab: Notes/Report: [place] [address] [address] Scan Report Signed Patient: Javier Atkins MR#: [id number] : 1955 Acct:[id number] Age/Sex: 68 / M ADM Date: 09/14/24 Loc: HO.CT Attending Dr: Abdifatah Bunch MD Ordering Physician: Abdifatah Bunch MD Date of Service: 09/14/24 Procedure(s): CT chest wo IV con Accession Number(s): [id number] cc: Abdifatah Bunch MD Report Number: [id number]: Total DLP = 179.00 mGy-cm CLINICAL HISTORY: LUNG NODULE CT chest without contrast Comparison: CT/REG/SR - CT CHEST WO IV CON - 09/26/23 07:27 EST Findings: No infiltrates or concerning pulmonary nodules are identified. No pleural effusion or pneumothorax. Mild vascular calcification of the thoracic aorta. More pronounced calcification of the coronary arteries. 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 No enlarged lymph nodes. No free fluid or free air within the upper abdomen. Calcifications in each renal mirza is likely related to vascular calcifications. No acute bony abnormality. IMPRESSION: No concerning infiltrates or pulmonary nodules. This document has been electronically signed by: Gomez Eisenberg MD on 09/14/2024 09:50:49 Dictated By: Gomez Eisenberg MD Signed By: <Electronically signed by Gomez Eisenberg MD in OV> 09/14/24 0951 DD/ TD/TT: 09/14/24949 Pipe Stripper: [address] [address] [address] Scan Report Signed Patient: Javier Atkins MR#: [id number] : 1955 Acct:[id number] Age/Sex: 68 / M ADM Date: 09/14/24 Loc: HO.CT Attending Dr: Abdifatah Bunch MD Ordering Physician: Abdifatah Bunch MD Date of Service: 09/14/24 Procedure(s): CT keri st wo IV con Accession Number(s): [id number] cc: Abdifatah Bunch MD Report Number: [id number]: Total DLP = 179.00 mGy-cm CLINICAL HISTORY: LULI NG NODULE CT chest without contrast Comparison: CT/REG/S R - CT CHEST WO IV CON - 09/26/23 07:27 EST Findings: No infiltrates or concerning pulmonary nodules are identified. No pleural effusion or pneumothorax. Mild vascular calcification of the thoracic aorta. More pronounced calcification of the coronary arteries. 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 No enlarged lymph nodes. No free fluid or kady e air within the upper abdomen. Calcifications in ea ch renal mirza is likely related to vascular calcifications. No acute bony abnormality. IMPRESSION: No concerning infiltrates or pulmonary nodules. This document has be en electronically signed by: Gomez Eisenberg MD on 09/14/2024 09:50:49 Dictated By: Gomez Eisenberg MD Signed By: <Electronically signed by Gomez Eisenberg MD in OV> 09/14/2451 DD/ TD/TT: 09/14/24949 Pipe Stripper: Reason For Referral Reason esophageal dysmotili ty Diagnosis 1 Esophageal dysmotili ty (K22.4) Referral Organization Abdifatah Bunch MD Referring Provider First Name Abdifatah Referring Provider Last Name Alivia Referring Provider Speciality Internal M edicine Referred Provider Natan Pagan Referred Provider Specialty Gastroentero logy General Notes Heidi Villa 03/23/2024 10:05:16 AM EDT > REFFERAL FAXED ON 03/23/24, Heidi Villa 03/24/2024 09:12:58 AM EDT > patient is scheduled for 06/03 @ 4pm, Lexii German 04/03/2024 01:24:05 PM EDT > info mailed to patient Referral Priority Routine Referral Appointment Date 06/03/2024 Reason upper back pain Diagnosis 1 Upper back pain (M54 .9) Referral Organization Abdifatah Bunch MD Referring Provider First Name Abdifatah Referring Provider Last Name Alivia Referring Provider Speciality Internal M edicine Referred Provider [facility] Referred Provider Specialty Physical Med icine General Notes Lexii German 11:27:31 AM EST > info faxed , Lexii German 08/06/2024 01:10:27 PM EST > left messag for patient to call with appt , DawnJudyMitzy Branchfahad Diamond 08/07/2024 11:19:50 AM EST > PATIENT HAD APPT 08/07 AND OFFICE NOTE HAS BEEEN FAXED INTO CHART Referral Priority Routine Referral Appointment Date 08/07/2024 Medications Medication SIG (Take, Route, Frequency, Duration) Notes Start Date End Date Status Zithromax Z-Nicholas 250 MG 2 tablet on the irst day, then 1 tablet daily for 4 days Orally Once a day for 5 day(s) 01/21/2025 Active predniSONE 10 MG 1 tablet with food o r milk Orally 4 tabs for 3 days,3tabs for 3 days, 2 tabs for 3 days, and 1 tab for 3 days for 14 days 01/21/2025 Active Gabapentin 300 MG take 1 capsule by [facility] three times daily Orally 3 times per day for 90 days Active Celecoxib 200 MG take 1 capsule by [facility] every day with food Orally Once a day Active traMADol HCl 50 MG 1 tablet as needed Orally Once a day for 30 days 11/12/2024 Active Albuterol Sulfate HFA 108 (90 Base) MCG/ACT 1 puff as needed Inhalation every 4 hrs for 30 days 07/15/2023 Active Indomethacin 50 MG 1 capsule with food or milk Orally Three times a day for 10 days 03/23/2016 Not-Taking Fluticasone Propionate 50 MCG/ACT instill 1 spray in each nostril once a day Nasally Once a day for 90 days Active Triamcinolone Acetonide 0.5 % 1 application Externally Twice a day for 30 days 01/07/2024 Active Dicyclomine HCl 10 MG take 1 capsule by mouth every day Orally 0nce a day for 30 days Not-Taking Plavix 75 MG 1 tablet Orally Once a day for 30 day(s) Active Xsipjcezvq-BQQ-Pfdufzpy 50-325-40 MG 1 capsule as needed Orally every 4 hrs 09/17/2019 Not-Taking FreeStyle Lite 0 use to test blood [facility] subQ DX:11:42 once a day for 30 days 09/20/2015 Active Janumet 50-1000 MG take 1 tablet by alexander twice daily with meals. Orally Twice a day for 90 days Active Colcrys 0.6 MG 1 tablet Orally michel y for 90 days 10/31/2021 Active Omeprazole 40 MG take 1 capsule by [facility] every day Orally Once a day for 90 days Active Arnuity Ellipta 200 MCG/ACT 1 puff Inhalation Once a day Active Minocycline HCl 50 MG take one capsule b y mouth twice daily Orally Twice a day for 45 days Active FreeStyle Lite Test 0 use to test blood sugar In Vitro DX:11:42 once a day for 30 days 09/20/2015 Active Atorvastatin Calcium 20 MG take 1 tablet by mouth every day Orally Once a day for 90 days Active Dupixent 300 MG/2ML as directed Subcutaneous Active Immunizations Vaccine Route Administration Date Status Comme nts Flu Vaccine SC Subcutaneous 06/03/2011 Administered Shingles IM Intramuscular 02/12/2012 Administered Flu Vaccine Unknown 04/23/2012 Administered [facility] PPSV23 (Pnemovax) IM Intramuscular 03/03/2013 Administered Flu Vaccine IM Intramuscular 05/28/2013 Administered [facility] Flu Vaccine Unknown 05/21/2013 Administered Fluarix Quadrivalent IM Intramuscular 04/20/2014 Administered Fluarix Quadrivalent IM Intramuscular 05/24/2015 Administered Prevnar 13 IM Intramuscular 06/03/2015 Administered Prevnar 13 IM Intramuscular 09/20/2015 Administered Fluarix Quadrivalent IM Intramuscular 06/12/2016 Administered Fluarix Quadrivalent IM Intramuscular 07/16/2017 Administered Fluarix Quadrivalent IM Intramuscular 05/13/2018 Administered PPSV23 (Pnemovax) IM Intramuscular 07/28/2018 Administered TDaP Unknown 01/17/2018 Administered pt was given the vaccine at [facility]. Shingrix Unknown 01/17/2018 Administered pt was given first dose at [facility]. Shingrix IM Intramuscular 07/31/2018 Administered pt was the vaccine at [facility]. Fluarix Quadrivalent IM Intramuscular 05/01/2019 Administered Influenza High Dose IM Intramuscular 04/22/2020 Administer ed Covid Vaccine Unknown 2020 Administered [facility] Influenza High Dose IM Intramuscular 05/16/2021 Administer ed SARS-COV-2 Moderna Unknown 06/19/2021 Administered Fluarix Quadrivalent IM Intramuscular 05/09/2023 Administered Fluarix Quadrivalent - 150 IM Intramuscular 05/08/2024 Administered Flu Vaccine Unknown 04/20/2014 Pending Social History Tobacco Use: Social History Observation [...] ast year? No Points 0 Interpretation Negative Problems Problem Type SNOMED Code ICD Code Onset Dates Problem Status W/U Status Risk Notes Problem 371614309 Acute diverticul itis (K57.92) Active confirmed Problem 065144880 Dupuytren contra cture (M72.0) Active confirmed Problem 81954034 Type 2 diabetes mellitus with diabetic polyneuropathy (E11.42) Active confirmed Problem Sciatica (39525977) Lumbago with sciatica, left side (M54.42) Active confirmed Problem 840832849 Gastroesophageal reflux disease without esophagitis (K21.9) Active confirmed Problem 597927435 Rosacea (L71.9) Active confirmed Problem 954575668 Environmental allergies (Z91.09) Active confirmed Problem 261939726 Esophageal dysmo tility (K22.4) Active confirmed Problem 36606412 Atherosclerosis (I70.90) Active confirmed Problem 139515443 Pure hypercholesterolemia (E78.00) Active confirmed Problem 21079759 Seasonal allergi c rhinitis due to pollen (J30.1) Active confirmed Problem 37399454 Irritable bowel syndrome with both constipation and diarrhea (K58.2) Active confirmed Problem 500272397 Arthritis of kne e (M17.10) Active confirmed Problem 115497755 Stented coronary artery (Z95.5) Active confirmed Problem Gout (66144326) Acute gout invol ving toe of right foot, unspecified cause (M10.9) Active confirmed Problem 38078811781651032 Abnormal chest CT (R93.89) Active confirmed Problem 70897337 Non-seasonal all ergic rhinitis, unspecified trigger (J30.89) Active confirmed Problem 80746428 Kidney stone on right side (N20.0) Active confirmed Problem 790486335 Notalgia paresth etica (R20.2) Active confirmed Problem 558187604 CAD, multiple ve ssel (I25.10) Active confirmed Problem 00772263 Arteriosclerotic coronary artery disease (I25.10) Active confirmed Problem 221234114 Active asthma (J45.909) Active confirmed Problem 36730441 Purulent bronchi tis (J41.1) Active confirmed Vital Signs Blood pressure diastolic 76 mm Hg 11/12/2024 isabel ght is up 6 pounds since 09-17-24 Height 68.5 in 01/21/2025 weight at home is 180 Bp not taken at home no temp Blood pressure systolic 132 mm Hg 11/12/2024 weig ht is up 6 pounds since 09-17-24 Weight 189 lbs 01/21/2025 weight at home is 180 Bp not taken at home no temp BMI 28.32 kg/m2 01/21/2025 weight at home is 180 Bp not taken at home no temp Encounters Encounter Location Date Provider Diagnosis Abdifatah Bunch MD [address] [place] [address] [id number] 05/08/2024 Abdifatah Bunch Type 2 diabetes noah itus with diabetic polyneuropathy E11.42 ; Encounter for immunization Z23 and Pure hypercholesterolemia E78.00 Abdifatah Bunch MD [address] [place] [address] [id number] 11/05/2024 Abdifatah Bunch Type 2 diabetes noah itus with diabetic polyneuropathy E11.42 and Pure hypercholesterolemia E78.00 Abdifatah Bunch MD [address] [place] [id number] 03/09/2024 Abdifatah Bunch Acute diverticulitis K57.92 and Esophageal dysmotility K22.4 Abdifatah Bunch MD [address] [place] [address] [id number] 03/13/2024 Abdifatah Bunch Acute diverticulitis K57.92 Abdifatah Bunch MD [address] [place] [address] [id number] 04/03/2024 Abdifatah Bunch Acute diarrhea R19.7 ; Acute diverticulitis K57.92 ; Esophageal dysmotility K22.4 and Lumbar back pain M54.50 Abdifatah Bunch MD [address] [place] [address] [id number] 04/10/2024 Abdifatah Bunch Acute diverticulitis K57.92 ; Esophageal dysmotility K22.4 and Stented coronary artery Z95.5 Abdifatah Bunch MD [address] [place] [address] [id number] 05/19/2024 Abdifatah Bunch Type 2 diabetes noah itus with diabetic polyneuropathy E11.42 ; Arteriosclerotic coronary artery disease I25.10 ; Shortness of breath on exertion R06.02 and Pure hypercholesterolemia E78.00 Abdifatah Bunch MD [address] [place] [address] [id number] 07/27/2024 Abdifatah Bunch Upper back pain M54. 9 ; Acute diverticulitis K57.92 ; Gastroesophageal reflux disease without esophagitis K21.9 and Type 2 diabetes mellitus with diabetic polyneuropathy E11.42 Abdifatah Bunch MD [address] [place] [address] [id number] 09/17/2024 Abdifatah Bunch Environmental allerg ies Z91.[address] R93.89 Abdifatah Bunch MD [address] [place] [address] [id number] 11/12/2024 Abdifatah Bunch Lumbar back pain M54 .50 ; Type 2 diabetes mellitus with diabetic polyneuropathy E11.42 ; Arteriosclerotic coronary artery disease I25.10 ; Pure hypercholesterolemia E78.00 and Esophageal dysmotility K22.4 Abdifatah Bunch MD [address] [place] [address] [id number] 01/21/2025 Abdifatah Bunch Bronchitis J40 Abdifatah Bunch MD [address] [place] [address] [id number] 03/17/2024 Abdifatah Bunch MD [address] [place] [address] [id number] 03/24/2024 Abdifatah Bunch MD [address] [place] [address] [id number] 04/02/2024 Abdifatah Bunch MD [address] [place] [address] [id number] 07/20/2024 Abdifatah Bunch MD [address] [place] [address] [id number] 07/23/2024 Abdifatah Bunch MD [address] [place] [address] [id number] 08/04/2024 Abdifatah Bunch Assessments Encounter Date Diagnosis (ICD Code) Assessment Notes Treatment Notes Treatment Clinical Notes Section Notes 05/08/2024 Type 2 diabetes mellitus with diabetic polyneuropathy (ICD-10 - E11.42) 05/08/2024 Encounter for immunization (ICD-10 - Z23) 11/05/2024 Type 2 diabetes mellitus with diabetic polyneuropathy (ICD-10 - E11.42) 03/09/2024 Acute diverticulitis (ICD-10 - K57.92) order faxed to CS dept 03/09/2024 Esophageal dysmotili ty (ICD-10 - K22.4) referral to dr pagan 03/13/2024 Acute diverticulitis (ICD-10 - K57.92) doing great on ab., discussed findings of recent CT scan, will continue to monitor, Total time spent on the date of the encounter is 35 minutes including both face to face time spent and time spent reviewing documentation, studies and counseling the patient. 04/03/2024 Acute diarrhea (ICD- 10 - R19.7) hopefully not but has been on a lot of antibiotics will hold off on ab since he has had a long enough course/ LAB ORDER GIVEN TO JAVIER TO GO TO [facility] 04/03/2024 Acute diverticulitis (ICD-10 - K57.92) is doing better 04/10/2024 Acute diverticulitis (ICD-10 - K57.92) finally resolved 04/10/2024 Esophageal dysmotili ty (ICD-10 - K22.4) had a dilitation 05/19/2024 Type 2 diabetes mellitus with diabetic polyneuropathy (ICD-10 - E11.42) stable, will continue current regiment 05/19/2024 Arteriosclerotic coronary artery disease (ICD-10 - I25.10) chest pain never 07/27/2024 Upper back pain (ICD -10 - M54.9) referral to pssp, mitzyoent verbalized understanding of medication and directions for use 09/17/2024 Environmental allerg ies (ICD-10 - Z91.09) use cold compresses and allergy meds 11/12/2024 Lumbar back pain (ICD-10 - M54.50) 11/12/2024 Type 2 diabetes mellitus with diabetic polyneuropathy (ICD-10 - E11.42) stable, will cntinue current regiment 01/21/2025 Bronchitis (ICD-10 - J40) patient verbalized understanding of medication and directions for use 05/08/2024 Pure hypercholesterolemia (ICD-10 - E78.00) 11/05/2024 Pure hypercholesterolemia (ICD-10 - E78.00) 04/03/2024 Esophageal dysmotili ty (ICD-10 - K22.4) had endoscopy 04/10/2024 Stented coronary art grey (ICD-10 - Z95.5) did have a stent. 05/19/2024 Shortness of breath on exertion (ICD-10 - R06.02) has returned to normal 07/27/2024 Acute diverticulitis (ICD-10 - K57.92) 09/17/[address] (ICD-10 - R93.89) repeat ct showed no nodules. 11/12/2024 Arteriosclerotic coronary artery disease (ICD-10 - I25.10) doing well, will continue to monitor 04/03/2024 Lumbar back pain (ICD-10 - M54.50) 05/19/2024 Pure hypercholesterolemia (ICD-10 - E78.00) stable, at goal, will continue curent regiment 07/27/2024 Gastroesophageal ref lux disease without esophagitis (ICD-10 - K21.9) reflux is failry well controlled, will continue current regiment 11/12/2024 Pure hypercholesterolemia (ICD-10 - E78.00) stable, will continue current regiment 07/27/2024 Type 2 diabetes mellitus with diabetic polyneuropathy (ICD-10 - E11.42) doing well with good a1c, will continue current regiment 11/12/2024 Esophageal dysmotili ty (ICD-10 - K22.4) stable, will continue current regiment Plan Of Treatment Pending Test Test Name Order Date Electrocardiogram (EKG) 06/15/2016 Electrocardiogram (EKG) 08/01/2018 CT ABD & PELVIS WITH CONTRAST 03/09/2024 XR CHEST 2 VIEW PA & LAT 07/30/2023 XR GI SERIES 11/08/2023 US CAROTID BILATERAL DOPPLER 12/09/2023 Diabetic Eye Exam 06/07/2015 CA lexiscan stress w cindy 01/24/2024 CA stress test 01/07/2024 CT chest wo con 09/03/2023 US carotid duplex BI 11/08/2023 Future Test Test Name Order Date CT chest wo con 10/03/2023 Next Appt Details Provider Name:Abdifatah Diallo ier, 03/09/2025 09:15:00 AM, [address], [address], [place], [phone], Provider Name:Abdifatah Diallo ier, 05/10/2025 07:00:00 AM, [address], [address], [place], [phone], Provider Name:Abdifatah Diallo ier, 05/17/2025 09:00:00 AM, [address] [place] [address], [address], [place], [place], [phone], Provider Name:Abdifatah Diallo ier, 11/05/2025 07:15:00 AM, [address] [place] [address], [address], [place], [place], [phone], Provider Name:Abdifatah Diallo ier, 11/15/2025 09:30:00 AM, [address] [place] [address], [address], [place], [place], [phone], Insurance Providers Payer Name Payer Address Payer Phone Subscriber Number Group Number Insured Name Patient Relationship to Insured Coverage Start Date Coverage End Date MEDICARE [employer] [address] [place] [address] [id number] Javier Galicia Self - patient is the insured [employer] [place] [address] [place] [address] [id number] Javier Galicia Self - patient is the insured Medical (General) History Medical History History ICD Code colonoscopy 11/2005; colonosc opy done w/Dr. Pagan 10/12/16 tubular adenoma repeat 5 yearss:06/24/23 colonoscopy repeat 5 yrs Irregular prostate N42.9 Irregular prostate arnuity ellipta is fluticasone Surgical History Surgery Date(Month/Year) RT Total Knee Arthroplasty (Dr. Moon) 12/2018 LT Total Knee Arthroplasty (Dr. Moon) 04/2019
--- OUTSIDE RECORDS SUMMARY | 2025-02-22 12:54 | XMS_ITS | Clinical Summary ---
Author Organization [facility] Address [address] [place] [address] Care Team Providers Care Cutter Woodwind Reeds Name Role Phone Abdifatah Bunch MD Primary Care Provider [phone] Allergies Active Allergy Reactions Criticality Noted Date [...] topic Insurance MEDICARE PART A & B [facility] Care Teams Cutter Woodwind Reeds Relationship Specialty Start Date End Date Abdifatah Bunch MD [address] [place] [address] [place] [address] PCP - General Internal Medicine 11/13/23
[2025-03-30 07:29] VITALS: BMI 26.2
--- NOTE | 2025-04-02 08:41 | HO.ANESPROP2 ---
HPI - Anesthesia Eval Consult details Narrative: 69yo M for Left Cataract Extraction IOL Insertion Right eye 03/22/25: [facility] Cardiology for CAD s/p stent 2023 - stable at 02/2025 office visit Anesthesia Pre-Procedure Meds Is the patient on any of the following meds?: GLP1/DPP4 PMFSH Active Problems Active Problems: All Active Problems (Updated 03/12/25 @ 14:31 by Swetha Stevens RN) Epistaxis (Acute) Asthma (Acute) Environmental allergies (Acute) Cough (Acute) SOB (shortness of breath) (Acute) COVID-19 (Acute) History of total right knee replacement (TKR) (Acute) History of total left knee replacement (TKR) (Acute) Atherosclerotic cardiovascular disease (Acute) Past Medical History Medical History Back pain CAD (coronary artery disease) Trigger finger Atherosclerotic cardiovascular disease Renal stones Sigmoid diverticulitis Sciatica Neuropathy Plantar fasciitis Arthritis GERD (gastroesophageal reflux disease) Gout Diabetes Family History Family History Mother No problems noted. Father No problems noted. Family history of problems with anesthesia: No Surgical History Surgical History Hx of arthroscopic knee surgery Hx of hand surgery History of coronary artery stent placement History of cardiac cath History of foot surgery History of colonoscopy Previous back surgery History of total left knee replacement History of total right knee replacement History of Problems with Anesthesia: No Social History Social History Household Members: None Housing: House Do you presently have visiting nurse or other home services: No Alcohol intake: never Patient Tobacco Use Status: Former Tobacco user Tobacco use type: Cigarette Second Hand Smoke Exposure: Yes Advance Directives Date on File: 04/01/24 service: No Current occupational status: retired 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 Meds Allergies Allergy/AdvReac Type Severity Reaction Status Date / Time umeclidinium (From Anoro AdvReac Severe Unknown Verified 04/12/25 13:37 Ellipta) vilanterol (From Anoro AdvReac Severe Unknown Verified 04/12/25 13:37 Ellipta) levofloxacin (From Levaquin) AdvReac Gastrointestinal Verified 04/12/25 13:37 Upset metronidazole (From Flagyl) AdvReac Gastrointestinal Verified 04/12/25 13:37 Upset ticagrelor AdvReac Unknown Verified 04/12/25 13:37 Brilinta AdvReac Severe SOB Uncoded 07/14/24 19:14 Home Medications ?Medication ?Instructions ?Recorded ?Confirmed ?Last Taken ?Type celecoxib 200 mg capsule 200 mg PO DAILY 06/28/20 03/30/25 03/26/24 History albuterol sulfate 90 mcg/actuation 1 puff inhalation Q4H PRN 10/11/23 03/30/25 Unknown History aerosol inhaler Shortness Of Breath Or Wheezing fluticasone propionate 50 1 spray intranasal DAILY 10/11/23 03/30/25 03/26/24 History mcg/actuation nasal spray,suspension triamcinolone acetonide 0.5 % 1 appl topical BID PRN Rash 03/17/24 03/30/25 Unknown History topical cream atorvastatin 20 mg tablet 20 mg PO DAILY 03/26/24 03/30/25 03/26/24 History gabapentin 300 mg capsule 300 mg PO TID 03/26/24 03/30/25 03/26/24 History sitagliptin phosphate 50 1 tab PO BID 03/26/24 03/30/25 03/19/25 History mg-metformin 1,000 mg tablet (Janumet) colchicine 0.6 mg tablet (Colcrys) 0.6 mg PO DAILY 03/12/25 03/30/25 Unknown History minocycline 50 mg capsule 50 mg PO BID 03/12/25 03/30/25 Unknown History tramadol 50 mg tablet 50 mg PO DAILY PRN Pain 03/12/25 03/30/25 Unknown History Aspir-81 04/05/25 04/05/25 05:00 History Exam Height,Weight and Vital Signs: Height 5 ft 8.5 in Weight 79.379 kg Assessment and Plan Assessment Anesthesia Assessment: Chart Reviewed Final Anesthetic Review Family History of Problems with Anesthesia: No History of Problems with Anesthesia: No
[2025-04-05 06:47] VITALS: BP 143/57; PULSE 74; RESP 16; TEMP 36.1; O2SAT 100
[2025-04-05] MEDS: Tetracaine HCl/PF 0.5% Oph Sol 4 ML DROPS 1 DROP EYE-LEFT (06:50)
[2025-04-05] MEDS: Cyclopentolate 1 % Ophth Sol 2 ML DRPBTL 1 DROP EYE-LEFT ×3 (06:54→07:10)
[2025-04-05] MEDS: Lactated Ringers 500 ML 50 ML IV (06:56)
[2025-04-05] MEDS: Tropicamide 1 % Ophth Sol 3 ML BTL 1 DROP EYE-LEFT ×3 (06:57→07:11)
[2025-04-05] MEDS: Ketorolac Tromethamine 0.5% Op 5 ML DROPS 1 DROP EYE-LEFT ×3 (06:59→07:12)
[2025-04-05] MEDS: Phenylephrine HCL 2.5% Oph SoL 2 ML BOTTLE 1 DROP EYE-LEFT ×3 (07:02→07:12)
[2025-04-05 07:12] LABS: Glucose, Whole Blood 130 mg/dL (60-115)
--- NOTE | 2025-04-05 07:25 | MHC.SHP ---
Pre-Procedural Eval Section A - 24 Hr Update-Section A only Date of Service: 04/05/25 The patient is an INPATIENT: No Changes since office visit: No Cold of Flu in the past 2 weeks, No New Medical Problems, No Changes in Medication and No Patient answered all questions The patient has been examined within 24 hours of the surgical procedure. The History & Physical has been completed within 30 days and I have reviewed it.: Yes Section B - Complete if H&P > 30 days Chief Complaint: Age-related nuclear cataract, left eye Allergies: Allergies Allergy/AdvReac Type Severity Reaction Status Date / Time umeclidinium (From Anoro AdvReac Severe Unknown Verified 03/22/25 06:46 Ellipta) vilanterol (From Anoro AdvReac Severe Unknown Verified 03/22/25 06:46 Ellipta) levofloxacin (From Levaquin) AdvReac Gastrointestinal Verified 03/22/25 06:46 Upset metronidazole (From Flagyl) AdvReac Gastrointestinal Verified 03/22/25 06:46 Upset ticagrelor AdvReac Unknown Verified 03/22/25 06:46 Brilinta AdvReac Severe SOB Uncoded 07/14/24 19:14 Plan Diagnosis/Plan: Unchanged I have reviewed the history and physical and performed a pertinent physical examination on my patient. No changes have occurred unless specified. Time Spent With Patient Time: Total time managing care of this patient today ____ minutes.
--- NOTE | 2025-04-05 07:26 | P.PCNO_ITS ---
Ophthalmology Procedure Procedure Date of Service: 04/05/25 Ophthalmology Viscoelastic: Healon Duet Dual Pack Pro Ophthalmology Lenses: IOL Acrysof MP - MA60AC (21.5) Procedure Notes: PREOPERATIVE DIAGNOSIS: Decreased visual acuity right eye secondary to cataract POSTOPERATIVE DIAGNOSIS: Same PROCEDURE: Right cataract extraction with intraocular lens insertion SURGEON: Mazin Avitia M.D. ANESTHESIA: Topical/MAC ESTIMATED BLOOD LOSS: None COMPLICATIONS: None After obtaining informed consent, the patient was brought to the operating room suite and placed in the supine position. After adequate sedation per anesthesia, topical drops of Tetracaine were given to the right eye. The eye was then prepped and draped in the usual sterile fashion. The operating room microscope was then positioned over the operative eye and a lid speculum placed. A paracentesis was created. Viscoelastic was then instilled into the anterior chamber. A three plane incision was then created temporally, utilizing a 2.85 mm keratome. Capsulotomy forceps were then utilized to create a circular tear capsulotomy. Hydrodissection and hydrodelineation were carried out until adequate mobilization of the nucleus occurred. Phacoemulsification was then utilized to remove the dense central nu cleus followed by removal of the cortical material utilizing the automated aspiration irrigation unit. Viscoelastic was instilled into the posterior capsular bag followed by placement of a posterior chamber intraocular lens without difficulty. The residual Viscoelastic was then removed utilizing the automated IA machine. The wound was checked and found to be watertight. The patient tolerated the procedure well and the lid speculum was removed. Intracameral injection of Vigamox 0.1 mL followed by a subtenon injection of Kenalog-40 0.2 mL were administered. The patient will be seen in the a.m.
--- NOTE | 2025-04-05 07:29 | HO.ANESPROP2 ---
[facility] Active Problems Active Problems: All Active Problems (Updated 03/12/25 @ 14:31 by Swetha Stevens RN) Epistaxis (Acute) Asthma (Acute) Environmental allergies (Acute) Cough (Acute) SOB (shortness of breath) (Acute) COVID-19 (Acute) History of total right knee replacement (TKR) (Acute) History of total left knee replacement (TKR) (Acute) Atherosclerotic cardiovascular disease (Acute) Past Medical History Medical History Back pain CAD (coronary artery disease) Trigger finger Atherosclerotic cardiovascular disease Renal stones Sigmoid diverticulitis Sciatica Neuropathy Plantar fasciitis Arthritis GERD (gastroesophageal reflux disease) Gout Diabetes Functional capacity: independent ambulation Family History Family History Mother No problems noted. Father No problems noted. Family history of problems with anesthesia: No Surgical History Surgical History Hx of arthroscopic knee surgery Hx of hand surgery History of coronary artery stent placement History of cardiac cath History of foot surgery History of colonoscopy Previous back surgery History of total left knee replacement History of total right knee replacement History of Problems with Anesthesia: No Social History Social History Household Members: None Housing: House Do you presently have visiting nurse or other home services: No Alcohol intake: never Patient Tobacco Use Status: Former Tobacco user Tobacco use type: Cigarette Second Hand Smoke Exposure: Yes Advance Directives: Yes Advance Directives Information Provided: No Advance Directives on File: Yes Advance Directives Date on File: 04/01/24 service: No Current occupational status: retired 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 Meds Allergies Allergy/AdvReac Type Severity Reaction Status Date / Time umeclidinium (From Anoro AdvReac Severe Unknown Verified 03/22/25 06:46 Ellipta) vilanterol (From Anoro AdvReac Severe Unknown Verified 03/22/25 06:46 Ellipta) levofloxacin (From Levaquin) AdvReac Gastrointestinal Verified 03/22/25 06:46 Upset metronidazole (From Flagyl) AdvReac Gastrointestinal Verified 03/22/25 06:46 Upset ticagrelor AdvReac Unknown Verified 03/22/25 06:46 Brilinta AdvReac Severe SOB Uncoded 07/14/24 19:14 Active Medications: Current Medications Albuterol Sulfate (Albuterol Sulfate (0.083%) 2.5 Mg/3 Ml Vial.Neb) 2.5 mg INHALE ONCE PRN PRN Reason: Shortness of Breath/Wheezing Lactated Ringer's (Lr) 500 mls @ 50 mls/hr IV .Q10H ERA Stop: 04/05/25 16:44 Last Admin: 04/05/25 06:56 Dose: 50 mls/hr Povidone Iodine (Povidone Iodine 5 % Ophth Soln 30 Ml Bottle) 1 appl EYE-LEFT PREOP PRN PRN Reason: Pre-Op Surgical Implant Prophy Home Medications ?Medication ?Instructions ?Recorded ?Confirmed ?Last Taken ?Type celecoxib 200 mg capsule 200 mg PO DAILY 06/28/20 03/30/25 03/26/24 History albuterol sulfate 90 mcg/actuation 1 puff inhalation Q4H PRN 10/11/23 03/30/25 Unknown History aerosol inhaler Shortness Of Breath Or Wheezing fluticasone propionate 50 1 spray intranasal DAILY 10/11/23 03/30/25 03/26/24 History mcg/actuation nasal spray,suspension triamcinolone acetonide 0.5 % 1 appl topical BID PRN Rash 03/17/24 03/30/25 Unknown History topical cream atorvastatin 20 mg tablet 20 mg PO DAILY 03/26/24 03/30/25 03/26/24 History gabapentin 300 mg capsule 300 mg PO TID 03/26/24 03/30/25 03/26/24 History sitagliptin phosphate 50 1 tab PO BID 03/26/24 03/30/25 03/19/25 History mg-metformin 1,000 mg tablet (Janumet) colchicine 0.6 mg tablet (Colcrys) 0.6 mg PO DAILY 03/12/25 03/30/25 Unknown History minocycline 50 mg capsule 50 mg PO BID 03/12/25 03/30/25 Unknown History tramadol 50 mg tablet 50 mg PO DAILY PRN Pain 03/12/25 03/30/25 Unknown History Aspir-81 04/05/25 04/05/25 05:00 History Exam Height,Weight and Vital Signs: Height 5 ft 8.5 in Weight 79.379 kg Last Vital Signs Temp 97 F 04/05/25 06:47 Pulse 74 04/05/25 06:47 Resp 16 04/05/25 06:47 BP 143/57 H 04/05/25 06:47 Pulse Ox 100 04/05/25 06:47 O2 Del Method Room Air 04/05/25 06:47 Pertinent Lab Results Pertinent Lab Results: Laboratory Tests 04/05/25 07:10 POC Glucose 130 H Airway Mallampati Class: III TM Dist: >3cm Neck ROM: Full Heart: RRR Lungs: CTA Assessment and Plan Assessment Anesthesia Assessment: Anesthesia Plan Discussed Final Anesthetic Review Family History of Problems with Anesthesia: No History of Problems with Anesthesia: No NPO: Yes ASA Class: II Final Preanesthetic Review: Meds/Allgs Chart Reviewed, Consent Obtained/Reviewed and Anes Risks/Benef Reviewed Patient Risk: Low Procedure Risk: Low Anesthetic Plan Anesthetic Plan: MAC: Disposition: Standard PACU
[2025-04-05 07:51] VITALS: BP 134/85; PULSE 75; RESP 16; TEMP 36.1; O2SAT 100
[2025-04-05 08:02] VITALS: BP 139/73; PULSE 68; RESP 18; TEMP 36.1; O2SAT 100
--- NOTE | 2025-04-05 14:36 | HO.POSTANES ---
Post Anesthesia Evaluation Post Anesthesia Evaluation Date of Service: 04/05/25 Vital Signs: Vital Signs Temp Pulse Resp BP Pulse Ox O2 Del Method 04/05/25 08:02 97 F 68 18 139/73 100 Room Air 04/05/25 07:51 97 F 75 16 134/85 100 Room Air 04/05/25 06:47 97 F 74 16 143/57 H 100 Room Air Anesthesia: Monitored Mental Status: Awake Pain Control: Satisfactory Nausea/Vomiting: None Hydration: Adequate Anesthesia-Related Issues: No Anes. Related Issues
== END 2025-04-05 08:04 | disposition home or self-care (01) ==
PROVIDERS: PCP Internal Medicine; Visit Provider Ophthalmology
PROC: (CPT 66985; principal; 2025-04-05 07:30)
DX: H25.12 Age-related nuclear cataract, left eye (principal); H54.7 Unspecified visual loss; Z83.511 Family history of glaucoma; H18.413 Arcus senilis, bilateral; H11.153 Pinguecula, bilateral; E11.9 Type 2 diabetes mellitus without complications; K21.9 Gastro-esophageal reflux disease without esophagitis; N20.0 Calculus of kidney; Z79.51 Long term (current) use of inhaled steroids; Z79.899 Other long term (current) drug therapy; Z79.84 Long term (current) use of oral hypoglycemic drugs; Z88.8 Allergy status to other drugs, medicaments and biological substances; Z96.653 Presence of artificial knee joint, bilateral; Z87.891 Personal history of nicotine dependence
CPT/HCPCS: 66984; 82947; J2250; J3301; V2630

== ENCOUNTER 2025-04-12 13:21 | Outpatient (AMB) | payer MEDICARE, SELFPAY ==
--- OUTSIDE RECORDS SUMMARY | 2024-06-03 05:00 | XMS_ITS ---
Author Organization [facility] Address [address] [place] [phone] Care Team Providers Care Lockstitch Waistline Joiner Name Role Phone Alivia SANCHEZ, Abdifatah Primary Care Provider Barber Painter Unavailable [phone] Encounters Encounter Location Date Provider Diagnosis [address] [phone] 06/03/2024 Barber Saenz Plan Of Treatment Next Appt Details Provider Name:Ludivina orozco, 06/04/2025 09:00:00 AM, [address] [place] [address], [phone], Progress Notes * Adrian PHAM DDOB:[birth year] (69 yo M)Acc No.[id number]:06/03/2024 Progress Note Patient: Francisca Adrian SIMMONS Provider: Carter Saenz DPM :1955 A ge:68 Y S ex:Male Date:06/03/2024 Address:[address] [place] [phone] Pcp:Abdifatah Bunch MD Subjective: * Chief Complaints: [...] 1 Generated for Abel you/Abbey/Caroitting on: 0 04/12/2025 02:44 PM EDT
--- OUTSIDE RECORDS SUMMARY | 2024-11-12 04:30 | XMS_ITS ---
Author Organization Abdifatah Bunch MD Address [address] [place] [id number] Care Team Providers Care Rn Prior Authorization Name Role Phone Abdfiatah Bunch Primary Care Provider [phone] Allergies Allergen (clinical drug ingredient) Drug/Non Drug Allergy documented on EMR Reaction Allergy Type Onset Date Status umeclidinium / vilanterol Anoro Ellipta sore feet Drug Allergy Active REASON FOR VISIT review labs Medications Medication SIG (Take, Route, Frequency, Duration) Notes Start Date End Date Status traMADol HCl 50 MG 1 tablet as needed Orally every 8 hrs for 30 days 07/27/2024 Active Ctpvtmfund-YRF-Mohbgojc 50-325-40 MG 1 capsule as needed Orally every 4 hrs 09/17/2019 Not-Taking Indomethacin 50 MG 1 capsule with food or milk Orally Three times a day for 10 days 03/23/2016 Not-Taking traMADol HCl 50 MG 1 tablet as needed Orally Once a day for 30 days 11/12/2024 Active Celecoxib 200 MG take 1 capsule by mo [facility] every day with food Orally Once a day Active Albuterol Sulfate HFA 108 (90 Base) MCG/ACT 1 puff as needed Inhalation every 4 hrs for 30 days 07/15/2023 Active Fluticasone Propionate 50 MCG/ACT instill 1 spray in each nostril once a day Nasally Once a day for 90 days Active Plavix 75 MG 1 tablet Orally Once a day for 30 day(s) Active Dicyclomine HCl 10 MG take 1 capsule by mouth every day Orally 0nce a day for 30 days Not-Taking Triamcinolone Acetonide 0.5 % 1 application Externally Twice a day for 30 days 01/07/2024 Active Colcrys 0.6 MG 1 tablet Orally michel y for 90 days 10/31/2021 Active Arnuity Ellipta 200 MCG/ACT 1 puff Inhalation Once a day Active FreeStyle Lite Test 0 use to test blood sugar In Vitro DX:11:42 once a day for 30 days 09/20/2015 Active FreeStyle Lite 0 use to test blood mcdonnell agr subQ DX:11:42 once a day for 30 days 09/20/2015 Active Omeprazole 40 MG take 1 capsule by mo [facility] every day Orally Once a day for 90 days Active Minocycline HCl 50 MG take one capsule b y mouth twice daily Orally Twice a day for 45 days Active Atorvastatin Calcium 20 MG take 1 tablet by mouth every day Orally Once a day for 90 days Active Gabapentin 300 MG take 1 capsule by mo [facility] three times daily Orally 3 times per day for 90 days Active Dupixent 300 MG/2ML as directed Subcutaneous Active Janumet 50-1000 MG take [facility] with meals. Orally Twice a day for 90 days Active Social History Tobacco Use: Social History Observation Description Date Details (start date - stop date) Former Smoker NA - NA Tobacco Use/Smoking Question Answer Notes Patient is a former smoker How long has it been since y ou last smoked? > 10 years Additional Findings: Tobacco Non-User Fo rmer smoker, currently using no form of tobacco Alcohol Screen Question Answer Notes Did you have a drink containing alcohol in the p ast year? No Points 0 Interpretation Negative Vital Signs Blood pressure systolic 132 mm Hg 11/13/19 25 Blood pressure diastolic 76 mm Hg 025 Height 68.5 in 11/12/2024 Weight 191 lbs 11/12/2024 BMI 28.62 kg/m2 11/12/2024 weight is up 6 pounds since 09-17-24 Encounters Encounter Location Date Provider Diagnosis Abdifatah Bunch MD [address] [place] [address] [address] [place], [place] [id number] 11/12/2024 Abdifatah Bunch Lumbar back pain M54 .50 ; Type 2 diabetes mellitus with diabetic polyneuropathy E11.42 ; Arteriosclerotic coronary artery disease I25.10 ; Pure hypercholesterolemia E78.00 and Esophageal dysmotility K22.4 Assessments Encounter Date Diagnosis (ICD Code) Assessment Notes Treatment Notes Treatment Clinical Notes Section Notes 11/12/2024 Lumbar back pain (IC D-10 - M54.50) 11/12/2024 Type 2 diabetes noah itus with diabetic polyneuropathy (ICD-10 - E11.42) stable, will cntinue current regiment 11/12/2024 Arteriosclerotic coronary artery disease (ICD-10 - I25.10) doing well, will continue to monitor 11/12/2024 Pure hypercholesterolemia (ICD-10 - E78.00) stable, will continue current regiment 11/12/2024 Esophageal dysmotili ty (ICD-10 - K22.4) stable, will continue current regiment Plan Of Treatment Medication Medication Name Sig Start Date Stop Date Notes traMADol HCl 50 MG 1 tablet as needed O rally Once a day for 30 days 11/12/2024 Omeprazole 40 MG take 1 capsule by mo [facility] every day Orally Once a day for 90 days Minocycline HCl 50 MG take one capsule b y mouth twice daily Orally Twice a day for 45 days Atorvastatin Calcium 20 MG take 1 tablet by mouth every day Orally Once a day for 90 days Gabapentin 300 MG take 1 capsule by mo uth three times daily Orally 3 times per day for 90 days Janumet 50-1000 MG take 1 tablet by alexander twice daily with meals. Orally Twice a day for 90 days Treatment Notes Assessment Notes Type 2 diabetes mellitus wit h diabetic polyneuropathy stable, will cntinue current regiment Arteriosclerotic coronary artery disease doing well, will continue to monitor Pure hypercholesterolemia stable, will c ontinue current regiment Esophageal dysmotility stable, will cont inue current regiment Next Appt Details Follow Up: 6 Months, Reason: Provider Name:Abdifatah Diallo ier, 05/10/2025 07:00:00 AM, [address], Suite [facility], [place], [place], [phone], Provider Name:Abdifatah Diallo ier, 05/17/2025 09:00:00 AM, [address] [facility], Suite [facility], [place], [place], [phone], Provider Name:Abdifatah Diallo ier, 11/05/2025 07:15:00 AM, [address] [place] [address] Drive, Suite [facility], [place], [place], [phone], Provider Name:Abdifatah Diallo ier, 11/15/2025 09:30:00 AM, [address] [place] [address], Suite [facility], [place], [place], [phone], Progress Notes * Adrian PHAM DDOB:[birth year] (69 yo M)Acc No.[id number]:11/12/2024 Patient: Francisca Adrian SIMMONS Provider: Margarito Bunch MD :[id number] A ge:69 Y S ex:Male Date:11/12/2024 Address:[address] [place], [place] [phone] Subjective: * Chief Complaints: * R eview labs * HPI: D epression Screening: PHQ-9 L ittle interest or pleasure in doing things N ot at all, F eeling down, depressed, or hopeless N ot at all, T rouble falling or staying asleep, or sleeping too much N ot at all, F eeling tired or having little energy N ot at all, P oor appetite or overeating N ot at all, F eeling bad about yourself or that you are a failure, or have let yourself or your family down N ot at all, T rouble concentrating on things, such as reading the newspaper or watching television N ot at all, M oving or speaking so slowly that other people could have noticed; or the opposite, being so fidgety or restless that you have been moving around a lot more than usual N ot at all, T houghts that you would be better off or of hurting yourself in some way N ot at all, T otal Score 0 . I nterpretation and Intervention D epression Screening Findings N egative, F ollow-Up for Depression : review of PHQ-9 found negative result, no follow-up needed. C ommunication Needs: Communication Needs D oes the patient have a hearing impairment N o, D oes the patient have a vision impairment? Y es, I f yes, what is the vision impairment? G lasses, D oes the patient have a cognition impairment? N o. S HARPAL Questions: SDOH Questions I n the past year have you been worried about losing housing? N o, I n the past year have you or any family members you live with been unable to get any of the following when it was really needed? Check all that apply: N one. S ymptom(s): patient is a 69 yo male here for visit with review of recent labs and follow up of chronic issues. * ROS: G eneral/Constitutional: Change in appetite d enies. C hills d enies. F ever d enies. O phthalmologic: Blurred vision d enies. D ischarge d enies. P ain d enies. E NT: Decreased hearing d enies. S ore throat d enies.?Swollen glands d enies. E ndocrine: Cold intolerance d enies. E xcessive thirst d enies. H eat intolerance d enies. W eight loss d enies. R espiratory: Cough d enies. S hortness of breath at rest d enies. S hortness of breath with exertion d enies. W heezing d enies. C ardiovascular: Chest pain at rest d enies. C hest pain with exertion?denies. I rregular heartbeat d enies. S hortness of breath d enies. ? G astrointestinal: Abdominal pain d enies. C hange in bowel habits d enies. D iarrhea d enies. N ausea d enies. R ectal bleeding d enies. V omiting d enies . G enitourinary: Blood in urine d enies. D ifficulty urinating d enies. F requent urination d enies. M usculoskeletal: Painful joints d enies. W eakness d enies. ? S kin: Dry skin d enies. I tching d enies. D enies?Mole(s), changes in moles, new moles or any lesions of concern. D enies P hotosensitivity. R roland d enies. N eurologic: Dizziness d enies. F ainting d enies. H eadache?denies. * Medical History: * Surgical History: * Hospitalization/Major Diagno stic Procedure: * Family History: F ather: 83 yrs, AL. M other: 68 yrs, Sepsis. 1 brother(s) , 1 sister(s) . 2 son(s) . . 1 brother AL fATHER- SEPSIS MOTHER- AL aLCOHOLISM BROTHER NO MENTAL ILLNESS IN THE FAMILY. * Social History: T obacco Use: T obacco Use/Smoking P atient is a f ormer smoker, H ow long has it been since you last smoked? > 10 years, A dditional Findings: Tobacco Non-User F ormer smoker, currently using no form of tobacco. D rugs/Alcohol: A lcohol Screen D id you have a drink containing alcohol in the past year? N o, P oints 0 , I nterpretation N egative. M iscellaneous: C affeine: yes, frequency:, 1-2 cups per day. Children: yes. Community involvements: yes. Exercise: yes, walkS 1 HOUR 7 DAYS A WEEK. Housing: owning. Living with: alone. Marital status: . Occupation: works full-time. Pets: none. Travel outside of the [place]: no. * Medications: T akingDupixent 300 MG/2ML Solution Prefilled Syringe as directed Subcutaneous Arnuity Ellipta 200 MCG/ACT Aerosol Powder Breath Activated 1 puff Inhalation Once a day FreeStyle Lite Test 0 Strip use to test blood sugar In Vitro DX:11:42 once a day FreeStyle Lite 0 Device use to test blood suagr subQ DX:11:42 once a day Colcrys 0.6 MG Tablet 1 tablet Orally daily Gabapentin 300 MG Capsule take 1 capsule by mouth three times daily Orally 3 times per day Triamcinolone Acetonide 0.5 % Cream 1 application Externally Twice a day traMADol HCl 50 MG Tablet 1 tablet as needed Orally Once a day Minocycline HCl 50 MG Capsule take one capsule by mouth twice daily Orally Twice a day Plavix 75 MG Tablet 1 tablet Orally Once a day Atorvastatin Calcium 20 MG Tablet take 1 tablet by mouth every day Orally Once a day Albuterol Sulfate HFA 108 (90 Base) MCG/ACT Aerosol Solution 1 puff as needed Inhalation every 4 hrs Fluticasone Propionate 50 MCG/ACT Suspension instill 1 spray in each nostril once a day Nasally Once a day traMADol HCl 50 MG Tablet 1 tablet as needed Orally every 8 hrs Janumet 50-1000 MG Tablet take 1 tablet by mouth twice daily with meals. Orally Twice a day Omeprazole 40 MG Capsule Delayed Release take 1 capsule by mouth every day Orally Once a day Celecoxib 200 MG Capsule take 1 capsule by mouth every day with food Orally Once a day Taking Dupixent 300 MG/2ML Solution Prefilled Syringe as directed Subcutaneous Taking Arnuity Ellipta 200 MCG/ACT Aerosol Powder Breath Activated 1 puff Inhalation Once a day Taking FreeStyle Lite Test 0 Strip use to test blood sugar In Vitro DX:11:42 once a day Taking FreeStyle Lite 0 Device use to test blood suagr subQ DX:11:42 once a day Taking Colcrys 0.6 MG Tablet 1 tablet Orally daily Taking Gabapentin 300 MG Capsule take 1 capsule by mouth three times daily Orally 3 times per day Taking Triamcinolone Acetonide 0.5 % Cream 1 application Externally Twice a day Taking traMADol HCl 50 MG Tablet 1 tablet as needed Orally Once a day Taking Minocycline HCl 50 MG Capsule take one capsule by mouth twice daily Orally Twice a day Taking Plavix 75 MG Tablet 1 tablet Orally Once a day Taking Atorvastatin Calcium 20 MG Tablet take 1 tablet by mouth every day Orally Once a day Taking Albuterol Sulfate HFA 108 (90 Base) MCG/ACT Aerosol Solution 1 puff as needed Inhalation every 4 hrs Taking Fluticasone Propionate 50 MCG/ACT Suspension instill 1 spray in each nostril once a day Nasally Once a day Taking traMADol HCl 50 MG Tablet 1 tablet as needed Orally every 8 hrs Taking Janumet 50-1000 MG Tablet take 1 tablet by mouth twice daily with meals. Orally Twice a day Taking Omeprazole 40 MG Capsule Delayed Release take 1 capsule by mouth every day Orally Once a day Taking Celecoxib 200 MG Capsule take 1 capsule by mouth every day with food Orally Once a day Not-Taking/PRNDicyclomine HCl 10 MG Capsule take 1 capsule by mouth every day Orally 0nce a day Wjbnrnykkd-HMA-Gdblwkax 50-325-40 MG Capsule 1 capsule as needed Orally every 4 hrs Indomethacin 50 MG Capsule 1 capsule with food or milk Orally Three times a day Medication List reviewed and reconciled with the patientNot-Taking/PRN Dicyclomine HCl 10 MG Capsule take 1 capsule by mouth every day Orally 0nce a day Not-Taking/PRN Zsvmvsjqtl-PAS-Yeqlogzb 50-325-40 MG Capsule 1 capsule as needed Orally every 4 hrs Not-Taking/PRN Indomethacin 50 MG Capsule 1 capsule with food or milk Orally Three times a day Medication List reviewed and reconciled with the patient * Allergies: A noro Ellipta: sore feetyes[Allergies Verified] Objective: * Vitals: H t: 68.5, Wt: 191, BMI:28.62, BP:132/76, Wt-k.64. weight is up 6 pounds since 09-17-24. * P ast Orders: L ab:Microalbumin, Random (Order Date - 11/05/2024) (Collection Date & Time - 11/05/2024 07:15 AM) Value Reference Range Creatinine Urine 130.48 - mg/dL Microalbumin Urine < 5.0 - mg/L Microalbum Creatinine Ratio Ur TNP <30 - ug/ mg cr L ab:Hemoglobin A1c (Order Date - 11/05/2024) (Collection Date & Time - 11/05/2024 07:15 AM) Value Reference Range Hemoglobin A1c % 6.2 H <6.0 - % Estimated Average Glucose 131 - mg/dL L ab:UA ClnCatch+Micro w/rflx Cult (Order Date - 11/05/2024) (Collection Date & Time - 11/05/2024 07:15 AM) Value Reference Range Color Urine Yellow - Appearance Urine Clear - PH 5.5 5.0-9.0 - Glucose Urine UA Negative Negative - mg/dL Urine Blood Negative Negative - Specific Simpson - Urine 1.015 1.005-1.025 - Urine Protein Negative Neg-Trace - mg/dL Urine Ketones Negative Negative - mg/dL Nitrite Urine Negative Negative - Leukocyte Esterase Urine Negative Negative - RBC Urine 0-2 0-2 - /HPF WBC Urine 0-5 0-5 - /HPF Squamous Epithelial Cell Urine 0-2 0-2 - /HP F Bacteria Urine None Seen None Seen - Hyaline Casts Urine 0-2 0-2 - /LPF L ab:Complete Blood Count Auto Diff (Order Date - 11/05/2024) (Collection Date & Time - 11/05/2024 07:15 AM) Value Reference Range White Blood Count 6.0 4.8-10.8 - X10*3/uL Red Blood Count 4.58 L 4.60-5.80 - X10*6/uL Hemoglobin 12.3 L 14.0-18.0 - g/dl Hematocrit 38.6 L 42.0-52.0 - % Mean Corpuscular Volume 84.3 80.0-98.0 - fL Mean Corpuscular Hemoglobin 26.9 L 27.0-33.0 - pg Mean Corpuscular HGB Conc 31.9 31.0-36.0 - g/ dl Red Cell Distribution Width 13.7 11.0-16.0 - % Platelet Count 182 160-400 - X10*3/uL Mean Platelet Volume 11.7 9.4-12.4 - fL Neutrophils Percent Auto 58.0 45-73 - % Imm Gran Pct Auto 0.3 0.0-0.4 - % Lymphocytes Percent Auto 25.8 20-40 - % Monocytes Percent Auto 10.6 2-11 - % Eosinophils Percent Auto 5.0 H 0-4 - % Basophils Percent Auto 0.3 0-2 - % NRBC Pct Auto 0.0 0.0-0.2 - /100WBC Neutrophils Absolute Auto 3.5 2.0-8.3 - x10* 3/uL Imm Gran Abs Auto 0.02 0.00-0.03 - X10*3/uL Lymphocytes Absolute Auto 1.6 1.2-4.9 - X10* 3/uL Monocytes Absolute Auto 0.6 0.1-1.2 - X10*3/ uL Eosinophils Absolute Auto 0.3 0.0-0.4 - X10* 3/uL Basophils Absolute Auto 0.0 0.0-0.2 - X10*3/ uL NRBC Abs Auto 0.000 0.0-0.012 - X10*3/uL L ab:Comprehensive [place]. Panel Fast (Order Date - 11/05/2024) (Collection Date & Time - 11/05/2024 07:15 AM) Value Reference Range Sodium 141 135-145 - mmol/L Bilirubin Total 1.0 0.0-1.0 - mg/dL Aspartate Amino Transferase 23 5-37 - U/L Alanine Aminotransferase 14 0-40 - U/L Total Protein 6.6 6.5-8.0 - g/dL Albumin Level 4.0 3.5-5.0 - g/dL Alkaline Phosphatase 66 39-117 - U/L Potassium 3.9 3.3-5.1 - mmol/L Chloride 109 H 96-108 - mmol/L Carbon Dioxide 25 22-29 - mmol/L Anion Gap 11 L 12-20 - Blood Urea Nitrogen 9 9-16 - mg/dL Creatinine 0.94 0.5-1.4 - mg/dL Estimated Glomerular Filt Rate > 60 - Glucose Fasting 135 H 60-99 - mg/dL Calcium 8.7 8.4-10.2 - mg/dL L ab:Lipid Panel (Order Date - 11/05/2024) (Collection Date & Time - 11/05/2024 07:15 AM) Value Reference Range Triglycerides 94 <150 - mg/dL Cholesterol 123 <200 - mg/dL LDL Cholesterol Calculated 56 <100 - mg/dL HDL Cholesterol 49 >40 - mg/dL L ab:PSA,Total (Free>4and<10) (Order Date - 11/05/2024) (Collection Date & Time - 11/05/2024 07:15 AM) Value Reference Range PSA,Total (Free>4and<10) 0.36 0.00-4.00 - ng/ mL * Examination: G eneral Examination: GENERAL APPEARANCE: w ell developed, well nourished, in no acute distress. HEAD: n ormocephalic, atraumatic. EYES: p upils equal, round, reactive to light and accommodation, sclera non-icteric. EARS: n ormal. ORAL CAVITY: m ucosa moist. THROAT: c lear. NECK/THYROID: n angella supple, full range of motion, no cervical lymphadenopathy, no bruits. SKIN: w arm and dry, no suspicious lesions. HEART: r egular rate and rhythm, S1, S2 normal, no murmurs.? LUNGS: c lear to auscultation bilaterally. ABDOMEN: s oft, nontender, nondistended, bowel sounds present, normal, no organomegaly , no masses palpable. RECTAL EXAM: n ormal tone, no external hemorrhoids, no masses palpable, prostate normal, stool guaiac negative. MALE GENITOURINARY: c ircumcised, testes descended bilaterally atrophied bilaterally. EXTREMITIES: n o clubbing, cyanosis, or edema. NEUROLOGIC: n onfocal, motor strength normal upper and lower extremities, sensory exam intact. FOOT EXAM: . Assessment: * Assessment: 1. L umbar back pain - M54.50 (Primary) 2 . T ype 2 diabetes mellitus with diabetic polyneuropathy - E11.42 3 . A rteriosclerotic coronary artery disease - I25.10 4 . P ure hypercholesterolemia - E78.00 5 . E sophageal dysmotility - K22.4 Plan: * Treatment: 2. T ype 2 diabetes mellitus with diabetic polyneuropathy Notes: stable, will cntinue current regiment 3. A rteriosclerotic coronary artery disease Notes: doing well, will continue to monitor 4. P ure hypercholesterolemia Notes: stable, will continue current regiment 5. E sophageal dysmotility Notes: stable, will continue current regiment * Procedure Codes: G 2211 Complex e/m visit add on * Preventive Medicine: Diabetes Care Plan: P atient Lifestyle Goals N eeds to maintain diet control.?Treatment Goals A 1C< 7. B arriers N o specific barriers, doing well. S elf-Managment Plan I ncrease light exercise to 3 times a week for 30 minutes. E xpected Outcome maintaining stable blood sugar levels within a target range. * Follow Up: 6 Months * * Sign off status: Completed true * Provider: Margarito Bunch MD Date: 0 11/12/2024 Generated for Abel you/Abbey/Caroitting on: 0 04/12/2025 02:44 PM EDT History and Physical Notes * HPI (History of Present Illness) Category Sub-Category Detail Notes Category Not es Symptom(s) patient is a 69 yo male here for visit with review of recent labs and follow up of chronic issues. Depression Screening PHQ-9 Little inte rest or pleasure in doing things: Not at all Feeling down, depressed, or hopeless: No t at all Trouble falling or staying asleep, or sl eeping too much: Not at all Feeling tired or having little energy: N ot at all Poor appetite or overeating: Not at all Feeling bad about yourself o r that you are a failure, or have let yourself or your family down: Not at all Trouble concentrating on thi ngs, such as reading the newspaper or watching television: Not at all Moving or speaking so slowly that other people could have noticed; or the opposite, being so fidgety or restless that you have been moving around a lot more than usual: Not at all Thoughts that you would be b sumeet off or of hurting yourself in some way: Not at all Total Score: 0 Interpretation and Intervention Depression Tyresee karen Findings: Negative Follow-Up for Depression: : review of PH Q-9 found negative result, no follow-up needed SDOH Questions SDOH Questions In the past year have you been worried about losing housing?: No In the past year have you or any family members you live with been unable to get any of the following when it was really needed? Check all that apply:: None Communication Needs Communication Needs Does the patient have a hearing impairment: No Does the patient have a vision impairmen t?: Yes If yes, what is the vision impairment?: Glasses Does the patient have a cognition impair ment?: No Examination Category Sub-Category Detail Notes Category Not es General Examination GENERAL APPEARANCE: well dev eloped, well nourished, in no acute distress HEAD: normocephalic, atrau matic EYES: pupils equal, round, reactive to light and accommodation, sclera non-icteric EARS: normal THROAT: clear NECK/THYROID: neck supple, full ra nge of motion, no cervical lymphadenopathy, no bruits HEART: regular rate and rhy thm, S1, S2 normal, no murmurs LUNGS: clear to auscultatio n bilaterally ABDOMEN: soft, nontender, non distended, bowel sounds present, normal, no organomegaly , no masses palpable NEUROLOGIC: nonfocal, motor stre ngth normal upper and lower extremities, sensory exam intact SKIN: warm and dry, no alondra picious lesions EXTREMITIES: no clubbing, cyanosi s, or edema MALE GENITOURINARY: circumcised, testes descended bilaterally atrophied bilaterally RECTAL EXAM: normal tone, no exte rnal hemorrhoids, no masses palpable, prostate normal, stool guaiac negative ORAL CAVITY: mucosa moist FOOT EXAM: Date: 11/12/2024 diminished sens ation
--- OUTSIDE RECORDS SUMMARY | 2025-01-21 11:15 | XMS_ITS ---
Author Organization Abdifatah Bunch MD Address [address] [place] [phone] Care Team Providers Care Residential Framing Carpenter Name Role Phone Abdifatah Bunch Primary Care Provider [phone] Allergies Allergen (clinical drug ingredient) Drug/Non Drug Allergy documented on EMR Reaction Allergy Type Onset Date Status umeclidinium / vilanterol Anoro Ellipta sore feet Drug Allergy Active REASON FOR VISIT cough x 10 days, Video [phone] Medications Medication SIG (Take, Route, Frequency, Duration) Notes Start Date End Date Status Indomethacin 50 MG 1 capsule with food or milk Orally Three times a day for 10 days 03/23/2016 Not-Taking Dicyclomine HCl 10 MG take 1 capsule by mouth every day Orally 0nce a day for 30 days Not-Taking Vgpnfjnovu-CXG-Duinlifx 50-325-40 MG 1 capsule as needed Orally every 4 hrs 09/17/2019 Not-Taking Janumet 50-1000 MG take 1 tablet by alexander twice daily with meals. Orally Twice a day for 90 days Active Omeprazole 40 MG take 1 capsule by [facility] every day Orally Once a day for 90 days Active Gabapentin 300 MG take 1 capsule by [facility] three times daily Orally 3 times per day for 90 days Active traMADol HCl 50 MG 1 tablet as needed Orally Once a day for 30 days 11/12/2024 Active Minocycline HCl 50 MG take one capsule b y mouth twice daily Orally Twice a day for 45 days Active Atorvastatin Calcium 20 MG take 1 tablet by mouth every day Orally Once a day for 90 days Active predniSONE 10 MG 1 tablet with food o r milk Orally 4 tabs for 3 days,3tabs for 3 days, 2 tabs for 3 days, and 1 tab for 3 days for 14 days 01/21/2025 Active Celecoxib 200 MG take 1 capsule by [facility] every day with food Orally Once a day Active Zithromax Z-Nicholas 250 MG 2 tablet on the day, then 1 tablet daily for 4 days Orally Once a day for 5 day(s) 01/21/2025 Active Albuterol Sulfate HFA 108 (90 Base) MCG/ACT 1 puff as needed Inhalation every 4 hrs for 30 days 07/15/2023 Active Fluticasone Propionate 50 MCG/ACT instill 1 spray in each nostril once a day Nasally Once a day for 90 days Active Plavix 75 MG 1 tablet Orally Once a day for 30 day(s) Active Triamcinolone Acetonide 0.5 % 1 application Externally Twice a day for 30 days 01/07/2024 Active FreeStyle Lite 0 use to test blood mcdonnell agr subQ DX:11:42 once a day for 30 days 09/20/2015 Active Colcrys 0.6 MG 1 tablet Orally michel y for 90 days 10/31/2021 Active Arnuity Ellipta 200 MCG/ACT 1 puff Inhalation Once a day Active FreeStyle Lite Test 0 use to test blood sugar In Vitro DX:11:42 once a day for 30 days 09/20/2015 Active Dupixent 300 MG/2ML as directed Subcutaneous Active Vital Signs Height 68.5 in 01/21/2025 Weight 189 lbs 01/21/2025 BMI 28.32 kg/m2 01/21/2025 weight at home is 180 Bp not taken at home no temp Encounters Encounter Location Date Provider Diagnosis Abdifatah Bunch MD [address] [place] [phone] 01/21/2025 Abdifatah Bunch Bronchitis J40 Assessments Encounter Date Diagnosis (ICD Code) Assessment Notes Treatment Notes Treatment Clinical Notes Section Notes 01/21/2025 Bronchitis (ICD-10 - J40) patient verbalized understanding of medication and directions for use Plan Of Treatment Medication Medication Name Sig Start Date Stop Date Notes predniSONE 10 MG 1 tablet with food o r milk Orally 4 tabs for 3 days,3tabs for 3 days, 2 tabs for 3 days, and 1 tab for 3 days for 14 days 01/21/2025 Zithromax Z-Nicholas 250 MG 2 tablet on the irst day, then 1 tablet daily for 4 days Orally Once a day for 5 day(s) 01/21/2025 Treatment Notes Assessment Notes Bronchitis patient verbalized u nderstanding of medication and directions for use Next Appt Details Provider Name:Abdifatah darnell, 05/10/2025 07:00:00 AM, [address] [place] [address], [address], [phone], Provider Name:Abdifatah darnell, 05/17/2025 09:00:00 AM, [address] [place] [address], [phone], Provider Name:Abdifatah darnell, 11/05/2025 07:15:00 AM, [address] [place] [address], [phone], Provider Name:Abdifatah darnell, 11/15/2025 09:30:00 AM, [address] [place] [address], [phone], Progress Notes * Adrian PHAM DDOB:[birth year] (69 yo M)Acc No.[id number]:01/21/2025 Patient: Francisca Adrian SIMMONS Provider: Margarito Bunch MD :1955 A ge:69 Y S ex:Male Date:01/21/2025 Address:[address] [place], [place] [phone] Subjective: * Chief Complaints: * C ough x 10 daysVideo [phone] * HPI: S ymptom(s): Telehealth L ocation of provider rendering services: [address], [address], L ocation of patient: a t address listed in demographics for today's visit, P atient identification confirmed using: MIKALA Lockwood ame, T elehealth method: V ideo conference where patient is visible to the provider of care, C onsent: P atient verbally consented to treatment, Patient verbally consented to billing insurance company, Patient informed of any privacy concerns related to method of visit, T otal time spend talking with patient (minutes) 1 7. patient is a 69 yo male video telehealth visit, had a cold for 10 days. no wheezing or shortness of breath. cough for 10 days. * ROS: G eneral/Constitutional: Denies C hills. D enies F atigue. D enies F ever. D enies H eadache. E NT: Patient denies d ecreased sense of smell, any loss of taste, sore throat. D enies S ore throat. R espiratory: Admits C ough. D enies S hortness of breath at rest. D enies S hortness of breath with exertion. A dmits S putum production. D enies W heezing. G astrointestinal: Denies D iarrhea. D enies N ausea. M usculoskeletal: Patient denies m uscle aches. P eripheral Vascular: Patient denies r ed and blue toes. * Medical History: * Surgical History: * Hospitalization/Major Diagno stic Procedure: * Medications: T akingDupixent 300 MG/2ML Solution [...] 0.6 MG Tablet 1 tablet Orally daily Triamcinolone Acetonide 0.5 % Cream 1 application Externally Twice a day Plavix 75 MG Tablet 1 tablet Orally Once a day Albuterol Sulfate HFA 108 (90 Base) MCG/ACT Aerosol Solution 1 puff as needed Inhalation every 4 hrs Fluticasone Propionate 50 MCG/ACT Suspension instill 1 spray in each nostril once a day Nasally Once a day Celecoxib 200 MG Capsule take 1 capsule by mouth every day with food Orally Once a day traMADol HCl 50 MG Tablet 1 tablet as needed Orally Once a day Gabapentin 300 MG Capsule take 1 capsule by mouth three times daily Orally 3 times per day Minocycline HCl 50 MG Capsule take one capsule by mouth twice daily Orally Twice a day Atorvastatin Calcium 20 MG Tablet take 1 tablet by mouth every day Orally Once a day Janumet 50-1000 MG Tablet take 1 tablet by mouth twice daily with meals. Orally Twice a day Omeprazole 40 MG Capsule Delayed Release take 1 capsule by mouth every day Orally Once a day Taking Dupixent 300 [...] MG Tablet 1 tablet Orally daily Taking Triamcinolone Acetonide 0.5 % Cream 1 application Externally Twice a day Taking Plavix 75 MG Tablet 1 tablet Orally Once a day Taking Albuterol Sulfate HFA 108 (90 Base) MCG/ACT Aerosol Solution 1 puff as needed Inhalation every 4 hrs Taking Fluticasone Propionate 50 MCG/ACT Suspension instill 1 spray in each nostril once a day Nasally Once a day Taking Celecoxib 200 MG Capsule take 1 capsule by mouth every day with food Orally Once a day Taking traMADol HCl 50 MG Tablet 1 tablet as needed Orally Once a day Taking Gabapentin 300 MG Capsule take 1 capsule by mouth three times daily Orally 3 times per day Taking Minocycline HCl 50 MG Capsule take one capsule by mouth twice daily Orally Twice a day Taking Atorvastatin Calcium 20 MG Tablet take 1 tablet by mouth every day Orally Once a day Taking Janumet 50-1000 MG Tablet take 1 tablet by mouth twice daily with meals. Orally Twice a day Taking Omeprazole 40 MG Capsule Delayed Release take 1 capsule by mouth every day Orally Once a day Not-Taking/PRNDicyclomine HCl 10 MG Capsule take 1 capsule by mouth every day Orally 0nce a day Gabonbuzpg-YNJ-Tgczqaim 50-325-40 MG Capsule 1 capsule as needed Orally every 4 hrs Indomethacin 50 MG Capsule 1 capsule with food or milk Orally Three times a day Medication List reviewed and reconciled with the patientNot-Taking/PRN Dicyclomine HCl 10 MG Capsule take 1 capsule by mouth every day Orally 0nce a day Not-Taking/PRN Ybtdusrkgh-DZA-Uxdvbpgu 50-325-40 MG Capsule 1 capsule as needed Orally every 4 hrs Not-Taking/PRN Indomethacin 50 MG Capsule 1 capsule with food or milk Orally Three times a day Medication List reviewed and reconciled with the patient * Allergies: A noro Ellipta: sore feet Objective: * Vitals: H t: 68.5, Wt: 189, BMI:28.32, Wt-k.73. weight at home is 180 Bp not taken at home no temp. * Examination: G eneral Examination: GENERAL APPEARANCE: p leasant, in no acute distress. ? Assessment: * Assessment: 1. B myles - Lizet (Primary) Plan: * Treatment: * Procedure Codes: * * Sign off status: Completed true * Provider: Margarito Bunch MD Date: 01/21/2025 Generated for Abel you/Abbey/eTsindy on: 0 04/12/2025 02:44 PM EDT History and Physical Notes * HPI (History of Present Illness) Category Sub-Category Detail Notes Category Not es Symptom(s) Telehealth Location of [facility] rendering services:: [address], [address] patient is a 69 yo male video telehealth visit, had a cold for 10 days. no wheezing or shortness of breath. cough for 10 days Location of patient:: at address listed in demographics for today's visit Patient identification confirmed using:: Name, Telehealth method:: Video co nference where patient is visible to the provider of care Consent:: Patient verbally c onsented to treatment, Patient verbally consented to billing insurance company, Patient informed of any privacy concerns related to method of visit Total time spend talking with patient (m inutes): 17 Examination Category Sub-Category Detail Notes Category Not es General Examination GENERAL APPEARANCE: pleasant, in n o acute distress
--- OUTSIDE RECORDS SUMMARY | 2025-03-09 05:15 | XMS_ITS ---
Author Organization Abdifatah Bunch MD Address [address] [place] [phone] Care Team Providers Care Poolroom Table Attendant Name Role Phone Abdifatah Bunch Primary Care [...] a day for 10 days 03/23/2016 Not-Taking Bnksrnpjyr-WCS-Yqrzbxtc 50-325-40 MG 1 capsule as needed Orally every 4 hrs 09/17/2019 Not-Taking traMADol HCl 50 MG 1 tablet as needed Orally Once a day for 30 days 03/09/2025 Active Arnuity Ellipta 200 MCG/ACT 1 puff Inhalation Once a day Active Omeprazole 40 MG take 1 capsule by mo [facility] every day Orally Once a day [...] 300 MG take 1 capsule by mo [facility] three times daily Orally 3 times per day for 90 days Active Celecoxib 200 MG take 1 capsule by mo [facility] every day with food Orally Once [...] Location Date Provider Diagnosis Abdifatah Bunch MD [address] [place] [address] Drive [address] [place], [place] [phone] 03/09/2025 Abdifatah Bunch Type 2 diabetes mellitus [...] surgery Next Appt Details Provider Name:Abdifatah darnell, 05/10/2025 07:00:00 AM, [address], [address], [place], [place], [phone], Provider Name:Abdifatah Diallo ier, 05/17/2025 09:00:00 AM, [address], [address], [place], [place], [phone], Provider Name:Abdifatah Diallo ier, 11/05/2025 07:15:00 AM, [address], Suite [facility], [place], [phone], Provider Name:Abdifatah Diallo ier, 11/15/2025 09:30:00 AM, [address], Suite [facility], [place], [place], [phone], Progress Notes * Adrian PHAM DDOB:[birth year] (69 yo M)Acc No.[id number]:03/09/2025 Patient: Francisca Adrian SIMMONS Provider: Margarito Bunch MD :1955 A ge:69 Y S ex:Male Date:03/09/2025 Address:[address] [place], [place] [phone] Subjective: * Chief Complaints: * C ATARACT [...] exertion. G astrointestinal: Denies D iarrhea. D jaden N ausea. * Medical History: * Surgical [...] mouth every day Orally 0nce a day Tzyunitmrh-BCS-Iafuvdmv 50-325-40 MG Capsule 1 capsule as needed Orally every 4 hrs Indomethacin 50 MG Capsule 1 capsule with food or milk Orally Three times a day Not-Taking/PRN Dicyclomine HCl 10 MG Capsule take 1 capsule by mouth every day Orally 0nce a day Not-Taking/PRN Tpkzjrewfl-LPO-Mpydwdxq 50-325-40 MG Capsule 1 capsule as needed [...] 2947 ASSAY, GLUCOSE, BLOOD QUANT, Modifiers: QW 73647 GLYCATED HEMOGLOBIN TEST, Modifiers: QW * * Sign off status: Completed true * Provider: Margarito Bunch MD Date: 0 03/09/2025 Generated for Printi ng/Fabrigidog/eTransmitting on: 0 04/12/2025 02:44 PM EDT History [...]
[2025-04-12 13:32] VITALS: BP 122/67; PULSE 76; O2SAT 99; BMI 25.5
--- NOTE | 2025-04-12 13:32 | MHC.OFFVIS ---
Vital Signs 04/12/25 13:32 Height 5 ft 8.5 in Weight 170 lb BMI 25.5 BP 122/67 Blood Pressure Location Rt brachial Position Sitting Pulse 76 Pulse Source Pulse Oximeter Pulse Oximetry (%) 99 Oxygen Delivery Method Room Air Intake Visit Reasons: dyspnea Allergies umeclidinium (From Anoro Ellipta) Adverse Reaction (Severe, Verified 04/12/25 13:37) Unknown vilanterol (From Anoro Ellipta) Adverse Reaction (Severe, Verified 04/12/25 13:37) Unknown levofloxacin (From Levaquin) Adverse Reaction (Verified 04/12/25 13:37) Gastrointestinal Upset metronidazole (From Flagyl) Adverse Reaction (Verified 04/12/25 13:37) Gastrointestinal Upset ticagrelor Adverse Reaction (Verified 04/12/25 13:37) Unknown Brilinta Adverse Reaction (Severe, Uncoded 07/14/24 19:14) SOB HPI HPI dyspnea: Details: 69-year-old gentleman, former 50+ year smoker, quit 2003 followed for allergic asthma. Patient previously used Dupixent, however recently stopped without significant changes in his symptoms. He continues on Arnuity and albuterol MDI with good control of his symptoms. He denies recent exacerbations. [facility] Medical History Back pain CAD (coronary artery disease) Trigger finger Atherosclerotic cardiovascular disease Renal stones Sigmoid diverticulitis Sciatica Neuropathy Plantar fasciitis Arthritis GERD (gastroesophageal reflux disease) Gout Diabetes Surgical History Hx of arthroscopic knee surgery Hx of hand surgery History of coronary artery stent placement History of cardiac cath History of foot surgery History of colonoscopy Previous back surgery History of total left knee replacement History of total right knee replacement Family History Mother No problems noted. Father No problems noted. Social History Household Members: None Housing: House Do you presently have visiting nurse or other home services: No Alcohol intake: never Patient Tobacco Use Status: Former Tobacco user Tobacco use type: Cigarette Second Hand Smoke Exposure: Yes Advance Directives Date on File: 04/01/24 service: No Current occupational status: retired 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 Review of Systems Const Denies daytime sleepiness, Denies excessive sweating, Denies fatigue, Denies fever(s), Denies lethargy, Denies malaise, Denies night sweats, Denies snoring and Denies weight loss Eyes Denies blurry vision and Denies itchy eyes ENT Denies nasal congestion, Denies post nasal drip, Denies sinus pain, Denies sinus pressure and Denies other ( Thrush) Card Denies chest pain, Denies pedal edema, Denies dyspnea, Denies orthopnea and Denies paroxysmal nocturnal dyspnea Resp Denies cough, Denies hemoptysis, Denies excessive phlegm production, Denies dyspnea, Denies snoring and Denies wheezing GI Denies abdominal pain and Denies heartburn Musc Denies myalgias, Denies arthralgias and Denies joint swelling Skin/Breast Denies rash Neuro Denies memory loss and Denies seizure-like activity Psych Denies abnormal sleep pattern, Denies anxiety and Denies memory loss Endo Denies excessive sweating, Denies fatigue and Denies heat intolerance Ryan/Lymph Denies easy bruising Aller/Immun Denies itchy eyes, Denies seasonal rhinorrhea and Denies wheezing Physical Exam Vital Signs: Last Vital Signs Pulse 76 04/12/25 13:32 BP 122/67 04/12/25 13:32 Pulse Ox 99 04/12/25 13:32 Oxygen Delivery Method Room Air 04/12/25 13:32 BMI result Body Mass Index 25.5 Const General: no acute distress and alert Nutritional Appearance: not obese Orientation/consciousness: Other orientation findings ( oriented) HEENT Head: Yes atraumatic Eyes General: appearance normal, both eyes and all related structures Sclerae: sclerae normal EOM: EOMs intact bilaterally Neck Neck: Yes supple Lymphatic: no lymphadenopathy noted Resp Effort & Inspection: normal respiratory effort and no use of accessory muscles Auscultation: clear to auscultation bilaterally Cardio Rate: regular rate Rhythm: regular rhythm Heart sounds: no gallops, no murmurs and no rubs Skin General skin exam: other ( warm) Extrem General: No clubbing, No cyanosis and No edema Assessment & Plan Assessment & Plan (1) Asthma: Code(s): J45.909 - Unspecified asthma, uncomplicated Category: Medical Plan: Well controlled on current regimen of Arnuity and albuterol MDI. Continue current regimen. (2) Environmental allergies: Code(s): Z91.09 - Other allergy status, other than to drugs and biological substances Category: Medical Plan: No longer on Dupixent with no significant changes in his symptoms. Does use occasional Flonase. Continue as needed. Coding Level of Care Code Est Pt Level 4 (97149) Diagnoses Asthma J45.909 Environmental allergies Z91.09
--- OUTSIDE RECORDS SUMMARY | 2025-04-12 14:43 | XMS_ITS | Patient Health Record ---
Author Organization [facility] Address [address] [place] [address] Care Team Providers Care Property Staff Accountant Name Role Phone Alivia SANCHEZ, Abdifatah Primary Care Provider Barber Painter Unavailable [phone] Ludivina Jack Unavailable [phone] Allergies Allergen (clinical drug ingredient) Drug/Non Drug [...] Route Administration Date Status Comme nts COVID-19 One Touch EMR & Adilson/Amanda Unknown 2020 A dministered Influenza [...] Status Risk Notes Problem Acquired hallux valgus (31501147) Hallux valgus (acquired), left foot (M20.12) Active confirmed Problem Polyneuropathy due to type 2 diabetes mellitus (893889773) Type 2 diabetes mellitus with diabetic polyneuropathy (E11.42) Active confirmed Problem Primary gout (88891927) Idiopathic gout, left ankle and foot (M10.072) Active confirmed Problem Acquired cavus deformity of right foot (disorder) (7535474629390854 ) Cavus deformity of right foot (Q66.71) Active confirmed Vital Signs Height 5ft 8in in 07/24/2024 Weight 180 lbs 07/24/2024 BMI 27.37 kg/m2 07/24/2024 Procedures Procedure Date Ordered Date Performed Result Body Sit e , J0702- INJECT TENDON ORIGIN/INSERT 06/04/2024 N/A Encounters Encounter Location Date Provider Diagnosis [facility] [address] 06/04/2024 Barber Saenz Pain in right foot M79.671 ; Tinea unguium B35.1 ; Type 2 diabetes mellitus with diabetic polyneuropathy E11.42 ; Neuralgia and neuritis, unspecified M79.2 ; Pain in right toe(s) M79.674 ; Pain in left toe(s) M79.675 ; Hallux valgus (acquired), left foot M20.12 ; Xerosis cutis L85.3 ; Ingrowing nail L60.0 and Right peroneal tendinosis M67.[address] [facility] [address] 07/24/2024 Ludivina Marcie Peroneal tendinitis, right leg M76.71 and Type 2 diabetes mellitus with diabetic polyneuropathy E11.42 Assessments Encounter Date Diagnosis (ICD Code) Assessment Notes Treatment Notes Treatment Clinical Notes Section Notes 06/04/2024 Tinea unguium (ICD-10 - B35.1) 07/24/2024 Peroneal tendinitis, right leg (ICD-10 - M76.71) 07/24/2024 Type 2 diabetes mellitus with diabetic polyneuropathy (ICD-10 - E11.42) 06/04/2024 Pain in right foot (ICD-10 - M79.671) 06/04/2024 Type 2 diabetes mellitus with diabetic [...] X ray : Foot, right 3V 02/28/2024 09053-HHCNRMC NAIL, 1-5 01/20/2018 15744-CWZGKME NAIL, 1-5 08/06/2016 02177-VALADDC NAIL, 1-5 08/05/2017 09799-JASUMTK NAIL, 1-5 07/21/2018 47662- Debride <25 sq cm 08/23/201490241, J0702- INJECT TENDON ORIGIN/INSER T 06/04/2024 43622-IQOG SKIN LESIONS, OVER 4 05/31/20 21 09316-QKQD SKIN LESIONS, OVER 4 10/29/19 14 31991-GMVO SKIN LESIONS, OVER 4 07/29/20 13 29955-WAUI SKIN LESIONS, 2 TO 4 02/13/20 16 96968-LELM SKIN LESIONS, 2 TO 4 02/05/20 17 52742-XFYP SKIN LESIONS, 2 TO 4 08/06/20 16 23759-DZSZ SKIN LESIONS, 2 TO 4 02/17/20 15 92532-DVWX SKIN LESIONS, 2 TO 4 09/17/19 12 20561-CUYO SKIN LESIONS, 2 TO 4 05/06/20 13 54338-KVGY SKIN LESIONS, 2 TO 4 01/20/20 19 28391-EOXT SKIN LESIONS, 2 TO 4 08/05/20 17 29302-MBTB SKIN LESIONS, 2 TO 4 07/21/20 18 60421-OYBB SKIN LESIONS, 2 TO 4 04/22/20 19 41221-VIKP SKIN LESIONS, 2 TO 4 07/20/20 19 12498-YDHB SKIN LESIONS, 2 TO 4 10/19/19 20 31866-SPUC SKIN LESIONS, 2 TO 4 11/25/19 21 25940-EHKN SKIN LESIONS, 2 TO 4 01/27/20 13 13252-KNPG SKIN LESIONS, 2 TO 4 08/22/19 16 41668-QEVG SKIN LESIONS, 2 TO 4 05/09/20 20 71378-SCLS SKIN LESIONS, 2 TO 4 08/23/19 15 92032-SJIV SKIN LESIONS, 2 TO 4 10/28/19 13 89074-DJPI SKIN LESIONS, 2 TO 4 01/21/20 18 68279-LZCE NAIL(S) 10/27/2012 92323-ZNSJ NAIL(S) 10/28/2013 26349-BPQF NAIL(S) 01/20/2018 06203-UAGL NAIL(S) 08/22/2015 69714-JNOV NAIL(S) 08/23/2014 58695-RULJ NAIL(S) 01/26/2013 75906-SEJV NAIL(S) 04/28/2012 96435-IXIX NAIL(S) 08/05/2017 14109-KLMV NAIL(S) 05/06/2013 96636-QYQH NAIL(S) 07/29/2013 40547-CIIQ NAIL(S) 02/16/2015 09076-LNXR NAIL(S) 08/06/2016 48014-DIXZ NAIL(S) 02/04/2017 21352-HMKL NAIL(S) 02/13/2016 K8424-OLIMCSSW DYSTROPHIC NAILS ANY # A7382-UKWRBAWQ DYSTROPHIC NAILS ANY # F1508-YGXCJIVF DYSTROPHIC NAILS ANY # R6450-BSODSBJU DYSTROPHIC NAILS ANY # E9727-HTAEPQZT DYSTROPHIC NAILS ANY # F9051-XRUFQQYP DYSTROPHIC NAILS ANY # Z6515-PDTYQKXX DYSTROPHIC NAILS ANY # J0407-PGSVEYLW DYSTROPHIC NAILS ANY # 73008, J0702- Neuroma/Injection 09/17/19 12 Next Appt Details Provider Name:Ludivina orozco, 06/04/2025 09:00:00 AM, [address] [facility], [place], [address], Insurance Providers Payer Name Payer Address Payer Phone Subscriber Number Group Number Insured Name Patient Relationship to Insured Coverage Start Date Coverage End Date Medicare National Govt [employer] [address] [place] [address] [id number] Adrian Galicia Self - patient is the insured 9 [employer] [address] [place] [address] [id number] Adrian Galicia Self - patient is the insured Medical (General) History Medical History History ICD Code diabetic (controlled by oral hypoglycemi cs) mumps measles hypertension Gout chicken pox reflux Rosacea Hypercholesterolemia Gastroesophageal reflux disease (GERD) Prostate conditions Prostate Irregular covid-19 Cataracts Surgical History Surgery Date(Month/Year) bunionectomy 2009 hand/wrist 2009 knee surgery, right 1996 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
--- OUTSIDE RECORDS SUMMARY | 2025-04-12 14:44 | XMS_ITS | Patient Health Record ---
Author Organization [facility] Address [address] [place] [id number] Care Team Providers Care Director Traffic And Planning Name Role Phone Abdifatah Bunch MD Primary Care Provider Natan Morales Unavailable [phone] Allergies Allergen (clinical drug ingredient) Drug/Non Drug Allergy documented on EMR Reaction Allergy Type Onset Date Status ticagrelor Ticagrelor Unknown Drug Allergy Activ e metronidazole metroNIDAZOLE Unknown Drug Allergy Active levofloxacin levoFLOXacin Unknown Drug Allergy A ctive ticagrelor Brilinta Unknown Drug Allergy Active metronidazole Flagyl Unknown Drug Allergy Act rigo Reason For Referral No Information Medications Medication [...] Problem Status W/U Status Risk Notes Problem 483542383 Encounter for screening for malignant neoplasm of colon (Z12.11) Active confirmed Problem 035010903 History of adenomatous polyp of colon (Z86.010) Active confirmed Problem Diverticular disease of colon (971173450) Diverticulosis of large intestine without perforation or abscess without bleeding (K57.30) Active confirmed Problem Screening for malignant neoplasm of rectum (695853087) Encounter for screening for malignant neoplasm of rectum (Z12.12) Active confirmed Problem Dysphagia (70565386) Dysphagia (R13.10) Active confirmed Problem 358383591 Gastroesophageal reflux disease without esophagitis (K21.9) Active confirmed Problem 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) Gastric polyps (K31.7) Active confirmed Problem Diverticulitis of colon (894678290) Diverticulitis of colon (K57.32) Active confirmed Problem Gastritis (4934812) Gastritis (K29.70) Active confirmed Vital Signs Temperature 97.3 degrees Fahrenheit 06/03/2024 Blood pressure diastolic 00 mm Hg 06/03/2024 Height 68.25 in 06/03/2024 Blood pressure systolic 000 mm Hg 06/03/2024 Weight 186 lb 4 oz lbs 06/03/2024 BMI 28.11 kg/m2 06/03/2024 Encounters Encounter Location Date Provider Diagnosis [facility] [address] [place] [phone] 06/03/2024 Natan Drummond Gastroesophageal ref lux disease [...] Date MEDICARE OF [place] [address] [place] [address] [id number] ADRIAN LEMUS Self - patient is the insured [employer] ATT[employer] CLAIMS [address] [place] [address] [phone] [id number] ERNIE BURTON ADRIAN Self - patient is the insured Medical (General) History Medical History History ICD Code GERD-neg EGD in 11/2005 except for a smal l HH Arthritis--cortisone shots for his knees Plantar fasciitis Denies [place],CVA,Lung disease,renal disease Diabetes mellitus--neuropathy Neg. colonoscopy in [...] surgeries X 3-- right--trigger fing er Foot nkvukiqwo-pjrvd-Szoxys, [facility] uroma 2 back surgeries-- lower disc x 2 Bilateral knee replacements 2018 Hospitalization History Reason Date(Month/Year)
--- OUTSIDE RECORDS SUMMARY | 2025-04-12 14:44 | XMS_ITS ---
Author Name [facility] Organization Unknown History of Medication Use Medication Directions Dispensed Refills Start Date End Date Stat us iohexol (OMNIPAQUE) 350 mg/mL injection 80 mL 80 mL, Intravenous, Once in imaging, contrast, Starting on Sat11/13/23 at 1141, For 1 dose, Radiology Appointment 11/13/2023 11/13/2023 completed nitroglycerin (NITROSTAT) SL tablet 0.4 mg 0.4 mg, Sublingual, Once, On Sat11/13/23 at 0930, For 1 dose, Please give in the CT scanner room as part of the cardiac CTA procedure. Do not chew, crush, or swallow sublingual tablet. Place under tongue and allow to dissolve. Alternately, may be placed in the buccal pouch. 11/13/2023 11/13/2023 completed Allergies Allergen Reaction Severity Comment Documented Date Source Statu s UMECLIDINIUM-VILANT JONY OTHER (SEE COMMENTS) 11/12/2023 [facility] active Problems Problem Status Onset Date Problem Type Date of Resoluti on Source Shortness of breath active EncounterDiagnosisAc t [facility] Coronary artery disease involving [place] coronary artery, unspecified whether angina present, unspecified whether [place] or transplanted heart active EncounterDiagnosisAct [facility] Ventricular hypokinesis active EncounterDiagnosisAct [facility] COVID-19 active EncounterDiagnosisAct [facility] Encounters Encounter Type Encounter Reason Primary Diagnosis Location Date Ambulatory Shortness of breath [facility] Care Team Organization Name Specialty Phone Email Start Date End Da te Remark [facility] Primary Care 11/13/2023 [facility] Primary Care 11/13/2023 [facility] 10/22/2023
--- OUTSIDE RECORDS SUMMARY | 2025-04-12 14:44 | XMS_ITS | Encounter Summary ---
Author Organization [facility] Address [address] [place] [address] Care Team Providers Care Medicaid Analyst Name Role Phone Unknown Primary Care Provider [phone] Abdifatah Bunch MD Primary Care Provider [phone] Encounter Details Date Type Department Care Team (Late st Contact Info) Description 10/22/2023 Scanned Document [address] [place] [phone] Radiology, Scan Social History Tobacco Use [...] on filedocumented in this encounter Care Teams Medicaid Analyst Relationship Specialty Start Date End Date Unknown Unknow Provider Address PCP - General 10/18/23 11/12/23 Abdifatah Bunch MD [address] [place] [address] [place] [address] PCP - General Internal Medicine 11/13/23 documented as of this encounter
--- OUTSIDE RECORDS SUMMARY | 2025-04-12 14:44 | XMS_ITS | Patient Health Record ---
Author Organization Abdifatah Bunch MD Address [address] [place], [place] [id number] Care Team Providers Care Radio Intelligence Operator Name Role Phone Abdifatah Bunch Primary Care Provider Allergies Allergen (clinical drug ingredient) Drug/Non Drug Allergy documented on EMR Reaction Allergy Type Onset Date Status umeclidinium / vilanterol Anoro Ellipta sore feet Drug Allergy Active Results Component Value Reference Range Notes Hemoglobin A1c Reviewed date:03/09/2025 09:27:01 AM Interpretation: Performing Lab: Notes/Report: Hemoglobin A1c 6.2 Liver Panel Reviewed date:05/08/2024 12:26:41 PM Interpretation: Performing Lab:[facility], [address] [place] [phone] Notes/Report: Bilirubin Total 0.6 0.0-1.0 mg/dL Bilirubin Direct 0.2 0.0-0.5 mg/dL Aspartate Amino Transferase 15 5-37 U/L Alanine Aminotransferase 10 0-40 U/L Total Protein 6.4 6.5-8.0 g/dL Albumin Level 3.9 3.5-5.0 g/dL Alkaline Phosphatase 58 39-117 U/L Glucose Fasting Reviewed date:05/08/2024 12:26:24 PM Interpretation: Performing Lab:[facility], [address] [place] [phone] Notes/Report: Glucose Fasting 138 60-99 mg/dL A fasting glucose of 126 mg/dl or greater on more than one occasion is considered diagnostic of diabetes. Lipid Panel with Reflex Reviewed date:05/08/2024 12:26:14 PM Interpretation: Performing Lab:[facility], [address] [place] [phone] Notes/Report: Triglycerides 122 <150 mg/dL Desirable Triglyceride: [...] A1c Reviewed date:05/08/2024 12:26:32 PM Interpretation: Performing Lab:[facility], [address] [place] [phone] Notes/Report: Hemoglobin A1c % 6.1 <6.0 % [...] average glucose, using the formula of the V2B-Oxlsyjy Average Glucose study (ADAG), Diabetes Care, Vol.31,#8, 2007 Complete Blood Count Auto Di ff Reviewed date:11/05/2024 12:34:06 PM Interpretation: Performing Lab:[facility], [address] [place] [phone] Notes/Report: White Blood Count 6.0 4.8-10.8 X10*3/uL [...] NRBC Abs Auto 0.000 0.0-0.012 X10*3/uL Comprehensive Cosby. Panel Fa st Reviewed date:11/05/2024 12:21:00 PM Interpretation: Performing Lab:[facility], [address] [place] [phone] Notes/Report: Sodium 141 135-145 mmol/L Potassium 3.9 [...] Panel Reviewed date:11/05/2024 12:24:32 PM Interpretation: Performing Lab:[facility], [address] [place] [phone] Notes/Report: Triglycerides 94 <150 mg/dL Desirable Triglyceride: [...] (Free>4and<10) Reviewed date:11/05/2024 12:23:51 PM Interpretation: Performing Lab:[address] [address] Notes/Report: PSA,Total (Free>4and<10) 0.36 0.00-4.00 ng/mL A [...] Random Reviewed date:11/05/2024 12:24:24 PM Interpretation: Performing Lab:[address] [address] Notes/Report: Creatinine Urine 130.48 Microalbumin Urine < 5.0 Microalbum/Creatinine Ratio Ur TNP <30 ug/mg cr Unable to calculate albumin/creatinine ratio due to low microalbumin or creatinine result. Hemoglobin A1c Reviewed date:11/05/2024 12:24:10 PM Interpretation: Performing Lab:[address] [phone] Notes/Report: Hemoglobin A1c % 6.2 <6.0 % [...] average glucose, using the formula of the N0S-Ltsxxdf Average Glucose study (ADAG), Diabetes Care, Vol.31,#8, Mar. 2007 UA ClnCatch+Micro w/rflx Cul t Reviewed date:11/05/2024 12:27:48 PM Interpretation: Performing Lab:[address] [phone] Notes/Report: Urine, Clean Catch Color Urine Yellow Appearance Urine Clear PH 5.5 5.0-9.0 Glucose Urine UA Negative Negative mg/dL Urine Blood Negative Negative Specific Parker - Urine 1.015 1.005-1.025 Urine Protein Negative [...] AM Interpretation: Performing Lab: Notes/Report: Value 152 Glucose, finger stick Reviewed date:03/09/2025 09:17:01 AM Interpretation: Performing Lab: Notes/Report: Value 108 Hold Gold Reviewed date:05/08/2024 12:26:05 PM Interpretation: Performing Lab:[facility], [address] [place] [phone] Notes/Report: Warren Galvan See Note Specimen held untested for 24 hours; Call to request Chemistry testing. Complete Blood Count Auto Di ff Reviewed date:07/18/2024 01:42:47 PM Interpretation: Performing Lab:[facility], [address] [place] [phone] Notes/Report: White Blood Count 11.4 4.8-10.8 X10*3/uL [...] Panel Reviewed date:07/18/2024 01:44:08 PM Interpretation: Performing Lab:[facility], [address] [place] [phone] Notes/Report: Sodium 136 135-145 mmol/L Potassium 4.3 [...] Lipase Reviewed date:07/16/2024 12:01:30 PM Interpretation: Performing Lab:[facility], [address] [place] [phone] Notes/Report: Lipase 24 8-78 U/L UA CC w/rflx Micro + Cult Reviewed date:07/19/2024 02:44:52 PM Interpretation: Performing Lab:[facility], [address] [place] [phone] Notes/Report: 1926 Urine, Clean Catch Color Urine Yellow Appearance Urine Clear PH 7.0 5.0-9.0 Glucose Urine UA Negative Negative mg/dL Urine Blood Negative Negative Specific Parker - Urine 1.020 1.005-1.025 Urine Protein Trace Neg-Trace mg/dL Urine Ketones Trace Negative mg/dL Nitrite Urine Negative Negative Leukocyte Esterase Urine Negative Negative Lactic Acid Reviewed date:07/16/2024 12:00:04 PM Interpretation: Performing Lab:[facility], [address] [place] [phone] Notes/Report: Lactic Acid 1.7 0.5-2.0 mmol/L Blood Culture (First) Reviewed date:07/20/2024 12:54:52 PM Interpretation: Performing Lab:[facility], [address] [place] [phone] Notes/Report: Blood Culture (First) No growth after 5 days. Blood Culture (Second) Reviewed date:07/20/2024 12:54:42 PM Interpretation: Performing Lab:[facility], [address] [place] [phone] Notes/Report: Blood Culture (Second) No growth after [address] abdomen pelvis w con Reviewed date:07/20/2024 01:22:37 PM Interpretation:called [facility] LM Performing Lab: Notes/Report: [address] [address] [address] Scan Report Signed Patient: Adrian Atkins MR#: [id number] : 1955 Acct:[id number] Age/Sex: 68 / M ADM Date: 07/14/24 Loc: HO.ED Attending Dr: Ordering Physician: Maite Lakhani DO Date of Service: 07/15/24 Procedure(s): CT abdomen pelvis w IV con Accession Number(s): [id number] cc: Abdifatah Bunch MD; Maite Lakhani DO [...] by: Damian Bowman MD 07/15/2024 06:24 AM [facility] Dictated By: Damian Bowman MD Signed By: <Electronically signed by Damian Bowman MD in OV> 07/15/24623 DD/ 0335 TD/TT: 07/15/24 0400 Placing Judge: [address] [address] [address] Scan Report Signed Patient: Adrian Atkins MR#: [id number] : 1955 Acct:[id number] Age/Sex: 68 / M ADM Date: 07/14/24 Loc: HO.ED Attending Dr: Ordering Physician: Maite Lakhani DO Date of Service: 07/15/24 Procedure(s): CT abd omen pelvis w IV con Accession Number(s): [id number] cc: Abdifatah Bunch MD; Maite Lakhani DO [...] Damian Bowman MD 07/15/2024 06:24 AM EST RP Dictated By: Deanna Bowman MD Signed By: <Electronically signed by Damian Bowman MD in OV> 07/15/24623 DD/ 4 TD/TT: 07/15/24 040 Placing Judge: CT chest wo con Reviewed date:09/14/2024 04:59:50 PM Interpretation: Performing Lab: Notes/Report: [place] [address] [address] Scan Report Signed Patient: Adrian Atkins MR#: [id number] : 1955 Acct:[id number] Age/Sex: 68 / M ADM Date: 09/14/24 Loc: HO.CT Attending Dr: Abdifatah Bunch MD Ordering Physician: Abdifatah Bunch MD Date of Service: 09/14/24 Procedure(s): CT chest wo IV con Accession Number(s): [id number] cc: Abdifatah Bunch MD Report Number: [id number]: Total DLP = 179.00 mGy-cm CLINICAL HISTORY: [...] signed by Gomez Eisenberg MD in OV> 09/14/24950 DD/ 9 TD/TT: 09/14/24949 Placing Judge: [address] [address] [address] Scan Report Signed Patient: Adrian Atkins MR#: [id number] : 1955 Acct:[id number] Age/Sex: 68 / M ADM Date: 09/14/24 Loc: HO.CT Attending Dr: Abdifatah Bunch MD Ordering Physician: Abdifatah Bunch MD Date of Service: 09/14/24 Procedure(s): CT keri st wo IV con Accession Number(s): [id number] cc: Abdifatah Bunch MD Report Number: [id number]: Total DLP = 179.00 mGy-cm CLINICAL HISTORY: [...] signed by Gomez Eisenberg MD in OV> 09/14/24950 DD/ 9 TD/TT: 09/14/24949 Pl[address] Judge: Glucose, Whole Blood Reviewed date:03/22/2025 01:14:03 PM Interpretation: Performing Lab:[facility], [address] [place] [phone] Notes/Report: Glucose, Whole Blood 128 60-115 mg/dL METER # : [id number] Glucose, Whole Blood Reviewed date:04/05/2025 12:23:08 PM Interpretation: Performing Lab:[facility], [address] [facility], [place] [address] Notes/Report: Glucose, Whole Blood 130 60-115 mg/dL METER # : [id number] Reason For Referral Reason upper back pain Diagnosis 1 Upper back pain (M54 .9) Referral Organization Abdifatah Bunch MD Referring Provider First Name Abdifatah Referring Provider Last Name Alivia Referring Provider Speciality Internal M edicine Referred Provider [facility] Referred Provider Specialty Physical [...] Date End Date Status Omeprazole 40 MG take 1 capsule by [facility] every day Orally Once a day for 90 days Active Atorvastatin Calcium 20 MG take 1 tablet by mouth every day Orally Once a day for 90 days Active Minocycline HCl 50 MG take one capsule b y mouth twice daily Orally Twice a day for 45 days Active Zithromax Z-Nicholas 250 MG 2 tablet on the irst day, then 1 tablet daily for 4 days Orally Once a day for 5 day(s) 01/21/2025 Active Indomethacin 50 MG 1 capsule with food or milk Orally Three times a day for 10 days 03/23/2016 Not-Taking Yusaxrbftk-HZU-Symdfhou 50-325-40 MG 1 capsule as needed Orally every 4 hrs 09/17/2019 Not-Taking Dicyclomine HCl 10 MG take 1 [...] michel y for 90 days 10/31/2021 Active traMADol HCl 50 MG 1 tablet as needed Orally Once a day for 30 days 03/09/2025 Active Gabapentin 300 MG take 1 capsule by [facility] three times daily Orally 3 times per day for 90 days Active Celecoxib 200 MG take 1 capsule by [facility] every day with food Orally Once a day Active Fluticasone Propionate 50 MCG/ACT instill 1 spray in each nostril once a day Nasally Once a day for 90 days Active Arnuity Ellipta 200 MCG/ACT 1 puff Inhalation Once a day Active Dupixent 300 MG/2ML as directed Subcutaneous Active Janumet 50-1000 MG take 1 tablet by [facility] twice daily with meals. Orally Twice a day Active FreeStyle Lite 0 use to test blood [employer] subQ DX:11:42 once a day for 30 days 09/20/2015 Active FreeStyle Lite Test 0 use to test blood sugar In Vitro DX:11:42 once a day for 30 days 09/20/2015 Active predniSONE 10 MG 1 tablet with food o r milk Orally 4 tabs for 3 days,3tabs for 3 days, 2 tabs for 3 days, and 1 tab for 3 days for 14 days 01/21/2025 Active Immunizations Vaccine Route Administration Date Status Comme nts Flu Vaccine SC Subcutaneous 06/03/2011 Administered Shingles IM Intramuscular 02/12/2012 Administered Flu Vaccine Unknown 04/23/2012 Administered [facility] PPSV23 (Pnemovax) IM Intramuscular 03/03/2013 Administered Flu Vaccine IM Intramuscular 05/28/2013 Administered [facility] Flu Vaccine Unknown 05/21/2013 Administered [...] Administered pt was given the vaccine at [facility]. Shingrix Unknown 01/17/2018 Administered pt was given first dose at [facility]. Shingrix IM Intramuscular 07/31/2018 Administered pt was the vaccine at [facility]. 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) Active confirmed Problem Sciatica (64741460) Lumbago with sciatica, left side (M54.42) Active confirmed Problem 198680246 Gastroesophageal reflux disease without esophagitis (K21.9) Active confirmed Problem 194599459 Rosacea (L71.9) Active confirmed Problem 820072137 Environmental allergies (Z91.09) Active confirmed Problem 978324046 Esophageal dysmo tility (K22.4) Active confirmed Problem 08713068 Atherosclerosis (I70.90) Active confirmed Problem 131772866 Pure hypercholesterolemia (E78.00) Active confirmed Problem 75825096 Seasonal allergi c rhinitis due to pollen (J30.1) Active confirmed Problem 41977636 Irritable bowel syndrome with both constipation and diarrhea (K58.2) Active confirmed Problem 534049675 Arthritis of kne e (M17.10) Active confirmed Problem 599821255 Stented coronary artery (Z95.5) Active confirmed Problem Acute gout invol ving toe of right foot, unspecified cause (M10.9) Active confirmed Problem 78183977190956523 Abnormal chest CT (R93.89) Active confirmed Problem 55515419 Non-seasonal all ergic rhinitis, unspecified trigger (J30.89) Active confirmed Problem 76118875 Kidney stone on right side (N20.0) Active confirmed Problem 285787164 Notalgia paresth etica (R20.2) Active confirmed Problem 894611207 CAD, multiple ve ssel (I25.10) Active confirmed Problem 14977272 Arteriosclerotic coronary artery disease (I25.10) Active confirmed Problem 712235066 Active asthma (J45.909) Active confirmed Problem 21851464 Purulent bronchi tis (J41.1) Active confirmed Vital Signs Blood pressure diastolic 70 mm Hg 03/09/2025 isabel ght is down 14 pounds since 01-21-25 Height 68.5 in 03/09/2025 weight is down 14 pounds since 01-21-25 Blood pressure systolic 132 mm Hg 03/09/2025 weig ht is down 14 pounds since 01-21-25 Weight 175 lbs 03/09/2025 weight is down 14 pounds since 01-21-25 BMI 26.22 kg/m2 03/09/2025 weight is down 14 pounds since 01-21-25 Encounters Encounter Location Date Provider Diagnosis Abdifatah Bunch MD [address] [place] [id number] 05/08/2024 Abdifatah Bunch Type 2 diabetes noah itus with diabetic polyneuropathy E11.42 ; Encounter for immunization Z23 and Pure hypercholesterolemia E78.00 Abdifatah Bunch MD [address] [place] [id number] 11/05/2024 Abdifatah Bunch Type 2 diabetes noah itus with diabetic polyneuropathy E11.42 and Pure hypercholesterolemia E78.00 Abdifatah Bunch MD [address] [place] [id number] 05/19/2024 Abdifatah Bunch Type 2 diabetes noah itus with diabetic polyneuropathy E11.42 ; Arteriosclerotic coronary artery disease I25.10 ; Shortness of breath on exertion R06.02 and Pure hypercholesterolemia E78.00 Abdifatah Bunch MD [address] [place] [id number] 07/27/2024 Abdifatah Bunch Upper back pain M54. 9 ; Acute diverticulitis K57.92 ; Gastroesophageal reflux disease without esophagitis K21.9 and Type 2 diabetes mellitus with diabetic polyneuropathy E11.42 Abdifatah Bunch MD [address] [place] [id number] 09/17/2024 Abdifatah Bunch Environmental allerg ies Z91.[address] R93.89 Abdifatah Bunch MD [address] [place] [id number] 11/12/2024 Abdifatah Bunch Lumbar back pain M54 .50 ; Type 2 diabetes mellitus with diabetic polyneuropathy E11.42 ; Arteriosclerotic coronary artery disease I25.10 ; Pure hypercholesterolemia E78.00 and Esophageal dysmotility K22.4 Abdifatah Bunch MD [address] [place] [id number] 01/21/2025 Abdifatah Bunch Bronchitis J40 Abdifatah Bunch MD [address] [place] [id number] 03/09/2025 Abdifatah Bunch Type 2 diabetes noah itus with diabetic polyneuropathy E11.42 ; Arteriosclerotic coronary artery disease I25.10 ; Active asthma J45.909 ; Back pain M54.9 and Preop examination Z01.818 Abdifatah Bunch MD [address] [place] [id number] 07/20/2024 Abdifatah Bunch MD [address] [place] [id number] 07/23/2024 Abdifatah Bunch MD [address] [place] [id number] 08/04/2024 Abdifatah Bunch Assessments Encounter Date Diagnosis (ICD Code) Assessment Notes Treatment Notes Treatment Clinical Notes Section Notes 05/08/2024 Type 2 diabetes mellitus with diabetic polyneuropathy (ICD-10 - E11.42) 05/08/2024 Encounter for immunization (ICD-10 - Z23) 11/05/2024 Type 2 diabetes mellitus with diabetic polyneuropathy (ICD-10 - E11.42) 05/19/2024 Type 2 diabetes mellitus with diabetic polyneuropathy (ICD-10 - E11.42) stable, will continue current regiment 05/19/2024 Arteriosclerotic coronary artery disease (ICD-10 - I25.10) chest pain never 07/27/2024 Upper back pain (ICD -10 - M54.9) referral to pssp, patoent verbalized understanding of medication and directions for use 09/17/2024 Environmental allerg ies (ICD-10 - Z91.09) use cold compresses and allergy meds 11/12/2024 Lumbar back pain (ICD-10 - M54.50) 11/12/2024 Type 2 diabetes mellitus with diabetic polyneuropathy (ICD-10 - E11.42) stable, will cntinue current regiment 01/21/2025 Bronchitis (ICD-10 - J40) patient verbalized understanding of medication and directions for use 03/09/2025 Type 2 diabetes mellitus with diabetic polyneuropathy (ICD-10 - E11.42) doing well, will continue current regiment 03/09/2025 Arteriosclerotic coronary artery disease (ICD-10 - I25.10) followed by dr smith 05/08/2024 Pure hypercholesterolemia (ICD-10 - E78.00) 11/05/2024 Pure hypercholesterolemia (ICD-10 - E78.00) 05/19/2024 Shortness of breath on exertion (ICD-10 - R06.02) has returned to normal 07/27/2024 Acute diverticulitis (ICD-10 - K57.92) 09/17/[address] (ICD-10 - R93.89) repeat ct showed no nodules. 11/12/2024 Arteriosclerotic coronary artery disease (ICD-10 - I25.10) doing well, will continue to monitor 03/09/2025 Active asthma (ICD-1 0 - J45.909) still on inhalers, will continue current regiment 05/19/2024 Pure hypercholesterolemia (ICD-10 - E78.00) stable, at goal, will continue curent regiment 07/27/2024 Gastroesophageal ref lux disease without esophagitis (ICD-10 - K21.9) reflux is failry well controlled, will continue current regiment 11/12/2024 Pure hypercholesterolemia (ICD-10 - E78.00) stable, will continue current regiment 03/09/2025 Back pain (ICD-10 - M54.9) 07/27/2024 Type 2 diabetes mellitus with diabetic polyneuropathy (ICD-10 - E11.42) doing well with good a1c, will continue current regiment 11/12/2024 Esophageal dysmotili ty (ICD-10 - K22.4) stable, will continue current regiment 03/09/2025 Preop examination (ICD-10 - Z01.818) cleared for cataract surgery Plan Of Treatment Pending Test Test Name [...] con 10/03/2023 Next Appt Details Provider Name:Abdifatah darnell, 05/10/2025 07:00:00 AM, [address] [place] [address], [address], [phone], Provider Name:Abdifatah darnell, 05/17/2025 09:00:00 AM, [address] [place] [address], [address], [phone], Provider Name:Abdifatah darnell, 11/05/2025 07:15:00 AM, [address] [place] [address], [address], [phone], Provider Name:Abdifatah darnell, 11/15/2025 09:30:00 AM, [address] [place] [address], [address], [phone], Insurance Providers Payer Name Payer Address Payer Phone Subscriber Number Group Number Insured Name Patient Relationship to Insured Coverage Start Date Coverage End Date MEDICARE NHIC [address] [place] [address] [id number] Adrian Galicia Self - patient is the insured [employer] [address] [place] [address] [id number] Adrian Galicia Self - patient is the insured Medical (General) History Medical History History ICD Code colonoscopy 11/2005; colonosc opy done w/Dr. Drummond 10/12/16 tubular adenoma repeat 5 yearss:06/24/23 colonoscopy repeat 5 yrs Irregular prostate N42.9 Irregular prostate arnuity ellipta is fluticasone Surgical History Surgery Date(Month/Year) RT Total Knee Arthroplasty (Dr. Moon) 12/2018 LT Total Knee Arthroplasty (Dr. Moon) 04/2019
--- OUTSIDE RECORDS SUMMARY | 2025-04-12 14:44 | XMS_ITS | Clinical Summary ---
Author Organization [facility] Address [address] [place] [id number] Care Team Providers Care Ventilating Equipment Installer Name Role Phone Abdifatah Bunch MD Primary Care Provider [phone] Allergies Active Allergy Reactions Criticality Noted Date [...] topic Insurance MEDICARE PART A & B [facility] Care Teams Ventilating Equipment Installer Relationship Specialty Start Date End Date Abdifatah Bunch MD [address] [place] [address] [place] [address] PCP - General Internal Medicine 11/13/23
== END 2025-04-12 13:46 | disposition home or self-care (01) ==
LOC: HO.HPS 13:22
PROVIDERS: PCP Internal Medicine; Visit Provider Internal Medicine Pulmonary Disease
DX: J45.909 Unspecified asthma, uncomplicated (principal); Z91.09 Other allergy status, other than to drugs and biological substances
CPT/HCPCS: 99214

== ENCOUNTER → 2025-04-12 13:21 | Outpatient (BNVA) | payer MEDICARE, SELFPAY | PROVIDERS: PCP Internal Medicine; Visit Provider Internal Medicine Pulmonary Disease | DX: Z91.09 Other allergy status, other than to drugs and biological substances (principal); J45.909 Unspecified asthma, uncomplicated | CPT/HCPCS: 99212 ==

== ENCOUNTER 2025-05-10 08:15 | Outpatient (REF) | payer MEDICARE, SELFPAY ==
--- OUTSIDE RECORDS SUMMARY | 2024-06-03 05:00 | XMS_ITS ---
Author Organization [facility] Address [address] [place] [id number] Care Team Providers Care Acura Sales Consultant Name Role Phone Alivia SANCHEZ, Abdifatah Primary Care Provider Barber Painter Unavailable [phone] Encounters Encounter Location Date Provider Diagnosis [address] [phone] 06/03/2024 Barber Saenz Plan Of Treatment Next Appt Details Provider Name:Ludivina orozco, 06/04/2025 09:00:00 AM, [address] [place] [address], [phone], Progress Notes * Adrian PHAM DDOB:[birth year] (69 yo M)Acc No.[id number]:06/03/2024 Progress Note Patient: Francisca Adrian SIMMONS Provider: Carter Saenz DPM :1955 A ge:68 Y S ex:Male Date:06/03/2024 Address:[address] [place] [id number] Pcp:Abdifatah Bunch MD Subjective: * Chief Complaints: * * Medical History: Objective: * Vitals: Assessment: Plan: * Treatment: * Images: * The named appointment provid er may or may not be the originator of this progress note, and it is not deemed complete until electronically signed by the appointment provider. Sign off status: Pending * Provider: Carter Saenz DPM Date: 1 Generated for Abel you/Abbey/Caroitting on: 0 05/10/2025 01:14 PM EDT
--- OUTSIDE RECORDS SUMMARY | 2024-11-05 03:15 | XMS_ITS ---
Author Organization Abdifatah Bunch MD Address [address] [place], [place] [id number] Care Team Providers Care Membership Assistant Name Role Phone Abdifatah Bunch Primary Care Provider Results Component Value Reference Range Notes Complete Blood Count Auto Di ff Reviewed date:11/05/2024 12:34:06 PM Interpretation: Performing Lab:[facility], [address] [place] [phone] Notes/Report: White Blood Count 6.0 4.8-10.8 X10*3/uL Red Blood Count 4.58 4.60-5.80 X10*6/uL Hemoglobin 12.3 14.0-18.0 g/dl Hematocrit 38.6 42.0-52.0 % Mean Corpuscular Volume 84.3 80.0-98.0 fL Mean Corpuscular Hemoglobin 26.9 27.0-33.0 pg Mean Corpuscular HGB Conc 31.9 31.0-36.0 g/dl Red Cell Distribution Width 13.7 11.0-16.0 % Platelet Count 182 160-400 X10*3/uL Mean Platelet Volume 11.7 9.4-12.4 fL Neutrophils Percent Auto 58.0 45-73 % Imm Gran Pct Auto 0.3 0.0-0.4 % Lymphocytes Percent Auto 25.8 20-40 % Monocytes Percent Auto 10.6 2-11 % Eosinophils Percent Auto 5.0 0-4 % Basophils Percent Auto 0.3 0-2 % NRBC Pct Auto 0.0 0.0-0.2 /100WBC Neutrophils Absolute Auto 3.5 2.0-8.3 x10*3/u L Imm Gran Abs Auto 0.02 0.00-0.03 X10*3/uL Lymphocytes Absolute Auto 1.6 1.2-4.9 X10*3/u L Monocytes Absolute Auto 0.6 0.1-1.2 X10*3/uL Eosinophils Absolute Auto 0.3 0.0-0.4 X10*3/u L Basophils Absolute Auto 0.0 0.0-0.2 X10*3/uL NRBC Abs Auto 0.000 0.0-0.012 X10*3/uL Comprehensive [place]. Panel Fa st Reviewed date:11/05/2024 12:21:00 PM Interpretation: Performing Lab:[facility], [address] [place] [phone] Notes/Report: Sodium 141 135-145 mmol/L Potassium 3.9 3.3-5.1 mmol/L Chloride 109 96-108 mmol/L Carbon Dioxide 25 22-29 mmol/L Anion Gap 11 12-20 Blood Urea Nitrogen 9 9-16 mg/dL Creatinine 0.94 0.5-1.4 mg/dL Estimated Glomerular Filt Rate > 60 Chronic Kidney Disease: Estimated GFR < 60 mL/min/1.73m2 Severe Kidney Disease: Estimated GFR < 15 mL/min/1.73m2 Glucose Fasting 135 60-99 mg/dL A fasting glucose of 126 mg/dl or greater on more than one occasion is considered diagnostic of diabetes. Calcium 8.7 8.4-10.2 mg/dL Bilirubin Total 1.0 0.0-1.0 mg/dL Aspartate Amino Transferase 23 5-37 U/L Alanine Aminotransferase 14 0-40 U/L Total Protein 6.6 6.5-8.0 g/dL Albumin Level 4.0 3.5-5.0 g/dL Alkaline Phosphatase 66 39-117 U/L Lipid Panel Reviewed date:11/05/2024 12:24:32 PM Interpretation: Performing Lab:[facility], [address] [place] [phone] Notes/Report: Triglycerides 94 <150 mg/dL Desirable Triglyceride: less than 150 mg/dL Borderline High Triglyceride 150-199 mg/dL High Triglyceride: 200-499 mg/dL Very High Triglyceride: greater than or equal to 5OO mg/dL Cholesterol 123 <200 mg/dL Desirable Cholesterol: less than 200 mg/dL Borderline High Cholesterol: 200-239 mg/dL High Cholesterol: greater than 239 mg/dL LDL Cholesterol Calculated 56 <100 mg/dL Desirable LDL: less than 100 mg/dL Near Optimal/Above Optimal LDL: 110-129 mg/dL Borderline High LDL: 130-159 mg/dL High LDL: 160-189 mg/dL Very High LDL: greater than or equal to 190 mg/dL HDL Cholesterol 49 >40 mg/dL Desirable HDL: greater than 40 mg/dL Note: This HDL assay may give artificially low results in patients with liver disease. PSA,Total (Free>4and<10) Reviewed date:11/05/2024 12:23:51 PM Interpretation: Performing Lab:[facility], [address] [place] [phone] Notes/Report: PSA,Total (Free>4and<10) 0.36 0.00-4.00 ng/mL A Free PSA was not performed: The percentage of Free PSA can be used to enhance the differentiation of prostate cancer from benign prostatic disease in subjects whose PSA levels are between 4.0 and 10.0 ng/mL. For subjects whose PSA levels are below 4.0 or above 10.0 ng/mL, the risk of prostate cancer is determined on the basis of the PSA alone. Therefore the % Free PSA is recommended only for those subjects whose PSA levels are between 4.0 and 10.0 ng/mL. PSA methodology: [place] Alinity i Chemiluminescent Microparticle Immunoassay (CMIA) Microalbumin, Random Reviewed date:11/05/2024 12:24:24 PM Interpretation: Performing Lab:[facility], [address] [place] [phone] Notes/Report: Creatinine Urine 130.48 Microalbumin Urine < 5.0 Microalbum/Creatinine Ratio Ur TNP <30 ug/mg cr Unable to calculate albumin/creatinine ratio due to low microalbumin or creatinine result. Hemoglobin A1c Reviewed date:11/05/2024 12:24:10 PM Interpretation: Performing Lab:[facility], [address] [place] [phone] Notes/Report: Hemoglobin A1c % 6.2 <6.0 % Hemoglobin A1C Reference Range Adults: 4.8 - 6.0 % Non diabetic: < 6.0 % Goal: < 7.0 % Additional Action Suggested: > 8.0 % Note: Hemoglobin A1c results are invalid for patients with abnormal amounts of HbF. Blood transfusions may impact the HbA1c concentration in the patient sample. Estimated Average Glucose 131 eAG = Estimated average glucose which is %A1C expressed as average glucose, using the formula of the [id number] Average Glucose study (ADAG), Diabetes Care, Vol.31,#8, Mar. 2007 UA ClnCatch+Micro w/rflx Cul t Reviewed date:11/05/2024 12:27:48 PM Interpretation: Performing Lab:[facility], [address] [place] [phone] Notes/Report: Urine, Clean Catch Color Urine Yellow Appearance Urine Clear PH 5.5 5.0-9.0 Glucose Urine UA Negative Negative mg/dL Urine Blood Negative Negative Specific [place] - Urine 1.015 1.005-1.025 Urine Protein Negative Neg-Trace mg/dL Urine Ketones Negative Negative mg/dL Nitrite Urine Negative Negative Leukocyte Esterase Urine Negative Negative RBC Urine 0-2 0-2 /HPF WBC Urine 0-5 0-5 /HPF Squamous Epithelial Cell Urine 0-2 0-2 /HPF Bacteria Urine None Seen None Seen Hyaline Casts Urine 0-2 0-2 /LPF REASON FOR VISIT FASTING LABS Encounters Encounter Location Date Provider Diagnosis Abdifatah Bunch MD [address] [place] [address] Drive [address] [place], [place] [phone] 11/05/2024 Abdifatah Bunch Type 2 diabetes noah itus with diabetic polyneuropathy E11.42 and Pure hypercholesterolemia E78.00 Assessments Encounter Date Diagnosis (ICD Code) Assessment Notes Treatment Notes Treatment Clinical Notes Section Notes 11/05/2024 Type 2 diabetes noah itus with diabetic polyneuropathy (ICD-10 - E11.42) 11/05/2024 Pure hypercholesterolemia (ICD-10 - E78.00) Plan Of Treatment Next Appt Details Provider Name:Abdifatah Diallo ier, 05/17/2025 09:00:00 AM, [address] [place] [address], [address] [place] [address], [phone], Provider Name:Abdifatah Diallo ier, 11/05/2025 07:15:00 AM, [address] [place] [address], [place] [address], [place], [place], [phone], Provider Name:Abdifatah Diallo ier, 11/15/2025 09:30:00 AM, [address] [place] [address], [address] [place] [address], [phone], Progress Notes * Adrian PHAM DDOB:[birth year] (69 yo M)Acc No.[id number]:11/05/2024 Progress Note Patient: Francisca TROY Adrian D Provider: Margarito Bunch MD :1955 A ge:69 Y S ex:Male Date:11/05/2024 Address:[address] [place] [address] Subjective: * Chief Complaints: * 1 . FASTING LABS. * Medical History: Objective: * Vitals: Assessment: * Assessment: 1. T ype 2 diabetes mellitus with diabetic polyneuropathy - E11.42 (Primary) 2 . P ure hypercholesterolemia - E78.00 Plan: * Treatment: 2. P ure hypercholesterolemia L AB: Complete Blood Count Auto Diff (Collection Date & Time - 11/05/2024 07:15 AM) L AB: Comprehensive [place]. Panel Fast (Collection Date & Time - 11/05/2024 07:15 AM) L AB: Lipid Panel (Collection Date & Time - 11/05/2024 07:15 AM) L AB: PSA,Total (Free>4and<10) (Collection Date & Time - 11/05/2024 07:15 AM) L AB: Microalbumin, Random (Collection Date & Time - 11/05/2024 07:15 AM) L AB: Hemoglobin A1c (Collection Date & Time - 11/05/2024 07:15 AM) L AB: UA ClnCatch+Micro w/rflx Cult (Collection Date & Time - 11/05/2024 07:15 AM) * Procedure Codes: 3 6415 VENIPUNCT, ROUTINE* * * The named appointment provid er may or may not be the originator of this progress note, and it is not deemed complete until electronically signed by the appointment provider. Sign off status: Pending * Provider: Margarito Bunch MD Date: 0 11/05/2024 Generated for Abel you/Abbey/Aby on: 0 05/10/2025 01:13 PM EDT
--- OUTSIDE RECORDS SUMMARY | 2024-11-12 04:30 | XMS_ITS ---
Author Organization Abdifatah Bunch MD Address [address] [place] [phone] Care Team Providers Care Hotel And Dining Room Cashier Name Role Phone Abdifatah Bunch Primary Care Provider [phone] Allergies Allergen (clinical drug ingredient) Drug/Non Drug Allergy documented on EMR Reaction Allergy Type Onset Date Status umeclidinium / vilanterol Anoro Ellipta sore feet Drug Allergy Active REASON FOR VISIT review labs Medications Medication SIG (Take, Route, Frequency, Duration) Notes Start Date End Date Status traMADol HCl 50 MG 1 tablet as needed Orally every 8 hrs for 30 days 07/27/2024 Active Etavkcwmux-FYQ-Obswiyma 50-325-40 MG 1 capsule as needed Orally every 4 hrs 09/17/2019 Not-Taking Indomethacin 50 MG 1 capsule with food or milk Orally Three times a day for 10 days 03/23/2016 Not-Taking traMADol HCl 50 MG 1 tablet as needed Orally Once a day for 30 days 11/12/2024 Active Celecoxib 200 MG take 1 capsule by mo [facility] every day with food Orally Once a [...] MG take 1 capsule by mo [facility] every day Orally Once a day for 90 days Active Minocycline HCl 50 MG take one capsule b y mouth twice daily Orally Twice a day for 45 days Active Atorvastatin Calcium 20 MG take 1 tablet by mouth every day Orally Once a day for 90 days Active Gabapentin 300 MG take 1 capsule by mo [facility] three times daily Orally 3 times per day for 90 days Active Dupixent 300 MG/2ML as directed Subcutaneous Active Janumet 50-1000 MG take [facility] twice [facility] with meals. Orally Twice a [...] Location Date Provider Diagnosis Abdifatah Bunch MD [address] [place] [address] [address] [place], [place] [phone] 11/12/2024 Abdifatah Bunch Lumbar back pain M54 [...] 6 Months, Reason: Provider Name:Abdifatah Diallo ier, 05/17/2025 09:00:00 AM, [address], Suite [facility], [place], [place], [phone], Provider Name:Abdifatah darnell, 11/05/2025 07:15:00 AM, [address], [address], [place], [place], [phone], Provider Name:Abdifatah brionesr, 11/15/2025 09:30:00 AM, [address], [address], [place], [phone], Progress Notes * Adrian PHAM DDOB:[birth year] (69 yo M)Acc No.[id number]:11/12/2024 Patient: Francisca Adrian SIMMONS Provider: Margarito Bunch MD :1955 A ge:69 Y S ex:Male Date:11/12/2024 Address:[address] [place], [place] [phone] Subjective: * Chief Complaints: * R eview [...] * Family History: F ather: 83 yrs, [place]. M other: 68 yrs, Sepsis. 1 brother(s) , 1 sister(s) . 2 son(s) . . 1 brother [place] fATHER- SEPSIS MOTHER- [place] aLCOHOLISM BROTHER NO MENTAL ILLNESS IN THE [...] mouth every day Orally 0nce a day Ebxuxuoejq-TRE-Bbdcipxw 50-325-40 MG Capsule 1 capsule as needed Orally every 4 hrs Indomethacin 50 MG Capsule 1 capsule with food or milk Orally Three times a day Medication List reviewed and reconciled with the patientNot-Taking/PRN Dicyclomine HCl 10 MG Capsule take 1 capsule by mouth every day Orally 0nce a day Not-Taking/PRN Bjkeasntny-OTV-Wescdlgs 50-325-40 MG Capsule 1 capsule as needed [...] mg/dL Urine Blood Negative Negative - Specific [place] - Urine 1.015 1.005-1.025 - Urine Protein [...] Auto 0.000 0.0-0.012 - X10*3/uL L ab:Comprehensive [place]. Panel Fast (Order Date - 11/05/2024) (Collection [...] MD Date: 0 11/12/2024 Generated for Abel you/Abbey/eTransmitting on: 0 05/10/2025 01:13 PM EDT History and Physical Notes * [...] Total Score: 0 Interpretation and Intervention Depression Gelacio jones Findings: Negative Follow-Up for Depression: : review [...]
--- OUTSIDE RECORDS SUMMARY | 2025-01-21 11:15 | XMS_ITS ---
Author Organization Abdifatah Bunch MD Address [address] [place] [phone] Care Team Providers Care Wood Scrap Handler Name Role Phone Abdifatah Bunch Primary Care Provider Allergies Allergen (clinical drug ingredient) Drug/Non Drug Allergy documented on EMR Reaction Allergy Type Onset Date Status umeclidinium / vilanterol Anoro Ellipta sore feet Drug Allergy Active REASON FOR VISIT cough x 10 days, Video [phone] Medications Medication SIG (Take, Route, Frequency, Duration) Notes Start Date End Date Status Indomethacin 50 MG 1 capsule with food or milk Orally Three times a day for 10 days 03/23/2016 Not-Taking Dicyclomine HCl 10 MG take 1 capsule by mouth every day Orally 0nce a day for 30 days Not-Taking Fjcdalqffa-WHC-Ucldtlhl 50-325-40 MG 1 capsule as needed Orally every 4 hrs 09/17/2019 Not-Taking Janumet 50-1000 MG take 1 tablet by alexander twice daily with meals. Orally Twice a day for 90 days Active Omeprazole 40 MG take 1 capsule by [facility] every day Orally Once a day for 90 days Active Gabapentin 300 MG take 1 capsule by [facility] three times daily Orally 3 times per [...] Celecoxib 200 MG take 1 capsule by [facility] every day with food Orally Once a [...] Date Provider Diagnosis Abdifatah Bunch MD [address] [place] [phone] 01/21/2025 Abdifatah Bunch Bronchitis J40 Assessments Encounter [...] use Next Appt Details Provider Name:Abdifatah darnell, 05/17/2025 09:00:00 AM, [address] [place] [address], [address], [phone], Provider Name:Abdifatah darnell, 11/05/2025 07:15:00 AM, [address] [place] [address], [phone], Provider Name:Abdifatah darnell, 11/15/2025 09:30:00 AM, [address] [place] [address], [phone], Progress Notes * Adrian PHAM DDOB:[birth year] (69 yo M)Acc No.[id number]:01/21/2025 Patient: Francisca Adrian SIMMONS Provider: Margarito Bunch MD :1955 A ge:69 Y S ex:Male Date:01/21/2025 Address:[address] [place], [place] [phone] Subjective: * Chief Complaints: * C ough x 10 daysVideo [phone] * HPI: S ymptom(s): Telehealth L ocation of provider rendering services: [address], [address], L ocation of [...] mouth every day Orally 0nce a day Hptcgjrtxf-DVC-Hhbgfqed 50-325-40 MG Capsule 1 capsule as needed Orally every 4 hrs Indomethacin 50 MG Capsule 1 capsule with food or milk Orally Three times a day Medication List reviewed and reconciled with the patientNot-Taking/PRN Dicyclomine HCl 10 MG Capsule take 1 capsule by mouth every day Orally 0nce a day Not-Taking/PRN Ifqudqpbcx-ZJJ-Bifqpoae 50-325-40 MG Capsule 1 capsule as needed [...] Assessment: * Assessment: 1. B myles - JSupa (Primary) Plan: * Treatment: * Procedure Codes: * * Sign off status: Completed true * Provider: Margarito Bunch MD Date: 0 01/21/2025 Generated for Abel you/Abbey/eTleonorsmitting on: 0 05/10/2025 01:13 PM EDT History and Physical Notes * HPI (History of Present Illness) Category Sub-Category Detail Notes Category Not es Symptom(s) Telehealth Location of [facility] rendering services:: [address], [address] patient is a [...]
--- OUTSIDE RECORDS SUMMARY | 2025-03-09 05:15 | XMS_ITS ---
Author Organization Abdifatah Bunch MD Address [address] [place] [phone] Care Team Providers Care Applications Specialist Name Role Phone Abdifatah Bunch Primary Care Provider Allergies Allergen (clinical drug ingredient) Drug/Non Drug Allergy documented on EMR Reaction Allergy Type Onset Date Status umeclidinium / vilanterol Anoro Ellipta sore feet Drug Allergy Active Results Component Value Reference Range Notes Hemoglobin A1c Reviewed date:03/09/2025 09:27:01 AM Interpretation: Performing Lab: Notes/Report: Hemoglobin A1c 6.2 Glucose, finger stick Reviewed date:03/09/2025 09:17:01 AM Interpretation: Performing Lab: Notes/Report: Value 108 REASON FOR VISIT CATARACT SURGERY MAR 22,APR 05 Medications Medication SIG (Take, Route, Frequency, Duration) Notes Start Date End Date Status FreeStyle Lite 0 use to test blood mcdonnell agr subQ DX:11:42 once a day for 30 days 09/20/2015 Active Zithromax Z-Nicholas 250 MG 2 tablet on the irs day, then 1 tablet daily for 4 days Orally Once a day for 5 day(s) 01/21/2025 Active FreeStyle Lite Test 0 use to test blood sugar In Vitro DX:11:42 once a day for 30 days 09/20/2015 Active Colcrys 0.6 MG 1 tablet Orally michel y for 90 days 10/31/2021 Active predniSONE 10 MG 1 tablet with food o r milk Orally 4 tabs for 3 days,3tabs for 3 days, 2 tabs for 3 days, and 1 tab for 3 days for 14 days 01/21/2025 Active Dupixent 300 MG/2ML as directed Subcutaneous Active Janumet 50-1000 MG take 1 tablet by alexander th twice daily with meals. Orally Twice a day Active Indomethacin 50 MG 1 capsule with food or milk Orally Three times a day for 10 days 03/23/2016 Not-Taking Fmjrwtzkqk-MLE-Ezcgbxyo 50-325-40 MG 1 capsule as needed Orally every 4 hrs 09/17/2019 Not-Taking traMADol HCl 50 MG 1 tablet as needed Orally Once a day for 30 days 03/09/2025 Active Arnuity Ellipta 200 MCG/ACT 1 puff Inhalation Once a day Active Omeprazole 40 MG take 1 capsule by mo [facility] every day Orally Once a day for 90 days Active Atorvastatin Calcium 20 MG take 1 tablet by mouth every day Orally Once a day for 90 days Active Minocycline HCl 50 MG take one capsule b y mouth twice daily Orally Twice a day for 45 days Active Dicyclomine HCl 10 MG take 1 capsule by mouth every day Orally 0nce a day for 30 days Not-Taking Albuterol Sulfate HFA 108 (90 Base) MCG/ACT 1 puff as needed Inhalation every 4 hrs for 30 days 07/15/2023 Active Plavix 75 MG 1 tablet Orally Once a day for 30 day(s) Active Gabapentin 300 MG take 1 capsule by mo [facility] three times daily Orally 3 times per day for 90 days Active Celecoxib 200 MG take 1 capsule by mo [facility] every day with food Orally Once a day Active Fluticasone Propionate 50 MCG/ACT instill 1 spray in each nostril once a day Nasally Once a day for 90 days Active Triamcinolone Acetonide 0.5 % 1 application Externally Twice a day for 30 days 01/07/2024 Active Vital Signs Blood pressure systolic 132 mm Hg 03/09/20 25 Blood pressure diastolic 70 mm Hg 025 Height 68.5 in 03/09/2025 Weight 175 lbs 03/09/2025 BMI 26.22 kg/m2 03/09/2025 weight is down 14 pounds sin 6 Encounters Encounter Location Date Provider Diagnosis Abdifatah Bunch MD [address] [place] [address] Drive [address] [place], [place] [id number] 03/09/2025 Abdifatah Bunch Type 2 diabetes mellitus with diabetic polyneuropathy E11.42 ; Arteriosclerotic coronary artery disease I25.10 ; Active asthma J45.909 ; Back pain M54.9 and Preop examination Z01.818 Assessments Encounter Date Diagnosis (ICD Code) Assessment Notes Treatment Notes Treatment Clinical Notes Section Notes 03/09/2025 Type 2 diabetes mellitus with diabetic polyneuropathy (ICD-10 - E11.42) doing well, will continue current regiment 03/09/2025 Arteriosclerotic coronary artery disease (ICD-10 - I25.10) followed by dr smith 03/09/2025 Active asthma (ICD-10 - J45.909) still on inhalers, will continue current regiment 03/09/2025 Back pain (ICD-10 - M54.9) 03/09/2025 Preop examination (ICD-10 - Z01.818) cleared for cataract surgery Plan Of Treatment Medication Medication Name Sig Start Date Stop Date Notes Dupixent 300 MG/2ML as directed Subcutaneous Janumet 50-1000 MG take 1 tablet by twice daily with meals. Orally Twice a day traMADol HCl 50 MG 1 tablet as needed O rally Once a day for 30 days 03/09/2025 Arnuity Ellipta 200 MCG/ACT 1 puff Inhalation Once a day Treatment Notes Assessment Notes Type 2 diabetes mellitus wit h diabetic polyneuropathy doing well, will continue current regiment Arteriosclerotic coronary artery disease followed by dr smith Active asthma still on inhalers, w ill continue current regiment Preop examination cleared for cataract surgery Next Appt Details Provider Name:Abdifatah darnell, 05/17/2025 09:00:00 AM, [address], [address], [place], [place], [phone], Provider Name:Abdifatah Diallo ier, 11/05/2025 07:15:00 AM, [address], [address], [place], [place], [phone], Provider Name:Abdifatah Diallo ier, 11/15/2025 09:30:00 AM, [address] [facility], [address], [place], [place], [phone], Progress Notes * Adrian PHAM DDOB:[birth year] (69 yo M)Acc No.[id number]:03/09/2025 Patient: Francisca MARCELLOMORENAAdrian MERINO Enrique Provider: Margarito Bunch MD :1955 A ge:69 Y S ex:Male Date:03/09/2025 Address:[address] [place], [place] [address] Subjective: * Chief Complaints: * C ATARACT SURGERY MAR 22,APR 05 * HPI: S ymptom(s): patient is a 69 yo male here for pre op clearance visit for upcoming cataract surgery scheduled in March. * ROS: G eneral/Constitutional: Denies C hills. D enies F atigue. D enies F ever. D enies H eadache. E NT: Denies S ore throat. E ndocrine: Denies D ifficulty sleeping. D enies D izziness.?Denies E xcessive sweating. D enies E xcessive thirst. D enies F requent urination. R espiratory: Patient denies s hortness of breath with exertion. D enies C ough. D enies S hortness of breath at rest. D enies S hortness of breath with exertion. C ardiovascular: Patient denies c hest pain at rest, chest pain with exertion. G astrointestinal: Denies D iarrhea. D enies N ausea. * Medical History: * Surgical History: * [...] mouth every day Orally Once a day Zithromax Z-Nicholas 250 MG Tablet 2 tablet on the first day, then 1 tablet daily for 4 days Orally Once a day predniSONE 10 MG Tablet 1 tablet with food or milk Orally 4 tabs for 3 days,3tabs for 3 days, 2 tabs for 3 days, and 1 tab for 3 days Taking Dupixent 300 MG/2ML Solution Prefilled Syringe [...] every day Orally Once a day Taking Zithromax Z-Nicholas 250 MG Tablet 2 tablet on the first day, then 1 tablet daily for 4 days Orally Once a day Taking predniSONE 10 MG Tablet 1 tablet with food or milk Orally 4 tabs for 3 days,3tabs for 3 days, 2 tabs for 3 days, and 1 tab for 3 days Not-Taking/PRNDicyclomine HCl 10 MG Capsule take 1 capsule by mouth every day Orally 0nce a day Hpfbrydsff-TIZ-Kkxdxztp 50-325-40 MG Capsule 1 capsule as needed Orally every 4 hrs Indomethacin 50 MG Capsule 1 capsule with food or milk Orally Three times a day Not-Taking/PRN Dicyclomine HCl 10 MG Capsule take 1 capsule by mouth every day Orally 0nce a day Not-Taking/PRN Lgtjntfqjj-DAL-Pgdqjllg 50-325-40 MG Capsule 1 capsule as needed Orally every 4 hrs Not-Taking/PRN Indomethacin 50 MG Capsule 1 capsule with food or milk Orally Three times a day * Allergies: A noro Ellipta: sore feetyes[Allergies Verified] Objective: * Vitals: H t: 68.5, Wt: 175, BMI:26.22, BP:132/70, Wt-k.38. weight is down 14 pounds since 01-21-25. * Examination: G eneral Examination: GENERAL APPEARANCE: a lert, well hydrated, in no distress.? HEAD: n ormocephalic. EYES: e xtraocular movement full and smooth. EARS: B OTH EARS, normal. ORAL CAVITY: n ormal. SKIN: g ood turgor. HEART: r egular rate and rhythm, no murmurs, rubs, gallops.? LUNGS: n o wheezes, rales, rhonchi, good air movement, clear to auscultation bilaterally. ABDOMEN: s oft, nontender, nondistended. ? Assessment: * Assessment: 1. T ype 2 diabetes mellitus with diabetic polyneuropathy - E11.42 (Primary) 2 . A rteriosclerotic coronary artery disease - I25.10 3 . A ctive asthma - J45.909 4 . B ack pain - M54.9 5 . P reop examination - Z01.818 Plan: * Treatment: Value Reference Range H emoglobin A1c 6.2 ?LAB: Glucose, finger stick (Collection Date & Time - 03/09/2025)* Value Reference Range V alue 108 Notes: doing well, will continue current regiment??2.?Arteriosclerotic coronary artery disease? Notes: followed by dr smith??3.?Active asthma? Continue Arnuity Ellipta Aerosol Powder Breath Activated, 200 MCG/ACT, 1 puff, Inhalation, Once a day;?Continue Dupixent Solution Prefilled Syringe, 300 MG/2ML, as directed, Subcutaneous.? Notes: still on inhalers, will continue current regiment??4.?Back pain? Continue traMADol HCl Tablet, 50 MG, 1 tablet as needed, Orally, Once a day, 30 days, 30 Tablet, Refills 3.??5.?Preop examination? Notes: cleared for cataract surgery?? * Procedure Codes: 8 2947 ASSAY, GLUCOSE, BLOOD QUANT, Modifiers: QW 31165 GLYCATED HEMOGLOBIN TEST, Modifiers: QW * * Sign off status: Completed true * Provider: Margarito Bunch MD Date: 0 03/09/2025 Generated for Abel you/Abbey/Caroitting on: 05/10/2025 01:13 PM EDT History and Physical Notes * HPI (History of Present Illness) Category Sub-Category Detail Notes Category Not es Symptom(s) patient is a 69 yo male here for pre op clearance visit for upcoming cataract surgery scheduled in March Examination Category Sub-Category Detail Notes Category Not es General Examination GENERAL APPEARANCE: alert, w ell hydrated, in no distress HEAD: normocephalic EYES: extraocular movement full and smooth EARS: BOTH EARS, normal HEART: regular rate and rhy thm, no murmurs, rubs, gallops LUNGS: no wheezes, rales, r honchi, good air movement, clear to auscultation bilaterally ABDOMEN: soft, nontender, non distended SKIN: good turgor ORAL CAVITY: normal
--- OUTSIDE RECORDS SUMMARY | 2025-05-10 04:15 | XMS_ITS ---
Author Organization Abdifatah Bunch MD Address [address] [place], [place] [id number] Care Team Providers Care Magnetic Tape Composer Operator Name Role Phone Abdifatah Bunch Primary Care Provider Results Component Value Reference Range Notes Liver Panel Reviewed date:05/10/2025 12:46:25 PM Interpretation: Performing Lab:[facility], [address] [place] [phone] Notes/Report: Bilirubin Total 0.6 0.0-1.0 mg/dL Bilirubin Direct 0.2 0.0-0.5 mg/dL Aspartate Amino Transferase 23 5-37 U/L Alanine Aminotransferase 10 0-40 U/L Total Protein 6.3 6.5-8.0 g/dL Albumin Level 4.1 3.5-5.0 g/dL Alkaline Phosphatase 76 39-117 U/L Glucose Fasting Reviewed date:05/10/2025 12:45:57 PM Interpretation: Performing Lab:[facility], [address] [place] [phone] Notes/Report: Glucose Fasting 120 60-99 mg/dL A fasting glucose from 100-125 mg/dl is considered impaired (pre-diabetes). Lipid Panel with Reflex Reviewed date:05/10/2025 12:47:01 PM Interpretation: Performing Lab:[facility], [address] [place] [phone] Notes/Report: Triglycerides 67 <150 mg/dL Desirable Triglyceride: less than 150 mg/dL Borderline High Triglyceride 150-199 mg/dL High Triglyceride: 200-499 mg/dL Very High Triglyceride: greater than or equal to 5OO mg/dL Cholesterol 135 <200 mg/dL Desirable Cholesterol: less than 200 mg/dL Borderline High Cholesterol: 200-239 mg/dL High Cholesterol: greater than 239 mg/dL LDL Cholesterol Calculated 69 <100 mg/dL Desirable LDL: less than 100 mg/dL Near Optimal/Above Optimal LDL: 110-129 mg/dL Borderline High LDL: 130-159 mg/dL High LDL: 160-189 mg/dL Very High LDL: greater than or equal to 190 mg/dL HDL Cholesterol 53 >40 mg/dL Desirable HDL: greater than 40 mg/dL Note: This HDL assay may give artificially low results in patients with liver disease. Hemoglobin A1c Reviewed date:05/10/2025 12:47:12 PM Interpretation: Performing Lab:[facility], [address] [place] [phone] Notes/Report: Hemoglobin A1c % 6.1 <6.0 % [...] average glucose, using the formula of the D4K-Fgpczvu Average Glucose study (ADAG), Diabetes Care, Vol.31,#8, Mar. 2007 REASON FOR VISIT FASTING LIPIDS Immunizations Vaccine Route Administration Date Status Comme nts Fluarix Quadrivalent - 150 IM Intramuscular 05/10/2025 Adm inistered Encounters Encounter Location Date Provider Diagnosis Abdifatah Bunch MD [address] [place] [address] [place] [phone] 05/10/2025 Abdifatah Bunch Type 2 diabetes noah itus with diabetic polyneuropathy E11.42 ; Pure hypercholesterolemia E78.00 and Encounter for administration of vaccine Z23 Assessments Encounter Date Diagnosis (ICD Code) Assessment Notes Treatment Notes Treatment Clinical Notes Section Notes 05/10/2025 Type 2 diabetes noah itus with diabetic polyneuropathy (ICD-10 - E11.42) 05/10/2025 Pure hypercholesterolemia (ICD-10 - E78.00) 05/10/2025 Encounter for administration of vaccine (ICD-10 - Z23) Plan Of Treatment Next Appt Details Provider Name:Abdifatah darnell, 05/17/2025 09:00:00 AM, [address] [place] [address], [address] [place] [address], [phone], Provider Name:Abdifatah darnell, 11/05/2025 07:15:00 AM, [address] [place] [address], [address], [phone], Provider Name:Abdifatah darnell, 11/15/2025 09:30:00 AM, [address] [place] [address], [address] [place] [address], [phone], Progress Notes * Adrian PHAM DDOB:[birth year] (69 yo M)Acc No.[id number]:05/10/2025 Progress Note Patient: Francisca MARCELLOAdrian GARCÍA Provider: Margarito Bunch MD :1955 A ge:69 Y S ex:Male Date:05/10/2025 Address:[address] [place], [place] [phone] Subjective: * Chief Complaints: * 1 . FASTING LIPIDS. * Medical History: Objective: * Vitals: Assessment: * Assessment: 1. T ype 2 diabetes mellitus with diabetic polyneuropathy - E11.42 (Primary) 2 . P ure hypercholesterolemia - E78.00 3 . E ncounter for administration of vaccine - Z23 Plan: * Treatment: 2. P ure hypercholesterolemia L AB: Liver Panel (Collection Date & Time - 05/10/2025 08:15 AM) L AB: Glucose Fasting (Collection Date & Time - 05/10/2025 08:15 AM) L AB: Lipid Panel with Reflex (Collection Date & Time - 05/10/2025 08:15 AM) L AB: Hemoglobin A1c (Collection Date & Time - 05/10/2025 08:15 AM) * Immunizations: Fluarix Quadrivalent - 150 : 0.5 mL (Dose No:1) (Route: Intramuscular) given by Vivi Campbell , Office Staff on Left Deltoid * Procedure Codes: 3 6415 VENIPUNCT, ROUTINE*, 41222 FLU VACCINE NO PRESERV 3 & >, G0008 ADMN FLU VAC NO FEE SCHED SAME DAY * * The named appointment provid er may or may not be the originator of this progress note, and it is not deemed complete until electronically signed by the appointment provider. Sign off status: Pending * Provider: Margarito Bunch MD Date: 0 05/10/2025 Generated for Abel you/Abbey/Caroitting on: 05/10/2025 01:13 PM EDT
[2025-05-10 11:10] LABS: Hemoglobin A1C 154.4067 umol/L; Total Hemoglobin (HGBA1C) 3558.7034 umol/L
[2025-05-10 11:17] LABS: Alanine Aminotransferase 10 U/L (0-40); Albumin Level 4.1 g/dL (3.5-5.0); Alkaline Phosphatase 76 U/L (39-117); Aspartate Amino Transferase 23 U/L (5-37); Cholesterol 135 mg/dL (<200); HDL Cholesterol 53 mg/dL (>40); Total Protein 6.3 g/dL (6.5-8.0); Triglycerides 67 mg/dL (<150)
[2025-05-10 12:42] LABS: Reflex LDLD? No
--- OUTSIDE RECORDS SUMMARY | 2025-05-10 13:13 | XMS_ITS | Patient Health Record ---
[facility] Organization [facility] Address [address] [place] [address] Care Team Providers Care Tack Driller Name Role Phone Alivia SANCHEZ, Abdifatah Primary Care Provider Barber Painter Unavailable [phone] Ludivina Jack Unavailable [phone] Allergies Allergen (clinical drug ingredient) Drug/Non Drug [...] Status Risk Notes Problem Acquired hallux valgus (81424423) Hallux valgus (acquired), left foot (M20.12) Active confirmed Problem Polyneuropathy due to type 2 diabetes mellitus (740066025) Type 2 diabetes mellitus with diabetic polyneuropathy (E11.42) Active confirmed Problem Primary gout (16298606) Idiopathic gout, left ankle and foot (M10.072) Active confirmed Problem Acquired cavus deformity of right foot (disorder) (7739539274135403 ) Cavus deformity of right foot (Q66.71) Active confirmed Vital Signs Height 5ft 8in in 07/24/2024 Weight 180 lbs 07/24/2024 BMI 27.37 kg/m2 07/24/2024 Procedures Procedure Date Ordered Date Performed Result Body Sit e , J0702- INJECT TENDON ORIGIN/INSERT 06/04/2024 N/A Encounters Encounter Location Date Provider Diagnosis [facility] [address] 06/04/2024 Barber Saenz Pain in right foot M79.671 ; Tinea unguium B35.1 ; Type 2 diabetes mellitus with diabetic polyneuropathy E11.42 ; Neuralgia and neuritis, unspecified M79.2 ; Pain in right toe(s) M79.674 ; Pain in left toe(s) M79.675 ; Hallux valgus (acquired), left foot M20.12 ; Xerosis cutis L85.3 ; Ingrowing nail L60.0 and Right peroneal tendinosis M67.[address] [facility] [address] 07/24/2024 Ludivina Jack Peroneal tendinitis, right leg [...] X ray : Foot, right 3V 02/28/2024 28490-HQVCOEM NAIL, 1-5 07/21/2018 95044-QQYKXCK NAIL, 1-5 08/06/2016 25744-QTJSBWZ NAIL, 1-5 08/05/2017 32450-NLYUEBV NAIL, 1-5 01/20/2018 14830- Debride <25 sq cm 08/23/201497297, J0702- INJECT TENDON ORIGIN/INSER T 06/04/2024 68935-SPYQ SKIN LESIONS, OVER 4 05/31/20 21 85013-PCAV SKIN LESIONS, OVER 4 07/29/20 13 81917-SBGL SKIN LESIONS, OVER 4 10/29/19 14 24976-SUBB SKIN LESIONS, 2 TO 4 09/17/19 12 93035-WOGJ SKIN LESIONS, 2 TO 4 10/28/19 13 85943-JBEA SKIN LESIONS, 2 TO 4 01/27/20 13 01129-IKUI SKIN LESIONS, 2 TO 4 05/06/20 13 79842-EUKV SKIN LESIONS, 2 TO 4 08/05/20 17 02747-UGMH SKIN LESIONS, 2 TO 4 01/21/20 18 31253-QJCF SKIN LESIONS, 2 TO 4 02/05/20 17 12835-XNFB SKIN LESIONS, 2 TO 4 08/23/19 15 29486-RUCJ SKIN LESIONS, 2 TO 4 02/17/20 15 22219-RXPX SKIN LESIONS, 2 TO 4 08/22/19 16 14873-GMAF SKIN LESIONS, 2 TO 4 02/13/20 16 88148-ZZNB SKIN LESIONS, 2 TO 4 08/06/20 16 00741-SDGI SKIN LESIONS, 2 TO 4 11/25/19 21 81715-MHLK SKIN LESIONS, 2 TO 4 10/19/19 20 59947-EPTL SKIN LESIONS, 2 TO 4 05/09/20 20 13521-UTZD SKIN LESIONS, 2 TO 4 01/20/20 19 67838-OZUU SKIN LESIONS, 2 TO 4 04/22/20 19 21208-CQRJ SKIN LESIONS, 2 TO 4 07/20/20 19 42827-JBVH SKIN LESIONS, 2 TO 4 07/21/20 18 68919-WVNS NAIL(S) 08/06/2016 85363-NGXQ NAIL(S) 02/13/2016 62577-VMES NAIL(S) 08/22/2015 29440-DOWG NAIL(S) 02/16/2015 97309-BQOW NAIL(S) 02/04/2017 92407-IDHK NAIL(S) 08/05/2017 17373-SCIW NAIL(S) 01/20/2018 73443-ELLY NAIL(S) 05/06/2013 67641-DATO NAIL(S) 07/29/2013 29400-MYUE NAIL(S) 01/26/2013 26210-IBTL NAIL(S) 10/27/2012 29856-ZPEU NAIL(S) 04/28/2012 03758-SKHZ NAIL(S) 10/28/2013 63538-GIVJ NAIL(S) 08/23/2014 S9888-YFLHSDHM DYSTROPHIC NAILS ANY # V5653-JXIACIIX DYSTROPHIC NAILS ANY # R8691-PNZLVUZB DYSTROPHIC NAILS ANY # Q7942-TCTBRLFY DYSTROPHIC NAILS ANY # S2095-MRPXSWGC DYSTROPHIC NAILS ANY # J8908-XOJCZOAD DYSTROPHIC NAILS ANY # K1649-AULVCDUR DYSTROPHIC NAILS ANY # I7032-EKBHROOR DYSTROPHIC NAILS ANY # 56976, J0702- Neuroma/Injection 09/17/19 12 Next Appt Details Provider Name:Ludivina orozco, 06/04/2025 09:00:00 AM, [address] [facility], [place], [address], Insurance Providers Payer Name Payer Address Payer Phone Subscriber Number Group Number Insured Name Patient Relationship to Insured Coverage Start Date Coverage End Date Medicare National Govt [employer] [address] [place] [address] [id number] Adrian Galicia Self - patient is the insured 9 [employer] [address] [place] [address] [id number] Adrian Galicia Self - patient is the [...] 03/07 Stent 2023 Hospitalization History Reason Date(Month/Year) [facility] [place]- Diverticulitis 07/19/2024 [facility]- diverticulitis 03/11,03/2024 [facility] [place]- Kidney stones, encollitis 09/07
--- OUTSIDE RECORDS SUMMARY | 2025-05-10 13:13 | XMS_ITS | Patient Health Record ---
Author Organization [facility] Address [address] [place] [address] Care Team Providers Care Tile Shader Name Role Phone Abdifatah Bunch MD Primary Care Provider Natan Morales Unavailable [phone] Allergies Allergen (clinical drug ingredient) Drug/Non Drug [...] Problem Status W/U Status Risk Notes Problem 924538894 Encounter for screening for malignant neoplasm of colon (Z12.11) Active confirmed Problem 449747684 History of adenomatous polyp of colon (Z86.010) Active confirmed Problem Diverticular disease of colon (924997423) Diverticulosis of large intestine without perforation or abscess without bleeding (K57.30) Active confirmed Problem Screening for malignant neoplasm of rectum (599648645) Encounter for screening for malignant neoplasm of rectum (Z12.12) Active confirmed Problem Dysphagia (05032965) Dysphagia (R13.10) Active confirmed Problem 095257525 Gastroesophageal reflux disease without esophagitis (K21.9) Active confirmed Problem Benign neoplasm of stomach (72742185) Gastric polyps (K31.7) Active confirmed Problem Diverticulitis of colon (898751752) Diverticulitis of colon (K57.32) Active confirmed Problem Gastritis (2364009) Gastritis (K29.70) Active confirmed Vital Signs Temperature 97.3 degrees Fahrenheit 06/03/2024 Blood pressure diastolic 00 mm Hg 06/03/2024 Height 68.25 in 06/03/2024 Blood pressure systolic 000 mm Hg 06/03/2024 Weight 186 lb 4 oz lbs 06/03/2024 BMI 28.11 kg/m2 06/03/2024 Encounters Encounter Location Date Provider Diagnosis [facility] [address] [place] [address] 06/03/2024 Natan Drummond Gastroesophageal ref lux disease [...] Date MEDICARE OF [place] [address] [facility] [place] [address] [id number] ADRIAN LEMUS Self - patient is the insured [employer] CLAIMS [address] [place] [address] [phone] [id number] ERNIE BURTON ADRIAN Self - patient is the insured Medical (General) History Medical History History ICD Code GERD-neg EGD in 11/2005 except for a smal l HH Arthritis--cortisone shots for his knees Plantar fasciitis Denies HI,CVA,Lung disease,renal disease Diabetes mellitus--neuropathy Neg. colonoscopy in [...] surgeries X 3-- right--trigger fing er Foot aaesmhewy-zmtnb-Uwhchf, [facility] uroma 2 back surgeries-- lower disc x 2 Bilateral knee replacements 2018 Hospitalization History Reason Date(Month/Year)
--- OUTSIDE RECORDS SUMMARY | 2025-05-10 13:14 | XMS_ITS | Patient Health Record ---
Author Organization Abdifatah Bunch MD Address [address] [place], [place] [id number] Care Team Providers Care Ship Loader Name Role Phone Abdifatah Bunch Primary Care Provider [phone] Allergies Allergen (clinical drug ingredient) Drug/Non Drug Allergy documented on EMR Reaction Allergy Type Onset Date Status umeclidinium / vilanterol Anoro Ellipta sore feet Drug Allergy Active Results Component Value Reference Range Notes Hemoglobin A1c Reviewed date:03/09/2025 09:27:01 AM Interpretation: Performing Lab: Notes/Report: Hemoglobin A1c 6.2 Complete Blood Count Auto Di ff Reviewed date:11/05/2024 12:34:06 PM Interpretation: Performing Lab:[facility], [address] [place] [address] Notes/Report: White Blood Count 6.0 4.8-10.8 X10*3/uL [...] NRBC Abs Auto 0.000 0.0-0.012 X10*3/uL Comprehensive [place]. Panel Fa st Reviewed date:11/05/2024 12:21:00 PM Interpretation: Performing Lab:[facility], [address] [place] [address] Notes/Report: Sodium 141 135-145 mmol/L Potassium 3.9 [...] Panel Reviewed date:11/05/2024 12:24:32 PM Interpretation: Performing Lab:[facility], [address] [place] [address] Notes/Report: Triglycerides 94 <150 mg/dL Desirable Triglyceride: [...] (Free>4and<10) Reviewed date:11/05/2024 12:23:51 PM Interpretation: Performing Lab:[facility], [address] [place] [address] Notes/Report: PSA,Total (Free>4and<10) 0.36 0.00-4.00 ng/mL A [...] Random Reviewed date:11/05/2024 12:24:24 PM Interpretation: Performing Lab:[address] [address] Notes/Report: Creatinine Urine 130.48 Microalbumin Urine < 5.0 Microalbum/Creatinine Ratio Ur TNP <30 ug/mg cr Unable to calculate albumin/creatinine ratio due to low microalbumin or creatinine result. Hemoglobin A1c Reviewed date:11/05/2024 12:24:10 PM Interpretation: Performing Lab:[address] [address] Notes/Report: Hemoglobin A1c % 6.2 <6.0 % [...] average glucose, using the formula of the S3F-Rwgftfm Average Glucose study (ADAG), Diabetes Care, Vol.31,#8, Mar. 2007 UA ClnCatch+Micro w/rflx Cul t Reviewed date:11/05/2024 12:27:48 PM Interpretation: Performing Lab:[address] [address] Notes/Report: Urine, Clean Catch Color Urine Yellow Appearance Urine Clear PH 5.5 5.0-9.0 Glucose Urine UA Negative Negative mg/dL Urine Blood Negative Negative Specific [place] - Urine 1.015 1.005-1.025 Urine Protein Negative Neg-Trace mg/dL Urine Ketones Negative Negative mg/dL Nitrite Urine Negative Negative Leukocyte Esterase Urine Negative Negative RBC Urine 0-2 0-2 /HPF WBC Urine 0-5 0-5 /HPF Squamous Epithelial Cell Urine 0-2 0-2 /HPF Bacteria Urine None Seen None Seen Hyaline Casts Urine 0-2 0-2 /LPF Liver Panel Reviewed date:05/10/2025 12:46:25 PM Interpretation: Performing Lab:[facility], [address] [place] [address] Notes/Report: Bilirubin Total 0.6 0.0-1.0 mg/dL Bilirubin Direct 0.2 0.0-0.5 mg/dL Aspartate Amino Transferase 23 5-37 U/L Alanine Aminotransferase 10 0-40 U/L Total Protein 6.3 6.5-8.0 g/dL Albumin Level 4.1 3.5-5.0 g/dL Alkaline Phosphatase 76 39-117 U/L Glucose Fasting Reviewed date:05/10/2025 12:45:57 PM Interpretation: Performing Lab:[facility], [address] [place] [address] Notes/Report: Glucose Fasting 120 60-99 mg/dL A fasting glucose from 100-125 mg/dl is considered impaired (pre-diabetes). Lipid Panel with Reflex Reviewed date:05/10/2025 12:47:01 PM Interpretation: Performing Lab:[facility], [address] [place] [address] Notes/Report: Triglycerides 67 <150 mg/dL Desirable Triglyceride: [...] A1c Reviewed date:05/10/2025 12:47:12 PM Interpretation: Performing Lab:[facility], [address] [place] [address] Notes/Report: Hemoglobin A1c % 6.1 <6.0 % [...] average glucose, using the formula of the J5P-Kvisdxs Average Glucose study (ADAG), Diabetes Care, Vol.31,#8, Mar. 2007 Glucose, finger stick Reviewed date:05/19/2024 09:14:39 AM Interpretation: Performing Lab: Notes/Report: Value 152 Glucose, finger stick Reviewed date:03/09/2025 09:17:01 AM Interpretation: Performing Lab: Notes/Report: Value 108 Complete Blood Count Auto Di ff Reviewed date:07/18/2024 01:42:47 PM Interpretation: Performing Lab:[facility], [address] [place] [address] Notes/Report: White Blood Count 11.4 4.8-10.8 X10*3/uL [...] Panel Reviewed date:07/18/2024 01:44:08 PM Interpretation: Performing Lab:[facility], [address] [place] [address] Notes/Report: Sodium 136 135-145 mmol/L Potassium 4.3 [...] Lipase Reviewed date:07/16/2024 12:01:30 PM Interpretation: Performing Lab:[facility], [address] [place] [address] Notes/Report: Lipase 24 8-78 U/L UA CC w/rflx Micro + Cult Reviewed date:07/19/2024 02:44:52 PM Interpretation: Performing Lab:[facility], [address] [place] [address] Notes/Report: 1926 Urine, Clean Catch Color Urine Yellow Appearance Urine Clear PH 7.0 5.0-9.0 Glucose Urine UA Negative Negative mg/dL Urine Blood Negative Negative Specific [place] - Urine 1.020 1.005-1.025 Urine Protein Trace Neg-Trace mg/dL Urine Ketones Trace Negative mg/dL Nitrite Urine Negative Negative Leukocyte Esterase Urine Negative Negative Lactic Acid Reviewed date:07/16/2024 12:00:04 PM Interpretation: Performing Lab:[facility], [address] [place] [address] Notes/Report: Lactic Acid 1.7 0.5-2.0 mmol/L Blood Culture (First) Reviewed date:07/20/2024 12:54:52 PM Interpretation: Performing Lab:[facility], [address] [place] [address] Notes/Report: Blood Culture (First) No growth after 5 days. Blood Culture (Second) Reviewed date:07/20/2024 12:54:42 PM Interpretation: Performing Lab:[facility], [address] [place] [address] Notes/Report: Blood Culture (Second) No growth after [address] abdomen pelvis w con Reviewed date:07/20/2024 01:22:37 PM Interpretation:called [facility] LM Performing Lab: Notes/Report: [address] [address] [address] Scan Report Signed Patient: Adrian Atkins MR#: [id number] : 1955 Acct:[id number] Age/Sex: 68 / M ADM Date: 07/14/24 Loc: HO.ED Attending Dr: Ordering Physician: Maite Lakhani DO Date of Service: 07/15/24 Procedure(s): CT abdomen pelvis w IV con Accession Number(s): [id number] cc: Abdifatah Bunch MD; Maiet Lakhani DO EXAMINATION: CT ABDOMEN AND PELVIS [...] by: Damian Bowman MD 07/15/2024 06:24 AM [facility] Dictated By: Damian Bowman MD Signed By: <Electronically signed by Damian Bowman MD in OV> 07/15/24 0624 DD/ 0335 TD/TT: 07/15/24 0400 Selling Underwriter: [place] [address] CT Scan Report Signed Patient: Adrian Atkins MR#: [id number] : 1955 Acct:[id number] Age/Sex: 68 / M ADM Date: 07/14/24 Loc: HO.ED Attending Dr: Ordering Physician: Maite Lakhani DO Date of Service: 07/15/24 Procedure(s): CT abd omen pelvis w IV con Accession Number(s): [id number] cc: Abdifatah Bunch MD; Maite Lakhani DO [...] signed by Damian Bowman MD in OV> 07/15/24 0624 DD/ 0335 TD/TT: 07/15/24 0400 Selling Underwriter: CT chest wo con Reviewed date:09/14/2024 04:59:50 PM Interpretation: Performing Lab: Notes/Report: [address] [address] [address] Scan Report Signed Patient: Adrian Atkins MR#: [id number] : 1955 Acct:[id number] Age/Sex: 68 / M ADM Date: 09/14/24 Loc: HO.CT Attending Dr: Abdifatah Bunch MD Ordering Physician: Abdifatah Bunch MD Date of Service: 09/14/24 Procedure(s): CT chest wo IV con Accession Number(s): [id number] cc: Abdifatah Bunch MD Report Number: [id number]: Total DLP = 179.00 mGy-cm CLINICAL HISTORY: [...] Eisenberg MD in OV> 09/14/24 0951 DD/ 0950 TD/TT: 09/14/24 0950 Selling Underwriter: [address] [place] [address] CT Scan Report Signed Patient: Adrian Atkins MR#: [id number] : 1955 Acct:[id number] Age/Sex: 68 / M ADM Date: 09/14/24 Loc: HO.CT Attending Dr: Abdifatah Bunch MD Ordering Physician: Abdifatah Bunch MD Date of Service: 09/14/24 Procedure(s): CT keri st wo IV con Accession Number(s): [id number] cc: Abdifatah Bunch MD Report Number: [id number]: Total DLP = 179.00 mGy-cm CLINICAL HISTORY: [...] MD in OV> 09/14/24 0951 DD/ TD/TT: 09/14/24 0950 Selling Underwriter: Glucose, Whole Blood Reviewed date:03/22/2025 01:14:03 PM Interpretation: Performing Lab:[facility], [address] [place] [address] Notes/Report: Glucose, Whole Blood 128 60-115 mg/dL METER # : [id number] Glucose, Whole Blood Reviewed date:04/05/2025 12:23:08 PM Interpretation: Performing Lab:[facility], [address] [place] [address] Notes/Report: Glucose, Whole Blood 130 60-115 mg/dL METER # : [id number] Warren Galvan Reviewed date:05/10/2025 10:53:28 AM Interpretation: Performing Lab:[facility], [address] [facility], [place] [address] Notes/Report: Warren Galvan See Note Specimen held untested for 24 hours; Call to request Chemistry testing. Reason For Referral Reason upper back pain [...] 40 MG take 1 capsule by [facility] every day Orally Once a day [...] a day for 10 days 03/23/2016 Not-Taking Drynbfndvf-RMK-Dkbsobfw 50-325-40 MG 1 capsule as needed Orally [...] MG take 1 capsule by mo [facility] three times daily Orally 3 times per day for 90 days Active Celecoxib 200 MG take 1 capsule by mo [facility] every day with food Orally Once [...] 02/12/2012 Administered Flu Vaccine Unknown 04/23/2012 Administered [facility] PPSV23 (Pnemovax) IM Intramuscular 03/03/2013 Administered Flu Vaccine IM Intramuscular 05/28/2013 Administered [facility] Flu Vaccine Unknown 05/21/2013 Administered [...] Administered pt was given the vaccine at [facility]. Shingrix Unknown 01/17/2018 Administered pt was given first dose at [facility]. Shingrix IM Intramuscular 07/31/2018 Administered pt was the vaccine at [facility]. Fluarix Quadrivalent IM Intramuscular 05/01/2019 Administered Influenza High Dose IM Intramuscular 04/22/2020 Administer ed Covid Vaccine Unknown 2020 Administered [facility] Influenza High Dose IM Intramuscular 05/16/2021 Administer ed SARS-COV-2 Moderna Unknown 06/19/2021 Administered Fluarix Quadrivalent IM Intramuscular 05/09/2023 Administered Fluarix Quadrivalent - 150 IM Intramuscular 05/08/2024 Administered Fluarix Quadrivalent - 150 IM Intramuscular 05/10/2025 Administered Flu Vaccine Unknown 04/20/2014 Pending Social [...] Problem Status W/U Status Risk Notes Problem 305983487 Acute diverticul itis (K57.92) Active confirmed Problem 940321980 Dupuytren contra cture (M72.0) Active confirmed Problem 56390962 Type 2 diabetes mellitus with diabetic polyneuropathy (E11.42) Active confirmed Problem Sciatica (88962904) Lumbago with sciatica, left side (M54.42) Active confirmed Problem 121213521 Gastroesophageal reflux disease without esophagitis (K21.9) Active confirmed Problem 349518362 Rosacea (L71.9) Active confirmed Problem 352107532 Environmental allergies (Z91.09) Active confirmed Problem 974884144 Esophageal dysmo tility (K22.4) Active confirmed Problem 96046431 Atherosclerosis (I70.90) Active confirmed Problem 754871789 Pure hypercholesterolemia (E78.00) Active confirmed Problem 10447043 Seasonal allergi c rhinitis due to pollen (J30.1) Active confirmed Problem 60643086 Irritable bowel syndrome with both constipation and diarrhea (K58.2) Active confirmed Problem 481775179 Arthritis of kne e (M17.10) Active confirmed Problem 425799222 Stented coronary artery (Z95.5) Active confirmed Problem Gout (86273255) Acute gout invol ving toe of right foot, unspecified cause (M10.9) Active confirmed Problem 56277919420847165 Abnormal chest CT (R93.89) Active confirmed Problem 49186996 Non-seasonal all ergic rhinitis, unspecified trigger (J30.89) Active confirmed Problem 64469937 Kidney stone on right side (N20.0) Active confirmed Problem 791138416 Notalgia paresth etica (R20.2) Active confirmed Problem 681889858 CAD, multiple ve ssel (I25.10) Active confirmed Problem 17607983 Arteriosclerotic coronary artery disease (I25.10) Active confirmed Problem 981265888 Active asthma (J45.909) Active confirmed Problem 91702977 Purulent bronchi tis (J41.1) Active confirmed Vital Signs Blood pressure diastolic 70 mm Hg 03/09/2025 isable ght is down 14 pounds since 01-21-25 [...] Location Date Provider Diagnosis Abdifatah Bunch MD [address] [place] [id number] 11/05/2024 Abdifatah Bunch Type 2 diabetes noah itus with diabetic polyneuropathy E11.42 and Pure hypercholesterolemia E78.00 Abdifata[address] B[address] MD [address] [place] [id number] 05/10/2025 Abdifatah Bunch Type 2 diabetes noah itus with diabetic polyneuropathy E11.42 ; Pure hypercholesterolemia E78.00 and Encounter for administration of vaccine Z23 Abdifatah Bunch MD [address] [place] [address] Drive [address] [place] [id number] 05/19/2024 Abdifatah Bunch Type 2 diabetes noah itus with diabetic polyneuropathy E11.42 ; Arteriosclerotic coronary artery disease I25.10 ; Shortness of breath on exertion R06.02 and Pure hypercholesterolemia E78.00 Abdifatah Bunch MD [address] [place] [id number] 07/27/2024 Abdifatah Bunch Upper back pain M54. 9 ; Acute diverticulitis K57.92 ; Gastroesophageal reflux disease without esophagitis K21.9 and Type 2 diabetes mellitus with diabetic polyneuropathy E11.42 Abdifatah Bunch MD [address] [place] [id number] 09/17/2024 Abdifatah Bunch Environmental allerg ies Z91.[address] R93.89 Abdifatah Bunch MD [address] [place] [id number] 11/12/2024 Abdifatah Bunch Lumbar back pain M54 .50 ; Type 2 diabetes mellitus with diabetic polyneuropathy E11.42 ; Arteriosclerotic coronary artery disease I25.10 ; Pure hypercholesterolemia E78.00 and Esophageal dysmotility K22.4 Abdifatah Bunch MD [address] [place] [id number] 01/21/2025 Abdifatah Bunch Bronchitis J40 Abdifatah Bunch MD [address] [place] [id number] 03/09/2025 Abdifatah Bunch Type 2 diabetes noah itus with diabetic polyneuropathy E11.42 ; Arteriosclerotic coronary artery disease I25.10 ; Active asthma J45.909 ; Back pain M54.9 and Preop examination Z01.818 Abdifatah Bunch MD [address] [place] [id number] 07/20/2024 Abdifatah Bunch MD [address] [place] [address] [id number] 07/23/2024 Abdifatah Bunch MD [address] [place] [id number] 08/04/2024 Abdifatah Bunch Assessments Encounter Date Diagnosis (ICD Code) Assessment Notes Treatment Notes Treatment Clinical Notes Section Notes 11/05/2024 Type 2 diabetes mellitus with diabetic polyneuropathy (ICD-10 - E11.42) 05/10/2025 Type 2 diabetes mellitus with diabetic polyneuropathy (ICD-10 - E11.42) 05/10/2025 Pure hypercholesterolemia (ICD-10 - E78.00) 05/19/2024 Type 2 diabetes mellitus with diabetic [...] (ICD-10 - I25.10) followed by dr smith 11/05/2024 Pure hypercholesterolemia (ICD-10 - E78.00) 05/10/2025 Encounter for administration of vaccine (ICD-10 - Z23) 05/19/2024 Shortness of breath on exertion (ICD-10 [...] 10/03/2023 Next Appt Details Provider Name:Abdifatah darnell, 05/17/2025 09:00:00 AM, [address] [place] [address], [address], [phone], Provider Name:Abdifatah darnell, 11/05/2025 07:15:00 AM, [address] [place] [address], [place] [address], [place], [place], [phone], Provider Name:Abdifatah darnell, 11/15/2025 09:30:00 AM, [address] [place] [address], [place] [address], [place], [place], [phone], Insurance Providers Payer Name Payer Address Payer Phone Subscriber Number Group Number Insured Name Patient Relationship to Insured Coverage Start Date Coverage End Date [employer] [address] [place] [address] [id number] Adrian Galicia Self - patient is the insured [employer] [place] [address] [place] [address] [phone] [id number] Rogelio peralta Adrian Self - patient is the insured Medical [...]
== END 2025-05-10 08:16 | disposition home or self-care (01) ==
LOC: HO.LNP 08:15
PROVIDERS: Visit Provider Internal Medicine
DX: E11.42 Type 2 diabetes mellitus with diabetic polyneuropathy (principal); E78.00 Pure hypercholesterolemia, unspecified
CPT/HCPCS: 80061; 80076; 82947; 83036